=== PATIENT | female | born 2005 | race Caucasian/White ===

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

== ENCOUNTER 2025-04-06 19:00 | Outpatient (CLI) | payer BC, SELFPAY ==
[2025-04-06 19:23] VITALS: RESP 14; TEMP 36.9
[2025-04-06 19:24] VITALS: PULSE 83; O2SAT 97
[2025-04-06 19:29] VITALS: BMI 26.9
[2025-04-06 19:34] VITALS: BP 119/58; PULSE 76
[2025-04-06 19:36] LABS: Mucous, Urine 0 SEEN /hpf (<or=2+)
[2025-04-06 20:06] LABS: Color, Urine Straw (Yellow); Glucose, Dipstick Normal (Normal); Ketone-Dipstick Negative (Negative); Leukocyte Esterase-Dipstick Negative /ul (Negative); Nitrite-Dipstick Negative (Negative); Occult Blood-Urine 10 /ul (Negative); Protein-Dipstick 15 mg/dl (Negative); Specific Gravity, Urine 1.020 (1.002-1.030); Urine Bilirubin Dipstick Negative (Negative)
[2025-04-06 20:24] LABS: Red Blood Cells-Urine 0-5 SEEN /hpf (0-5); Squamous Epithelial Cells - UA 0-5 SEEN /hpf (5-10)
--- NOTE | 2025-04-06 20:32 | OB.TRI.NOTE ---
HPI - General General Date of Service: 04/06/25 HPI Narrative ABBE DIA, is a 19 F @ 25.6 weeks who presents with UTI symtpoms - burning with urination, lower abdominal cramping - symptoms have persisted x 2 days. denies Back pain or fevers. has h/o UTI in . PFSH PFSH Medical History Drug abuse Home Medications ?Medication ?Instructions ?Recorded ?Last Taken ?Type vit no.95-ferrous 1 tab PO DAILY pregnanc 04/06/25 04/05/25 History fumarate 28 mg-folic acid 800 mcg tablet () Allergy/AdvReac Type Severity Reaction Status Date / Time cucumber Allergy Hives Verified 04/06/25 19:30 Family History Father Alcoholism Anxiety Mother Anxiety Grandmother Arthritis Diabetes Myocardial infarction Heart disease High cholesterol Grandfather Arthritis Hypertension High cholesterol Uncle defect Social History Smoking Status: Current every day smoker tobacco type: e-cigarettes substance use type: former substance user Physical Exam Narrative Abd: gravid, non tender. Back> no CVA tenderness Const alert and oriented x3 NST FHR Rate Baby A Baseline: 145 Variability:: Moderate Accelerations:: 10 x 10 Decelerations:: None NST Reactive:: Yes FHR Category:: Category I Uterine Activity:: no ctx Assessment & Plan (1) UTI in : PLAN: Plan @ 25.6 weeks - UTI in Macrobid 100mg BID x 7 days- will give first dose here When to return to office or L&D d/w patient Increase PO fluids will send urine for culture.
== END 2025-04-06 20:35 | disposition home or self-care (01) ==
LOC: WPOUT 19:07 → WP 19:07
PROVIDERS: Referring Provider Obstetrics & Gynecology; Visit Provider Obstetrics & Gynecology
DX: O23.42 Unspecified infection of urinary tract in pregnancy, second trimester (principal); O99.332 Smoking (tobacco) complicating pregnancy, second trimester; F17.290 Nicotine dependence, other tobacco product, uncomplicated; Z87.440 Personal history of urinary (tract) infections; Z3A.25 25 weeks gestation of pregnancy
CPT/HCPCS: 59050; 81001; 87086; 87088; 99221; G0378

== ENCOUNTER 2025-06-29 20:02 | Outpatient (CLI) | payer BC, SELFPAY ==
--- OUTSIDE RECORDS SUMMARY | 2025-06-29 20:08 | XMS RPT_ITS | CCD ---
Author Organization [facility] CliniSynv Care Team Providers Care Supervisor Film Processing Name Role Phone CHANELL BRANTLEY Obdulia Unavailable Unavailable *SELF, REFERRED Unavailable Unavailable UNKNOWN, PCP Unavailable Unavailable Anne PA-C, Wendi Primary Care Provider Anne PA-C, Wendi Primary Care Provider Anne PA-C, Wedni Primary Care Provider Anne, PA Wendi Primary Care Provider Anne, PA Wendi Referring Provider SILVIA Ruth Attending Provider Anne PA-C, Wendi Primary Care Provider Anne, Wendi Primary Care Unavailable Smiley Sánchez Attending Unavailable Smiley Sánchez Referring Unavailable Anne, Wendi Primary Care Unavailable Bela Doe Attending Unavailable Elizabeth Mina Attending Unavailable Anne, Wendi Primary Care Unavailable Anne, Wendi Referring Unavailable Aurora Hutchison Attending Unavailable Anne, Wendi Primary Care Unavailable Elizabeth Mina Attending Unavailable Anne, Wendi Primary Care Unavailable Anne, Wendi Referring Unavailable Netenishat-Nikki Tucker Attending Unavail able Nesherice-Nikki Tucker Referring Unavail able Anne, Wendi Primary Care Unavailable Elizabeth Mina Attending Unavailable Elizabeth Mina Referring Unavailable Anne, Wendi Primary Care Unavailable Elizabeth Mina Attending Unavailable Elizabeth Mina Referring Unavailable Anne, Wendi Primary Care Unavailable WANDA MORALES Attending Unavailable ANNE, WENDI Primary Care Unavailable ANNE, WENDI Primary Care Unavailable GRETEL SÁNCHEZ Attending Unavailable WANDA MORALES Attending Unavailable ANNE, WENDI Primary Care Unavailable WANDA MORALES Referring Unavailable ANNE, WENDI Primary Care Unavailable WANDA MORALES Referring Unavailable ANNE, WENDI Primary Care Unavailable ANNE, WENDI Attending Unavailable ANNE, WENDI Primary Care Unavailable ANNE, WENDI Primary Care Unavailable SMILEY SÁNCHEZ Attending Unavailable ANNE, WENDI Primary Care Unavailable NIKKI ORTEGA Attending Unavail able ANNE, WENDI Primary Care Unavailable FRANDYT NIKKI TUCKER Attending Unavail able SELF Referring Unavailable ANNE, WENDI Primary Care Unavailable HAURY, LUIS Referring Unavailable ANNE, WENDI Primary Care Unavailable DEYSI SETH Attending Unavailable HAURY, LUIS Referring Unavailable ANNE, WENDI Primary Care Unavailable ANNE, WENDI Primary Care Unavailable ELLEN FOSTER Attending Unavailable HAURY, LUIS Referring Unavailable ANNE, WENDI Primary Care Unavailable SMILEY SÁNCHEZ Attending Unavailable ANNE, WENDI Primary Care Unavailable HAURY, LUIS Attending Unavailable SELF Referring Unavailable ANNE, WENDI Primary Care Unavailable HAURY, LUIS Referring Unavailable ANNE, WENDI Primary Care Unavailable Allergies Allergy Classification Reported Allergen(s) Allergy Type Date of Onset Reaction(s) Facility (20 sources) Seasonal allergy; Translations: [SEASONAL ALLERGIES] Propensity to adverse reactions 9 Other: See Comments [facility] (20 sources) [place] extract; Translations: [CUCUMBER] Drug Allergy 3 [facility] (1 source) [place] extract Drug Allergy 5 [facility] Repository Medications Current Medications Medication Drug Class(es) Dates Sig (Normalized) Sig (Original) amoxicillin 500 mg oral capsule (2 sources) Penicillin-class Antibacterial Start: 05-25-2024 End: 06-04-2024 take 1 capsule by mouth twice daily amoxicillin (AMOXIL) 500 mg capsule Indications: Strep throat Take 1 capsule by mouth two times a day for 10 days. 20 capsule 05/25/2024 06/04/2024 Active Start: 06-21-2022 End: 07-01-2022 take 1 capsule by mouth twice daily amoxicillin (POLYMOX, AMOXIL) 500 mg capsule Take 1 capsule by mouth twice daily for 10 days. 20 capsule 0 06/21/2022 07/01/2022 Active Comment on above: [facility]. azithromycin 500 mg oral tablet (3 sources) Macrolide Antimicrobial Start: take 1000 mg by mouth once Azithromycin Active 1000 MG PO ONCE 2 April 29, 2023 2:07pm Start: 04-29-2023 End: 04-29-2023 take 500 mg by mouth once Azithromycin Discontinued 50 0 MG PO ONCE 2 April 29, 2023 12:00am April 29, 2023 2:07pm Start: 05-05-2021 End: 05-10-2021 azithromycin (ZITHROMAX Z-PA K) 250 mg tablet Take 2 tablets day one, then, 1 tablet daily until gone. 6 tablet 05/05/2021 05/10/2021 dicyclomine hydrochloride 20 mg oral tablet (1 source) Anticholinergic Start: 10-22-2022 End: 10-29-2022 take 1 tablet by mouth three times daily dicyclomine (BENTYL) 20 mg tablet Take 1 tablet by mouth three times daily for 7 days. 21 tablet 0 10/22/2022 10/29/2022 Active Comment on above: Take 1 tablet by [facility] three times daily for 7 days. doxycycline monohydrate 100 mg oral capsule (3 sources) Tetracycline-class Drug Start: 04-01-2023 End: 04-08-2023 take 1 capsule by mouth twice daily doxycycline monohydrate (MONODOX) 100 mg capsule Take 1 capsule by mouth twice daily for 7 days. 14 capsule 0 04/01/2023 04/08/2023 Active Comment on above: [facility] daily for 7 days. fluconazole 150 mg oral tablet (2 sources) Azole Antifungal Start: 04-02-2023 End: 04-02-2023 fluconazole (DIFLUCAN) 150 mg tablet Take 1 tablet by mouth one time only for 1 dose. Repeat in 3 days as needed. 2 tablet 0 04/02/2023 04/02/2023 Active Start: 12-08-2022 End: 12-08-2022 fluconazole (DIFLUCAN) 150 m g tablet Take 1 tablet by mouth one time only for 1 dose. Repeat in 3 days as needed. 2 tablet 0 12/08/2022 12/08/2022 Comment on above: Take 1 tablet by [facility] one time only for 1 dose. Repeat in 3 days as needed. metroNIDAZOLE 500 mg oral tablet (8 sources) Nitroimidazole Antimicrobial Start: 05-04-20 End: 05-11-20 take 1 tablet by mouth twice daily metroNIDAZOLE (FLAGYL) 500 mg tablet Take 1 tablet by mouth two times a day for 7 days. 14 tablet 05/04/2024 05/11/2024 Active Start: 04-01-2023 End: 04-08-2023 take 1 tablet by mouth twice daily metroNIDAZOLE (FLAGYL) 500 mg tablet Take 1 tablet by mouth twice daily for 7 days. 14 tablet 0 04/01/2023 04/08/2023 Active Start: 12-08-2022 End: 12-15-2022 take 1 tablet by mouth twice daily metroNIDAZOLE (FLAGYL) 500 mg tablet Take 1 tablet by mouth twice daily for 7 days. 14 tablet 0 12/08/2022 12/15/2022 Active Start: 09-16-2022 End: 09-23-2022 take 1 tablet by mouth twice daily metroNIDAZOLE (FLAGYL) 500 mg tablet Indications: BV (bacterial vaginosis) Take 1 tablet by mouth twice daily for 7 days. 14 tablet 0 09/16/2022 09/23/2022 Active Comment on above: Take 1 tablet by [facility] twice daily for 7 days. nitrofurantoin, macrocrystals 25 mg / nitrofurantoin, monohydrate 75 mg oral capsule (5 sources) Nitrofuran Antibacterial Start: 04-06-20 End: 04-13-20 take 1 capsule by mouth twice daily nitrofurantoin monohydrate and macrocrystal (MACROBID) 100 mg capsule Take 1 capsule by mouth two times a day for 7 days. 14 capsule 04/06/2025 04/13/2025 Active Start: 05-03-2024 End: 05-08-2024 take 1 capsule by mouth twice daily nitrofurantoin monohydrate and macrocrystal (MACROBID) 100 mg capsule Take 1 capsule by mouth two times a day for 5 days. 10 capsule 05/03/2024 05/08/2024 Active predniSONE 10 mg oral tablet (1 source) Start: 07-04-2022 End: 07-13-2022 predniSONE (DELTASONE) 10 mg tablet Indications: Sore throat Take 4 tabs daily for 3 days, then 2 tabs daily for 3 days, then 1 tab daily for 3 days with food. 21 tablet 0 07/04/2022 07/13/2022 Active Comment on above: Take 4 tabs daily fo r 3 days, then 2 tabs daily for 3 days, then 1 tab daily for 3 days with food. [id number] FUM,[id number] ORAL (15 sources) [id number] FUM,[id number] ORAL Take by mouth. Active Completed/Discontinued Medications Medication Drug Class(es) Dates Sig (Normalized) Sig (Original) [id number] 200 actuat albuterol 0.09 mg/actuat metered dose inhaler (1 source) beta2-Adrenergic Agonist Start: 05-05-2021 End: 01-12-2022 take 2 puff(s) by inhalation every six hours as needed albuterol HFA (PROAIR HFA) 90 mcg/actuation inhaler Inhale 2 Puffs as instructed every 6 hours as needed. 1 Each 05/05/2021 01/12/2022 Discontinued aspirin 81 mg delayed release oral tablet (8 sources) Platelet Aggregation Inhibitor, Nonsteroidal Anti-inflammatory Drug Start: 12-13-2024 End: 02-11-2025 take 1 tablet by mouth once daily aspirin, enteric coated (ECOTRIN LOW STRENGTH) 81 mg EC tablet Indications: with uncertain dates in first trimester (HCC) Take 1 tablet by mouth once daily. 90 tablet 3 12/13/2024 02/11/2025 Discontinued (Course of therapy completed) brompheniramine maleate 0.4 mg/ml / dextromethorphan hydrobromide 2 mg/ml / pseudoephedrine hydrochloride 6 mg/ml oral solution (2 sources) alpha-Adrenergic Agonist, Uncompetitive F-vydsgt-T-aspartat e Receptor Antagonist, Sigma-1 Agonist Start: 01-09-2022 End: 05-08-2022 take 10 mL by mouth every four to six hours Brompheniramine-P seudoeph-DM 2-30-10 mg/5 mL syrup TAKE 10 ML BY MOUTH EVERY 4 TO 6 HOURS FOR 5 DAYS 0 01/09/2022 05/08/2022 Discontinued Comment on above: TAKE 10 ML BY MOUTH EVERY 4 TO 6 HOURS FOR 5 DAYS busPIRone hydrochloride 10 mg oral tablet (1 source) Start: 06-05-2023 End: 01-28-2024 take 1 tablet by mouth three times daily busPIRone (BUSPAR) 10 mg tablet Indications: Generalized anxiety disorder Take 1 tablet by mouth three times a day. 90 tablet 1 06/05/2023 01/28/2024 Discontinued cephalexin 500 mg oral capsule (2 sources) Cephalosporin Antibacterial Start: 02-14-2025 End: 02-21-2025 take 1 capsule by mouth twice daily cephALEXin (KEFLEX) 500 mg capsule Indications: Acute UTI Take 1 capsule by mouth two times a day for 7 days. 14 capsule 02/14/2025 02/21/2025 doxylamine succinate 25 mg oral tablet (12 sources) Start: 11-25-2024 End: 03-18-2025 take 1 tablet by mouth once daily at bedtime doxylamine (UNISOM, DOXYLAMINE,) 25 mg tab Take 1 tablet by mouth daily at bedtime. 32 tablet 1 11/25/2024 03/18/2025 Discontinued escitalopram 10 mg oral tablet (7 sources) Serotonin Reuptake Inhibitor Start: 09-13-2022 End: 10-10-2022 take 1 tablet by mouth once daily escitalopram oxalate (LEXAPRO) 10 mg tablet Take 1 tablet by mouth once daily. 7 tablet 0 10/09/2022 10/10/2022 Discontinued End: 09-13-2022 take 5 mg by mouth once daily, then take 5 mg by mouth once daily escitalopram oxalate (LEXAPRO) 10 mg tablet Take 5 mg by mouth once daily. Take 5 mg tablet once daily 0 09/13/2022 Discontinued Comment on above: Take 1 tablet by [facility] once daily. Take 5 mg by mouth o nce daily. Take 5 mg tablet once daily FLUoxetine 20 mg oral capsule (7 sources) Serotonin Reuptake Inhibitor Start: 06-26-2022 End: 12-20-2022 Fluoxetine Discontinued 20 MG DAILY August 11, 2022 1:00am December 20, 2022 2:46pm Start: 06-05-2022 take 1 capsule by mo [facility] once daily FLUoxetine (PROZAC) 10 mg capsule Take 1 capsule by mouth once daily. 30 capsule 0 06/05/2022 Active Comment on above: Take 1 capsule by mo [facility] once daily. hydrOXYzine hydrochloride 50 mg oral tablet (11 sources) Antihistamine Start: 12-21-19 End: 04-25-20 take 50 mg by mouth twice daily Hydroxyzine Hcl Discontinued 50 MG PO TWICE A DAY December 20, 2022 12:00am April 25, 2023 12:03pm Start: 12-19-2022 End: 04-02-2023 take 1 tablet by mouth three times daily as needed for anxiety hydrOXYzine HCl (ATARAX) 50 mg tablet Indications: Severe episode of recurrent major depressive disorder, without psychotic features (HCC) , Generalized anxiety disorder Take 1 tablet by mouth three times daily as needed for anxiety. 90 tablet 1 12/19/2022 04/02/2023 Discontinued Start: 10-10-2022 End: 11-07-2022 take 1 tablet by mouth three times daily as needed for anxiety hydrOXYzine HCl (ATARAX) 25 mg tablet Indications: Severe episode of recurrent major depressive disorder, without psychotic features (HCC) , Generalized anxiety disorder Take 1 tablet by mouth three times daily as needed for anxiety. 90 tablet 0 11/07/2022 Active Comment on above: [facility] for anxiety. Iron Carbonyl (9 sources) End: 12-13-2024 iron,carbonyl (IRON CHEWS ORAL) Take by mouth once daily. 12/13/2024 Discontinued iron,carbonyl (I LG CHEWS ORAL) Take by mouth once daily. Active iron,carbonyl (I LG CHEWS ORAL) Take by mouth once daily. 0 Active lidocaine hydrochloride 20 mg/ml mucous membrane topical solution (4 sources) Antiarrhythmic, Amide Local Anesthetic Start: 07-04-2022 End: 09-13-2022 LIDOCAINE VISCOUS 2 % solution Indications: Sore throat Take 5-10 mL by mouth three times daily as needed. 100 mL 2 07/04/2022 09/13/2022 Discontinued Comment on above: Take 5-10 mL by mout h three times daily as needed. miconazole nitrate 200 mg vaginal insert (1 source) Azole Antifungal Start: 02-15-2025 End: 02-18-2025 miconazole nitrate (MONISTAT) 200 mg vaginal suppository Use 1 suppository vaginally daily at bedtime for 3 days. 3 suppository 02/15/2025 02/18/2025 ondansetron 4 mg oral tablet (20 sources) Serotonin-3 Receptor Antagonist Start: 11-25-2024 End: 03-18-2025 take 1 tablet by mouth every eight hours as needed ondansetron (ZOFRAN) 4 mg tablet Take 1 tablet by mouth every 8 hours as needed for nausea/vomiting. 60 tablet 1 11/25/2024 03/18/2025 Discontinued Start: 10-22-2022 End: 04-02-2023 take 1 tablet by mouth every eight hours as needed ondansetron orally disintegrating (ZOFRAN ODT) 4 mg disintegrating tablet Take 1 tablet by mouth every 8 hours as needed. 12 tablet 0 10/22/2022 04/02/2023 Discontinued Comment on above: Take 1 tablet by [facility] every 8 hours as needed. sertraline 25 mg oral tablet (2 sources) Serotonin Reuptake Inhibitor Start: 05-08-20 sertraline (ZOLOFT) 25 mg tablet Take 1/2 tablet once daily x 7 days, then 1 tablet once daily 30 tablet 0 05/08/2022 Active Comment on above: Take 1/2 tablet once daily x 7 days, then 1 tablet once daily 24 hr venlafaxine 37.5 mg extended release oral capsule (13 sources) Serotonin and Norepinephrine Reuptake Inhibitor Start: 06-05-20 End: 01-28-20 take 1 capsule by mouth once daily, then take 2 capsules by mouth once daily venlafaxine ER (EFFEXOR XR) 37.5 mg 24 hr capsule Indications: Severe episode of recurrent major depressive disorder, without psychotic features (HCC) , Generalized anxiety disorder Take 1 capsule by mouth once daily for 14 days, THEN 2 capsules once daily. 60 capsule 1 06/05/2023 01/28/2024 Discontinued Start: 12-19-2022 End: 04-25-2023 take 1 capsule by mouth once daily Venlafaxine (Effexor Xr) 75 mg capsule,extended release 24hr Discontinued MG PO DAILY December 20, 2022 12:00am April 25, 2023 12:03pm Start: 11-07-2022 take 1 capsule by mo [facility] once daily venlafaxine ER (EFFEXOR XR) 75 mg 24 hr capsule Indications: Severe episode of recurrent major depressive disorder, without psychotic features (HCC) , Generalized anxiety disorder Take 1 capsule by mouth once daily. 30 capsule 1 11/07/2022 Active Start: 10-10-2022 End: 11-07-2022 take 1 capsule by mouth once daily venlafaxine ER (EFFEXOR XR) 37.5 mg 24 hr capsule Indications: Severe episode of recurrent major depressive disorder, without psychotic features (HCC) , Generalized anxiety disorder Take 1 capsule by mouth once daily. 30 capsule 0 10/10/2022 11/07/2022 Discontinued Comment on above: Take 1 capsule by mo [facility] once daily. vitamin b6 50 mg oral tablet (8 sources) Start: 11-25-2024 End: 02-11-2025 take 1 tablet by mouth twice daily pyridoxine, vitamin B6, (VITAMIN B-6) 50 mg tablet Take 1 tablet by mouth two times a day. 100 tablet 2 11/25/2024 02/11/2025 Discontinued (Course of therapy completed) Problems Active Problems Problem Classification Problem Date Documented Da te Episodic/Chronic Abdominal pain (5 sources) Finding of sensation of abdomen; Translations: [Unspecified abdominal pain] Onset: 04-06-2025 Episodic Anxiety disorders (20 sources) Severe anxiety (panic); Translations: [Anxiety disorder, unspecified] Onset: 05-08-2022 Chronic Bacterial infection; unspecified site (1 source) Chlamydial infection; Translations: [Chlamydial infection, unspecified] 04-29-2023 Episodic Cardiac dysrhythmias (2 sources) Palpitations; Translations: [Palpitations] 02-02-2024 Episodic Conditions associated with dizziness or vertigo (3 sources) Dizziness; Translations: [Dizziness and giddiness] 01-28-2024 Episodic Diabetes or abnormal glucose tolerance complicating ; childbirth; or the puerperium (1 source) Abnormal glucose complicating ; Translations: [Abnormal glucose complicating (HCC)] Onset: 04-29-2025 Episodic E Codes: Natural/environment (2 sources) Dog bite - wound; Translations: [Bitten by dog, initial encounter] 06-14-2021 Episodic Genitourinary symptoms and ill-defined conditions (8 sources) Dysuria; Translations: [Dysuria] Onset: 04-06-2025 3 Episodic Inflammatory diseases of female pelvic organs (1 source) Bacterial vaginosis; Translations: [Acute vaginitis] Episodic Malaise and fatigue (1 source) Malaise and fatigue; Translations: [Other malaise] Episodic Menstrual disorders (1 source) Irregular menstruation, unspecified; Translations: [Irregular menstruation, unspecified] Onset: 10-06-2024 Chronic Mood disorders (20 sources) Major depressive disorder; Translations: [Major depressive disorder, single episode, unspecified] Onset: 05-08-2022 Chronic Mood disorders (1 source) Mood disorders; Translations: [Depression, unspecified] Onset: 08-25-2024 Mycoses (1 source) Candidiasis of vagina; Translations: [Vaginal candidiasis] 02-15-2025 Episodic Other complications of (17 sources) High risk ; Translations: [Supervision of high risk , unspecified, first trimester] Onset: 12-13-2024 12-13-2024 Episodic Other complications of (1 source) Supervision of high risk , unspecified, third trimester; Translations: [Supervision of high risk in third trimester (HCC)] Onset: 05-13-2025 Episodic Other complications of (1 source) Supervision of high risk , unspecified, second trimester; Translations: [Supervision of high risk in second trimester (HCC)] Onset: 03-18-2025 Episodic Other diseases of bladder and urethra (1 source) Urethritis; Translations: [Other specified disorders of urethra] 02-14-2025 Episodic Other female genital disorders (1 source) Pruritus of vagina; Translations: [Other specified noninflammatory disorders of vagina] Episodic Other female genital disorders (2 sources) Vaginal discharge; Translations: [Other specified noninflammatory disorders of vagina] Episodic Other female genital disorders (1 source) Vaginal discomfort; Translations: [Unspecified condition associated with female genital organs and menstrual cycle] 05-03-2024 Episodic Other female genital disorders (1 source) Other specified conditions associated with female genital organs and menstrual cycle; Translations: [Vaginal burning] Onset: 05-13-2025 Episodic Other gastrointestinal disorders (1 source) Constipation alternates with diarrhea; Translations: [Other specified symptoms and signs involving the digestive system and abdomen] Episodic Other lower respiratory disease (1 source) Cough; Translations: [Cough] 05-07-2021 Episodic Other screening for suspected conditions (not mental disorders or infectious disease) (4 sources) Raised TSH level; Translations: [Other specified abnormal findings of blood chemistry] Onset: 03-18-2025 Episodic Other upper respiratory infections (6 sources) Sore throat symptom; Translations: [Acute pharyngitis, unspecified] Episodic Residual codes; unclassified (1 source) Gestation period, 9 weeks; Translations: [9 weeks gestation of ] 12-13-2024 Episodic Residual codes; unclassified (1 source) Gestation period, 13 weeks; Translations: [13 weeks gestation of ] 01-12-2025 Episodic Residual codes; unclassified (1 source) Gestation period, 18 weeks; Translations: [18 weeks gestation of ] 02-11-2025 Episodic Residual codes; unclassified (1 source) Gestation period, 23 weeks; Translations: [23 weeks gestation of ] 03-18-2025 Episodic Residual codes; unclassified (1 source) Gestation period, 27 weeks; Translations: [27 weeks gestation of ] 04-15-2025 Episodic Residual codes; unclassified (1 source) 35 weeks gestation of ; Translations: [35 weeks gestation of (HCC)] Onset: 06-14-2025 Episodic Residual codes; unclassified (1 source) 31 weeks gestation of ; Translations: [31 weeks gestation of (HCC)] Onset: 05-13-2025 Episodic Residual codes; unclassified (1 source) 27 weeks gestation of ; Translations: [27 weeks gestation of (HCC)] Onset: 04-15-2025 Episodic Residual codes; unclassified (1 source) 23 weeks gestation of ; Translations: [23 weeks gestation of (HCC)] Onset: 03-18-2025 Episodic Substance-related disorders (20 sources) Psychoactive substance abuse; Translations: [Other stimulant abuse, uncomplicated] Onset: 10-10-2022 Chronic Suicide and intentional self-inflicted injury (3 sources) Suicidal thoughts; Translations: [Suicidal ideations] 08-20-2022 Episodic Syncope (3 sources) Syncope; Translations: [Syncope and collapse] 01-28-2024 Episodic Unclassified (1 source) NO SHOW 03-20-2023 Unclassified (15 sources) [facility] Education - COMMON Onset: 12-13-2024 12-13-2024 Unclassified (15 sources) Education - [place] Onset: 12-13-2024 12-13-2024 Unclassified (1 source) History of suicide attempt; Translations: [History of suicide attempt] Onset: 12-13-2024 Unclassified (1 source) Financial insecurity; Translations: [Financial insecurity] Onset: 12-13-2024 Unclassified (1 source) History of drug use; Translations: [History of drug use] Onset: 12-13-2024 Past or Other Problems Problem Classification Problem Date Documented Da te Episodic/Chronic Administrative/social admission (20 sources) Inadequate material resources; Translations: [Financial insecurity] Onset: 12-13-2024 12-13-2024 Episodic Hemorrhage during ; abruptio placenta; placenta previa (3 sources) Antepartum hemorrhage, unspecified, unspecified trimester; Translations: [Threatened ] Onset: 11-25-2024 Episodic Immunizations and screening for infectious disease (10 sources) Requires rabies vaccination course; Translations: [Encounter for immunization] Onset: 09-14-2024 Episodic Other complications of (17 sources) Vomiting of , unspecified; Translations: [Unspecified vomiting of , unspecified as to episode of care or not applicable] Onset: 12-13-2024 12-13-2024 Episodic Other complications of (18 sources) Smoking (tobacco) complicating , unspecified trimester; Translations: [Tobacco use disorder complicating , childbirth, or the puerperium, unspecified as to episode of care or not applicable] Onset: 12-13-2024 12-13-2024 Episodic Other complications of (19 sources) Other mental disorders complicating , unspecified trimester; Translations: [Mental disorders of mother, antepartum condition or complication] Onset: 12-13-2024 12-13-2024 Episodic Other complications of (17 sources) Diseases of the digestive system complicating , first trimester; Translations: [Other current conditions classifiable elsewhere of mother, antepartum condition or complication] Onset: 12-13-2024 12-13-2024 Episodic Other complications of (15 sources) Complication occurring during ; Translations: [ complication before ] Onset: 12-13-2024 12-13-2024 Episodic Other complications of (1 source) Supervision of high risk , unspecified, first trimester; Translations: [Encounter for supervision of high risk in first trimester, antepartum (HCC)] Onset: 12-13-2024 Episodic Other congenital anomalies (20 sources) Congenital vascular nevus; 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)] Onset: 12-13-2024 Episodic Other and delivery including normal (6 sources) with uncertain dates; Translations: [Encounter for supervision of normal , unspecified, first trimester] Onset: 02-11-2025 12-13-2024 Episodic Residual codes; unclassified (1 source) 18 weeks gestation of ; Translations: [18 weeks gestation of ([facility])] Onset: 02-11-2025 Episodic Residual codes; unclassified (1 source) 9 weeks gestation of ; Translations: [9 weeks gestation of ([facility])] Onset: 12-13-2024 Episodic Screening and history of mental health and substance abuse codes (20 sources) History of post-traumatic stress disorder;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 men Type: SWAB Ordering Facility: [facility] Address: [address] [place] [address] Performed By: #### T RVAMP, 46719-6 #### [facility] CLIA [id number] [address] [place], [place] [address] [address] [place] Basophils/100 WBC (Bld) 0.2 % Normal C [facility] Comment on above: Order Comment: Speci men Type: SWAB Ordering Facility: [facility] Address: [address] [place] [address] Performed By: #### T RVAMP, 60349-7 #### [facility] CLIA [id number] [address] [place] [address] [place] Differential cell count method Nom (Bld) Auto Normal [facility] Comment on above: Order Comment: Speci men Type: SWAB Ordering Facility: [facility] Address: [address] [place] [address] Performed By: #### T RVAMP, 65025-4 #### [facility] CLIA [id number] [address] [place] [address] [place] Eosinophils (Bld) [#/Vol] 0.08 10*3/uL Normal <0.46 [facility] Comment on above: Order Comment: Speci men Type: SWAB Ordering Facility: [facility] Address: [address] [place] [address] Performed By: #### T RVAMP, 03687-4 #### [facility] CLIA [id number] [address] [place] [address] [place] Eosinophils/100 WBC (Bld) 0.9 % Normal [facility] Comment on above: Order Comment: Speci men Type: SWAB Ordering Facility: [facility] Address: [address] [place] [address] Performed By: #### T RVAMP, 99605-8 #### [facility] CLIA [id number] [address] [place] [address] [place] Erythrocyte distribution width (RBC) [Ratio] 12.2 % Normal 11.5-15.0 [facility] Comment on above: Order Comment: Speci men Type: SWAB Ordering Facility: [facility] Address: [address] [place] [address] Performed By: #### T RVAMP, 46340-5 #### [facility] CLIA [id number] [address] [place] [address] [place] Hematocrit (Bld) [Volume fraction] 32.3 % Low 36.0-46.0 [facility] Comment on above: Order Comment: Speci men Type: SWAB Ordering Facility: [facility] Address: [address] [place] [address] Performed By: #### T RVAMP, 40759-8 #### [facility] CLIA [id number] [address] [place] [address] [place] Hemoglobin (Bld) [Mass/Vol] 11.3 g/dL Low 11.5-15.5 [facility] Comment on above: Order Comment: Speci men Type: SWAB Ordering Facility: [facility] Address: [address] [place] [address] Performed By: #### T RVAMP, 38319-1 #### [facility] CLIA [id number] [address] [place] [address] [place] Immature granulocytes (Bld) [#/Vol] 10*3/uL Normal <0.10 [facility] Comment on above: Order Comment: Speci men Type: SWAB Ordering Facility: [facility] Address: [address] [place] [address] Performed By: #### T RVAMP, 39484-8 #### [facility] CLIA [id number] [address] [place] [address] [place] Immature granulocytes/100 WBC (Bld) 0.1 % Normal [facility] Comment on above: Order Comment: Speci men Type: SWAB Ordering Facility: [facility] Address: [address] [place] [address] Performed By: #### T RVAMP, 27977-5 #### [facility] CLIA [id number] [address] [place] [address] [place] Lymphocytes (Bld) [#/Vol] 1.92 10*3/uL Normal 1.00-4.00 [facility] Comment on above: Order Comment: Speci men Type: SWAB Ordering Facility: [facility] Address: [address] [place] [address] Performed By: #### T RVAMP, 81429-4 #### [facility] CLIA [id number] [address] [place] [address] [place] Lymphocytes/100 WBC (Bld) 20.7 % Normal [facility] Comment on above: Order Comment: Speci men Type: SWAB Ordering Facility: [facility] Address: [address] [place] [address] Performed By: #### T RVAMP, 69560-1 #### [facility] CLIA [id number] [address] [place] [address] [place] MCH (RBC) [Entitic mass] 32.1 pg Normal 26.0-34.0 [facility] Comment on above: Order Comment: Speci men Type: SWAB Ordering Facility: [facility] Address: [address] [place] [address] Performed By: #### T RVAMP, 61799-7 #### [facility] CLIA [id number] [address] [place] [address] [place] MCHC (RBC) [Mass/Vol] 35.0 g/dL Normal 30.5-36.0 [facility] Comment on above: Order Comment: Speci men Type: SWAB Ordering Facility: [facility] Address: [address] [place] [address] Performed By: #### T RVAMP, 49058-4 #### [facility] CLIA [id number] [address] [place] [address] [place] MCV (RBC) [Entitic vol] 91.8 fL Normal 80.0-100.0 C [facility] Comment on above: Order Comment: Speci men Type: SWAB Ordering Facility: [facility] Address: [address] [place] [address] Performed By: #### T RVAMP, 98792-5 #### [facility] CLIA [id number] [address] [place] [address] [place] Monocytes (Bld) [#/Vol] 0.48 10*3/uL Normal <0.87 [facility] Comment on above: Order Comment: Speci men Type: SWAB Ordering Facility: [facility] Address: [address] [place] [address] Performed By: #### T RVAMP, 89491-0 #### [facility] CLIA [id number] [address] [place] [address] [place] Monocytes/100 WBC (Bld) 5.2 % Normal [facility] Comment on above: Order Comment: Speci men Type: SWAB Ordering Facility: [facility] Address: [address] [place] [address] Performed By: #### T RVAMP, 28836-2 #### [facility] CLIA [id number] [address] [place] [address] [place] Neutrophils (Bld) [#/Vol] 6.77 10*3/uL Normal 1.45-7.50 [facility] Comment on above: Order Comment: Speci men Type: SWAB Ordering Facility: [facility] Address: [address] [place] [address] Performed By: #### T RVAMP, 01244-0 #### [facility] CLIA [id number] [address] [place] [address] [place] Neutrophils/100 WBC (Bld) 72.9 % Normal [facility] Comment on above: Order Comment: Speci men Type: SWAB Ordering Facility: [facility] Address: [address] [place] [address] Performed By: #### T RVAMP, 66509-8 #### [facility] CLIA [id number] [address] [place] [address] [place] Nucleated RBC (Bld) [#/Vol] 10*3/uL Normal <0.01 [facility] Comment on above: Order Comment: Speci men Type: SWAB Ordering Facility: [facility] Address: [address] [place] [address] Performed By: #### T RVAMP, 83803-1 #### [facility] CLIA [id number] [address] [place] [address] [place] Nucleated RBC/100 WBC (Bld) [Ratio] 0.0 /100 WBC Normal [facility] Comment on above: Order Comment: Speci men Type: SWAB Ordering Facility: [facility] Address: [address] [place] [address] Performed By: #### T RVAMP, 00150-6 #### [facility] CLIA [id number] [address] [place] [address] [place] Platelet mean volume (Bld) [Entitic vol] 9.7 fL Normal 9.0-12.7 [facility] Comment on above: Order Comment: Speci men Type: SWAB Ordering Facility: [facility] Address: [address] [place] [address] Performed By: #### T RVAMP, 18181-5 #### [facility] CLIA [id number] [address] [place] [address] [place] Platelets (Bld) [#/Vol] 234 10*3/uL Normal 150-400 [facility] Comment on above: Order Comment: Speci men Type: SWAB Ordering Facility: [facility] Address: [address] [place] [address] Performed By: #### T RVAMP, 91592-3 #### [facility] CLIA [id number] [address] [place] [address] [place] RBC (Bld) [#/Vol] 3.52 10*6/uL Low 3.90-5.20 [facility] Comment on above: Order Comment: Speci men Type: SWAB Ordering Facility: [facility] Address: [address] [place] [address] Performed By: #### T RVAMP, 08972-0 #### [facility] CLIA [id number] [address] [place] [address] [place] WBC (Bld) [#/Vol] 9.28 10*3/uL Normal 3.70-11.00 [facility] Comment on above: Order Comment: Speci men Type: SWAB Ordering Facility: [facility] Address: [address] [place] [address] Performed By: #### T RVAMP, 12892-7 #### [facility] CLIA [id number] [address] [place] [address] [place] Examination level ultrasound on 01-12-2025 Radiology Study observation (narrative) [facility] HBV surface Ag Ser Qlon 01-02 HBV surface Ag Ql (S) Negative Normal Negative [facility] Comment on above: Order Comment: Speci men Type: BLOOD SPECIMENOrdering Facility: [facility] Address: [address] [place] [address] Performed By: #### 5 195-3, 15654-1, 77503-6 ####[facility] [id number] [address] [place] HCV Ab Ser Qlon 01-12-2025 HCV Ab Ql (S) Negative Normal Negative [facility] Comment on above: Order Comment: Speci men Type: BLOOD SPECIMENOrdering Facility: [facility] Address: [address] [place] [address] Result Comment: The result suggests no evidence of infection with Hepatitis C virus. Should recent infection be suspected, repeat testing may be considered 4-6 weeks after this draw. Performed By: #### 1 6128-1 ####[facility] [id number] [place] [address] [place] HIV 1+2 Ab IA Qlon HIV 1 and 2 Ab IA.rapid Nom (S/P/Bld) Normal [facility] Comment on above: Order Comment: Speci men Type: BLOOD SPECIMENOrdering Facility: [facility] Address: [address] [place] [address] Result Comment: Test not indicated. Performed By: #### 5 195-3, 21908-5, 19744-6 ####[facility] [id number] [place] [address] [place] HIV 1+2 Ab+HIV1 p24 Ag IA Ql Non-Reactive Normal Nonreactive [facility] Comment on above: Order Comment: Speci men Type: BLOOD SPECIMENOrdering Facility: [facility] Address: [address] [place] [address] Performed By: #### 5 195-3, 66132-7, 43465-0 ####[facility] [id number] [place] [address] [place] HIV immunoassay testing algorithm interpretation (S/P/Bld) [Interp] Normal [facility] Comment on above: Order Comment: Speci men Type: BLOOD SPECIMENOrdering Facility: [facility] Address: [address] [place] [address] Result Comment: No e vidence of HIV-1 or HIV-2 infection. Should recent infection be suspected, repeat testing may be considered 2-3 weeks after this draw. [place] Rev. Code 3701.243(E): This information has been disclosed to you from confidential records protected from disclosure by state law. You shall make no further disclosure of this information without the specific, written, and informed release of the individual to whom it pertains or as otherwise permitted by state law. A general authorization for the release of medical or other information is not sufficient for the purpose of the release of HIV test results or diagnoses. Performed By: #### 5 195-3, 64786-1, 82982-1 ####[facility] [id number] [place] [address] [place] HbA1c (Bld)on 01-12-2025 Average glucose Estimated from glycated hemoglobin (Bld) [Mass/Vol] 91 mg/dL Normal [facility] Comment on above: Order Comment: Speci men Type: SWAB Ordering Facility: [facility] Address: [address] [place] [address] Result Comment: eAG: (Estimated average glucose) is a calculated value from HgbA1c and is regional sales representative of the average blood glucose level in the last 2-3 month period. Performed By: #### T RVAMP, 95768-3 #### [facility] CLIA [id number] [address] [place] [address] [place] HbA1c (Bld) [Mass fraction] 4.8 % Normal 4.3-5.6 [facility] Comment on above: Order Comment: Speci [facility] Type: SWAB Ordering Facility: [facility] Address: [address] [place] [address] Result Comment: [place] Diabetes Association guidelines indicate that patients with HgbA1c in the range 5.7-6.4% are at increased risk for development of diabetes, and intervention by lifestyle modification may be beneficial. HgbA1c greater or equal to 6.5% is considered diagnostic of diabetes. Performed By: #### T RVAMP, 15713-5 #### [facility] CLIA [id number] [address] [place] [address] [place] RUBELLA IGG ANTIBODYon 01-12 RUBELLA IGG AB, QUAL Positive Normal Positive [facility] Comment on above: Order Comment: Speci [facility] Type: BLOOD SPECIMEN Ordering Facility: [facility] Address: [address] [place] [address] Result Comment: The result suggests recent or past exposure to Rubella virus or history of Rubella vaccination. Positive result may also be seen due to presence of passively-transferred antibodies. Please correlate with patient's history. Performed By: #### R UBIGG #### [facility] CLIA [id number] [address] [place] [address] [place] Reagin and Treponema pallidu m IgG and IgM [Interp]on 01-12-2025 T. pallidum IgG+IgM IA Ql (S) Non-Reactive Normal Nonreactive [facility] Comment on above: Order Comment: Speci men Type: BLOOD SPECIMENOrdering Facility: [facility] Address: [address] [place] [address] Performed By: #### 5 195-3, 38165-6, 82517-9 ####[facility] [id number] [place] [address] [place] Reagin+T pallidum IgG+IgM Se rPl-Impon 01-12-2025 Reagin and Treponema pallidum IgG and IgM [Interp] Cannot exclude recent Treponemal infection if specimen collected within 7-10 days after appearance of suspect lesions or 2-3 weeks after an exposure. Clinical correlation is required. Normal [facility] Comment on above: Order Comment: Speci men Type: BLOOD SPECIMENOrdering Facility: [facility] Address: [address] [place] [address] Performed By: #### 5 195-3, 21644-1, 02233-2 ####[facility] [id number] [place] [address] [place] TYPE + SCREEN PRENATALon ABO O Normal [facility] Comment on above: Order Comment: Speci men Type: BLOOD SPECIMEN Ordering Facility: [facility] Address: [address] [place] [address] Performed By: #### R UBIGG #### [facility] CLIA [id number] [address] [place] [address] [place] Rh Nom (Bld) Positive Normal [facility] Comment on above: Order Comment: Speci men Type: BLOOD SPECIMEN Ordering Facility: [facility] Address: [address] [place] [address] Performed By: #### R UBIGG #### [facility] CLIA [id number] [address] [place] [address] [place] TYPE AND SCREEN EXPIRATION 01/15/2025 23:59 Normal [facility] Comment on above: Order Comment: Speci men Type: BLOOD SPECIMEN Ordering Facility: [facility] Address: [address] [place] [address] Performed By: #### R UBIGG #### [facility] CLIA [id number] [address] [place] [address] [place] CNCOon 12-14-2024 CNCO Letter Text Normal [facility] Bacteria Ur Culton Bacteria identified Cx Nom (U) ORGANISM ID: 1 <10,000 CFU/ml Normal urogenital michelle Normal [facility] Comment on above: Performed By: #### 6 30-4 ####[facility] LABCLIA [id number] [address] OF [place] C. trachomatis+N. gonorrhoea e DNA SHELBY+probe Ql (Unsp spec)on 12-13-2024 C. trachomatis rRNA SHELBY+probe Ql (Unsp spec) Not detected Normal Not detected [facility] Comment on above: Order Comment: Speci men Type: SWAB Ordering Facility: [facility] Address: [address] [place] [address] Performed By: #### T RVAMP, 54581-4 #### [facility] CLIA [id number] [address] [place] [address] OF ALE N. gonorrhoeae rRNA SHELBY+probe Ql (Unsp spec) Not detected Normal Not detected [facility] Comment on above: Order Comment: Speci men Type: SWAB Ordering Facility: [facility] Address: [address] [place] [address] Performed By: #### T RVAMP, 40503-5 #### [facility] CLIA [id number] [address] [place] [address] [place] CNPCarlyn 12-13-2024 LISBETHN Telephone (ALEJOParminder) ABBE FAUSTIN ([id number]) 5 F Date Time Provider Department 12/13/24 BRYNN FRASER During your visit today, we recorded the following information about you: Brynn Fraser, [facility] 12/13/2024 2:26 PM Signed Fior left message for patient to return Sw call in regards to financial assistance needs per consult. Brynn Fraser, [facility] 12/16/2024 11:14 AM Signed Fior received message back from patient requesting return call. Sw called patient and left message for patient to return Sw call. Brynn Fraser, [facility] 12/16/2024 11:41 AM Signed Fior spoke with patient and she would like copies of Medicaid-JFS application and WIC application. This Sw noted that she would work on sending out applications to patient home. Sw will also see about community resource guide for info such as [employer], Care Center. Allergies As of Date: 12/13/2024 Noted Allergy Reaction CUCUMBER 08/11/2022 2 - Rash SEASONAL ALLERGIES 01/04/2019 14 - Other: See Comments Comments: Nasal congestion Date Reviewed: 12/13/2024 Reviewed by: Luis Carrasco APRN.CAREER TECHNICAL SUPERVISOR - Fully Assessed Prescriptions as of 12/20/2024 - aspirin, enteric coated (ECOTRIN LOW STRENGTH) 81 mg EC tablet Take 1 tablet by mouth once daily. - UTARGQ39-DHSF FUM,JQ-XTBXH-TAD ORAL Take by mouth. - pyridoxine, vitamin B6, (VITAMIN B-6) 50 mg tablet Take 1 tablet by mouth two times a day. - doxylamine (UNISOM, DOXYLAMINE,) 25 mg tab Take 1 tablet by mouth daily at bedtime. - ondansetron (ZOFRAN) 4 mg tablet Take 1 tablet by mouth every 8 hours as needed for nausea/vomiting. 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 Nausea and vomiting during (HCC) [O21*12/13/2024 History of drug use [F19.91] 12/13/2024 Financial insecurity [Z59.86] 12/13/2024 Marijuana use during (HCC) [O99.320, *12/13/2024 Encounter for supervision of high risk pregnanc*12/13/2024 [employer]Power [O99.891] 12/13/2024 Encounter Status:Closed by BRYNN FRASER on 12/20/24 [facility] POC VICE PRESIDENT OF CONSULTING SERVICES ULTRASOUNDon 12-14-19 Indication Viability; confirm cardiac activity Impression Single intrauterine gestational sac, CRL is appropriate for clinical dates, corresponding to NEMESIO 07/14/2025 cardiac activity is visualized Recommendations Follow up for 1st Trimester Anatomy with Nuchal Translucency as clinically indicated if desired. Method Transabdominal ultrasound examination, Transvaginal ultrasound examination. View: Adequate visualization Smith . Number of embryos: 1 Dating LMP on: 10/07/2024 GA by LMP 9 w + 4 d NEMESIO by LMP: 07/14/2025 Ultrasound examination on: 12/13/2024 GA by U/S based upon: CRL GA by U/S 8 w + 4 d NEMESIO by U/S: 07/21/2025 Assigned: based on the LMP, selected on 12/13/2024 Assigned GA 9 w + 4 d Assigned NEMESIO: 07/14/2025 Biometry Standard FHR 165 bpm CRL 19.6 mm 8w 4d <1% Hadlock Assessment Gestational sac: visualized Location: intrauterine Yolk sac: visualized Embryo: visualized CRL 19.6 mm 8w 4d <1% Hadlock Cardiac activity: present FHR 165 bpm General Evaluation Cardiac activity present. FHR 165 bpm Performed By: Luis Carrasco NP Read By: Luis Carrasco NP MATERNAL MEDICINE [facility] Radiology Study observation (narrative) Jun velasco [facility] TRICHOMONAS VAGINALIS Mina 12-13-2024 T. vaginalis DNA SHELBY+probe Ql (Unsp spec) Not detected Normal Not detected [facility] Comment on above: Order Comment: Speci men Type: SWAB Ordering Facility: [facility] Address: [address] [place] [address] Performed By: #### T RVAMP, 56116-5 #### [facility] CLIA [id number] [address] [place] [address] OF [facility] CNOVon 11-25-2024 CNOV Office Visit (OBGYWM ) ABBE FAUSTIN ([id number]) 5 F Date Time Provider Department 11/25/24 9:00 AM SMILEY SÁNCHEZ OBNAT During your visit today, we recorded the following information about you: Blood pressure Weight Last Period 104/60 62.1 kg 10/07/24 Smiley Sánchez MD 11/25/2024 9:57 AM Signed Android Platform Developer offered: Patient declines. OB point of care ultrasound was performed. See imaging tab for details. Kim Bernal MA Obstetrics and Gynecology [place] MANAGER CALL Visit Subjective Recording using [employer] software for draft documentation of the visit was discussed with the patient/authorized regional sales representative; all questions welcomed and answered. Patient/authorized regional sales representative agreed to proceed CHIEF COMPLAINT: The patient is a 19-year-old female presenting for follow-up after an ER visit for cramping and bleeding during early . She reports increased nausea and vomiting. HPI: Current - LMP: October 07 - Estimated gestational age: 6 weeks and 2 days - ER Visit: November 18- for cramping and bleeding. - HCG Levels: - November 18: 6,453 mIU/mL - November 24: 25,880 mIU/mL - Reports no further bleeding since the ER visit but continues to experience cramping. - Reports significant nausea and vomiting, particularly at night when trying to fall asleep, with symptoms persisting into the morning. - Has been chewing gum and eating crackers to manage nausea but is unsure what medications are safe to take. HISTORY: OB History No obstetric history on file. Executive Officer History LMP: 10/07/2024 (Exact Date), Having periods Age at Menarche: Age at First : Age at Menopause: Executive Officer History Comments: Sexual Activity: Not Asked; No partner data on record Contraception: No contraception data on record PAST MEDICAL HISTORY Diagnosis Date Menstrual periods irregular 06/2017 NEGATIVE MEDICAL HISTORY Normal Color Vision PAST SURGICAL HISTORY Procedure Laterality Date NONE FAMILY HISTORY Problem Relation Age of Onset Diabetes Paternal Grandmother Heart Other Maternal Great Grandmother Social History Tobacco Use Smoking status: Every Day Passive exposure: Yes (Pt vapes) Smokeless tobacco: Never Tobacco comments: outside Vaping Use Vaping status: current everyday user Substances: Nicotine Substance Use Topics Alcohol use: Never Current Outpatient Medications Medication Sig [id number]-MARX FUM,NJ-APPRP-KSS ORAL Take by mouth. pyridoxine, vitamin B6, (VITAMIN B-6) 50 mg tablet Take 1 tablet by mouth two times a day. doxylamine (UNISOM, DOXYLAMINE,) 25 mg tab Take 1 tablet by mouth daily at bedtime. ondansetron (ZOFRAN) 4 mg tablet Take 1 tablet by mouth every 8 hours as needed for nausea/vomiting. iron,carbonyl (IRON CHEWS ORAL) Take by mouth once daily. No current facility-administered medications for this visit. ALLERGIES Allergen Reactions Reedley Rash Seasonal Allergies Other: See Comments Nasal congestion REVIEW OF SYSTEMS: Gastrointestinal: (+) nausea, (+) vomiting Genitourinary: (+) cramping, (-) bleeding Objective SENSITIVE EXAM: The sensitive examination was discussed with the Patient or Patient's Authorized Video Production Engineer. As applicable, any other physician, advance practice provider, medical student, or other health professional student that will be observing or involved in the sensitive examination for educational or training purposes was discussed with the Patient or Authorized Video Production Engineer. The Patient or Authorized Video Production Engineer has agreed to proceed with the sensitive examination. (Sensitive examination includes inspection and/or palpation of the breasts, pelvis, prostate and anorectal regions). PHYSICAL EXAM: BP 104/60 Wt 137 lb (62.1kg) LMP 10/07/2024 General: No acute distress. : Transvaginal ultrasound performed; heartbeat visualized; yolk sac and pole identified. Assessment AND Plan ASSESSMENT AND PLAN: 1. with uncertain dates in first trimester (HCC) (Z34.91) 2. Threatened (HCC) (O20.0) - Recent ER visit on November 18- due to bleeding; no further bleeding reported, but experiencing cramping, nausea, and vomiting. - HCG levels rising appropriately: 6,453 mIU/mL on November 18- and 25,880 mIU/mL on November 24, indicating a viable . - Performed in-office ultrasound today, confirming a viable intrauterine with a heartbeat at 6 weeks and 2 days gestation. - Educated patient on potential for light spotting post-ultrasound due to increased cervical sensitivity and blood flow during ; advised to report any significant bleeding or bright red spotting lasting beyond 24 hours. - Prescribed Vitamin B6 50 mg PO BID, Unisom at bedtime, and Zofran PRN up to every 8 hours for nausea management. - Advised frequent snack (more content not included)... Normal [facility] hCG Titer Quant., Serumon HCG QUANT. 42337 mIU/mL High <9 non-preg [facility] Comment on above: Result Comment: Gest ational Age 0.2-1 Week: 5-50 mIU/mL 1-2 Weeks: 50-500 mIU/mL 2-3 Weeks: 100-5000 mIU/mL 3-4 Weeks: 500-10,000 mIU/mL 4-5 Weeks:1000-50,000 mIU/mL 5-6 Weeks: 10,000-100,000 mIU/mL 6-8 Weeks: 15,000-200,000 mIU/mL 2-3 Months:10,000-100,000 mIU/mL Performed By: #### L 7000.1800 #### [facility] [address] [place], [address] CNPCarlyn 11-23-2024 LISBETHN Telephone (Bonsai AI) ABBE FAUSTIN ([id number]) 5 F Date Time Provider Department 11/23/24 SMILEY SÁNCHEZ During your visit today, we recorded the following information about you: Wanda Martínez RN 11/23/2024 9:07 AM Signed LMP 10/07/24 Approximately 6w5d was seen at [facility] ER on 11/19 for cramping and spotting. HCG level was 6453. Early IUP seen on US. No pole. Recommendation is for f/u HCG and ultrasound. Patient calling to arrange for this per recommendation with the ER. When would you like patient scheduled? She is no longer having bleeding, but she is still cramping. ER records to [facility] to review. ISAÍAS Mcnulty Karmon, MD 11/23/2024 2:47 PM Signed Please have her get a repeat hcg level tomorrow at [facility]. Schedule her with me ay 9am. MD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 [facility] Comment on above: Performed By: #### L 500.4050, L506.1000, L501.9520, L100.0100, L506.0400 #### [facility] [address] [place], [address] Hematocrit (Bld) [Volume fraction] 41.3 % Normal 37-47 [facility] Comment on above: Performed By: #### L 500.4050, L506.1000, L501.9520, L100.0100, L506.0400 #### [facility] [address] [place], [address] Hemoglobin (Bld) [Mass/Vol] 13.5 g/dL Normal 12.0-15.0 [facility] Comment on above: Performed By: #### L 500.4050, L506.1000, L501.9520, L100.0100, L506.0400 #### [facility] [address] [place], [address] IG% 0.200 Normal 0.0-0.9 [facility] Comment on above: Result Comment: IG% - Immature Granulocytes (promyelocytes, myelocytes and metamyelocytes) > 1% indicates that a LEFT SHIFT is Present. Performed By: #### L 500.4050, L506.1000, L501.9520, L100.0100, L506.0400 #### [facility] [address] [place], [address] Lymphocytes/100 WBC (Bld) 32.6 % Normal 19-41 [facility] Comment on above: Performed By: #### L 500.4050, L506.1000, L501.9520, L100.0100, L506.0400 #### [facility] [address] [place], [address] MCH (RBC) [Entitic mass] 31.4 pg Normal 27.0-32.0 [facility] Comment on above: Performed By: #### L 500.4050, L506.1000, L501.9520, L100.0100, L506.0400 #### [facility] [address] [place], [address] MCHC (RBC) [Mass/Vol] 32.7 g/dL Normal 32-36 [facility] Comment on above: Performed By: #### L 500.4050, L506.1000, L501.9520, L100.0100, L506.0400 #### [facility] [address] [place], [address] MCV (RBC) [Entitic vol] 96.0 fL Normal 81-99 [facility] Comment on above: Performed By: #### L 500.4050, L506.1000, L501.9520, L100.0100, L506.0400 #### [facility] [address] [place], [address] Monocytes/100 WBC (Bld) 6.1 % Normal 0-10 [facility] Comment on above: Performed By: #### L 500.4050, L506.1000, L501.9520, L100.0100, L506.0400 #### [facility] [address] [place], [address] Neutrophils/100 WBC (Bld) 58.6 % Normal 47-70 [facility] Comment on above: Performed By: #### L 500.4050, L506.1000, L501.9520, L100.0100, L506.0400 #### [facility] [address] [place], [address] Nucleated RBC (Bld) [#/Vol] 0 10*3/uL Normal 0-5 [facility] Comment on above: Performed By: #### L 500.4050, L506.1000, L501.9520, L100.0100, L506.0400 #### [facility] [address] [place], [address] Platelet mean volume (Bld) [Entitic vol] 10.9 fL Normal 6.2-12.0 [facility] Comment on above: Performed By: #### L 500.4050, L506.1000, L501.9520, L100.0100, L506.0400 #### [facility] [address] [place], [address] Platelets (Bld) [#/Vol] 300 10*3/uL Normal 150-450 [facility] Comment on above: Performed By: #### L 500.4050, L506.1000, L501.9520, L100.0100, L506.0400 #### [facility] [address] [place], [address] RBC (Bld) [#/Vol] 4.30 10*6/uL Normal 4.2-5.4 [facility] Comment on above: Performed By: #### L 500.4050, L506.1000, L501.9520, L100.0100, L506.0400 #### [facility] [address] [place], [address] RDW SD 43.8 fl Normal 35.1-43.9 [facility] Comment on above: Performed By: #### L 500.4050, L506.1000, L501.9520, L100.0100, L506.0400 #### [facility] [address] [place], [address] WBC (Bld) [#/Vol] 4.4 10*3/uL Normal 4.4-11.0 [facility] Comment on above: Performed By: #### L 500.4050, L506.1000, L501.9520, L100.0100, L506.0400 #### [facility] [address] [place], [address] Comprehensive Metabolic Prof ilon 09-23-2024 Albumin [Mass/Vol] 3.7 g/dL Normal 3.2-5.0 [facility] Comment on above: Performed By: #### L 500.4050, L506.1000, L501.9520, L100.0100, L506.0400 #### [facility] [address] [place], [address] Albumin/Globulin [Mass ratio] 1.2 {ratio} Normal 0.9-2.4 [facility] Comment on above: Performed By: #### L 500.4050, L506.1000, L501.9520, L100.0100, L506.0400 #### [facility] [address] [place], [address] ALK P 44 U/L Low 45-117 [facility] Comment on above: Performed By: #### L 500.4050, L506.1000, L501.9520, L100.0100, L506.0400 #### [facility] [address] [place], [address] ALT [Catalytic activity/Vol] 15 U/L Normal 13-56 [facility] Comment on above: Performed By: #### L 500.4050, L506.1000, L501.9520, L100.0100, L506.0400 #### [facility] [address] [place], [address] AST [Catalytic activity/Vol] 8 U/L Low 15-37 [facility] Comment on above: Performed By: #### L 500.4050, L506.1000, L501.9520, L100.0100, L506.0400 #### [facility] [address] [place], [address] Bilirubin [Mass/Vol] 0.60 mg/dL Normal 0.20-1.00 [facility] Comment on above: Result Comment: For patients on eltrombopag therapy, use of Dimension [place] TBIL is not recommended. Performed By: #### L 500.4050, L506.1000, L501.9520, L100.0100, L506.0400 #### [facility] [address] [place], [address] BUN/CRE 18.2 RATIO Normal 10-20 [facility] Comment on above: Performed By: #### L 500.4050, L506.1000, L501.9520, L100.0100, L506.0400 #### [facility] [address] [place], [address] CA,Total 8.8 mg/dL Normal 8.5-10.1 [facility] Comment on above: Performed By: #### L 500.4050, L506.1000, L501.9520, L100.0100, L506.0400 #### [facility] [address] [place], [address] Chloride [Moles/Vol] 103 mmol/L Normal 98-107 [facility] Comment on above: Performed By: #### L 500.4050, L506.1000, L501.9520, L100.0100, L506.0400 #### [facility] [address] [place], [address] CO2 [Moles/Vol] 29.0 mmol/L Normal 21.0-32.0 [facility] Comment on above: Performed By: #### L 500.4050, L506.1000, L501.9520, L100.0100, L506.0400 #### [facility] [address] [place], [address] Creatinine [Mass/Vol] 0.72 mg/dL Normal 0.55-1.02 [facility] Comment on above: Result Comment: The validity of the calculated GFR GFRAA in patients over 70 years has not been determined. Clinical correlation is essential. Performed By: #### L 500.4050, L506.1000, L501.9520, L100.0100, L506.0400 #### [facility] [address] [place], [address] EST GFR - AA 135 mL/min Normal >60 [facility] Comment on above: Result Comment: Afri can [place] GFR Calc Performed By: #### L 500.4050, L506.1000, L501.9520, L100.0100, L506.0400 #### [facility] [address] [place], [address] GAP 4 Low 5-15 [facility] Comment on above: Performed By: #### L 500.4050, L506.1000, L501.9520, L100.0100, L506.0400 #### [facility] [address] [place], [address] GFR/1.73 sq M.predicted among non-blacks MDRD (S/P/Bld) [Vol rate/Area] 111 mL/min/{1.73_m2} Normal >60 [facility] Comment on above: Result Comment: Non- GFR Calc Performed By: #### L 500.4050, L506.1000, L501.9520, L100.0100, L506.0400 #### [facility] [address] [place], [address] Globulin (S) [Mass/Vol] 3.2 g/dL Normal 2.2-4.2 [facility] Comment on above: Performed By: #### L 500.4050, L506.1000, L501.9520, L100.0100, L506.0400 #### [facility] [address] [place], [address] Glucose [Mass/Vol] 74 mg/dL Normal 74-106 [facility] Comment on above: Performed By: #### L 500.4050, L506.1000, L501.9520, L100.0100, L506.0400 #### [facility] [address] [place], [address] Potassium [Moles/Vol] 4.2 mmol/L Normal 3.5-5.1 [facility] Comment on above: Performed By: #### L 500.4050, L506.1000, L501.9520, L100.0100, L506.0400 #### [facility] [address] [place], [address] Sodium [Moles/Vol] 136 mmol/L Normal 136-145 [facility] Comment on above: Performed By: #### L 500.4050, L506.1000, L501.9520, L100.0100, L506.0400 #### [facility] [address] [place], [address] T PROT 6.9 g/dL Normal 6.4-8.2 [facility] Comment on above: Performed By: #### L 500.4050, L506.1000, L501.9520, L100.0100, L506.0400 #### [facility] [address] [place], [place], [address] Urea nitrogen [Mass/Vol] 13 mg/dL Normal 7-18 [facility] Comment on above: Performed By: #### L 500.4050, L506.1000, L501.9520, L100.0100, L506.0400 #### [facility] [address] [place], [address] [facility] Office Visit Reporton 09-23-2024 [facility] Office Visit Report [facility]'s [address], [address] [place] [address] OFFICE VISIT Date of Service: 09/23/24 MR#: [id number] Acct: [id number] Name: ABBE FAUSTIN Rep #: [id number] : 2005 Provider: CLAIRE Power Age/Sex: 19/F [place] [facility] [place]: Signed Intake Vital Signs 08/25/24 09:15 09/23/24 08:26 Height 5 ft 8 in 5 ft 8 in Weight: 130 lb 138 lb BMI 19.8 20.9 BP 123/78 H 107/73 Intake Visit Reasons: Heavy menses Inflatable Buildings Laminator Required: No Is patient in pain?: No Allergies cucumber Allergy (Verified 09/23/24 08:25) Hives Medications ???Medication ???Instructions ???Recorded ???Confirmed ???Type NK 08/25/24 09/23/24 History Is last menstrual period known: Yes Last Menstrual Period: 09/13/24 Post menopausal: No Patient : No : No Control Method: none PFSH Social History Smoking Status: Current every day smoker tobacco type: e-cigarettes HPI Heavy menses Details: ABBE FAUSTIN is a 19 year old who presents for heavy menses. She reports she has bleeding that can last up to 2 weeks. She reports they are also irregular. She has been bleeding through super plus tampons within an hour. She is wearing overnight period panties. She changes these approx every 3 hours. LMP 09/13/24--lasted 5 days. She has been on control before and did not feel this was helpful. This has been going on for greater than 3 months. She is supposed to see work station support specialist for feeling lightheaded. She is wondering if this is related to her menses. Female Reproductive History Last Menstrual Period: 09/13/24 Associated symptoms: irregular; heavy Questions: sexually active: Yes (condoms) ROS Const Constitutional: Denies body ache, chills, fatigue, fever(s) or headache(s) Cardio Card: Denies palpitations GI GI: Denies abdominal pain or nausea : Reports system reviewed and no additional complaints, except as documented; Denies difficulty voiding, dysuria, genital lesions, hematuria, pelvic pain, urinary incontinence, vaginal discharge, vaginal dryness, vaginal odor or vaginal pruritus Skin Skin/Breast: Denies rash Exam Const General: cooperative, healthy appearing and comfortable Orientation: alert, awake and oriented x3 HENMT Head: normal to inspection Neck Neck: normal visual inspection and full ROM Thyroid: thyroid normal Resp Effort Inspection: normal respiratory effort and able to speak in complete sentences Auscultation: clear to auscultation bilaterally Cardio Rate: regular rate Rhythm: regular rhythm GI Inspection: normal to inspection Palpation: soft Skin General: no rashes or lesions noted Neuro General: patient alert, patient awake, patient oriented x3 and moves all extremities Extrem General: normal to inspection and full ROM Psych Appearance: well kempt Speech and Movement: speech and movement normal Attitude: cooperative Thought Process: normal Thought Content: normal Judgment: judgment good Results POC Urine Office , Urine Negative Last Edit by Miguelina Arzola on 09/23/24 09:03 Coding Level of Care Code Established Pt Off vis,est,level 3 Patient Type Established Diagnoses Irregular menses N92.6 Assessment and Plan Assessment and Plan (1) Irregular menses: Status: Acute Plan: HCG testing negative in office. Labs ordered. Would like to check labs prior to starting OCP. If labs normal suggest starting Loestrin. Call with results. Orders: Orders Thyroid Stim Hormone (TSH) Today N92.6 - Irregular menstruation, unspecified, Z13.29 - Encounter for screening for other suspected endocrine disorder Vitamin D,25 Hydroxy Today N92.6 - Irregular menstruation, unspecified, Z13.21 - Encounter for screening for nutritional disorder CBC W/Diff, Automated Today N92.6 - Irregular menstruation, unspecified Comprehensive Metabolic Profil Today N92.6 - Irregular menstruation, unspecified T4 Free Direct Today N92.6 - Irregular menstruation, unspecified POC Urine Today N92.6 - Irregular menstruation, unspecified 09/23/24 0905 Date Elizabeth Mina [employer] DEVELOPER[employer] Cosigner Signature: Date (if applicable) CC: Normal [facility] T4 Free Directon 09-23-2024 T4 FREE DIRECT 0.82 ng/dL Normal 0.76-1.46 [facility] Comment on above: Performed By: #### L 500.4050, L506.1000, L501.9520, L100.0100, L506.0400 #### [facility] [address] [place], [place], [address] Thyroid Stim Hormone (TSH)on 09-23-2024 TSH 3.650 uIU/mL Normal 0.358-3.740 [facility] Comment on above: Performed By: #### L 500.4050, L506.1000, L501.9520, L100.0100, L506.0400 #### [facility] [address] [place], [address] Vitamin D,25 Hydroxyon 09-23 Vitamin D 25-OH 37.6 ng/mL Normal [facility] Comment on above: Result Comment: Sridevi min D 25(OH) Status Range Deficiency <20 ng/mL (50nmol/L) Insufficiency 20 - 30 ng/mL (50 - 75 nmol/L) Sufficiency 30 - 100 ng/mL (75 - 250 nmol/L) Toxicity >100 ng/mL (>250 nmol/L) Performed By: #### L 500.4050, L506.1000, L501.9520, L100.0100, L506.0400 #### [facility] [address] [place], [address] Chlamydia/GC SHELBY aptimaon CHLAMY,NUC ACID Negative Normal Negative [facility] Comment on above: Performed By: #### L 7000.1800 #### [facility] [address] [place], [address] GC BY NUC ACID Negative Normal Negative [facility] Comment on above: Result Comment: Perf ormed at: = - [facility] [id number] Director Financial Planning: Irina Lawson MD, Phone: [phone] Performed By: #### L 7000.1800 #### [facility] [address] [place], [address] HSV 1 AND 2 IgGon 08-27-2024 HSV 1 IgG Normal [facility] Comment on above: Result Comment: RESU LT: NON REACTIVE Please note reference interval change HSV-1 IgG testing performed using the [employer] HSV-1 IgG assay. Performed By: #### L 7000.1800 #### [facility] [address] [place], [address] HSV 2 IgG Normal [facility] Comment on above: Result Comment: RESU LT: NON REACTIVE Please note reference interval change Current guidelines and recommendations do not recommend routine screening for HSV-2 in asymptomatic individuals, including those that are . The detection of HSV-2 IgG antibodies in a single sample indicates previous exposure to HSV-2 but does not give information as to the site of HSV infection or the timing of exposure. The predictive value of positive and negative results depends on the population's prevalence and the pretest likelihood of HSV-2. HSV-2 IgG testing performed using the [employer] HSV-2 IgG assay. Performed at: [facility] [employer] [id number] Director Financial Planning: Sameer Angulo PhD, Phone: [phone] Performed By: #### L 7000.1800 #### [facility] [address] [place], [place], [address] HIV - WCHon 08-25-2024 HIV Non-Reactive Normal Nonreactive [facility] Comment on above: Order Comment: Reaso n for Exam: sti testing Performed By: #### L 7000.1800 #### [facility] [address] [place], [place], [address] Hepatitis B Surface Antigeno n 08-25-2024 HEP B Surf Ag Non-Reactive Normal Nonreactive [facility] Comment on above: Order Comment: Reaso n for Exam: sti testing Performed By: #### L 7000.1800 #### [facility] [address] [place], [place], [address] Hepatitis C Antibodyon 08-25 Hepatitis C AB Non-Reactive Normal Nonreactive [facility] Comment on above: Order Comment: Reaso n for Exam: sti testing Result Comment: Non Reactive: < 0.8 Equivocal: >/= 0.8 to < 1.0 Reactive: >/= 1.0 The CDC requires that a reactive/equivocal HCV antibody result be sent out for confirmation. HCV Quant by PCR testing. Performed By: #### L 7000.1800 #### [facility] [address] [place], [place], [id number] L509.8000on 08-25-2024 Syphilis Abs Non-Reactive Normal [facility] Comment on above: Order Comment: Reaso n for Exam: sti testing Performed By: #### L 7000.1800 #### [facility] [address] [place], [place], [id number] [facility] Office Visit Reporton 08-25-2024 [facility] Office Visit Report [facility]'s [address], [address] [place] [address] OFFICE VISIT Date of Service: 08/25/24 MR#: [id number] Acct: [id number] Name: ABBE FAUSTIN #: [id number] : 2005 Provider: CLAIRE Power Age/Sex: 19/F Location[place] [facility] [place] Status: Signed Intake Vital Signs 04/25/23 12:03 08/25/24 08:58 08/25/24 09:15 Height 5 ft 8 in 5 ft 8 in 5 ft 8 in Weight: 130 lb BMI 19.8 BP 123/78 H Intake Visit Reasons: STD TESTING Inflatable Buildings Laminator Required: No Allergies cucumber Allergy (Verified 08/25/24 09:12) Hives Medications ???Medication ???Instructions ???Recorded ???Confirmed ???Type NK 08/25/24 08/25/24 History Is last menstrual period known: Yes Last Menstrual Period: 08/07/24 Post menopausal: No Patient : No : No Control Method: [facility] Social History Smoking Status: Current every day smoker tobacco type: e-cigarettes HPI STD TESTING Details: ABBE FAUSTIN is a 19 year old who presents for std/i testing. She reports she is asymptomatic today. She is not on OCP. LMP 08/07/24. Reports no concerns of at this time. She has also been dealing with anxiety and depression. She is currently seeking care through psychiatry. Has seen in the past and attempted multiple medications with no improvement and side effects associated. She denies thoughts of harming self or others however recognizes she needs help. Female Reproductive History Last Menstrual Period: 08/07/24 Questions: sexually active: Yes ROS Const Constitutional: Denies body ache, chills, fatigue, fever(s) or headache(s) Cardio Card: Denies palpitations GI GI: Denies abdominal pain or nausea : Denies difficulty voiding, dysuria, genital lesions, hematuria, pelvic pain, urinary incontinence, vaginal discharge, vaginal dryness, vaginal odor or vaginal pruritus Skin Skin/Breast: Denies rash Psych Psych: Reports anxiety and depression; Denies homicidal ideation or suicidal ideation Exam Const General: cooperative, healthy appearing and comfortable Orientation: alert, awake and oriented x3 HENMT Head: normal to inspection Neck Neck: normal visual inspection and full ROM Resp Effort Inspection: normal respiratory effort and able to speak in complete sentences GI Inspection: normal to inspection Palpation: soft External Female Exam: normal external appearance and normal appearance of the urethra Urethra: normal appearance of the urethra Speculum Exam - Vagina: normal appearance of the vagina, abnormal vaginal discharge white, not erythematous and nontender Speculum Exam - Cervix: normal appearance of the cervix and nontender Bimanual Exam- Vagina Uterus: normal bimanual exam, No tender, normal palpation and tender Bimanual Exam- Adnexa, other: normal adnexae Pelvic Support: other (levator discomfort. ) Skin General: no rashes or lesions noted Neuro General: patient alert, patient awake, patient oriented x3 and moves all extremities Extrem General: normal to inspection and full ROM Psych Appearance: well kempt Affect: sad (tearful) Speech and Movement: speech and movement normal Attitude: cooperative Thought Process: normal Thought Content: normal Judgment: judgment good Coding Level of Care Code Established Pt Off vis,est,level 3 Patient Type Established Diagnoses Routine screening for STI (sexually transmitted infection) Z11.3 Anxiety and depression F41.9; F32.A Assessment and Plan Assessment and Plan (1) Routine screening for STI (sexually transmitted infection): Status: Acute Plan: cultures obtained today; lab work ordered. Final plan with results. Call office sooner if she becomes symptomatic. (2) Anxiety and depression: Status: Acute Plan: referral to psych. Offered treatment today; declines and would like to defer to psych. Attempted in past with no success in medication. Crisis hotline information/counseling resources given. Call office with any issues or concerns. Orders: Orders Chlamydia/GC SHELBY aptima Today Z11.3 - Encounter for screening for infections with a predominantly sexual mode of transmission POC Trichomonas Vaginalis Today Z11.3 - Encounter for screening for infections with a predominantly sexual mode of transmission POC BV Blue Test Today Z11.3 - Encounter for screening for infections with a predominantly sexual mode of transmission HSV 1 2 IgG Today Z11.3 - Encounter for screening for infections with a predominantly sexual mode of transmission HIV - H Today Z11.3 - Encounter for screening for infections with a predominantly sexual mode of transmission Syphilis Antibodies Today Z11.3 - Encounter for screening for infections wit (more content not included)... Normal [facility] STREP A MOLECULAR (POC)on Interpretation and review of laboratory results Abnormal [facility] Procedural Control Valid [facility] Strep A (POCT) Positive Abnormal Negative [facility] UA DIP, URINE (POC)on 2023 BILIRUBIN UA (POCT) Negative Negative [facility] CLARITY UA (POCT) Clear [facility] COLOR UA (POCT) Yellow [facility] GLUCOSE UA (POCT) Negative Negative mg/dL [facility] Hemoglobin Ql (U) Moderate Abnormal Negative [facility] Interpretation and review of laboratory results Abnormal [facility] KETONE UA (POCT) Negative Negative mg/dL [facility] LEUKOCYTES UA (POCT) Small Abnormal Negative [facility] NITRITE UA (POCT) Negative Negative [facility] PH UA (POCT) 6.5 4.5 - 8.0 [facility] Protein Ql (U) Negative Negative mg/dL [facility] SPECIFIC GRAVITY UA (POCT) >=1.030 1.005 - 1.030 [facility] UROBILINOGEN UA (POCT) 0.2 Normal E.U./d L [facility] Location:[address], [id number] [place] [address] POINT OF CARE [facility] CBC W Auto Differential pane l (Bld)on 01-28-2024 Basophils (Bld) [#/Vol] 0.04 10*3/uL [facility] Basophils/100 WBC (Bld) 0.8 % [facility] Differential cell count method Nom (Bld) Auto [facility] Eosinophils (Bld) [#/Vol] 0.11 10*3/uL [facility] Eosinophils/100 WBC (Bld) 2.1 % [facility] Erythrocyte distribution width (RBC) [Ratio] 12.1 % 11.5 - 15.0 % [facility] Hematocrit (Bld) [Volume fraction] 39.8 % 36.0 - 46.0 % [facility] Hemoglobin (Bld) [Mass/Vol] 13.1 g/dL 11.5 - 15.5 g/dL [facility] Immature granulocytes (Bld) [#/Vol] [facility] Immature granulocytes/100 WBC (Bld) 0.2 % [facility] Lymphocytes (Bld) [#/Vol] 1.94 10*3/uL [facility] Lymphocytes/100 WBC (Bld) 37.5 % [facility] MCH (RBC) [Entitic mass] 31.3 pg 26.0 - 34.0 pg [facility] MCHC (RBC) [Mass/Vol] 32.9 g/dL 30.5 - 36.0 g/dL [facility] MCV (RBC) [Entitic vol] 95.2 fL 80.0 - 100.0 fL [facility] Monocytes (Bld) [#/Vol] 0.34 10*3/uL [facility] Monocytes/100 WBC (Bld) 6.6 % [facility] Neutrophils (Bld) [#/Vol] 2.73 10*3/uL [facility] Neutrophils/100 WBC (Bld) 52.8 % [facility] Nucleated RBC (Bld) [#/Vol] NINF [facility] Nucleated RBC/100 WBC (Bld) [Ratio] 0.0 % /100 WBC [facility] Platelet mean volume (Bld) [Entitic vol] 10.7 fL 9.0 - 12.7 fL [facility] Platelets (Bld) [#/Vol] 285 10*3/uL [facility] RBC (Bld) [#/Vol] 4.18 10*6/uL 3.90 - 5.2 0 m/uL [facility] WBC (Bld) [#/Vol] 5.17 10*3/uL [facility] Comprehensive metabolic 2000 panelon 01-28-2024 Albumin [Mass/Vol] 4.3 g/dL 3.9 - 4.9 g/dL [facility] ALP [Catalytic activity/Vol] 56 U/L 45 - 87 U/L [facility] ALT [Catalytic activity/Vol] 12 U/L 7 - 38 U/L [facility] Anion gap [Moles/Vol] 11 mmol/L 8 - 15 mmol/L [facility] AST [Catalytic activity/Vol] 19 U/L 13 - 35 U/L [facility] Bilirubin [Mass/Vol] 0.4 mg/dL 0.2 - 1 .3 mg/dL [facility] Calcium [Mass/Vol] 9.5 mg/dL 8.5 - 10. 2 mg/dL [facility] Chloride [Moles/Vol] 103 mmol/L 98 - 10 7 mmol/L [facility] CO2 [Moles/Vol] 24 mmol/L 22 - 30 mmol/L [facility] Creatinine [Mass/Vol] 0.72 mg/dL 0.58 - 0.96 mg/dL [facility] GFR/1.73 sq M.predicted among non-blacks MDRD (S/P/Bld) [Vol rate/Area] 124 mL/min/{1.73_m2} - PINF [facility] Comment on above: Estimated Glomerular Filtration Rate (eGFR) is calculated using the 2020 CKD-EPI creatinine equation. This equation utilizes serum creatinine, sex, and age as parameters. The creatinine assay has traceable calibration to isotope dilution-mass spectrometry. Refer to KDIGO guidelines for clinical interpretation. In patients with unstable renal function, e.g. those with acute kidney injury, the eGFR may not accurately reflect actual GFR. Glucose [Mass/Vol] 80 mg/dL 74 - 99 mg/dL [facility] Comment on above: The [place] Diabete s Association (ADA) provides guidance for cutoff values for fasting glucose and random glucose. The ADA defines fasting as no caloric intake for at least 8 hours. Fasting plasma glucose results between 100 to 125 mg/dL indicate increased risk for diabetes (prediabetes). Fasting plasma glucose results greater than or equal to 126 mg/dL meet the criteria for diagnosis of diabetes. In the absence of unequivocal hyperglycemia, results should be confirmed by repeat testing. In a patient with classic symptoms of hyperglycemia or hyperglycemic crisis, random plasma glucose results greater than or equal to 200 mg/dL meet the criteria for diagnosis of diabetes. Reference: Standards of Medical Care in Diabetes 2016, [place] Diabetes Association. Diabetes Care. 2016.39(Suppl 1). Potassium [Moles/Vol] 4.7 mmol/L 3.7 - 5.1 mmol/L [facility] Protein [Mass/Vol] 6.8 g/dL 6.3 - 8.0 g/dL [facility] Sodium [Moles/Vol] 138 mmol/L 136 - 144 mmol/L [facility] Urea nitrogen [Mass/Vol] 11 mg/dL 7 - 21 mg/dL [facility] FERRITINon 01-28-2024 Ferritin [Mass/Vol] 29.8 ng/mL 14.7 - 2 05.1 ng/mL [facility] Ferritin [Mass/Vol]on 2023 Interpretation and review of laboratory results Normal [facility] Free T4 [Mass/Vol]on 06-26-2 024 Interpretation and review of laboratory results Normal [facility] Iron and Iron binding capaci ty panelon 01-28-2024 Iron [Mass/Vol] 79 ug/dL 41 - 186 ug/dL [facility] Iron binding capacity [Mass/Vol] 269 ug/dL 232 - 386 ug/dL [facility] Iron/TIBC [Molar ratio] 29.4 % 15.0 - 57.0 % [facility] No Panel Informationon 01-27 Interpretation and review of laboratory results Normal [facility] T4 FREE/FREE THYROXINEon Free T4 [Mass/Vol] 1.2 ng/dL 0.9 - 1.7 ng/dL [facility] THYROID STIMULATING HORMONEo n 01-28-2024 TSH Qn 4.320 m[IU]/L High [facility] Comment on above: If the patient is pr egnant, TSH reference range varies by gestational period: First Trimester (weeks 9-12): 0.180-2.990 mIU/L Second Trimester: 0.110-3.980 mIU/L Third Trimester: 0.480-4.710 mIU/L Sav Steiner et al. A Practical Approach for the Verifications and Determination of Site- and Trimester-Specific Reference Intervals for Thyroid Function tests in . Thyroid, 2019:29:3:412-420. Jf Potter, et al. 2017 Guidelines of the [place] Thyroid Association for the Diagnosis and Management of Thyroid Disease during and the . Thyroid, 2017:27:3:315-389. Reference ranges were not locally established for this patient's age group. The normal values are based on the following source: Radha W, Calista Mendez. Reference Ranges for Adults and Children: Pre-analytical Considerations. [facility] TSH Qnon 01-28-2024 Interpretation and review of laboratory results Abnormal [facility] Chlamydia trachomatis rRNA d etection by probe and target amplification methodOrdered By: Angelia Ruth on 04-25-2023 C. trachomatis rRNA SHELBY+probe Ql (Unsp spec) Positive Negative [facility] - Microbiology an d Antimicrobial susceptibilityOrdered By: Angelia Ruth on 04-25-2023 N. gonorrhoeae DNA SHELBY+probe Ql (Unsp spec) Negative Negative [facility] Comment on above: Performed at: [address] [place], [place] [id number] Director: Irina Lawson MD, Phone: [phone] UA DIP, URINE (POC)on 2022 BILIRUBIN UA (POCT) Negative Negative [facility] CLARITY UA (POCT) Clear [facility] COLOR UA (POCT) Yellow [facility] GLUCOSE UA (POCT) Negative Negative mg/dL [facility] Hemoglobin Ql (U) Negative Negative [facility] KETONE UA (POCT) Trace Negative mg/dL [facility] LEUKOCYTES UA (POCT) Small Abnormal Negative [facility] NITRITE UA (POCT) Negative Negative [facility] PH UA (POCT) 7.0 4.5 - 8.0 [facility] Protein Ql (U) Negative Negative mg/dL [facility] SPECIFIC GRAVITY UA (POCT) 1.020 1.005 - 1.030 [facility] UROBILINOGEN UA (POCT) 0.2 E.U./dL Normal E.U./ dL [facility] HEP C AB IA W/CONF SCRNon HCV Ab Ql (S) Negative Negative [facility] HEP B SURF AG [facility] 023 HBV surface Ag Ql (S) Negative Negative [facility] HIV 1+2 Ab IA Qlon 3 HIV 1 and 2 Ab IA.rapid Nom [facility] HIV 1+2 Ab+HIV1 p24 Ag IA Ql Non-Reactive Nonreactive [facility] HIV Interpretation [facility] Reagin and Treponema pallidu m IgG and IgM [Interp]on 09-14-2022 Syphilis Interpretation Cannot exclude r ecent Treponemal infection if specimen collected within 7-10 days after appearance of suspect lesions or 2-3 weeks after an exposure. Clinical correlation is required. [facility] T. pallidum IgG+IgM IA Ql (S) Non-Reactive Nonreactive [facility] BACTERIAL VAGINOSIS AMPLIFIC ATIONon 09-13-2022 Lactobacillus crispatus+gasseri+jense tc + Gardnerella vaginalis + Atopobium vaginae rRNA SHELBY+probe Ql (Vag fld) Positive Abnormal Negative for bacterial vaginosis [facility] C. trachomatis+N. gonorrhoea e DNA SHELBY+probe Ql (Unsp spec)on 09-13-2022 C. trachomatis DNA SHELBY+probe Ql (Unsp spec) Negative Negative for Chlamydia trachomatis by amplificaton [facility] N. gonorrhoeae DNA SHELBY+probe Ql (Unsp spec) Negative Negative for Neisseria gonorrhoeae by amplification [facility] KARL / TRICHOMONAS AMPLIF ICATIONon 09-13-2022 C. glabrata RNA SHELBY+probe Ql (Vag fld) Negative Negative for Karl glabrata [facility] [facility] Karl albicans, C. dubliniensis, C. parapsilosis, and C. tropicalis RNA SHELBY+probe Ql (Vag fld) Negative Negative for Karl species [facility] T. vaginalis DNA SHELBY+probe Ql (Unsp spec) Negative Negative for Trichomonas vaginalis by amplification [facility] Absolute lymphocyte counton 08-11-2022 Lymphocytes Auto (Unsp spec) [#/Vol] 1.15 10*3/uL 0.83-4.51 [facility] Work Phone: Basophil percentageon 2022 Basophil percentage 0-5 SEEN /hpf 0-5 [facility] Work Phone: Basophils/100 WBC (Bld) 0.3 % 0-1 [facility] Work Phone: Chloride [Moles/Vol] 108 mmol/L 98-107 [facility]: Eosinophils/100 WBC (Bld) 0.3 % 0-3 [facility] Work Phone: Glucose [Mass/Vol] 88 mg/dL 74-106 [facility] Work Phone: Neutrophils (Bld) [#/Vol] 7.2 10*3/uL 2.0-7.7 [facility] Work Phone: Neutrophils/100 WBC (Bld) 80.3 % 34-64 [facility] Work Phone: Potassium [Moles/Vol] 3.2 mmol/L 3.5-5.1 [facility] Work Phone: Sodium [Moles/Vol] 141 mmol/L 136-145 [facility] Work Phone: WBC (Bld) [#/Vol] 9.0 10*3/uL 4.5-13.0 [facility] Work Phone: [phone] Beta hCG serum qualon 2022 Beta HCG ( test) Ql Negative [facility] Work Phone: Bilirubin Test strip Ql (U)o n 08-11-2022 Bilirubin Ql (U) 1 mg/dL Negative [facility] Work Phone: Comment on above: COLOR OF URINE MAY A FFECT DIPSTICK RESULTS. Blood erythrocytes count (nu mber/volume)on 08-11-2022 RBC (Bld) [#/Vol] 4.02 10*6/uL 4.1-4.8 [facility] Work Phone: Blood hemoglobin measurement (mass/volume)on 08-11-2022 Hemoglobin (Bld) [Mass/Vol] 12.7 g/dL 12.0-15.0 [facility] Work Phone: Blood lymphocytes/100 leukoc yteson 08-11-2022 Lymphocytes/100 WBC (Bld) 12.8 % 25-45 [facility] Work Phone: Blood monocytes/100 leukocyt eson 08-11-2022 Monocytes/100 WBC (Bld) 6.0 % 3-6 [facility] Work Phone: [phone] Blood platelet mean volumeon 08-11-2022 Platelet mean volume (Bld) [Entitic vol] 10.1 fL 6.2-12.0 [facility] Work Phone: [phone] Determination of erythrocyte mean corpuscular volume (MCV)on 08-11-2022 MCV (RBC) [Entitic vol] 93.0 fL 78-96 [facility] Work Phone: [phone] Hematocrit Auto (Bld) [Volum e fraction]on 08-11-2022 Hematocrit (Bld) [Volume fraction] 37.4 % 37-46 [facility] Work Phone: Ketones Test strip Ql (U)on 08-11-2022 Ketones Ql (U) 150 mg/dl Negative [facility] Work Phone: Comment on above: RESULTS CALLED TO SAM SEAMAN 08/11/22 Selvin Fan.REPORT READ BACK BY SAME.CRITICAL VALUE *H Laboratory - Chemistry and C hemistry - challengeon 08-11-2022 CO2 [Moles/Vol] 22.0 mmol/L 21.0-32.0 [facility] Work Phone: Urea nitrogen/Creatinine [Mass ratio] 19.7 mg/mg 10-20 [facility] Work Phone: Laboratory - Drug toxicology on 08-11-2022 Amphetamines Ql (U) Positive <1000 ng/mL [facility] Work Phone: Benzodiazepines Ql (U) Negative < 200 ng/mL [facility] Work Phone: Cannabinoids Screen Ql (U) Positive < 50 ng/mL [facility] Work Phone: Cocaine Ql (U) Negative < 300 ng/mL [facility] Work Phone: Opiates Ql (U) Negative < 300 ng/mL [facility] Work Phone: Laboratory - Hematology and Cell countson 08-11-2022 Erythrocyte distribution width (RBC) [Entitic vol] 42.0 fL 35.1-43.9 [facility] Work Phone: Erythrocyte distribution width (RBC) [Ratio] 12.3 % 11.6-14.6 [facility] Work Phone: Immature granulocytes/100 WBC (Bld) 0.300 % 0.0-0.9 [facility] Work Phone: Comment on above: IG% - Immature Granu locytes (promyelocytes, myelocytes and metamyelocytes) > 1% indicates that a LEFT SHIFT is Present. MCH (RBC) [Entitic mass] 31.6 pg 25.0-35.0 [facility] Work Phone: Nucleated RBC/100 WBC (Bld) [Ratio] 0 % 0-5 [facility] Work Phone: MCHC Auto (RBC) [Mass/Vol]on 08-11-2022 MCHC (RBC) [Mass/Vol] 34.0 g/dL 32-36 [facility] Work Phone: Mucus LM Ql (Urine sed)on Mucus Ql (Urine sed) 2+ /hpf [facility] Work Phone: Nitrite Test strip Ql (U)on 08-11-2022 Nitrite Ql (U) Negative Negative [facility] Work Phone: No Panel Informationon 08-11 MDMA (Ecstasy) Screen Negative < 500 ng/mL [facility] Work Phone: Urine Barbiturates Screen Negative < 200 ng/mL [facility] Work Phone: Urine Drug Screen Comment [facility] Work Phone: Comment on above: CONFIRMATORY TESTING FOR ALL POSITIVE URINE DRUG SCREENRESULTS WILL ONLY BE SENT OUT UPON PHYSICIAN ORDER. VISTA Urine Drug Screen methods provide only preliminaryanalytical test results. A more specific alternate chemicalmethod must be used in order to obtain a confirmedanalytical result. Gas chromatography/mass spectrometery(GC/MS) is the preferred confirmatory method. Clinicalconsideration and professional judgement should be appliedto any drug of abuse test result, particularly whenpreliminary positive results are used. URINE TCA TESTING MUST BE ORDERED SEPARATELY. USE TESTMNEMONIC: [facility] Urine Methadone Screen Negative < 300 ng/mL [facility] Work Phone: Estimated Creatinine Clearance Calc 117.82 ml/min [facility] Work Phone: Estimated GFR (MDRD) [facility] Work Phone: Comment on above: Test not performedAf rican Hong Konger GFR Calc Estimated GFR (MDRD) Non-Af [facility] Work Phone: Comment on above: Test not performedNo n- GFR Calc Ethyl Alcohol Level < 3.0 mg/dL [facility] Work Phone: Comment on above: The serum:whole bloo d ethanol ratio is approximately 1.14and varies slightly with hematocrit. Medical Alcohol reference interval and critical value innon-tolerant individuals; 50 - 100 Impairment 100 Intoxication 100 - 250 Severe Poisoning 250 - 400 Deep/possible fatal coma Platelets bldon 08-11-2022 Platelets (Bld) [#/Vol] 296 10*3/uL 150-450 [facility] Work Phone: Protein Test strip Ql (U)on 08-11-2022 Protein Ql (U) 30 mg/dl Negative [facility] Work Phone: Serum or plasma calcium arabella urement (mass/volume)on 08-11-2022 Calcium [Mass/Vol] 9.2 mg/dL 8.5-10.1 [facility] Work Phone: Serum or plasma creatinine m easurement (mass/volume)on 08-11-2022 Creatinine [Mass/Vol] 0.71 mg/dL 0.55-1.02 [facility] Work Phone: Comment on above: The validity of the calculated GFR & GFRAA in patients over 70 years has not been determined. Clinical correlation is essential. Serum or plasma urea nitroge n measurement (mass/volume)on 08-11-2022 Urea nitrogen [Mass/Vol] 14 mg/dL 7-18 [facility] Work Phone: Squamous epithelial cells de tection in urine sediment by light microscopyon 08-11-2022 Epithelial cells.squamous LM Ql (Urine sed) 0-5 SEEN /hpf 5-10 [facility] Work Phone: Thin prep Papanicolaou smear with manual screeningon 08-11-2022 Thin prep Papanicolaou smear with manual screening 11 5-15 [facility] Work Phone: Urine blood detectionon RBC Ql (U) 10 /ul Negative [facility] Work Phone: RBC Ql (U) 0-5 SEEN /hpf 0-5 [facility] Work Phone: Urine clarityon 08-11-2022 Clarity (U) Sl. Cloudy Clear [facility] Work Phone: Urine color determinationon 08-11-2022 Color (U) Yellow Yellow [facility] Work Phone: Urine glucose detectionon Glucose Ql (U) Normal mg/dl Normal [facility] Work Phone: Urine leukocyte esterase det ection by dipstickon 08-11-2022 Leukocyte esterase Test strip Ql (U) 25 /ul Negative [facility] Work Phone: [phone] Urine pHon 08-11-2022 pH (U) 5.0 [pH] 5.0 - 8.0 [facility] Work Phone: [phone] Urine phencyclidine (PCP) de tectionon 08-11-2022 Phencyclidine Ql (U) Negative < 25 ng/mL [facility] Work Phone: Urine sediment bacteria coun t by microscopy (number/high power field)on 08-11-2022 Bacteria LM.HPF (Urine sed) [#/Area] 1 /[HPF] None Seen [facility] Work Phone: Urine specific gravity measu rementon 08-11-2022 Specific gravity (U) [Rel density] 1.025 1.002-1.030 [facility] Work Phone: Urobilinogen Auto test strip Ql (U)on 08-11-2022 Urobilinogen Ql (U) 1 mg/dl Normal [facility] Work Phone: STREP A MOLECULAR (POC)on Procedural Control Valid [facility] Strep A (POCT) Negative Negative [facility] Procedural Control Valid [facility] Strep A (POCT) Negative Negative [facility] STREP A MOLECULAR (POC)on Procedural Control Valid [facility] Strep A (POCT) Positive Abnormal Negative [facility] CBC panel Auto (Bld)on 05-09 Erythrocyte distribution width (RBC) [Ratio] 12.0 % 11.5 - 15.0 % [facility] Hematocrit (Bld) [Volume fraction] 39.0 % 36.0 - 46.0 % [facility] Hemoglobin (Bld) [Mass/Vol] 13.0 g/dL 11.5 - 15.5 g/dL [facility] MCH (RBC) [Entitic mass] 31.6 pg 26.0 - 34.0 pg [facility] MCHC (RBC) [Mass/Vol] 33.3 g/dL 30.5 - 36.0 g/dL [facility] MCV (RBC) [Entitic vol] 94.7 fL 80.0 - 100.0 fL [facility] Nucleated RBC (Bld) [#/Vol] <0.01 k/uL [facility] Platelet mean volume (Bld) [Entitic vol] 10.9 fL 9.0 - 12.7 fL [facility] Platelets (Bld) [#/Vol] 358 10*3/uL 150 - 400 k /uL [facility] RBC (Bld) [#/Vol] 4.12 10*6/uL 3.90 - 5.2 0 m/uL [facility] WBC (Bld) [#/Vol] 5.31 10*3/uL 3.70 - 11. 00 k/uL [facility] GLUCOSE FASTING BLDon 2021 Glucose post fast [Mass/Vol] 85 mg/dL 74 - 99 mg/dL [facility] XR Chest PA and Lateralon IMPRESSION: Hazy lower lobe pulmonary infiltrates compatible with suspected Covid pneumonia. Photographic Engineer: TIMI Transcribe Date/Time: May 07 2021 1:04P Dictated by : ZOHRA GEORGES MD This examination was interpreted and the report reviewed and electronically signed by: ZOHRA GEORGES MD on May 07 2021 1:05PM [facility] DIVISION OF RADIOLOGY * * *Final Report* * * DATE OF EXAM: May 07 2021 1:00PM WOX 5291 - XR CHEST 2V FRONTAL/LAT / PROCEDURE REASON: Cough * * * * Physician Interpretation * * * * EXAMINATION: CHEST RADIOGRAPH (2 VIEW FRONTAL & LATERAL) CLINICAL HISTORY: Cough MQ: XC2_6 EXAM DATE/TIME: 05/07/2021 1:00 PM COMPARISON: No relevant prior studies available. RESULT: Lines, tubes, and devices: None. Lungs and pleura: Hazy ill-defined opacities are present in both lower lung zones. No pleural effusion. No pneumothorax. Cardiomediastinal silhouette: Normal cardiomediastinal silhouette. Bones and soft tissues: Unremarkable. DIVISION OF RADIOLOGY Provider, Grecia Eastman [facility] - 05/07/2021 * * *Final Report* * * DATE OF EXAM: May 07 2021 1:00PM WOX 5291 - XR CHEST 2V FRONTAL/LAT / PROCEDURE REASON: Cough * * * * Physician Interpretation * * * * EXAMINATION: CHEST RADIOGRAPH (2 VIEW FRONTAL & LATERAL) CLINICAL HISTORY: Cough MQ: XC2_6 EXAM DATE/TIME: 05/07/2021 1:00 PM COMPARISON: No relevant prior studies available. RESULT: Lines, tubes, and devices: None. Lungs and pleura: Hazy ill-defined opacities are present in both lower lung zones. No pleural effusion. No pneumothorax. Cardiomediastinal silhouette: Normal cardiomediastinal silhouette. Bones and soft tissues: Unremarkable. IMPRESSION IMPRESSION: Hazy lower lobe pulmonary infiltrates compatible with suspected Covid pneumonia. Photographic Engineer: PSCB Transcribe Date/Time: May 07 2021 1:04P Dictated by : ZOHRA GEORGES MD This examination was interpreted and the report reviewed and electronically signed by: ZOHRA GEORGES MD on May 07 2021 1:05PM [facility] Radiology Study [facility] (narrative[facility] Chest PA and LateralOrder ed By: Cc Provider on 05-07-2021 [facility] COVID-19 virus antigen assay SARS-CoV-2 (COVID-19) Ag IA.rapid Ql (Resp) [facility] Work Phone: Vital Signs Date Time Vital Sign Value Performing Clinician Facility 04-15-2025 09:55-0400 Body mass index (BMI) [Ratio] 26.3 kg/m2 Wanda Morales MD Work Phone: [facility] 04-15-2025 09:55-0400 Body weight 78.47 kg Wanda Morales MD Work Phone: [facility] 04-15-2025 09:55-0400 Diastolic blood pressure 74 mm[Hg] Wanda Morales MD Work Phone: [facility] 04-15-2025 09:55-0400 Systolic blood pressure 112 mm[Hg] Wanda Morales MD Work Phone: [facility] 04-06-2025 18:06-0400 Body mass index (BMI) [Ratio] 26.21 kg/m2 Gretel Sánchez APRN.CAREER TECHNICAL SUPERVISOR Work Phone: [facility] 04-06-2025 18:06-0400 Body temperature 98.4 [degF] Gretel Sánchez APRN.CAREER TECHNICAL SUPERVISOR Work Phone: [facility] 04-06-2025 18:06-0400 Body weight 78.2 kg Gretel Sánchez APRN.CAREER TECHNICAL SUPERVISOR Work Phone: [facility] 04-06-2025 18:06-0400 Diastolic blood pressure 76 mm[Hg] Gretel Sánchez APRN.CAREER TECHNICAL SUPERVISOR Work Phone: [facility] 04-06-2025 18:06-0400 Heart rate 85 /min Gretel Sánchez APRN.CAREER TECHNICAL SUPERVISOR Work Phone: [facility] 04-06-2025 18:06-0400 Respiratory rate 18 /min Gretel Sánchez APRN.CAREER TECHNICAL SUPERVISOR Work Phone: [facility] 04-06-2025 18:06-0400 SaO2% (BldA) [Mass fraction] 100 % Gretel Sánchez APRN.CAREER TECHNICAL SUPERVISOR Work Phone: [facility] 04-06-2025 18:06-0400 Systolic blood pressure 108 mm[Hg] Gretel Sánchez APRN.CAREER TECHNICAL SUPERVISOR Work Phone: [facility] 03-18-2025 15:44-0400 Body mass index (BMI) [Ratio] 24.94 kg/m2 Wanda Morales MD Work Phone: [facility] 03-18-2025 15:44-0400 Body weight 74.39 kg Wanda Morales MD Work Phone: [facility] 03-18-2025 15:44-0400 Diastolic blood pressure 60 mm[Hg] Wanda Morales MD Work Phone: [facility] 03-18-2025 15:44-0400 Systolic blood pressure 108 mm[Hg] Wanda Morales MD Work Phone: [facility] 02-14-2025 16:56-0400 Body mass index (BMI) [Ratio] 23.46 kg/m2 Ellen Clutter PA-C Work Phone: [facility] 02-14-2025 16:56-0400 Body temperature 98.49 [degF] Ellen Clutter PA-C Work Phone: [facility] 02-14-2025 16:56-0400 Body weight 70 kg Ellen Clutter PA-C Work Phone: [facility] 02-14-2025 16:56-0400 Diastolic blood pressure 64 mm[Hg] Ellen Clutter PA-C Work Phone: [facility] 02-14-2025 16:56-0400 Heart rate 64 /min Ellen Clutter PA-C Work Phone: [facility] 02-14-2025 16:56-0400 Respiratory rate 18 /min Ellen Clutter PA-C Work Phone: [facility] 02-14-2025 16:56-0400 SaO2% (BldA) [Mass fraction] 100 % Ellen Clutter PA-C Work Phone: [facility] 02-14-2025 16:56-0400 Systolic blood pressure 110 mm[Hg] Ellen Clutter PA-C Work Phone: [facility] 02-11-2025 14:03-0400 Body mass index (BMI) [Ratio] 23.87 kg/m2 Deysi Seth APRN.CNM Work Phone: [facility] 02-11-2025 14:03-0400 Body weight 71.22 kg Deysi Seth APRN.CNM Work Phone: [facility] 02-11-2025 14:03-0400 Diastolic blood pressure 64 mm[Hg] Deysi Seth APRN.CNM Work Phone: [facility] 02-11-2025 14:03-0400 Systolic blood pressure 112 mm[Hg] Deysi Seth APRN.CNM Work Phone: [facility] 01-12-2025 15:04-0400 Body mass index (BMI) [Ratio] 22.96 kg/m2 Nikki Tucker MD Work Phone: [facility] 01-12-2025 15:04-0400 Body weight 68.49 kg Nikki Tucker MD Work Phone: [facility] 01-12-2025 15:04-0400 Diastolic blood pressure 60 mm[Hg] Nikki Tucker MD Work Phone: [facility] 01-12-2025 15:04-0400 Systolic blood pressure 108 mm[Hg] Nikki Tucker MD Work Phone: [facility] 12-13-2024 11:03-0400 Body height 172.7 cm Luis Carrasco VIDEOGAME DESIGNER.CAREER TECHNICAL SUPERVISOR Work Phone: [facility] 12-13-2024 11:03-0400 Body mass index (BMI) [Ratio] 21.74 kg/m2 Luislokesh Carrasco VIDEOGAME DESIGNER.CAREER TECHNICAL SUPERVISOR Work Phone: [facility] 12-13-2024 11:03-0400 Body weight 64.86 kg Luislokesh Carrasco VIDEOGAME DESIGNER.CAREER TECHNICAL SUPERVISOR Work Phone: [facility] 12-13-2024 11:03-0400 Diastolic blood pressure 60 mm[Hg] Luis Haury VIDEOGAME DESIGNER.CAREER TECHNICAL SUPERVISOR Work Phone: [facility] 12-13-2024 11:03-0400 Systolic blood pressure 106 mm[Hg] Luis Haury VIDEOGAME DESIGNER.CAREER TECHNICAL SUPERVISOR Work Phone: [facility] 10-29-2024 10:46-0400 Body temperature 98.6 [degF] Artur Joy VIDEOGAME DESIGNER.CAREER TECHNICAL SUPERVISOR Work Phone: [facility] 10-29-2024 10:46-0400 Body weight 59 kg Artur Joy VIDEOGAME DESIGNER.CAREER TECHNICAL SUPERVISOR Work Phone: [facility] 10-29-2024 10:46-0400 Diastolic blood pressure 72 mm[Hg] Artur Joy VIDEOGAME DESIGNER.CAREER TECHNICAL SUPERVISOR Work Phone: [facility] 10-29-2024 10:46-0400 Heart rate 90 /min Artur Joy VIDEOGAME DESIGNER.CAREER TECHNICAL SUPERVISOR Work Phone: [facility] 10-29-2024 10:46-0400 Respiratory rate 16 /min Artur Joy VIDEOGAME DESIGNER.CAREER TECHNICAL SUPERVISOR Work Phone: [facility] 10-29-2024 10:46-0400 SaO2% (BldA) [Mass fraction] 98 % Artur Joy VIDEOGAME DESIGNER.CAREER TECHNICAL SUPERVISOR Work Phone: [facility] 10-29-2024 10:46-0400 Systolic blood pressure 100 mm[Hg] Artur Joy VIDEOGAME DESIGNER.CAREER TECHNICAL SUPERVISOR Work Phone: [facility] 05-25-2024 14:23-0400 Body temperature 100.6 [degF] Gretel Sánchez VIDEOGAME DESIGNER.CAREER TECHNICAL SUPERVISOR Work Phone: [facility] 05-25-2024 14:23-0400 Body weight 62.3 kg Gretel Sánchez VIDEOGAME DESIGNER.CAREER TECHNICAL SUPERVISOR Work Phone: [facility] 05-25-2024 14:23-0400 Diastolic blood pressure 76 mm[Hg] Gretel Sánchez VIDEOGAME DESIGNER.CAREER TECHNICAL SUPERVISOR Work Phone: [facility] 05-25-2024 14:23-0400 Heart rate 100 /min Gretel Sánchez VIDEOGAME DESIGNER.CAREER TECHNICAL SUPERVISOR Work Phone: [facility] 05-25-2024 14:23-0400 Respiratory rate 18 /min Gretel Sánchez VIDEOGAME DESIGNER.CAREER TECHNICAL SUPERVISOR Work Phone: [facility] 05-25-2024 14:23-0400 SaO2% (BldA) [Mass fraction] 99 % Gretel Sánchez VIDEOGAME DESIGNER.CAREER TECHNICAL SUPERVISOR Work Phone: [facility] 05-25-2024 14:23-0400 Systolic blood pressure 117 mm[Hg] Gretel Sánchez APRN.CAREER TECHNICAL SUPERVISOR Work Phone: [facility] 05-03-2024 09:52-0400 Body temperature 97.7 [degF] Krislyn Aberegg PA Work Phone: [facility] 05-03-2024 09:52-0400 Body weight 61.5 kg Krislyn Aberegg PA Work Phone: [facility] 05-03-2024 09:52-0400 Diastolic blood pressure 68 mm[Hg] Krislyn Aberegg PA Work Phone: [facility] 05-03-2024 09:52-0400 Heart rate 82 /min Krislyn Aberegg PA Work Phone: [facility] 05-03-2024 09:52-0400 Respiratory rate 16 /min Krislyn Aberegg PA Work Phone: [facility] 05-03-2024 09:52-0400 SaO2% (BldA) [Mass fraction] 98 % Krislyn Aberegg PA Work Phone: [facility] 05-03-2024 09:52-0400 Systolic blood pressure 112 mm[Hg] Krislyn Aberegg PA Work Phone: [facility] 02-04-2024 11:01-0400 Body height 170.2 cm Lyubov Perez MD Work Phone: [facility] 02-04-2024 11:01-0400 Body mass index (BMI) [Percentile] Per age and sex 30.6 % Lyubov Perez MD Work Phone: [facility] 02-04-2024 11:01-0400 Body mass index (BMI) [Ratio] 20.03 kg/m2 Lyubov Perez MD Work Phone: [facility] 02-04-2024 11:01-0400 Body weight 58 kg Lyubov Perez MD Work Phone: [facility] 02-04-2024 11:01-0400 Diastolic blood pressure 64 mm[Hg] Lyubov Perez MD Work Phone: [facility] 02-04-2024 11:01-0400 Heart rate 57 /min Lyubov Perez MD Work Phone: [facility] 02-04-2024 11:01-0400 SaO2% (BldA) [Mass fraction] 99 % Lyubov Perez MD Work Phone: [facility] 02-04-2024 11:01-0400 Systolic blood pressure 98 mm[Hg] Lyubov Perez MD Work Phone: [facility] 01-28-2024 09:04-0400 Body temperature 97.3 [degF] Wendi Anne PA-C Work Phone: [facility] 01-28-2024 09:04-0400 Body weight 59.47 kg Wendi Anne PA-C Work Phone: [facility] 01-28-2024 09:04-0400 Respiratory rate 16 /min Wendi Anne PA-C Work Phone: [facility] 04-25-2023 12:03-0400 Body height 172.72 cm PA Wendi Anne Work Phone: [facility] 04-25-2023 12:02-0400 Body mass index (BMI) [Percentile] Per age and sex 63.4 % PA Wendi Anne Work Phone: [facility] 04-25-2023 12:02-0400 Body mass index (BMI) [Ratio] 22.4 kg/m2 PA Wedni Anne Work Phone: [facility] 04-25-2023 12:02-0400 Body weight 64.86 kg PA Wendi Anne Work Phone: [facility] 04-25-2023 12:02-0400 Diastolic blood pressure 70 mm[Hg] PA Wendi Anne Work Phone: [facility] 04-25-2023 12:02-0400 Systolic blood pressure 116 mm[Hg] PA Wendi Cifuentesut Work Phone: [facility] 04-01-2023 17:22-0400 Body temperature 98.29 [degF] Deysi Paul VIDEOGAME DESIGNER.CAREER TECHNICAL SUPERVISOR Work Phone: [facility] 04-01-2023 17:22-0400 Body weight 62.05 kg Deysi Paul VIDEOGAME DESIGNER.CAREER TECHNICAL SUPERVISOR Work Phone: [facility] 04-01-2023 17:22-0400 Diastolic blood pressure 64 mm[Hg] Deysi Paul VIDEOGAME DESIGNER.CAREER TECHNICAL SUPERVISOR Work Phone: [facility] 04-01-2023 17:22-0400 Heart rate 74 /min Deysi Paul VIDEOGAME DESIGNER.CAREER TECHNICAL SUPERVISOR Work Phone: [facility] 04-01-2023 17:22-0400 Respiratory rate 16 /min Deysi Paul VIDEOGAME DESIGNER.CAREER TECHNICAL SUPERVISOR Work Phone: [facility] 04-01-2023 17:22-0400 SaO2% (BldA) [Mass fraction] 97 % Deysi Paul VIDEOGAME DESIGNER.CAREER TECHNICAL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 02/11/2025 2:30 PM EDT Routine Office Visit OB/Gynecology [address] [place] [address] Deysi Seth APRN.CN [address] [place] [address] 4 wkk f/u VISHNU OB/Gynecology Comment on above: 4 wkk f/u VISHNU Start: 02-11-2025 End: 02-11-2025 Patient encounter procedure OB/Gynecology Comment on above: 4 wkk f/u VISHNU anatomy Start: 01-12-2025 End: 01-12-2025 Patient encounter procedure OB/Gynecology Comment on above: New OB LMP 10/07/24 [facility] Start: 01-12-2025 End: 01-12-2026 OBSTETRIC ULTRASOUND WHI OBSTETRIC ULTRASOUND WHI Anc Imaging Routine Supervision of high risk in second trimester (HCC) Expected: 01/12/2025, Expires: 01/12/2026 [facility] Work Phone: Comment on above: Expected: 01/12/2025 , Expires: 01/12/2026 Start: 12-13-2024 End: 03-14-2025 ANEMIA REFLEX PANEL ANEMIA REFLEX PANEL Lab Routine with uncertain dates in first trimester (HCC) Expected: 12/13/2024, Expires: 03/14/2025 [facility] Work Phone: Comment on above: Expected: 12/13/2024 , Expires: 03/14/2025 Start: 12-13-2024 End: 03-14-2025 Hemoglobin A1c in Blood HEMOGLOBIN A1C Lab Routine with uncertain dates in first trimester (HCC) Expected: 12/13/2024, Expires: 03/14/2025 [facility] Comment on above: Expected: 12/13/2024 , Expires: 03/14/2025 Start: 12-13-2024 End: 03-14-2025 Hepatitis B virus surface Ag [Presence] in Serum HEPATITIS B SURFACE ANTIGEN Lab Routine with uncertain dates in first trimester (HCC) Expected: 12/13/2024, Expires: 03/14/2025 [facility] Comment on above: Expected: 12/13/2024 , Expires: 03/14/2025 Start: 12-13-2024 End: 03-14-2025 Hepatitis C virus Ab [Presence] in Serum HEPATITIS C ANTIBODY IA WITH CONFIRMATION Lab Routine with uncertain dates in first trimester (HCC) Expected: 12/13/2024, Expires: 03/14/2025 [facility] Comment on above: Expected: 12/13/2024 , Expires: 03/14/2025 Start: 12-13-2024 End: 03-14-2025 HIV 1+2 Ab [Presence] in Serum or Plasma by Immunoassay HIV 1/2 COMBO WITH REFLEX TO DIFFERENTIATION Lab Routine with uncertain dates in first trimester (HCC) Expected: 12/13/2024, Expires: 03/14/2025 [facility] Comment on above: Expected: 12/13/2024 , Expires: 03/14/2025 Start: 12-13-2024 End: 12-13-2025 OBSTETRIC ULTRASOUND WHI OBSTETRIC ULTRASOUND WHI Anc Imaging Routine with uncertain dates in first trimester (HCC) Expected: 12/13/2024, Expires: 12/13/2025 [facility] Comment on above: Expected: 12/13/2024 , Expires: 12/13/2025 Start: 12-13-2024 End: 03-14-2025 RUBELLA IGG ANTIBODY RUBELLA IGG ANTIBODY Lab Routine with uncertain dates in first trimester (HCC) Expected: 12/13/2024, Expires: 03/14/2025 [facility] Comment on above: Expected: 12/13/2024 , Expires: 03/14/2025 Start: 12-13-2024 End: 03-14-2025 SYPHILIS TREPONEMAL W/REFLEX SYPHILIS TREPONEMAL W/REFLEX Lab Routine with uncertain dates in first trimester (HCC) Expected: 12/13/2024, Expires: 03/14/2025 [facility] Comment on above: Expected: 12/13/2024 , Expires: 03/14/2025 Start: 12-13-2024 End: 03-14-2025 TYPE + SCREEN TYPE + SCREEN Blood Bank Routine with uncertain dates in first trimester (HCC) Expected: 12/13/2024, Expires: 03/14/2025 [facility] Comment on above: Expected: 12/13/2024 , Expires: 03/14/2025 Start: 12-13-2024 End: 12-13-2024 Patient encounter procedure 12/13/2024 11:00 AM EDT Initial Office Visit OB/Gynecology [address] [place] [address] Luis Carrasco APRN.CAREER TECHNICAL SUPERVISOR [address] [place] [address] New OB LMP 10/07/24 OB/Gynecology Comment on above: New OB LMP 10/07/24 Start: 11-25-2024 End: 11-25-2024 Patient encounter procedure 11/25/2024 9:00 AM EDT Office Visit OB/Gynecology [address] [place] [address] Smiley Sánchez MD [address] [place] [address] HCG f/u - [facility] HCG in scanned documents OB/Gynecology Comment on above: HCG f/u - [facility] HCG in scanned documents Start: 2024 Pneumococcal vaccination Pneum ococcal Vaccine (1 of 2 - PCV) [facility] Start: 05-03-2024 End: 08-02-2024 Hepatitis B virus surface Ag [Presence] in Serum [facility] Comment on above: Expected: 05/03/2024 , Expires: 08/02/2024 Start: 05-03-2024 End: 08-02-2024 Hepatitis C virus Ab [Presence] in Serum [facility] Comment on above: Expected: 05/03/2024 , Expires: 08/02/2024 Start: 05-03-2024 End: 08-02-2024 Herpes simplex virus+Varicella zoster virus DNA [Presence] in Unspecified specimen by SHELBY with probe detection HSV1,2/VZV NAAT LESION Lab Routine Vaginal discomfort Expected: 05/03/2024, Expires: 08/02/2024 [facility] Comment on above: Expected: 05/03/2024 , Expires: 08/02/2024 Start: 05-03-2024 End: 08-02-2024 HIV 1+2 Ab [Presence] in Serum or Plasma by Immunoassay [facility] Comment on above: Expected: 05/03/2024 , Expires: 08/02/2024 Start: 05-03-2024 End: 08-02-2024 SYPHILIS TOTAL W/REFLEX [facility] Comment on above: Expected: 05/03/2024 , Expires: 08/02/2024 Start: 04-04-2024 Covid-19 Vaccine ( season) Covid-19 Vaccine ( season) [facility] Start: 04-04-2024 Influenza vaccination [facility] Start: 04-01-2024 CHLAMYDIA SCREENING (<18) CHLA MYDIA SCREENING (<18) [facility] Start: 04-01-2024 GC (Gonorrhea) Scree heather (18-24) GC (Gonorrhea) Screening (18-24) [facility] Start: 04-01-2024 GC (GONORRHEA) SCREE HEATHER (<18) GC (GONORRHEA) SCREENING (<18) [facility] Start: 04-01-2024 Screening for Chlamy ashanti trachomatis Chlamydia Screening (18-24) [facility] Start: 03-15-2024 End: 03-15-2024 Patient encounter procedure 03/15/2024 10:20 AM EDT Office Visit Cardiology [address] [place] [address] Lyubov Perez MD [address] [place] [address] follow up echo Cardiology Comment on above: follow up echo Start: 03-08-2024 End: 03-08-2024 Patient encounter procedure 03/08/2024 1:50 PM EDT Office Visit Cardiology [address] [place] [id number] Syncope, unspecified syncope type [R55] Cardiology Comment on above: Syncope, unspecified syncope type [R55] Start: 02-04-2024 End: 02-03-2025 Echocardiography ECHO Cardiology Routine Syncope, unspecified syncope type Expected: 02/04/2024, Expires: 02/03/2025 [facility] Comment on above: Expected: 02/04/2024 , Expires: 02/03/2025 Start: 02-04-2024 End: 02-04-2024 Patient encounter procedure 02/04/2024 11:00 AM EDT Office Visit Cardiology [address] [place] [id number] Lyubov Perez MD [address] [place] [address] Syncope, unspecified syncope type [R55] Cardiology Comment on above: Syncope, unspecified syncope type [R55] Start: 12-20-2023 Adult depression screening assessment DEPRESSION SCREENING [facility] Start: 12-08-2023 CHLAMYDIA SCREENING (<18) CHLA MYDIA SCREENING (<18) [facility] Start: 12-08-2023 GC (GONORRHEA) SCREE HEATHER (<18) GC (GONORRHEA) SCREENING (<18) [facility] Start: 09-13-2023 Adult depression screening assessment DEPRESSION SCREENING [facility] Start: 09-13-2023 CHLAMYDIA SCREENING (<18) CHLA MYDIA SCREENING (<18) [facility] Start: 09-13-2023 GC (GONORRHEA) SCREE HEATHER (<18) GC (GONORRHEA) SCREENING (<18) [facility] Start: 06-26-2023 Adult depression screening assessment DEPRESSION SCREENING [facility] Start: 06-05-2023 Adult depression screening assessment DEPRESSION SCREENING [facility] Start: 05-08-2023 Adult depression screening assessment DEPRESSION SCREENING [facility] Start: 04-04-2023 Covid-19 Vaccine () Covid-19 Vaccine () [facility] Start: 04-04-2023 Influenza vaccination [facility] Start: 01-12-2023 Adult depression screening assessment DEPRESSION SCREENING [facility] Start: 10-10-2022 End: 12-10-2022 TOX SCREEN ROUT UR TOX SCREEN ROUT UR Lab Routine Marijuana abuse Expected: 10/10/2022, Expires: 12/10/2022 [facility] Work Phone: Comment on above: Expected: 10/10/2022 , Expires: 12/10/2022 Start: 08-11-2022 Suicide precautions [facility] Work Phone: Start: 05-15-2022 CHLAMYDIA SCREENING (<18) CHLA MYDIA SCREENING (<18) [facility] Start: 05-15-2022 GC (GONORRHEA) SCREE HEATHER (<18) GC (GONORRHEA) SCREENING (<18) [facility] Start: 05-08-2022 End: 07-08-2022 25-hydroxyvitamin D3 [Mass/volume] in Serum or Plasma [facility] Work Phone: Comment on above: Expected: 05/08/2022 , Expires: 07/08/2022 Start: 05-08-2022 End: 07-08-2022 Ferritin [Mass/volume] in Serum or Plasma [facility] Work Phone: Comment on above: Expected: 05/08/2022 , Expires: 07/08/2022 Start: 05-08-2022 End: 07-08-2022 Iron and Iron binding capacity panel - Serum or Plasma [facility] Work Phone: Comment on above: Expected: 05/08/2022 , Expires: 07/08/2022 Start: 05-08-2022 End: 07-08-2022 Thyrotropin [Units/volume] in Serum or Plasma [facility] Work Phone: Comment on above: Expected: 05/08/2022 , Expires: 07/08/2022 Start: 05-08-2022 End: 07-08-2022 Thyroxine (T4) free [Mass/volume] in Serum or Plasma [facility] Work Phone: Comment on above: Expected: 05/08/2022 , Expires: 07/08/2022 Start: 04-04-2022 Influenza vaccination [facility] Start: 2021 Meningococcal B Vacc ine (1 of 2 - Standard) Meningococcal B Vaccine (1 of 2 - Standard) [facility] Start: 2021 Meningococcal B Vacc ine: Consider Based On Risk (1 of 2 - Patient Seeks Protection) Meningococcal B Vaccine: Consider Based On Risk (1 of 2 - Patient Seeks Protection) [facility] Start: 2021 MENINGOCOCCAL B: Con public opinion survey taker based on risk (1 of 2 - Patient Seeks Protection) MENINGOCOCCAL B: Consider based on risk (1 of 2 - Patient Seeks Protection) [facility] Start: 2019 PEDS TO ADULT TRANSI TION ANNUAL ASSESSMENT PEDS TO ADULT TRANSITION ANNUAL ASSESSMENT [facility] Start: 2015 MENINGOCOCCAL B: Con public opinion survey taker based on risk (1 of 2 - Risk Bexsero 2-dose series) MENINGOCOCCAL B: Consider based on risk (1 of 2 - Risk Bexsero 2-dose series) [facility] Start: 2010 COVID-19 VACCINE (#1) COVID-19 VACCI NE (#1) [facility] Start: 2005 COVID-19 VACCINE (#1) COVID-19 VACCI NE (#1) [facility] ALERE STREP A TEST (AG) ALERE ST REP A TEST (AG) Lab Routine Sore throat Ordered: 07/04/2022 [facility] Work Phone: Comment on above: Ordered: 07/04/2022 Bacteria identified in Urine by Culture URINE CULTURE Microbiology Routine Dysuria 04/01/2023 5:41 PM EDT [facility] Work Phone: Bacteria identified in Urine by Culture URINE CULTURE Microbiology Routine Dysuria Ordered: 05/03/2024 [facility] Work Phone: Comment on above: Ordered: 05/03/2024 Bacteria identified in Urine by Culture BACTERIAL CULTURE, URINE Microbiology Routine with uncertain dates in first trimester ([facility]) 12/13/2024 11:48 AM EDT [facility] Bacteria identified in Urine by Culture BACTERIAL CULTURE, URINE Microbiology Routine Acute UTI 02/14/2025 5:14 PM EDT [facility] Bacteria identified in Urine by Culture BACTERIAL CULTURE, URINE Microbiology Routine Supervision of high risk in second trimester ([facility]) 27 weeks gestation of ([facility]) 04/15/2025 10:10 AM EDT [facility] Work Phone: BACTERIAL VAGINOSIS AMPLIFICATION BACTERIAL VAGINOSIS AMPLIFICATION Lab Routine Vaginal discharge Ordered: 12/07/2022 [facility] Work Phone: Comment on above: Ordered: 12/07/2022 BACTERIAL VAGINOSIS NAAT BACTERI AL VAGINOSIS NAAT Lab Routine 04/01/2023 6:15 PM EDT [facility] Work Phone: BACTERIAL VAGINOSIS NAAT BACTERI AL VAGINOSIS NAAT Lab Routine Dysuria Vaginal discomfort 05/03/2024 10:21 AM EDT [facility] BACTERIAL VAGINOSIS NAAT BACTERI AL VAGINOSIS NAAT Lab Routine Urethral irritation 02/14/2025 5:14 PM EDT [facility] KARL / TRICHOMONA S AMPLIFICATION KARL / TRICHOMONAS AMPLIFICATION Microbiology Routine Vaginal discharge Ordered: 12/07/2022 [facility] Work Phone: Comment on above: Ordered: 12/07/2022 KARL/TRICHOMONAS NAAT KARL /TRICHOMONAS NAAT Lab Routine 04/01/2023 6:15 PM T [facility] Work Phone: KARL/TRICHOMONAS NAAT KARL /TRICHOMONAS NAAT Lab Routine Dysuria Vaginal discomfort 05/03/2024 10:21 AM EDT [facility] KARL/TRICHOMONAS NAAT KARL /TRICHOMONAS NAAT Lab Routine Urethral irritation 02/14/2025 5:14 PM EDT [facility] Chlamydia trachomatis+Neisseria gonorrhoeae DNA [Presence] in Unspecified specimen by SHELBY with probe detection GC/CHLAMYDIA DNA DET Lab Routine Vaginal discharge Ordered: 12/07/2022 [facility] Work Phone: Comment on above: Ordered: 12/07/2022 Chlamydia trachomatis+Neisseria gonorrhoeae DNA [Presence] in Unspecified specimen by SHELBY with probe detection GONORRHEA/CHLAMYDIA NAAT Lab Routine 04/01/2023 6:15 PM EDT [facility] Work Phone: Chlamydia trachomatis+Neisseria gonorrhoeae DNA [Presence] in Unspecified specimen by SHELBY with probe detection GONORRHEA/CHLAMYDIA NAAT Lab Routine Dysuria Vaginal discomfort 05/03/2024 10:19 AM T [facility] Chlamydia trachomatis+Neisseria gonorrhoeae DNA [Presence] in Unspecified specimen by SHELBY with probe detection GONORRHEA/CHLAMYDIA NAAT Lab Routine with uncertain dates in first trimester ([facility]) 12/13/2024 11:48 AM EDT [facility] ECG COMPLETE ECG COMPLETE ECG 02/04/2024 11:09 AM T [facility] OUTSIDE VENDOR CARDI AC OUTPATIENT EXTENDED RHYTHM RECORDING (WITHOUT TELEMETRY) OUTSIDE VENDOR CARDIAC OUTPATIENT EXTENDED RHYTHM RECORDING (WITHOUT TELEMETRY) Holter Routine Syncope, unspecified syncope type Ordered: 02/04/2024 [facility] Work Phone: Comment on above: Ordered: 02/04/2024 Patient Education ED Drug Abuse [facility] Work Phone: Patient referral [facility] Work Phone: TRICHOMONAS VAGINALI S NAAT TRICHOMONAS VAGINALIS NAAT Lab Routine with uncertain dates in first trimester (HCC) Screen for STD (sexually transmitted disease) 12/13/2024 11:48 AM T [facility] Urine test visual color cmprsn meths HCG QUAL UR B/O Lab Routine Dysuria Ordered: 10/29/2024 [facility] Work Phone: Comment on above: Ordered: 10/29/2024 [facility] Immunizations Immunization Date Immunization Notes Care Provider Sommer dunbar 01-12-2022 meningococcal polysaccharide (groups A, C, Y and W-135) diphtheria toxoid conjugate vaccine (MCV4P) Wendi Anne PA-C Work Phone: [facility] 06-20-2021 rabies vaccine, for intramuscular injection Wendi Anne PA-C Work Phone: [facility] 06-13-2021 rabies vaccine, for intramuscular injection Wendi Anne PA-C Work Phone: [facility] 06-09-2021 rabies vaccine, for intramuscular injection Wendi Anne PA-C Work Phone: [facility] 06-06-2021 rabies immune globulin Krist en Anne PA-C Work Phone: [facility] 06-06-2021 rabies vaccine, for intramuscular injection Wendi Anne PA-C Work Phone: [facility] 01-04-2019 Human Papillomavirus 9-valent vaccine Wendi Anne PA-C Work Phone: [facility] 01-01-2018 Human Papillomavirus 9-valent vaccine Wendi Anne PA-C Work Phone: [facility] 01-01-2018 meningococcal polysaccharide (groups A, C, Y and W-135) diphtheria toxoid conjugate vaccine (MCV4P) Wendi Cifuentesut PA-C Work Phone: [facility] 01-01-2018 tetanus toxoid, redu kaila diphtheria toxoid, and acellular pertussis vaccine, adsorbed Wendi Anne PA-C Work Phone: [facility] 04-17-2017 tetanus toxoid, redu kaila diphtheria toxoid, and acellular pertussis vaccine, adsorbed Wendi Anne PA-C Work Phone: [facility] Work Phone: 08-24-2010 diphtheria, tetanus toxoids and acellular pertussis vaccine Wendi Anne PA-C Work Phone: [facility] 08-24-2010 influenza virus vacc ine, unspecified formulation Wendi Anne PA-C Work Phone: [facility] 08-24-2010 measles, mumps and rubella virus vaccine Wendi Anne PA-C Work Phone: [facility] 08-24-2010 poliovirus vaccine, inactivated Wendi Anne PA-C Work Phone: [facility] 08-24-2010 varicella virus vaccine Fredy dannie Anne PA-C Work Phone: [facility] 08-24-2009 influenza virus vacc ine, unspecified formulation Wendi Anne PA-C Work Phone: [facility] Work Phone: 06-22-2007 hepatitis A vaccine, unspecified formulation Wendi Anne PA-C Work Phone: [facility] Work Phone: 06-22-2007 influenza virus vacc ine, unspecified formulation Wendi Anne PA-C Work Phone: [facility] Work Phone: 12-11-2006 diphtheria, tetanus toxoids and acellular pertussis vaccine Wendi Anne PA-C Work Phone: [facility] Work Phone: 12-11-2006 haemophilus influenz ae type b vaccine, HbOC conjugate Wendi Anne PA-C Work Phone: [facility] Work Phone: 12-11-2006 hepatitis A vaccine, unspecified formulation Wendi Anne PA-C Work Phone: [facility] Work Phone: 07-03-2006 influenza virus vacc ine, unspecified formulation Wendi Anne PA-C Work Phone: [facility] Work Phone: 07-03-2006 influenza virus vacc ine, whole virus Wendi Anne PA-C Work Phone: [facility] Work Phone: 07-03-2006 pneumococcal conjuga te vaccine, 7 valent Wendi Anne PA-C Work Phone: [facility] Work Phone: 06-02-2006 influenza virus vacc ine, unspecified formulation Wendi Anne PA-C Work Phone: [facility] Work Phone: 06-02-2006 influenza virus vacc ine, whole virus Wendi Anne PA-C Work Phone: [facility] Work Phone: 06-02-2006 measles, mumps and rubella virus vaccine Wendi Anne PA-C Work Phone: [facility] Work Phone: 06-02-2006 varicella virus vaccine Fredyalen pandey Anne PA-C Work Phone: [facility] Work Phone: 2005 DTaP-hepatitis B and poliovirus vaccine Wendi Anne PA-C Work Phone: [facility] Work Phone: 2005 haemophilus influenz ae type b vaccine, HbOC conjugate Wendi Anne PA-C Work Phone: [facility] Work Phone: 2005 pneumococcal conjuga te vaccine, 7 valent Wendi Anne PA-C Work Phone: [facility] Work Phone: 2005 DTaP-hepatitis B and poliovirus vaccine Wendi Anne PA-C Work Phone: [facility] Work Phone: 2005 haemophilus influenz ae type b vaccine, HbOC conjugate Wendi Anne PA-C Work Phone: [facility] Work Phone: 2005 pneumococcal conjuga te vaccine, 7 valent Wendi Anne PA-C Work Phone: [facility] Work Phone: 2005 DTaP-hepatitis B and poliovirus vaccine Wendi MARIO-Armando Work Phone: [facility] Work Phone: 2005 haemophilus influenz ae type b vaccine, HbOC conjugate Wendi MARIO-C Work Phone: [facility] Work Phone: 2005 pneumococcal conjuga te vaccine, 7 valent Wendi Anne PA-C Work Phone: [facility] Work Phone: 2005 hepatitis B vaccine, pediatric or pediatric/adolescent dosage Wendi MARIO-Armando Work Phone: [facility] Work Phone: Payers Date Payer Category Payer Unknown [id number] 2024 Self-pay [id number] 2022 Blue [employer] Blue Shield [id number] 2022 Unknown [employer] BLUE CARD PPO OOS [id number] 2022-Present [phone] [address] [place] [address] PPO [id number] 2022 Unknown [id number] 2018 Medicaid [employer] [id number] 2018-Present [phone] [address] [place] [address] Medicaid [id number] 2018 Medicaid [id number] 2016 Unknown [facility] [employer] PLAN [id number] Private Health Insurance [place] [id number] Unknown [id number] Unknown YELENA [id number] Unknown [id number] Unknown [id number] Unknown [id number] Unknown [id number] Unknown [id number] Unknown [id number] Unknown [id number] Unknown [id number] Social History Date Type Detail Facility Start: 05-08-2022 End: 12-13-2024 Tobacco smoking status NHIS Never smoked tobacco [facility] Work Phone: Start: 05-05-2021 End: 01-12-2022 Alcohol intake Not Asked [facility] Start: 01-08-2022 History SDOH Physical Activity DPW 1 [facility] Start: 01-08-2022 History SDOH Financial 3 [facility] Start: 01-08-2022 History SDOH Food Worry 2 [facility] Start: 08-24-2009 End: 05-08-2022 Tobacco Comment outside [facility] Start: 2005 Sex Assigned At Not on file [facility] Start: 01-02-2022 End: 07-04-2022 Exposure to SARS-CoV-2 (event) Not sure [facility] History of tobacco use Passive smoker [facility] Work Phone: Start: 05-08-2022 End: 12-13-2024 Tobacco use and exposure Smokeless tobacco non-user [facility] Work Phone: Start: 08-11-2022 End: 04-25-2023 Tobacco smoking status NHIS Unknown if ever smoked [facility] Start: 2005 Sex Assigned At Female [facility] Start: 10-10-2022 End: 02-04-2024 Tobacco smoking status NHIS Smokes tobacco daily [facility] Work Phone: Start: 10-10-2022 End: 02-14-2025 Alcohol intake Lifetime non-drinker (finding) [facility] Start: 01-12-2022 End: 12-19-2022 History of Social function [facility] Start: 01-12-2022 End: 12-19-2022 Tobacco use panel [facility] How hard is it for y ou to pay for the very basics like food, housing, medical care, and heating Somewhat hard [facility] (I/We) worried wheth er (my/our) food would run out before (I/we) got money to buy more. Sometimes true [facility] Start: 07-05-2012 In the past 12 months, has lack of transportation kept you from medical appointments or from getting medications? No [facility] Start: 04-07-2021 End: 05-07-2021 In the past 12 months, was there a time when you were not able to pay the mortgage or rent on time? Yes [facility] At any time in the p ast 12 months, were you homeless or living in group home [including now]? No [facility] Are you now , , , , never or living with a partner? Living with partner [facility] Do you feel stress - tense, restless, nervous, or anxious, or unable to sleep at night because your mind is troubled all the time - these days [OSQ] Very much [facility] Start: 06-07-2023 Gender identity Identifies as female gender (finding) [facility] Start: 06-07-2023 Sexual orientation Bisexual (finding) [facility] Start: 12-09-2024 Education 13 [facility] Start: 10-21-2024 [facility] Goals Date Patient Goal Desired Activity /State Personal health goal Functional Status Date Assessment Result Facility 02-28-2015 Are you deaf, or do you have serious difficulty hearing No 02/28/2015 8:31 AM EDT Jeronimo Peter Cma L No [facility] 02-28-2015 Are you blind, or do you have serious difficulty seeing, even when wearing glasses No 02/28/2015 8:31 AM EDT Hardik Peter Cmai L No [facility] 02-28-2015 Do you have serious difficulty walking or climbing stairs No 02/28/2015 8:31 AM EDT Jeronimo Peter Cma L No [facility] 02-28-2015 Do you have difficul ty dressing or bathing No 02/28/2015 8:31 AM EDT Hardik Peter Cmai L No [facility] Mental Status Date Assessment Result Facility 02-28-2015 Because of a physica l, mental, or emotional condition, do you have serious difficulty concentrating, remembering, or making decisions No 02/28/2015 8:31 AM EDT Hardik Peter Cmai L No [facility] Clinical Notes 2005 to 05-03-2025 Quick Notes - Wanda Morales MD - 04/15/2025 10:08 AM EDTPrenatal Quick Notes - Wanda Morales MD - 04/15/2025 10:08 AM EDTPatient InstructionsPatient InstructionsPatient Instructions Note Date & Type Note Facility 05-03-2025 Note HNO ID: [id number] Author: WENDI ANNE PA-C Service: ? Author Type: Physician Chief Human Resources Officer Type: Progress Notes Filed: 05/03/2025 10:40 Note Text: MEET THE ORDER PICKER VISIT Abbe is a 19 year old female who presents today for a meet and greet visit. Concerns: Mother currently a patient of the practice and wants to ensure her child can be seen once he is born and she is no longer a patient. Additionally has a paternity test she ordered off [employer]. Questioning whether an order can be placed for her to have a blood draw to utilize for her home test. G 1 / P0, due to deliver on July 14. Plans to deliver at [facility] [place]. gender: Male. complicated by History of PTSD, Anxiety, Nicotine Use, Marijuana Use, Nausea/Vomiting, and Constipation. Maternal screens: Negative. Oriented to practice: Discussed choosing a customs director, circumcision, expected course, and what to expect at first visit. Discussed first visit in office within 2-3 days of discharge. Discussed that I am unable to order blood test for home paternity test. Reviewed potential options. I spent a total of 20+ minutes on the date of the service which included preparing to see the patient, [id number] patient care, completing clinical documentation, obtaining and/or reviewing separately obtained history, performing a medically appropriate examination, and counseling and educating the patient/family/caregiver. Wendi Anne PA-C [facility] 04-15-2025 Progress note Formatting of t his note might be different from the original. S: Abbe Faustin is a 19 year old female who presents at 07/14/2025, by Last Menstrual Period for a routine visit. Denies headache, visual changes, chest pain,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 detected in breast milk. In one recent study, researchers found that breastfed babies ingest approximately 2.5% of the mother s THC dose. The amount of time THC remains in the milk ranges from 6 days to 6 weeks. Available research has not demonstrated clear health concerns except for a possible delay in motor development (learning to crawl and walk on time) when a woman reports smoking marijuana on a daily basis. Because the baby s brain continues to develop during the time that they are being breastfed, experts are worried about the possible effects this drug may have on a nursing infant when a mother uses it during . Other factors to consider are possible legal implications if a breastfed baby tests positive for marijuana, the fact that there may be other contaminants (mentioned above) in the marijuana, thereby exposing the breastfed baby to other substances, and the possibility that the baby will be directly exposed to second hand smoke. Most professional organizations such as the [place] [employer], the Academy of Medicine, and the [place] [employer] advise that mothers avoid using marijuana. Be sure to talk to your healthcare provider about all your questions. Because marijuana can affect prolactin (a hormone that tells your body to make milk), there is a concern that frequent marijuana users may see a negative effect on the quality and quantity of milk they produce. If a man uses marijuana could it affect his fertility (ability to get partner ) or increase the chance for defects? In men, marijuana use may decrease sperm count (the number of sperm), and motility (the ability for those sperm to reach the egg). These factors could make it more difficult for a man to get his partner . These effects are thought to be temporary, and sperm function is expected to return to normal once a man stops using marijuana. In general, exposures that fathers have are unlikely to increase risks to a . For more information, please see the [employer] fact sheet Paternal Exposures and at https://mothertobaby.org/fact-she ets/hbtwztob-dznnlydkm-dpoxgcvsm/ pdf/. How SMOKING Affects Your and Your Baby During Smoking during affects you and your baby's health before, during and after your baby is born. The nicotine (the addictive substance in cigarettes), carbon monoxide and numerous other poisons you inhale from a cigarette are carried through your bloodstream and go directly to your baby. Smoking while will: Lower the amount of oxygen available to you and your growing baby Increase your baby's heart rate Increase the chances of miscarriage and stillbirth Increase the risk that your baby is born prematurely and/or born with low weight Increase your baby's risk of developing respiratory problems The more cigarettes you smoke per day, the greater your baby's chances of developing these and other health problems. There is no safe level of smoking for your baby's health. How does secondhand smoke affect me and my baby? Second-hand smoke (also called passive smoke or environmental tobacco smoke) is the combination of smoke from a burning cigarette and smoke exhaled by a smoker. The smoke that yee off the end of a cigarette or cigar contains more harmful substances ( tar, carbon monoxide, nicotine and others) than the smoke inhaled by the smoker. If you are regularly exposed to second-hand smoke, you increase your and your baby's risk of developing lung cancer, heart disease, emphysema, allergies, asthma and other health problems. Babies exposed to second-hand smoke may also develop reduced lung capacity and are at higher risk for sudden syndrome (SIDS). What happens if I keep smoking after my baby is born? If you continue to smoke after your baby is born, you increase his or her chance of developing certain illnesses and problems, such as: Frequent colds Bronchitis and pneumonia Asthma Chronic coughs Ear infections High blood pressure Learning and behavior problems later in childhood Why should I quit smoking? Smoking is the leading cause of preventable in the [place] By quitting you can: Prolong your life Lower your risk of heart disease Lower your risk of developing lung, throat, mouth, pancreatic and bladder cancer Lower your risk of developing breathing problems such as chronic obstructive pulmonary disease (COPD), asthma and emphysema Lower your risk of developing allergies Raise your energy level Improve your appearance; your skin will wrinkle less and look better, and your fingers and teeth will not be yellow Improve your sense of smell and taste Feel healthier overall, with improved self-esteem Save a lot of money (the average smoker spends $740 a year for cigarettes!) How can I quit smoking? There is no one way to quit smoking that works for everyone, since each person has different smoking habits. Here are some tips: Hide your matches, lighters, and ashtrays. Take a deep breath and hold it for five to ten seconds whenever you get the urge to smoke. Designate your home a non-smoking area. Ask people who smoke not to smoke around you. Drink less caffeinated beverages; caffeine may stimulate your urge to smoke. Also avoid alcohol, as it also may increase your urge to smoke and can be harmful to your baby. Change your habits connected with smoking. If you smoked while driving or when feeling stressed, try other activities to replace smoking. Keep mints or gum (preferably sugarless) on hand for those times when you get the urge to smoke. Stay active to keep your mind off smoking and help relieve tension: take a walk, exercise, read a book or try a new a hobby. Look for support from others. Join a support group or smoking cessation program, such as the [facility] Smoking Cessation Program. For more information, please call . Do not go places where many people are smoking such as bars or clubs, and smoking sections of restaurants. Should I use a nicotine replacement to help me quit? Nicotine gum and patches release nicotine into the bloodstream of the smoker who is trying to quit. Although these products can reduce withdrawal symptoms and decrease cravings in smokers who are trying to quit, nicotine is quite toxic and potentially harmful to the fetus (as well as to the infant who is ). Therefore, these and any other products containing nicotine are not always ecommended for the woman who is trying to quit smoking. They may be prescribed in indivdual cases. How will I feel when I quit? The benefits of not smoking start within days of quitting. After you quit, you and your baby's heart beat will return to normal, and your baby will be less likely to develop breathing problems. You may have symptoms of withdrawal because your body is used to nicotine, the addictive substance in cigarettes. You may crave cigarettes, be irritable, feel very hungry, cough often, get headaches or have difficulty concentrating. The withdrawal symptoms are only temporary. They are strongest when you first quit but will go away within 10 to 14 days. When withdrawal symptoms occur, stay in control. Think about your reasons for quitting. Remind yourself that these are signs that your body is healing and getting used to being without cigarettes. Remember that withdrawal symptoms are easier to treat than the major diseases that smoking can cause. Even after the withdrawal is over, expect periodic urges to smoke. However, these cravings are generally short-lived and will go away whether you smoke or not. Don't Smoke! If you smoke again (called a relapse) do not lose hope. Seventy-five percent of those who quit relapse. Most smokers quit three times before they are successful. If you relapse, don't give up! Plan ahead and think about what you will do next time you get the urge to smoke. (This information is provided by the [facility] and is not intended to replace the medical advice of your doctor or health care provider. Please consult your health care provider for advice about a specific medical condition. For additional written health information, please call the Cancer Answer Line at [facility] [place] Friday - Friday 8-4:30 for assistance: [phone]. Or visit [email or web address]/) [facility] s Smoking Cessation Program The [facility] Smoking Cessation Program is a comprehensive, multifaceted program that can be tailored to your individual needs. We offer a variety of services designed to help you throughout the process, including office visits, distance health visits (virtual or telephone), and the eCoach program or pharmacy consultations. To schedule, call [phone] Appointments: An office visit: This is a one-on-one approach where you go to an office and meet with the provider to discuss your options for quitting. Distance health visits: This type of visit can be completed via virtual visit or telephone visit. Virtual visits require a smartphone, tablet or computer with access to a webcam, microphone and Internet connection. You will need to sign up for [employer] prior to your virtual visit. Telephone visits can be completed via audio only if patient does not have access to the above Pharmacotherapy Nicotine replacement therapy (patches, gum, lozenges, inhalers or nasal spray) Bupropion (Wellbutrin) Chantix Integrative and Lifestyle Medicine Services: Acupuncture Holistic Psychotherapy Meditation Yoga And more The eCoach program Expert tips tailored to you Behavioral replacements Recognizing individual triggers On your schedule Pharmacy consultation You can meet with a pharmacist (either online or in person) to discuss smoking cessation medications, including: Nicotine replacement therapy: gum, patches, lozenges, inhalers or nasal spray Bupropion SR Varenicline (Chantix ) The [place] [employer] (ACS) has a section devoted to quitting tobacco with information on where to get help, interactive tools, the relationship of tobacco and cancer, how to keep your kids smoke-free, smoke-free communities and the ACS s annual [place] Smokeout. Visit this link for more info: https://www.cancer.org/cancer/ris k-prevention/tobacco/guide-quitti ng-smoking.html The [place] [employer] Association has tools, tips, support and fact sheets to help you stop smoking or to help a loved one quit. There s also more information about [place] From Smoking , the program we use in our smoking classes at [facility]. Visit this link for more info: https://www.lung.org/quit-smoking /dupd-lkxsaeo-ygqd-smoking The National Cancer [place] s site, Smokefree.gov, has an abundance of free and accurate resources to encourage smokers to stop: Smokefree apps for your smartphone offer individualized guidance once you input your information You can sign up for the [employer]okefree[employer] text messaging program, which sends you daily text messages with encouragement, tips and advice to help making quitting easier Create a personalized Quit Plan by choosing a quit date and answering seven questions Take a quiz on your withdrawal symptoms See how you can prepare to quit -NOW is the national portal to a network of state quitlines. Quitlines offer evidence-based support--like counseling, referrals to local programs, and free medication--to people who want to quit tobacco. MORNING SICKNESS IN by Elif Woodruff M.D. for [employer] As you may already know, morning sickness can often be more appropriately called evening sickness or kkoti-gyjiba-yn-the-day sickness. While there are the nikia few, most women (50-90%) experience some degree of nausea, some have vomiting, and a few develop a severe form of vomiting during called hyperemesis gravidarum. What causes the nausea and vomiting of ? We can't explain why some people feel fine and others are green for months. Even the same woman may feel vastly different in each . There is some relationship between nausea and the level of the hormone hCG. In twin pregnancies, and in other situations where the hCG is greater than expected, nausea and vomiting tend to be worse. In a destined for miscarriage, hCG levels tend to be low, and nausea is often less severe. This being said, a lack of nausea doesn't guarantee that the is destined for miscarriage. The fact that nausea and vomiting are often signs of a healthy can offer a silver lining in the dark cloud of miserable nausea. How long will the nausea last? Fortunately, for most women, nausea and vomiting are a first trimester event, peaking at week 9-10 and waning by week 14-16. When you are feeling bad the weeks can go by slowly but most moms do feel tremendously better by the middle of the . Whether morning sickness is a brief experience or lasts through most of the , there are treatments that can make the weeks or months more tolerable. What can you do about it? Diet: See what works for you. Try eating bland dry foods, and avoid fatty or spicy foods. It is okay to eat a less than perfectly balanced diet in the first trimester. Have your liquids separately from dry foods. Try sports drinks, water, clear juices, Shaun-aid, or non-caffeinated tea. Avoid carbonated beverages that fill up your stomach. Try eating lots of little meals. If you tend to feel sick when you first wake up, leave crackers next to the bed for a quick snack before rising. Keeping healthy snacks with you all day to nibble when you feel queasy can sometimes even prevent nausea from starting. vitamins and nausea: Pre-zandra vitamins can sometimes worsen nausea in . While folate is necessary, especially early in the , it comes as a smaller pill that many people find more tolerable than the complete vitamin pill. Ask your practitioner if it is okay to temporarily replace vitamins and iron with just a folate pill if you find a significant worsening in the level of your nausea from the vitamins. Alternative therapies: Acupressure may be used to treat nausea in , and is not known to have any risks for the fetus. Wristbands (marketed for seasickness) that put pressure on an acupressure point at the wrist are often available at drugstores or travel stores. Ryann root is used for nausea in many traditional cultures. Some women take fresh grated ryann or ryann tablets. It is possible that the pill form contains other ingredients or contaminants, so you may want to try fresh ryann first. Medications: Emetrol is the only nausea medication approved for use in . It is available over the counter and is soothing to the stomach. A prescription medication called Bendectin was available in the -1979's and was shown to be safe in , but the company stopped marketing it in the [place] due to the costs of liability coverage. Bendectin contained 10 milligrams of vitamin B6 and 10 milligrams of Doxylamine. Two tablets were given at bedtime and a total of up to 4 tablets could be used in a 24-hour period. Interestingly, Unisom , which contains a higher dose (25 mg.) of the same medication, Doxylamine, is currently marketed as an ipry-oam-wleoghm sleeping pill. Ask your practitioner if creating a vitamin B6/Doxylamine combination with ursp-tgn-lmuogmn medications would be safe for you. Prescription medications like Compazine and Phenergan can be used if the benefits outweigh possible risks, but these have not been clearly shown to be safe in . Zofran , an expensive anti-nausea medication often used to treat nausea from chemotherapy, can also be used. Can I throw up so much it harms the baby? The act of vomiting cannot hurt your fetus, which is protected inside the uterus. If you get dehydrated or develop a metabolic imbalance, this can be unhealthy. As long as you can keep down liquids, you and your baby will generally do all right. Eat when you feel able. If you are unable to keep anything down, or if you notice potential signs of dehydration such as lightheadedness, or concentrated and/or infrequent urination, call your practitioner. Some women need brief hospital admission for intravenous fluids and anti-nausea medications if their condition becomes severe. This severe form of nausea and vomiting is called Hyperemesis Gravidarum. As with many symptoms of , remind yourself that this, too, shall pass, and you'll have a wonderful baby to show for it! TREATMENT OPTIONS, SHORT VERSION: Frequent small meals Hydrate throughout day [employer] wrist pressure point applicators Ryann root (powdered, in capsules) 250mg four times a day Vitamin B6 25 mg tablet three times a day Also may be taken with half a tablet of Unisom three times a day (Doxylamine 12.5 mg) If severe (weight loss, dehydration), call us and come in for IV hydration and possible medication in the form of injections. Prescription medications such as Phenergan, Compazine, Reglan Ondansetron (Zofran ) March 04, 2020 This sheet talks about exposure to ondansetron in a and while . This information should not take the place of medical care and advice from your healthcare provider. What is ondansetron? Ondansetron is a medication used to treat nausea and vomiting that may be caused by surgery, chemotherapy, or radiation therapy. Ondansetron has also been prescribed during to help with symptoms of nausea and vomiting in (NVP). NVP is also referred to as morning sickness . Ondansetron is taken by mouth, infused into a vein (by IV) or given by injection into a muscle (IM). Ondansetron is sold under the brand name Zofran . What can I do to help control my nausea and vomiting? [employer] has a helpful fact sheet on nausea in with recommendations. You can review it here: https://mothertobaby.org/fact-she ets/jddlwg-woblcngy-kwnodaybb-nvp /pdf/. Also, eating small meals often, drinking plenty of clear fluids, and avoiding triggers (such as odors, heat, and spicy or high fat foods) can help. Talk to your healthcare provider about which NVP treatments are right for you. I take ondansetron. Can it make it harder for me to become ? There are no studies that have looked to see if ondansetron could make it harder for a person to get . Studies in animals did not find that ondansetron would affect the ability to get . Does taking ondansetron increase the chance for miscarriage? Miscarriage can occur in any . One study did not find that miscarriage happened more often for those who reported that they used ondansetron in the first trimester of . Does taking ondansetron increase the chance of defects? Every starts out with a 3-5% chance of having a defect. This is called the background risk. Most studies have found no increased chance for defects among thousands of people who used ondansetron in the first trimester of . A few studies reported a very small (less than 1%) increase in the chance for a cleft palate (an opening in the roof of the mouth that may be repaired with surgery) or a heart defect. Because of other factors that could affect the pregnancies exposed to ondansetron, it is not known if ondansetron actually increases the chance of defects. Could taking ondansetron cause other complications? Studies did not find a higher chance of loss, delivery (delivery before 37 weeks of ), or low weight when ondansetron was used during . At higher doses, there have been reports that ondansetron use might cause a heart rhythm problem (called QT interval prolongation) in the person taking ondansetron. In severe cases, this could become an abnormal heart rhythm known as Torsades de Pointes. If you are taking ondansetron, you can talk to your healthcare provider about how to watch for changes in your heart rhythm. Does taking ondansetron in cause long-term problems in behavior or learning for the baby? One study looked at 78 infants who were exposed to ondansetron at any time during . The infants were looked at between 7 days to 2 months of age and did not show any signs of unusual behaviors. A single follow-up survey for about 25 of these children was sent in by the parents. The children were between 1 to 5 years old. The survey asked about behavior. The surveys did not report behavior differences in these children compared to children who were not exposed ondansetron during . There are no other studies looking at the use of ondansetron in and long-term effects for the baby. Can I breastfeed while taking ondansetron? There have been no studies in humans looking at the use of ondansetron during . Studies in animals suggest that ondansetron enters breast milk, but the effects of ondansetron on a are not known. If ondansetron use is necessary, it is not usually a reason to stop . A different drug may be considered, especially while a or . Be sure to talk to your healthcare provider about all your questions. I take ondansetron. Can it make it harder for me to get my partner or increase the chance of defects? There are no human studies looking at male use of ondansetron. Animal studies have not shown any effect on male fertility. In general, exposures that fathers and sperm donor have are unlikely to increase risks to a . For more information, please see the MotherEmpathy Marketing fact sheet Paternal Exposures at https://mothertobaby.org/fact-she ets/qrebppyb-qltgktlsj-dlssknmjl/ pdf/. Psychotherapy Services at [facility] Call Behavioral Health Access Line at [phone] to schedule Individual psychotherapy In-person or virtual Wait time for first evaluation may be 12 or more weeks. Wait list spots may be available. Due to the high volume of patients this option is recommended if you are looking for short term acute symptom coping strategies. 4-056-1-UDHZ1GMPR - [place] Maternal Mental Health Hotline If you are in suicidal crisis, please call or text 1-806-970-TALK ( ) or visit the National Suicide Prevention Lifeline website. mchb.[facility] medical centera.gov If you are in crisis, call 281 or go to your nearest Emergency Department Here are some links for wonderful Providers here in the community and surrounding areas. Do not hesitate to contact their offices, many are offering virtual visits during this time. Psychotherapy Services outside of [facility] Support International Online Provider Directory https://UrbanBuz/ - can assist in finding providers in your area that might be more extensive then the list below. [facility] [place], [place] [address] [place] [address] [facility] [address] [place] [address] [facility] [address] [place] [address] [facility] [address] [place] [address] Monica Nielson MD [address] [place] [address] [facility] [address] [facility], [address] [place] [address] [facility] [address] [place] [address] [facility]ing Services [place] / [place] [phone]/ [phone] K[facility] [address] [facility] [address] [facility] [phone] Aves of Counseling and Mediation [place] / [place] [phone] Behavioral [facility] services [facility] [address] [place] [address]/ tyro and payette [phone] Paula Barry, HUSSAIN, CLC [facility] Family Therapy Workshops, telehealth and at home visits. [phone] Humanistic counseling center [address] [facility], [place], [place], [place], [place], [place], [facility], [place], [place], [place], [place], [place], [place], [facility], [place], [place] ,[facility], [place], [place],[facility], [facility], [place], [facility], [facility], [place] www.Viratechwenatchee valley medical centerer.co [phone] Psychotherapy resources outside of [facility] are listed below Equinext Psychotherapy Web: https://www.Playdate App/ Support International Online Provider Directory https://UrbanBuz/ [facility] https://TriQ Systems/ Partners for Behavioral Health and Wellness Web: https://Qview Medical/ GT Channel for Effective Living Web: https://GenZum Life ScienceseffectiveEyewitness Surveillanceliving.BioTheryX/ LifeStance Web: https://Frelo Technology, LLC/location/s akil/kimber/ [facility] Web: https://www.[facility].or / [facility] Web: https://Distributive Networks.Compass Engine/ Recovery Resources Mental health and substance abuse help Web: https://www.Innate Pharmas.Compass Engine & RESOURCES Support International Direct peer support and connection to professional resources Non-Emergency Helpline Phone: / Text: [phone] Web: https://www..net/ Online Provider Directory: https://UrbanBuz/ Online Support Meetings: https://www..net/get-he lp/pmc-yprbix-uczjjyu-meetings/ RAÚL Baby and Metallurgical Technician Services Web: https://wwwTaketake/ MotherToBaby Expert information on medication use during and Text: [phone] Web: https://Towergate.Compass Engine/ NATIONAL REGISTRY FOR PSYCHIATRIC MEDICATIONS Currently studying the safety of antidepressants, ADHD medications and atypical antipsychotics taken during TO PARTICIPATE CALL TOLL-FREE: Web: https://womensmentalhealth.org/re search/pregnancyregistry/ Support Groups: [facility]- Follow on facebook Baby Bistro support group led by [facility] department Resilient Mamas - Support Group Trinity Healths.org The POEM support group [phone] Www.poemonline.org Follow on facebook - DARLING cook Online support meetings PSI https://www..net/get-he lp/yvj-fhqnwt-fwkduqy-meetings/ [facility] momjonathon and me virtual support group 11:30-1pm Support for mothers and new babies and toddlers [place] childbirth education: Childbirth @ccf.org or call [phone] CRISIS: CRISIS HOTLINE [phone], 911 or go to the nearest ER. [facility] [phone] / [facility] [phone] https://www.nuvance healthrb.org Crisis text line text the word HOME to [address] [facility] [address] [facility] [phone] www.freee Pastora Mederos clinical counseling [address] [facility] [address] [place] [address] www.Micello [phone] Holding space psychotherapy Joellen Dexterkasandra RETAIL SALES LEAD ADULT EDUCATION INSTRUCTOR-S [address] [facility] www.CTI Towers [phone]/ [place] [phone] They all offer virtual. All work with trauma Support groups Online support meetings PSI https://www..net/get-he lp/iye-hivser-txlwrdt-meetings/ Here are the support groups they offer: Support of parents of 1 to 4 years old children POEM ( Outreach and Encouragement for Moms) offers free support for mothers experiencing depression, anxiety, and other mood and anxiety disorders. Masks are recommended but not required. No pre-registration required. Babies in arms welcome. meetings now take place on the and Friday of each month Location: [facility] [address] [place] [address] Room 122 (library room) 7-8:00 p.m. When you enter the [facility] parking lot off of [address] the entrance door closest to our meeting room is on the front of the building toward the right. For those who are more comfortable with a virtual platform, POEM offers online support group options several days of the week. To register for an online group or to find out more about POEM, website at: https://mhaohio.org/get-help/bayley seton hospitalbhxj-dbpita-gwhtum/poem-services/ offer a confidential helpline: private Facebook group is called DARLING Cook Here are the groups they offer: Traumatic childbirth resources: Http://pattch.org/ https://www.leeShopflickviki Dial2Do/ Name Location (s) Phone # (s) Services Website Holding Space Psychotherapy [address] [facility] [phone]; [address] [facility] 201 [facility] [phone] In-Person GROUPS INDIVIDUAL THERAPY MATERNAL- MENTAL HEALTH MEDICATION MANAGEMENT PLAY AND ART THERAPY TELETHERAPY https://www.Playdate App/s ervicjosé manuel/ Juliane huynh [facility]? [address] [place], [place] [address] ? [address] [place], [place] [address] ? [place] [address]? Grief Support Groups Individual Grief Counseling Spiritual Care Memorial Events https://hammonds.[facility].org/grief-services [facility] [address] [place], [place] [address]; ; Email: [email or web address] Mobile Security Women's Mental Health; Couples Counseling; Trauma (EMDR); Stress Management; Mood and Anxiety Related Disorders- and much more https://www.M2G Paradial.BioTheryX/ LifeStance Numerous as they have contract providers: access website to find specific providers near you Counseling including CBT and EMDR as well as many more modalities; Medication Management; Telehealth and In-Person https://Nengtong Science and Technology.BioTheryX/ WinAd for Behavioral Health and Wellness [address] [place] [id number]; [phone] Personal, Family and Group Therapy; Psychological Testing and Diagnosis; Medication Management; Life and Career Coaching; Psychoanalysis; Literacy Testing; Yoga and Meditation https://Mendel Biotechnology.BioTheryX/ Fit Mind [place] [address] [facility] [address], [place] [address] [address] ; [address] [facility], [address] [place] [address]; Office # for both sites: Individual and Couples Counseling https://www.fitImpactdcuniversity hospitals lake west medical centerand.com/ paymentinsurance.html OCD & Anxiety Center [facility] [address], [place] [address]; Specialize in Cognitive-Behavioral Therapy (CBT) for the treatment of anxiety disorders across the lifespan. TELEHEALTH ONLY. https://ocdandanxietycenteroeMerge Health Solutionsv Argo Navis Consulting/faqs [facility] [address] [place], [address] [place] [address] [facility] [place], [address] [place] [address] [facility] [place], [address] [place] [address] [facility], [address], [address] [place] [address] [place] [address]. [place], [address] [place] [address] [place], [address] Transportation Services To minimize patient barriers, [facility] provides transportation services to patients who qualify. If you are unable to get to your appointment at any of our facilities, please let us know. Need help now? Stop by one of our walk-in clinics to establish behavioral health care. Counseling Indvidual, Group, Couples and Family Counseling and EMDR. Medication Management Case Management benefits applications housing assistance Substance abuse treatment Medication assisted treatment https://www.[facility].or g/mental-health/ [facility] OFFICE AT [facility] [address] [place] [address] [facility] OFFICE 97[address] [place] [address] [facility] OFFICE [address] [place], [place] [id number] [facility] OFFICE (at [facility]) [address] [place] [address] [facility] SYRINGE EXCHANGE PROGRAM & HIV SCREENING [address] [place] [address] SALVO SYRINGE EXCHANGE PROGRAM [address] [place] [address] Behavioral Health Urgent Care: [facility] Counseling Indvidual and Group Medication Management Case Management benefits applications housing assistance Substance abuse treatment Medication assisted treatment Employment Services/ Job Training https://FileblazeflDeciZium.org/ Recovery Resources [address] [place], [place] [address]: P: [phone] [facility], [address], [place], [place] [address] P: [phone] Our services include: Addiction Mental Health Treatment Assessment Psychiatry Medical Care Employment Housing Drug and Alcohol Prevention HIV/AIDS Prevention https://www.recres.org/ [facility] [place] [address] [place] [address] [place] [address] [place], [place] [address]viki[address] [place], [place] [address] [address] [place] [address] [place] [address] [facility] [address] [place] [address] [place] [address] [address] [place] [address] TMS Therapy/ Counseling Psychocological Testing for ADHD Medication Management In-Person/ Telemedicine https://www.Healthonomy.BioTheryX/rayo ents-depression Memory [facility] Psychological services [address], [place] [address] Neuropsychological Testing For ADHD https://www.memoryandpsych.com/ [facility] Office [address] [place] [address] [address] Providing dyyf-of-vmkf and telehealth services. Adult Case Management Community Education and Prevention Employment Outpatient Treatment - Counseling & Psychotherapy Psychiatric Services http://www.ccwhc.org/ [facility] [place] [address] [place] [address] [facility] [address] [place] [address] Virtual Appointments! Now offering safe and convenient virtual client appointments to anyone in [place]! Individual Therapy Couples/Relationship Therapy Trauma/EMDR Therapy Art Therapy Play Therapy Molded Goods Controls Operator Support: Parenting Skills, Parent Child Interaction Therapy, Parent Infant Interaction Therapy Meditation Dietitian/Database Administrator Services Group Therapy Yoga https://www.Inimex Pharmaceuticals/ Ivy Kimble [phone] Private Practice: Telehealth Only Specializes in EMDR for Trauma None documented in this encounter [facility] 12-09-2024 Note HNO ID: [id number] Author: LUIS CARRASCO APRN.CNP Service: ? Author Type: Nurse Practitioner Type: Progress Notes Filed: 12/13/2024 11:50 Note Text: INITIAL OB ASSESSMENT HPI: Abbe is a 19 year old White Female here to establish Obstetrical Care. Patient's last menstrual period was 10/07/2024. from OB Dating Form. was unplanned but accepted Complaints: (!) Abdominal pain (mild cramping) Severe nausea/vomiting OB History No obstetric history on file. Previous history: Prior : never History of 4th degree laceration: No History of shoulder dystocia: No History of Hypertensive disorders including pre-eclampsia or gestational hypertension: No History of gestational diabetes: No Patient's Risk Screening for delivery: Have you had a prior smith between 20w and 36w6d? No How many pregnancies have you had before? 0 Did you have a previous baby with a GBS Infection? No Please select all that apply for any prior : N/A MEDICAL/PSYCHOSOCIAL HISTORY: History of hemorrhage or bleeding concerns: No Thyroid Disease: No History of chronic hypertension: No History of pre-existing diabetes: No No results found for: ABORHD BMI 21.74 kg/(m2) Last Pap: History of abnormal pap: No Prior treatment for cervical dysplasia: none. Last HPV: History of STDs: Chlamydia; Trichomonas Partner History of STDs: chlamydia and trichomoniasis Did you have a partner with Herpes? No Tobacco use: Yes E-Cigarette/Vaping Use: Yes Caffeine use: Minimal Drug use: Yes Alcohol use: No Multivitamin with Folic acid: Yes Would refuse blood transfusion if medically necessary: No Social Needs: How often does this describe you? I don't have enough money to pay my bills: Sometimes Within the past 12 months, have you worried that your food would run out before you had money to buy more? Sometimes In the past 12 months, has lack of reliable transportation kept you from going to medical appointments or work, or from getting things needed for daily living? Sometimes In the past 12 months, have you had any concerns about having a place to live, or about the condition or quality of your housing? Sometimes Would you like more information on any of the following (please check all that apply)? Social History: Do you have any history of depression, anxiety, PTSD, or other mood problems? Yes Do you have a history of abuse or trauma that may impact your experience? Patient isn't sure if she will be or not. Are you currently employed? Yes Depression/Anxiety Screening: denies, admits to symptoms of depression. OB Depression and Anxiety Screening- This Encounter Over the past 2 weeks have you felt down, depressed, or hopeless? Negative Over the past two weeks, have you felt little interest or pleasure in doing things?? Negative Feeling nervous, anxious or on edge 1-Several days Not being able to stop or control worrying 1-Several days Anxiety Pre-Screening Total (If >/= 3 additional questions will be reviewed) 2 Genetic Screening: Partner present: No Patient verbalized knowledge of partner family health history: Yes Do you or your partner have any personal or family history of defects not previously discussed: No Do you have history of a complicated by anomaly, genetic condition, or demise: No Preeclampsia Risk Screening: Screening for prevention of preeclampsia: High risk factors: None Moderate risk ractors: Nulliparity OB Risk Screening: Completed, no positive findings documented. Marital Status:Single Partner: Name: Miguel A Chappell Age: 24 Occupation: [employer] Gender: Male PAST MEDICAL HISTORY Diagnosis Date Menstrual periods irregular 06/2017 NEGATIVE MEDICAL HISTORY Normal Color Vision PAST SURGICAL HISTORY Procedure Laterality Date NONE Current Outpatient Medications Medication Sig Dispense Refill [id number] FUM,NO-[id number]-PAW ORAL Take by mouth. pyridoxine, vitamin B6, (VITAMIN B-6) 50 mg tablet Take 1 tablet by mouth two times a day. 100 tablet 2 doxylamine (UNISOM, DOXYLAMINE,) 25 mg tab Take 1 tablet by mouth daily at bedtime. 32 tablet 1 ondansetron (ZOFRAN) 4 mg tablet Take 1 tablet by mouth every 8 hours as needed for nausea/vomiting. 60 tablet 1 iron,carbonyl (IRON CHEWS ORAL) Take by mouth once daily. No current facility-administered medications for this visit. Allergies As of Date: 12/13/2024 Allergen Noted Reaction CUCUMBER 08/11/2022 Rash SEASONAL ALLERGIES 01/04/2019 Other: See Comments Fully Assessed 11/25/2024 Does patient have penicillin allergy: No REVIEW OF SYSTEMS: GENERAL: Negative for: Fever or Chills HEENT: Negative for: Headache, Impaired Vision, Ringing in Ears, Nosebleeds NECK: Negative for: Swelling, Pain, Stiffness RESPIRATORY: Negative for: Cough, Shortness of breath, (more content not included)... [facility] 11-25-2024 Note HNO ID: [id number] Author: SMILEY SÁNCHEZ MD Service: ? Author Type: Physician Type: Progress Notes Filed: 11/25/2024 09:57 Note Text: Android Platform Developer offered: Patient declines. OB point of care ultrasound was performed. See imaging tab for details. Kim Bernal MA Obstetrics and Gynecology [place] MANAGER CALL Visit Subjective Recording using Great Parents Academy software for draft documentation of the visit was discussed with the patient/authorized regional sales representative; all questions welcomed and answered. Patient/authorized regional sales representative agreed to proceed CHIEF COMPLAINT: The patient is a 19-year-old female presenting for follow-up after an ER visit for cramping and bleeding during early . She reports increased nausea and vomiting. HPI: Current - LMP: October 07 - Estimated gestational age: 6 weeks and 2 days - ER Visit: November 18- for cramping and bleeding. - HCG Levels: - November 18: 6,453 mIU/mL - November 24: 25,880 mIU/mL - Reports no further bleeding since the ER visit but continues to experience cramping. - Reports significant nausea and vomiting, particularly at night when trying to fall asleep, with symptoms persisting into the morning. - Has been chewing gum and eating crackers to manage nausea but is unsure what medications are safe to take. HISTORY: OB History No obstetric history on file. Executive Officer History LMP: 10/07/2024 (Exact Date), Having periods Age at Menarche: Age at First : Age at Menopause: Executive Officer History Comments: Sexual Activity: Not Asked; No partner data on record Contraception: No contraception data on record PAST MEDICAL HISTORY Diagnosis Date Menstrual periods irregular 06/2017 NEGATIVE MEDICAL HISTORY Normal Color Vision PAST SURGICAL HISTORY Procedure Laterality Date NONE FAMILY HISTORY Problem Relation Age of Onset Diabetes Paternal Grandmother Heart Other Maternal Great Grandmother Social History Tobacco Use Smoking status: Every Day Passive exposure: Yes (Pt vapes) Smokeless tobacco: Never Tobacco comments: outside Vaping Use Vaping status: current everyday user Substances: Nicotine Substance Use Topics Alcohol use: Never Current Outpatient Medications Medication Sig [id number] FUM,WY-[id number]-QYU ORAL Take by mouth. pyridoxine, vitamin B6, (VITAMIN B-6) 50 mg tablet Take 1 tablet by mouth two times a day. doxylamine (UNISOM, DOXYLAMINE,) 25 mg tab Take 1 tablet by mouth daily at bedtime. ondansetron (ZOFRAN) 4 mg tablet Take 1 tablet by mouth every 8 hours as needed for nausea/vomiting. iron,carbonyl (IRON CHEWS ORAL) Take by mouth once daily. No current facility-administered medications for this visit. ALLERGIES Allergen Reactions Reedley Rash Seasonal Allergies Other: See Comments Nasal congestion REVIEW OF SYSTEMS: Gastrointestinal: (+) nausea, (+) vomiting Genitourinary: (+) cramping, (-) bleeding Objective SENSITIVE EXAM: The sensitive examination was discussed with the Patient or Patient's Authorized Video Production Engineer. As applicable, any other physician, advance practice provider, medical student, or other health professional student that will be observing or involved in the sensitive examination for educational or training purposes was discussed with the Patient or Authorized Video Production Engineer. The Patient or Authorized Video Production Engineer has agreed to proceed with the sensitive examination. (Sensitive examination includes inspection and/or palpation of the breasts, pelvis, prostate and anorectal regions). PHYSICAL EXAM: BP 104/60 Wt 137 lb (62.1kg) LMP 10/07/2024 General: No acute distress. : Transvaginal ultrasound performed; heartbeat visualized; yolk sac and pole identified. Assessment AND Plan ASSESSMENT AND PLAN: 1. with uncertain dates in first trimester (HCC) (Z34.91) 2. Threatened (HCC) (O20.0) - Recent ER visit on November 18- due to bleeding; no further bleeding reported, but experiencing cramping, nausea, and vomiting. - HCG levels rising appropriately: 6,453 mIU/mL on November 18 and 25,880 mIU/mL on November 24, indicating a viable . - Performed in-office ultrasound today, confirming a viable intrauterine with a heartbeat at 6 weeks and 2 days gestation. - Educated patient on potential for light spotting post-ultrasound due to increased cervical sensitivity and blood flow during ; advised to report any significant bleeding or bright red spotting lasting beyond 24 hours. - Prescribed Vitamin B6 50 mg PO BID, Unisom at bedtime, and Zofran PRN up to every 8 hours for nausea management. - Advised frequent snacking every 1-2 hours and maintaining hydration; instructed to limit caffeine intake to less than 200 mg/day. - Next formal OB visit scheduled with Luis on December 13. - Patient understands and agrees with the treatment plan. Medical Decision Jerry (more content not included)... [facility] 11-23-2024 Telephone encounter Note Order faxed. Wanda Martínez RN [facility] 11-23-2024 Miscellaneous Notes Order faxed. Wanda Martínez RN Patient notified. Will have HCG done tomorrow AM. Order to provider to sign. Scheduled with [facility] on @ 0900. Wanda Martínez RN Please have her get a repeat hcg level tomorrow at [facility] [place]. Schedule her with me ay 9am. Smiley Sánchez MD LMP 10/07/24 Approximately 6w5d was seen at [facility] [place] ER on 11/19 for cramping and spotting. HCG level was 6453. Early IUP seen on US. No pole. Recommendation is for f/u HCG and ultrasound. Patient calling to arrange for this per CP recommendation with the ER. When would you like patient scheduled? She is no longer having bleeding, but she is still cramping. ER records to to review. Wanda Martínez RN documented in this encounter [facility] 11-23-2024 Telephone encounter Note Patient notified. Will have HCG done tomorrow AM. Order to provider to sign. Scheduled with [facility] on @ 09. Wanda Martínez RN [facility] 11-23-2024 Telephone encounter Note Please have her get a repeat hcg level tomorrow at [facility] [place]. Schedule her with me ay 9am. Smiley Sánchez MD [facility] Work Phone: 11-23-2024 Telephone encounter Note LMP 10/07/24 Approximately 6w5d was seen at [facility] [place] ER on 11/19 for cramping and spotting. HCG level was 6453. Early IUP seen on US. No pole. Recommendation is for f/u HCG and ultrasound. Patient calling to arrange for this per CP recommendation with the ER. When would you like patient scheduled? She is no longer having bleeding, but she is still cramping. ER records to [facility] to review. Wanda Martínez, RN [facility] 10-29-2024 Note HNO ID: [id number] Author: ARTUR JOY APRN.CAREER TECHNICAL SUPERVISOR Service: ? Author Type: Nurse Practitioner Type: Progress Notes Filed: 10/29/2024 11:26 Note Text: Subjective HPI Nontoxic-appearing 19-year-old female presents urgent care chief complaint sore throat cough. Duration of symptoms 3 days. Associated symptoms sore throat cough nasal dysuria congestion headache. Sick contact similar signs symptoms. OTC medications none. Denies any high fevers difficulty swallowing and secretion decreased range of motion neck shortness of breath or productive cough. Past medical history prescription medications allergies reviewed .Patient presents with: Sore Throat: PAST MEDICAL HISTORY Diagnosis Date Menstrual periods irregular 06/2017 NEGATIVE MEDICAL HISTORY Normal Color Vision PAST SURGICAL HISTORY Procedure Laterality Date NONE ALLERGIES [place] and Seasonal Allergies MEDICATIONS iron,carbonyl (IRON CHEWS ORAL) Take by mouth once daily. FAMILY HISTORY Problem Relation Age of Onset Diabetes Paternal Grandmother Heart Other Maternal Great Grandmother Social History Tobacco Use Smoking status: Every Day Passive exposure: Yes (Pt vapes) Smokeless tobacco: Never Tobacco comments: outside Vaping Use Vaping status: current everyday user Substances: Nicotine Substance Use Topics Alcohol use: Never BP 100/72 Pulse 90 Temp 37 ?C (98.6 ?F) Resp 16 Wt 59 kg (130 lb 1.1 oz) LMP 04/24/2024 (Exact Date) SpO2 98% Review of Systems Constitutional: Positive for fever and malaise/fatigue. Negative for chills. HENT: Positive for congestion and sore throat. Negative for ear discharge, ear pain and sinus pain. Eyes: Negative for blurred vision, pain, discharge and redness. Respiratory: Positive for cough. Negative for hemoptysis, sputum production, shortness of breath, wheezing and stridor. Cardiovascular: Negative for chest pain. Gastrointestinal: Negative for abdominal pain, diarrhea, nausea and vomiting. Genitourinary: Positive for dysuria. Negative for flank pain, frequency, hematuria and urgency. Musculoskeletal: Positive for myalgias. Skin: Negative for itching and rash. Neurological: Positive for headaches. Negative for dizziness. Objective Physical Exam HENT: Head: Normocephalic. Jaw: No trismus, tenderness, swelling or pain on movement. Right Ear: Tympanic membrane, ear canal and external ear normal. Left Ear: Tympanic membrane, ear canal and external ear normal. Nose: Congestion present. Mouth/Throat: Mouth: Mucous membranes are moist. Pharynx: Oropharynx is clear. Uvula midline. No oropharyngeal exudate or posterior oropharyngeal erythema. Eyes: Pupils: Pupils are equal, round, and reactive to light. Cardiovascular: Rate and Rhythm: Normal rate. Pulmonary: Effort: Pulmonary effort is normal. No accessory muscle usage, respiratory distress or retractions. Breath sounds: No stridor. No wheezing, rhonchi or rales. Abdominal: Palpations: Abdomen is soft. Tenderness: There is no abdominal tenderness. There is no guarding or rebound. Musculoskeletal: Cervical back: No erythema or tenderness. No pain with movement. Normal range of motion. Lymphadenopathy: Cervical: No cervical adenopathy. Neurological: General: No focal deficit present. Mental Status: She is alert and oriented to person, place, and time. Mental status is at baseline. ASSESSMENT/PLAN: 1. Sore throat - ICD9: 462, ICD10: J02.9 (primary diagnosis) - STREP A MOLECULAR (POC) 2. Dysuria - ICD9: 788.1, ICD10: R30.0 - HCG QUAL UR B/O - UA DIP, URINE (POC) 3. URI with cough and congestion - ICD9: 465.9, ICD10: J06.9 - Discussed viral etiology and rationale for treatment. - Symptomatic treatment with prn analgesia - Supportive care with fluids and rest Urine dip negative. hCG negative. Vaginal swabs offered declined at today's visit. No treatment at today's visit. Patient was educated on supportive therapies. Patient will follow up with primary care provider as needed. Patient was instructed to immediately proceed to emergency room for any new, worsening, or symptoms lasting longer than anticipated. The patient's clinical presentation is otherwise unremarkable at this time. Based on exam and clinical finding, the patient is stable for discharge. Plan of care was discussed with patient. Patient verbalizes understanding and agrees to plan of care. This note was generated using FastCall software. It may contain errors in wording, punctuation, or spelling. Artur Joy APRN.[facility] 10-29-2024 History of Present illness Narrative Subjective HPI Nontoxic-appearing 19-year-old female presents urgent care chief complaint sore throat cough. Duration of symptoms 3 days. Associated symptoms sore throat cough nasal dysuria congestion headache. Sick contact similar signs symptoms. OTC medications none. Denies any high fevers difficulty swallowing and secretion decreased range of motion neck shortness of breath or productive cough. Past medical history prescription medications allergies reviewed .Patient presents with: Sore Throat: PAST MEDICAL HISTORY Diagnosis Date Menstrual periods irregular 06/2017 NEGATIVE MEDICAL HISTORY Normal Color Vision PAST SURGICAL HISTORY Procedure Laterality Date NONE ALLERGIES [place] and Seasonal Allergies MEDICATIONS iron,carbonyl (IRON CHEWS ORAL) Take by mouth once daily. FAMILY HISTORY Problem Relation Age of Onset Diabetes Paternal Grandmother Heart Other Maternal Great Grandmother Social History Tobacco Use Smoking status: Every Day Passive exposure: Yes (Pt vapes) Smokeless tobacco: Never Tobacco comments: outside Vaping Use Vaping status: current everyday user Substances: Nicotine Substance Use Topics Alcohol use: Never BP 100/72 Pulse 90 Temp 37 C (98.6 F) Resp 16 Wt 59 kg (130 lb 1.1 oz) LMP 04/24/2024 (Exact Date) SpO2 98% Review of Systems Constitutional: Positive for fever and malaise/fatigue. Negative for chills. HENT: Positive for congestion and sore throat. Negative for ear discharge, ear pain and sinus pain. Eyes: Negative for blurred vision, pain, discharge and redness. Respiratory: Positive for cough. Negative for hemoptysis, sputum production, shortness of breath, wheezing and stridor. Cardiovascular: Negative for chest pain. Gastrointestinal: Negative for abdominal pain, diarrhea, nausea and vomiting. Genitourinary: Positive for dysuria. Negative for flank pain, frequency, hematuria and urgency. Musculoskeletal: Positive for myalgias. Skin: Negative for itching and rash. Neurological: Positive for headaches. Negative for dizziness. Objective Physical Exam HENT: Head: Normocephalic. Jaw: No trismus, tenderness, swelling or pain on movement. Right Ear: Tympanic membrane, ear canal and external ear normal. Left Ear: Tympanic membrane, ear canal and external ear normal. Nose: Congestion present. Mouth/Throat: Mouth: Mucous membranes are moist. Pharynx: Oropharynx is clear. Uvula midline. No oropharyngeal exudate or posterior oropharyngeal erythema. Eyes: Pupils: Pupils are equal, round, and reactive to light. Cardiovascular: Rate and Rhythm: Normal rate. Pulmonary: Effort: Pulmonary effort is normal. No accessory muscle usage, respiratory distress or retractions. Breath sounds: No stridor. No wheezing, rhonchi or rales. Abdominal: Palpations: Abdomen is soft. Tenderness: There is no abdominal tenderness. There is no guarding or rebound. Musculoskeletal: Cervical back: No erythema or tenderness. No pain with movement. Normal range of motion. Lymphadenopathy: Cervical: No cervical adenopathy. Neurological: General: No focal deficit present. Mental Status: She is alert and oriented to person, place, and time. Mental status is at baseline. ASSESSMENT/PLAN: 1. Sore throat - ICD9: 462, ICD10: J02.9 (primary diagnosis) - STREP A MOLECULAR (POC) 2. Dysuria - ICD9: 788.1, ICD10: R30.0 - HCG QUAL UR B/O - UA DIP, URINE (POC) 3. URI with cough and congestion - ICD9: 465.9, ICD10: J06.9 - Discussed viral etiology and rationale for treatment. - Symptomatic treatment with prn analgesia - Supportive care with fluids and rest Urine dip negative. hCG negative. Vaginal swabs offered declined at today's visit. No treatment at today's visit. Patient was educated on supportive therapies. Patient will follow up with primary care provider as needed. Patient was instructed to immediately proceed to emergency room for any new, worsening, or symptoms lasting longer than anticipated. The patient's clinical presentation is otherwise unremarkable at this time. Based on exam and clinical finding, the patient is stable for discharge. Plan of care was discussed with patient. Patient verbalizes understanding and agrees to plan of care. This note was generated using FastCall software. It may contain errors in wording, punctuation, or spelling. Artur Joy APRN.CAREER TECHNICAL SUPERVISOR documented in this encounter [facility] 05-25-2024 History of Present illness Narrative CC: Patient presents with: Sore Throat: PIERCE, fever, bilateral ear pain x this AM HPI: Abbe Faustin is a 18 year old female who presents to the office with complaint of sore throat, ear symptoms, and fever since this morning. Symptoms are staying the same. Associated symptoms includes sore throat. Denies nausea, vomiting , and diarrhea. Treatments tried include nothing so far. with no relief of symptoms. Sick contacts: unknown. History of asthma, frequent episodes of bronchitis, chronic bronchitis, bronchiectasis or COPD: No Smoker: No Seasonal/environmental allergies: No The ROS is otherwise negative. The patient's pmh, medications, allergies, and past visits are reviewed. PHYSICAL EXAM: BP 117/76 Pulse 100 Temp (!) 38.1 C (100.6 F) Resp 18 Wt 62.3 kg (137 lb 5.6 oz) LMP 04/24/2024 (Exact Date) SpO2 99% General appearance: alert, cooperative, pleasant, in no acute distress Head: Normocephalic Eyes: EOM's intact, conjunctiva pink and moist, no icterus, sclera white, non-injected Ears: Right ear: External ear/canal- Normal, TM - clear with good landmarks. Left ear: External ear/canal- Normal, TM - clear with good landmarks Oropharynx:moderate erythema, with exudates present Heart: Negative. RRR without obvious murmur, gallop, or rubs. No ectopy. Lungs: clear to auscultation, without rales or wheeze, good air exchange ASSESSMENT/PLAN: 1. Strep throat - ICD9: 034.0, ICD10: J02.0 - AMOXICILLIN 500 MG CAPSULE Strep was positive Prescription instructions reviewed with patient as applicable. Potential red flag symptoms discussed with the patient. Reviewed appropriate action plan to take if red flag symptoms occur. Patient agreeable to treatment plan. Gretel Sánchez APRN.CAREER TECHNICAL SUPERVISOR documented in this encounter [facility] 05-05-2024 Telephone encounter Note Call placed to patient and provider message reviewed. Patient verbalizes understanding and will come in after work today. Bonita Ortega RN [facility] 05-05-2024 Miscellaneous Notes Call placed to patient and provider message reviewed. Patient verbalizes understanding and will come in after work today. Bonita Ortega RN Patient was prescribed two ATB. Recommend patient return to express care and be evaluated (can obtain history of rash and also what the rash looks like) and to further discuss treatment modification. Please advise Patient calls to report that antibiotic prescribed in [facility] is causing all over body itch. Patient denies rash or trouble breathing. Patient reports that she was told if she had side effects from medicine another antibiotic would be prescribed. Please review and advise, Bonita Ortega RN documented in this encounter [facility] 05-05-2024 Telephone encounter Note Patient was prescribed two ATB. Recommend patient return to express care and be evaluated (can obtain history of rash and also what the rash looks like) and to further discuss treatment modification. Please advise [facility] Work Phone: 05-05-2024 Telephone encounter Note Patient calls to report that antibiotic prescribed in EC is causing all over body itch. Patient denies rash or trouble breathing. Patient reports that she was told if she had side effects from medicine another antibiotic would be prescribed. Please review and advise, Bonita Ortega RN [facility] 05-04-2024 Telephone encounter Note PLEASE SEE LAB RESULT COMMENT FOR UR CX. Tatiana Salinas MA [facility] 05-04-2024 Miscellaneous Notes PLEASE SEE LAB RESULT COMMENT FOR UR CX. Tatiana Salinas MA ----- Message from Sigrid Casarez APRN.CNP sent at 05/04/2024 11:25 AM EDT ----- Urine culture did not show clear evidence of infection, however it appears sample may have been contaminated with skin bacteria during collection. She may continue to take antibiotic if it has been helpful. Recommend follow up with PCP to ensure hematuria has resolved. Sigrid Casarez CNP documented in this encounter [facility] 05-04-2024 Telephone encounter Note ----- Message from Sigrid Casarez APRN.CNP sent at 05/04/2024 11:25 AM EDT ----- Urine culture did not show clear evidence of infection, however it appears sample may have been contaminated with skin bacteria during collection. She may continue to take antibiotic if it has been helpful. Recommend follow up with PCP to ensure hematuria has resolved. Sigrid Casarez CNP [facility] 05-04-2024 Telephone encounter Note Patient notified and verbalized understanding of instructions given.Reyna Giles LPN [facility] 05-04-2024 Miscellaneous Notes Patient notified and verbalized understanding of instructions given.Reyna Giles LPN Patient was negative for hepatitis C, hepatitis B, syphilis, and HIV. For chlamydia, gonorrhea, trichomonas, yeast. Positive for bacterial vaginosis. Flagyl twice a day for 7 days was called and no alcohol can be consumed with this medication. documented in this encounter [facility] 05-04-2024 Telephone encounter Note Patient was negative for hepatitis C, hepatitis B, syphilis, and HIV. For chlamydia, gonorrhea, trichomonas, yeast. Positive for bacterial vaginosis. Flagyl twice a day for 7 days was called and no alcohol can be consumed with this medication. [facility] 05-03-2024 History of Present illness Narrative This note was created using KlickThruriter. Subjective Abbe Faustin is a 18 year old female. HPI 18-year-old female presents for burning with urination starting this morning. She states that she has had urinary frequency, urgency, burning with urination starting this morning. She states it feels like glass with urination. She states that the vaginal area appears red and irritated. No rash. No vaginal discharge that she has noticed. LMP was last week. She has no concern for . She has had new sexual partner would like tested for STDs. She has had an STD in the past. She denies any history of herpes. She denies any abdominal pain, pelvic pain, fevers, vomiting, back pain, blood in the urine. No other complaint. PAST MEDICAL HISTORY Diagnosis Date Menstrual periods irregular 06/2017 NEGATIVE MEDICAL HISTORY Normal Color Vision PAST SURGICAL HISTORY Procedure Laterality Date NONE ALLERGIES [place] and Seasonal Allergies MEDICATIONS iron,carbonyl (IRON CHEWS ORAL) Take by mouth once daily. FAMILY HISTORY Problem Relation Age of Onset Diabetes Paternal Grandmother Heart Other Maternal Great Grandmother Social History Tobacco Use Smoking status: Every Day Passive exposure: Yes (Pt vapes) Smokeless tobacco: Never Tobacco comments: outside Vaping Use Vaping status: current everyday user Substances: Nicotine Substance Use Topics Alcohol use: Never Review of Systems Constitutional: Negative for chills and fever. HENT: Negative for congestion, ear pain and sore throat. Respiratory: Negative for cough and shortness of breath. Cardiovascular: Negative for chest pain. Gastrointestinal: Negative for abdominal pain, diarrhea and vomiting. Genitourinary: Positive for dysuria, frequency, urgency and vaginal pain. Negative for vaginal bleeding and vaginal discharge. Objective BP 112/68 Pulse 82 Temp 36.5 C (97.7 F) (Left Tympanic) Resp 16 Wt 61.5 kg (135 lb 9.3 oz) LMP 04/24/2024 (Exact Date) SpO2 98% Physical Exam Vitals and nursing note reviewed. Exam conducted with a device processing engineer present. Constitutional: General: She is not in acute distress. Appearance: Normal appearance. She is not toxic-appearing. Cardiovascular: Rate and Rhythm: Normal rate and regular rhythm. Pulmonary: Effort: Pulmonary effort is normal. Breath sounds: Normal breath sounds. Abdominal: General: Abdomen is flat. Palpations: Abdomen is soft. Tenderness: There is no abdominal tenderness. Genitourinary: Labia: Right: Tenderness present. Left: Tenderness present. Vagina: Normal. No erythema, tenderness or lesions. Cervix: Normal. No cervical motion tenderness or discharge. Adnexa: Right adnexa normal and left adnexa normal. Right: No tenderness. Left: No tenderness. Comments: Tenderness and erythema noted to external labia minora. Appears friable. When swabbed, does slightly bleed. No vesicular lesions or rash present. Skin: General: Skin is warm and dry. Neurological: Mental Status: She is alert. The sensitive examination was discussed with the Patient or Patient's Authorized Video Production Engineer. As applicable, any other physician, advance practice provider, medical student, or other health professional student that will be observing or involved in the sensitive examination for educational or training purposes was discussed with the Patient or Authorized Video Production Engineer. The Patient or Authorized Video Production Engineer has agreed to proceed with the sensitive examination. (Sensitive examination includes inspection and/or palpation of the breasts, pelvis, prostate and anorectal regions) Assessment and Plan ASSESSMENT/PLAN: 1. Dysuria - ICD9: 788.1, ICD10: R30.0 (primary diagnosis) acute - UA positive for fabiano esterase and hematuria - Send urine for culture - Begin treatment with Macrobid 100 mg BID for 5 days - Patient education for prevention given - UA DIP, URINE (POC) - URINE CULTURE - GONORRHEA/CHLAMYDIA NAAT - KARL/TRICHOMONAS NAAT - BACTERIAL VAGINOSIS NAAT - SYPHILIS TOTAL W/REFLEX - HIV 1/2 COMBO WITH REFLEX TO DIFFERENTIATION - HEPATITIS C ANTIBODY IA WITH CONFIRMATION - HEPATITIS B SURFACE ANTIGEN -Please treat based on results. 2. Vaginal discomfort - ICD9: 625.9, ICD10: N94.9 - GONORRHEA/CHLAMYDIA NAAT - KARL/TRICHOMONAS NAAT - BACTERIAL VAGINOSIS NAAT - HSV1,2/VZV NAAT LESION - SYPHILIS TOTAL W/REFLEX - HIV 1/2 COMBO WITH REFLEX TO DIFFERENTIATION - HEPATITIS C ANTIBODY IA WITH CONFIRMATION - HEPATITIS B SURFACE ANTIGEN Diagnosis and treatment plan were discussed and questions were answered to the patient's satisfaction. Pt acknowledged understanding of concepts and follow up plan. Specific signs and symptoms that would indicate the need for higher level of care were discussed in detail warranting prompt ER evaluation. FABIANO Almonte documented in this encounter [facility] 02-04-2024 Nurse Note EVENT MONITOR DISPOSABLE PATCH INSTRUCTIONS Patient Name: Abbe Faustin [facility] Number: [id number] Skin prepped and cleansed with alcohol Patch secured to prepped area Monitor Activated Serial #: [id number] Patient Instructed: Prescribed order timeframe Bathing guidelines Usage of event button and diary documentation Return of monitor at the end of prescribed order Call with problems [phone] or [phone]. [phone] Patient expresses a good understanding of instructions Zohra Salguero MA [facility] 02-04-2024 Nurse Note EVENT MONITOR DISPOSABLE PATCH INSTRUCTIONS Patient Name: Abbe Faustin [facility] Number: [id number] Skin prepped and cleansed with alcohol Patch secured to prepped area Monitor Activated Serial #: [id number] Patient Instructed: Prescribed order timeframe Bathing guidelines Usage of event button and diary documentation Return of monitor at the end of prescribed order Call with problems [phone] or [phone]. [phone] Patient expresses a good understanding of instructions Zohra Salguero MA documented in this encounter [facility] 02-04-2024 History of Present illness Narrative Images from the original note were not included. [facility] [place] [facility]ARDI[facility]Y OUTPATIENT VISIT DATE 02/04/2024 OUTPATIENT VISIT TYPE NEW PRIMARY CARE PHYSICIAN: Wendi Anne [address] [place] [address] Patient is being seen at the request of the referring physician for syncope HISTORY OF PRESENT ILLNESS: Ms. Faustin is a 18 year old female, who presents for evaluation of syncope. She reported 1 episode of syncope last year March. It occurred while standing. Preceded by lightheadedness. She lost consciousness for approximately 30 seconds. She is not able to remember if she felt fatigued after. She did not seek medical attention at that time . She reports a constant sensation of chest heaviness, as well as an occasional stabbing sensation x 1-2 months- left sided anteriorly and posteriorly. She describes a sensation of a prominent heart beat. She reports lightheadedness particularly when exposed to heat. She denies SOB, orthopnea, PND, leg swelling. She has been increasing her level of hydration. She was on the swim, volleyball and cheerleading teams until age 15 while in high school. She has been trying to engage in the stairmaster and walking exercises however on some days, she feels lightheaded and has to stop. She also engages in lower extremity resistance training exercises as well as lifts weights. . PAST MEDICAL HISTORY Diagnosis Date Menstrual periods irregular 06/2017 NEGATIVE MEDICAL HISTORY Normal Color Vision PAST SURGICAL HISTORY Procedure Laterality Date NONE Social History Tobacco Use Smoking status: Every Day Passive exposure: Yes Smokeless tobacco: Never Tobacco comments: outside Vaping Use Vaping Use: current everyday user Substances: Nicotine Substance Use Topics Alcohol use: Never FAMILY HISTORY Problem Relation Age of Onset Diabetes Paternal Grandmother Heart Other Maternal Great Grandmother ALLERGIES Allergen Reactions Reedley Rash Seasonal Allergies Other: See Comments Nasal congestion CURRENT MEDICATIONS: No prescriptions on file. PHYSICAL EXAMINATION: BP 98/64 Pulse (!) 57 Ht 170.2 cm (5' 7) Wt 58 kg (127 lb 13.9 oz) LMP 01/19/2024 (Exact Date) SpO2 99% BMI 20.03 kg/m General: Appears comfortable in no apparent cardiopulmonary distress Neck: No JVD, no bruits CVS: S1, S2, No m/r/g Chest: CTAB Abd: Soft, nontender, no masses, BS present Ext: No pedal edema, pedal pulses 2+ bilaterally Neuro: No focal neurological deficits ASSESSMENT/PLAN: 1. Syncope, unspecified syncope type - ICD9: 780.2, ICD10: R55 Likely neurocardiogenic in etiology. - However will obtain TTE and 30 day event monitor to exclude complex arrhythmias. - Advised on proper hydration. - Advised on being liberal with salt intake - Consider salt tablets 6-12 g /24 hrs. - Consider at least knee-high graded compression stockings starting at 20 to 30 mmHg, increasing to 30 to 40 mmHg if necessary, to be worn during the daytime and removal at bedtime. - Avoiding exercises where she is in a purely upright position, focusing more on exercises such as biking, rowing. Advised on resistance training exercises targeting her lower extremities. Avoid bench pressing, deadlifts, or heavy weights. - Avoid driving if she continues to experience presyncopal episodes. - Counseled on techniques to mitigate lightheadedness such as getting close to the ground, elevating her lower extremities above the level of the head/heart, etc. Lyubov Perez MD, [facility] Non invasive and Sports work station support specialist documented in this encounter [facility] 02-02-2024 Telephone encounter Note Patient was notified of advice and/or results. Pt has a cardiology appt scheduled for 02/04/2024. [facility] 02-02-2024 Miscellaneous Notes Patient was notified of advice and/or results. Pt has a cardiology appt scheduled for 02/04/2024. Left message to call our office. Raymundo Cullen RN Please let patient know lab work looked good aside from a borderline high TSH and borderline ferritin. I would advise starting a daily multivitamin with iron. Will repeat TSH and ferritin levels in 1 month. Orders have been placed. Continue with recommendations given at visit. Will proceed with Cardiology consult at this time. Wendi Anne PA-C documented in this encounter [facility] 02-02-2024 Telephone encounter Note Left message to call our office. Raymundo Cullen RN [facility] 02-02-2024 Telephone encounter Note Please let patient know lab work looked good aside from a borderline high TSH and borderline ferritin. I would advise starting a daily multivitamin with iron. Will repeat TSH and ferritin levels in 1 month. Orders have been placed. Continue with recommendations given at visit. Will proceed with Cardiology consult at this time. Wendi Anne PA-C [facility] 01-28-2024 Instructions Wendi Anne PA-C - 01/28/2024 10:05 AM EDT Recommendations: - Continue to increase water intake (goal: 80 -100 oz water daily) - Increase dietary sodium intake with added salt to all meals and 1-2 salty snacks (i.e. pretzels, pickles, or crackers) per day. Salty snack before any physical activity . - Avoid caffeinated beverages - Discouraged skipping meals - Encourage regular exercise. At least 30 minutes of physical activity per day alternating resistance training and cardio - Adequate/consistent sleep schedule - Perform techniques to prevent venous pooling, including keeping knees slightly bent when standing for a long time, isometric contraction of extremity muscles, toe raises, folding of the arms, and crossing of the legs; if needed, lying down, raising legs documented in this encounter [facility] 01-28-2024 History of Present illness Narrative PEDIATRIC VISIT SERVICE DATE: 01/28/2024 SUBJECTIVE: Abbe Faustin is a 18 year old who presents for evaluation of dizziness x months (worsening). Describes the sensation as feeling like she is going to pass out. Typically her vision will go dark and she has to hold onto something. Reports 2 syncopal episodes in the past. Exacerbating factors appear to be the following: - overheating while working (works at [employer]) - getting out of the car - putting arms up above her head Additional Symptoms: - Tunnel vision: Yes - Blurry Vision: Yes - Double Vision: No - Headache: Yes - N/V: No - Shakiness: Yes - Chest pain: Yes - Palpitations (too hard, too fast, skipping a beat): Yes (heart beating fast) Patient does note that she has history of anxiety and some of her symptoms of chest pain and racing heart could be secondary to that. Used to do counseling, but not any longer. Did not find it beneficial. Also was on medication at one point in time, but found it too difficult to remember to take routinely. Food Intake: Bad about eating regular meals Often skips meals Will go entire day without eating Has not eaten today yet (if getting labs after visit, would be fasting) Fluid Intake: Drinks water all day long [place] Blast Freeze Menses: - LMP: 01/19/24 - still currently on period - Cycles (regular vs irregular): irregular (duration, frequency) - Heavy periods: Yes (first 2 days bad - will go through super plus tampons in 1 - 2 hours, lightens as the days go on) - Dysmenorrhea: Yes - Tried BC and did not like (could not remember to take pills, afraid of IUD as mother had bad experience, uncertain about implant) Medications: No Personal history of: - Heart problems: No - Hypertension: No - Hypotension: No - Hypoglycemia: No Family history of: - Cardiac Issues: No - Sudden or unexplained <age 40 years: No - Iron Deficiency Anemia: Yes (MGM, PGM) - Thyroid Issues: Yes (MGM) - Hypotension: No - Hypertension: No - Hypoglycemia: No - Diabetes: Yes (MGM, PGM) History was obtained from: patient HISTORY: ACTIVE PROBLEM LIST Severe Episode of Recurrent Major Depressive Disorder, Without Psychotic Features ([facility]) - 10/10/2022 Generalized Anxiety Disorder - 10/10/2022 Marijuana Abuse - 10/10/2022 PAST MEDICAL HISTORY Diagnosis Date Menstrual periods irregular 06/2017 NEGATIVE MEDICAL HISTORY Normal Color Vision PAST SURGICAL HISTORY Procedure Laterality Date NONE ALLERGIES Allergen Reactions Reedley Rash Seasonal Allergies Other: See Comments Nasal congestion No prescriptions on file. OBJECTIVE: Temp 36.3 C (97.3 F) (Temporal) Resp 16 Wt 59.5 kg (131 lb 1.6 oz) LMP 01/19/2024 (Exact Date) General: alert and active in no apparent distress, cooperative, pleasant Eyes: conjunctiva clear Ears: TMs translucent bilaterally, normal landmarks noted Nose: clear OP: no lesions, no erythema, no exudate, and moist mucous membranes Neck: full ROM Lungs: clear to auscultation bilaterally, good air exchange, no retractions, breathing comfortably, no wheezes, rales, or rhonchi CVS: Normal rate, regular rhythm, no murmur Skin: No rashes, lesions or skin changes Neuro: Patient is alert and oriented. Speech is fluent and appropriate. Pupils were symmetrical, round, and reactive to light and accommodation. Extraocular movements grossly intact. Facial sensations were intact bilaterally. There was no evidence for facial asymmetry. The tongue and palate were in midline. Sternomastoids and upper trapezius were 5/5 in strength bilaterally. Muscle tone was normal and there was no evidence for pronator drift. Muscle strength testing revealed 5/5 grade upper and lower muscle strength bilaterally. There was no dysmetria found on [id number] and heel-white testing bilaterally. Rapid alternating movements were normal bilaterally. There was no evidence for sensory deficits. The gait examination was normal including tandem gait. Able to walk on heels and toes. Romberg sign was positive Orthostatic Blood Pressures: Supine: BP 99/69; P 52 Standing: BP 115/81; P 75 (Significantly dizzy upon standing) ASSESSMENT/PLAN: Encounter Diagnosis ICD-10-CM 1. Dizziness R42 T4 FREE/FREE THYROXINE THYROID STIMULATING HORMONE COMPREHENSIVE METABOLIC PANEL IRON AND TIBC FERRITIN COMPLETE BLOOD COUNT AND DIFFERENTIAL 2. Syncope, unspecified syncope type R55 T4 FREE/FREE THYROXINE THYROID STIMULATING HORMONE COMPREHENSIVE METABOLIC PANEL IRON AND TIBC FERRITIN COMPLETE BLOOD COUNT AND DIFFERENTIAL - Discussed differential diagnosis with patient (questioning vasovagal syncope, ?hormones, iron deficiency, hypoglycemia, etc) - Continue to increase water intake (goal: 80 -100 oz water daily) - Increase dietary sodium intake with added salt to all meals and 1-2 salty snacks (i.e. pretzels, pickles, or crackers) per day. Salty snack before any physical activity . - Avoid caffeinated beverages - Discouraged skipping meals - Encourage regular exercise. At least 30 minutes of physical activity per day alternating resistance training and cardio - Adequate/consistent sleep schedule - Perform techniques to prevent venous pooling, including keeping knees slightly bent when standing for a long time, isometric contraction of extremity muscles, toe raises, folding of the arms, and crossing of the legs; if needed, lying down, raising legs - Lab work ordered (CBC w/ diff, Ferritin, Iron/TIBC, CMP, TSH/T4) - Follow up with be dependent upon test results I spent a total of 50+ minutes on the date of the service which included preparing to see the patient, [id number] patient care, completing clinical documentation, obtaining and/or reviewing separately obtained history, performing a medically appropriate examination, counseling and educating the patient/family/caregiver, ordering medications, tests, or procedures, independently interpreting results (not separately reported), and communicating results to the patient/family/caregiver. SIGNATURE: Wendi Anne PA-C PATIENT NAME:Abbe Faustin DATE: 01/28/2024 TIME: 9:01 AM documented in this encounter [facility] 04-03-2023 Miscellaneous Notes Parent of patient notified.Reyna Giles LPN ----- Message from Sigrid Casarez APRN.CAREER TECHNICAL SUPERVISOR sent at 04/03/2023 8:09 AM EDT ----- Please advise patient the urine culture was negative. Continue antibiotic for chlamydia. documented in this encounter [facility] 04-02-2023 Miscellaneous Notes Spoke with patient. Given message from provider's office. Patient verbalizes understanding. Salena Miller RN Call patient and have patient stop doxycycline. Allergic continue the Flagyl and Diflucan was also called in. Patient was positive for chlamydia and yeast patient was negative for gonorrhea trichomonas and bacterial vaginosis. Should refrain from sex for about 2 weeks. documented in this encounter [facility] 04-01-2023 History of Present illness Narrative This note was created using NoteWriter. Subjective Abbe Faustin is a 17 year old female. 17 year old female with PMH anxiety and depression presents for think I have an STI Acute onset of symptoms was within the past couple days. +vaginal discharge +itching +burning with urination Denies abdominal pain She is accompanied by her partner, who is transgender (identifies as a male but born female) The partner was seen yesterday and tested POSITIVE for chlamydia, BV, and trichomonas Patient was involved in a threesome with a male and state he was POSITIVE for STIs The history is provided by the patient. No english language learner teacher was used. Female Gu Problem This is a new problem. The current episode started 3 to 5 days ago. The onset was sudden. The problem occurs continuously. The problem has been unchanged. The patient is experiencing no pain. Nothing relieves the symptoms. Nothing aggravates the symptoms. Associated symptoms include dysuria, frequency and vaginal discharge. Pertinent negatives include no chest pain, no anorexia, no chills, no fever, no abdominal pain, no constipation, no diarrhea, no vomiting, no hematuria, no pelvic pain, no urgency, no vaginal bleeding, no vaginal pain, no back pain, no cough, no rash and no dyspareunia. Urine output has been normal. The last void occurred Less than 6 hours ago. She is currently Sexually active. She has 2 sexual partners. Her past medical history does not include STD. There were no sick contacts. She has received no recent medical care. PAST MEDICAL HISTORY Diagnosis Date Menstrual periods irregular 06/2017 NEGATIVE MEDICAL HISTORY Normal Color Vision PAST SURGICAL HISTORY Procedure Laterality Date NONE ALLERGIES Seasonal Allergies MEDICATIONS venlafaxine ER (EFFEXOR XR) 75 mg 24 hr capsule Take 1 capsule by mouth once daily. hydrOXYzine HCl (ATARAX) 50 mg tablet Take 1 tablet by mouth three times daily as needed for anxiety. doxycycline monohydrate (MONODOX) 100 mg capsule Take 1 capsule by mouth twice daily for 7 days. metroNIDAZOLE (FLAGYL) 500 mg tablet Take 1 tablet by mouth twice daily for 7 days. ondansetron orally disintegrating (ZOFRAN ODT) 4 mg disintegrating tablet Take 1 tablet by mouth every 8 hours as needed. (Patient not taking: Reported on 11/07/2022) FAMILY HISTORY Problem Relation Age of Onset Diabetes Paternal Grandmother Heart Other Maternal Great Grandmother Social History Tobacco Use Smoking status: Every Day Passive exposure: Yes Smokeless tobacco: Never Tobacco comments: outside Vaping Use Vaping Use: current everyday user Substances: Nicotine Substance Use Topics Alcohol use: Never Review of Systems Constitutional: Negative for chills and fever. Respiratory: Negative for cough. Cardiovascular: Negative for chest pain. Gastrointestinal: Negative for abdominal pain, anorexia, constipation, diarrhea and vomiting. Genitourinary: Positive for dysuria, frequency and vaginal discharge. Negative for dyspareunia, hematuria, pelvic pain, urgency, vaginal bleeding and vaginal pain. Musculoskeletal: Negative for back pain. Skin: Negative for rash. Objective BP 102/64 Pulse 74 Temp 36.8 C (98.3 F) Resp 16 Wt 62.1 kg (136 lb 12.8 oz) LMP 10/14/2022 (Approximate) SpO2 97% Physical Exam Vitals and nursing note reviewed. Exam conducted with a device processing engineer present. Constitutional: General: She is not in acute distress. Appearance: Normal appearance. She is normal weight. She is not ill-appearing, toxic-appearing or diaphoretic. HENT: Head: Normocephalic and atraumatic. Right Ear: Ear canal and external ear normal. Left Ear: Ear canal and external ear normal. Nose: Nose normal. No congestion or rhinorrhea. Mouth/Throat: Mouth: Mucous membranes are moist. Pharynx: No oropharyngeal exudate or posterior oropharyngeal erythema. Eyes: General: Right eye: No discharge. Left eye: No discharge. Extraocular Movements: Extraocular movements intact. Conjunctiva/sclera: Conjunctivae normal. Pupils: Pupils are equal, round, and reactive to light. Cardiovascular: Rate and Rhythm: Normal rate and regular rhythm. Pulses: Normal pulses. Heart sounds: Normal heart sounds. No murmur heard. No friction rub. Pulmonary: Effort: Pulmonary effort is normal. No respiratory distress. Breath sounds: Normal breath sounds. No stridor. No wheezing, rhonchi or rales. Chest: Chest wall: No tenderness. Abdominal: General: Abdomen is flat. There is no distension. Palpations: Abdomen is soft. There is no mass. Tenderness: There is no abdominal tenderness. There is no right CVA tenderness, left CVA tenderness, guarding or rebound. Hernia: No hernia is present. Genitourinary: Exam position: Lithotomy position. Pubic Area: No rash. Labia: Right: No rash, tenderness, lesion or injury. Left: No rash, tenderness, lesion or injury. Cervix: Discharge present. Comments: Large amount of white copious discharge. Cervix with erythema. Musculoskeletal: General: No swelling, tenderness, deformity or signs of injury. Normal range of motion. Cervical back: Normal range of motion and neck supple. No rigidity. Right lower leg: No edema. Left lower leg: No edema. Lymphadenopathy: Cervical: No cervical adenopathy. Skin: General: Skin is warm and dry. Coloration: Skin is not jaundiced or pale. Findings: No bruising, erythema, lesion or rash. Neurological: General: No focal deficit present. Mental Status: She is alert and oriented to person, place, and time. Cranial Nerves: No cranial nerve deficit. Sensory: No sensory deficit. Motor: No weakness. Coordination: Coordination normal. Gait: Gait normal. Psychiatric: Mood and Affect: Mood normal. Behavior: Behavior normal. Thought Content: Thought content normal. Judgment: Judgment normal. Assessment and Plan ASSESSMENT/PLAN: 1. Dysuria - ICD9: 788.1, ICD10: R30.0 (primary diagnosis) acute - UA positive for fabiano esterase - Send urine for culture - UA DIP, URINE (POC) - URINE CULTURE 2. Screening for STD (sexually transmitted disease) - ICD9: V74.5, ICD10: Z11.3 +exposure She is accompanied by her partner, who is transgender (identifies as a male but born female) The partner was seen yesterday and tested POSITIVE for chlamydia, BV, and trichomonas Patient was involved in a threesome with a male and state he was POSITIVE for STIs Vaginal swabs sent. Treated with Flagyl and also Doxycline No sex Partners need to be tested. Deysi Paul APRN.LISBETH documented in this encounter [facility] 03-20-2023 History of Present illness Narrative The patient did not show up for this appointment. Noreen Cutler APRN.CNP documented in this encounter [facility] 12-11-2022 Miscellaneous Notes Called pharmacy patient picked up medication. Zohra Mclain Phone call placed brief message left with step parent (no results given) to contact a nurse to review results. Karine Garces LPN Left message for patient to return call. Zohra Mclain Please call patient and let her know that her Trichomonas came back positive. This is an STD. Tell her to notify all sexual partners. Avoid sexual intercourse for 10 days. I sent in an RX for Flagyl- Do not drink alcohol while taking this medication. Karl also came back positive. I sent in an RX for Diflucan. Take this 1 dose and repeat 3 days later. [facility] documented in this encounter [facility] 12-07-2022 History of Present illness Narrative This note was created using Nubee. Subjective Abbe Faustin is a 17 year old female. HPI 17-year-old female presents for vaginal discharge. Patient has been having vaginal discharge for 4 to 5 days. She states it is a lot of white watery discharge. It does have a foul odor. No known exposure to STD, but patient states it could be a possibility. She was recently tested a few months ago and all of the STD testing was negative. No concern for . No abdominal pain or pelvic pain. No vomiting. No back pain. No urinary symptoms. PAST MEDICAL HISTORY Diagnosis Date Menstrual periods irregular 06/2017 NEGATIVE MEDICAL HISTORY Normal Color Vision PAST SURGICAL HISTORY Procedure Laterality Date NONE ALLERGIES Seasonal Allergies MEDICATIONS hydrOXYzine HCl (ATARAX) 25 mg tablet Take 1 tablet by mouth three times daily as needed for anxiety. venlafaxine ER (EFFEXOR XR) 75 mg 24 hr capsule Take 1 capsule by mouth once daily. ondansetron orally disintegrating (ZOFRAN ODT) 4 mg disintegrating tablet Take 1 tablet by mouth every 8 hours as needed. (Patient not taking: Reported on 11/07/2022) FAMILY HISTORY Problem Relation Age of Onset Diabetes Paternal Grandmother Heart Other Maternal Great Grandmother Social History Tobacco Use Smoking status: Every Day Passive exposure: Yes Smokeless tobacco: Never Tobacco comments: outside Vaping Use Vaping Use: current everyday user Substances: Nicotine Substance Use Topics Alcohol use: Never Review of Systems Constitutional: Negative for chills and fever. HENT: Negative for congestion, ear pain and sore throat. Respiratory: Negative for cough and shortness of breath. Cardiovascular: Negative for chest pain. Gastrointestinal: Negative for diarrhea and vomiting. Genitourinary: Positive for vaginal discharge. Negative for dysuria, pelvic pain, vaginal bleeding and vaginal pain. Objective BP 102/64 Pulse 77 Temp 36.6 C (97.8 F) (Tympanic) Resp 18 Wt 60.4 kg (133 lb 3.2 oz) LMP 10/14/2022 (Approximate) SpO2 98% Physical Exam Vitals and nursing note reviewed. Exam conducted with a device processing engineer present. Constitutional: General: She is not in acute distress. Appearance: Normal appearance. She is not toxic-appearing. Cardiovascular: Rate and Rhythm: Normal rate and regular rhythm. Pulmonary: Effort: Pulmonary effort is normal. Breath sounds: Normal breath sounds. Abdominal: General: Abdomen is flat. Palpations: Abdomen is soft. Tenderness: There is no abdominal tenderness. Genitourinary: Vagina: Vaginal discharge present. Cervix: Discharge present. No cervical motion tenderness or erythema. Adnexa: Right adnexa normal and left adnexa normal. Comments: White discharge from cervix and in vaginal vault. No bleeding. No cervical erythema. No CMT Skin: General: Skin is warm and dry. Neurological: Mental Status: She is alert. Assessment and Plan ASSESSMENT/PLAN: 1. Vaginal discharge - ICD9: 623.5, ICD10: N89.8 - GC/CHLAMYDIA DNA DET - BACTERIAL VAGINOSIS AMPLIFICATION - KARL / TRICHOMONAS AMPLIFICATION -Discussed safe sex practices. No sexual intercourse until results return. -No treatment at this time, treat based on swab results. Diagnosis and treatment plan were discussed and questions were answered to the patient's satisfaction. Pt acknowledged understanding of concepts and follow up plan. Specific signs and symptoms that would indicate the need for higher level of care were discussed in detail warranting prompt ER evaluation. FABIANO Almonte documented in this encounter [facility] 12-02-2022 History of Present illness Narrative This note was created using ngmocoter. Subjective Abbe Faustin is a 17 year old female. HPI 17-year-old female presents for nasal congestion, cough and chills. We got verbal permission from mother to see the patient. Patient has had nasal congestion for the past 3 to 4 days. She states she has had a cough and chills. No sore throat. No vomiting or diarrhea. Still able to eat and drink. No chest pain. No history of asthma. No other complaints. PAST MEDICAL HISTORY Diagnosis Date Menstrual periods irregular 06/2017 NEGATIVE MEDICAL HISTORY Normal Color Vision PAST SURGICAL HISTORY Procedure Laterality Date NONE ALLERGIES Seasonal Allergies MEDICATIONS hydrOXYzine HCl (ATARAX) 25 mg tablet Take 1 tablet by mouth three times daily as needed for anxiety. venlafaxine ER (EFFEXOR XR) 75 mg 24 hr capsule Take 1 capsule by mouth once daily. ondansetron orally disintegrating (ZOFRAN ODT) 4 mg disintegrating tablet Take 1 tablet by mouth every 8 hours as needed. (Patient not taking: Reported on 11/07/2022) FAMILY HISTORY Problem Relation Age of Onset Diabetes Paternal Grandmother Heart Other Maternal Great Grandmother Social History Tobacco Use Smoking status: Every Day Passive exposure: Yes Smokeless tobacco: Never Tobacco comments: outside Vaping Use Vaping Use: current everyday user Substances: Nicotine Substance Use Topics Alcohol use: Never Review of Systems Constitutional: Positive for chills. Negative for fever. HENT: Positive for congestion and rhinorrhea. Negative for ear pain and sore throat. Respiratory: Positive for cough. Negative for shortness of breath. Cardiovascular: Negative for chest pain. Gastrointestinal: Negative for diarrhea and vomiting. Objective BP 122/72 Pulse 90 Temp 37.2 C (98.9 F) Resp 16 Wt 60.8 kg (134 lb) LMP 10/14/2022 (Approximate) SpO2 96% Physical Exam Vitals and nursing note reviewed. Constitutional: General: She is not in acute distress. Appearance: Normal appearance. She is not toxic-appearing. HENT: Right Ear: Tympanic membrane and ear canal normal. Left Ear: Tympanic membrane and ear canal normal. Nose: Congestion present. Mouth/Throat: Mouth: Mucous membranes are moist. Pharynx: No oropharyngeal exudate or posterior oropharyngeal erythema. Eyes: Conjunctiva/sclera: Conjunctivae normal. Cardiovascular: Rate and Rhythm: Normal rate and regular rhythm. Pulmonary: Effort: Pulmonary effort is normal. Breath sounds: Normal breath sounds. Neurological: Mental Status: She is alert. Assessment and Plan ASSESSMENT/PLAN: 1. URI, acute - ICD9: 465.9, ICD10: J06.9 - Discussed viral etiology and rationale for treatment. - Symptomatic treatment with prn analgesia - Supportive care with fluids and rest - The patient may also use OTC cough and cold meds as needed. Recommend Robitussin, Flonase. -Declines COVID/flu swab Diagnosis and treatment plan were discussed and questions were answered to the patient's satisfaction. Pt acknowledged understanding of concepts and follow up plan. Specific signs and symptoms that would indicate the need for higher level of care were discussed in detail warranting prompt ER evaluation. FABIANO Almonte documented in this encounter [facility] 12-02-2022 Instructions FABIANO Almonte - 12/02/2022 5:44 PM EDT Robitussin as needed for cough at bedtime. Take as directed Flonase nasal spray as needed for nasal congestion. documented in this encounter [facility] 11-07-2022 History of Present illness Narrative Images from the original note were not included. CHILD & ADOLESCENT PSYCHIATRY FOLLOW-UP VISIT Documentation from my notes of previous visit of 10/10/2022 was copied and pasted, documentation has been reviewed and edited as necessary and is current for today. ASSESSMENT AND PLAN Abbe Faustin 2005 DATE of SERVICE: 11/07/2022 TIME of SERVICE: 5:00 PM IMPRESSION: Abbe is a 17 year old female with past psychiatric history of Major Depressive Disorder (MDD), Generalized Anxiety Disorder (MYA), and Marijuana Abuse currently taking Effexor 37.5 mg daily and Atarax 25 mg TID PRN who presents for follow-up. Today patient and family report mood has improved somewhat on Effexor. Both Mother and Abbe report mood has been more stable and anger has improved. Abbe also reports feelings of worthlessness and hopelessness/helplessness have decreased. However, still endorses significant concerns for anxiety. Has not yet taken Atarax as medication was picked up by Step-Mother and she has been back living with Mother, so has not had access to it. Denies SI/SIB since last visit. Reports THC use has decreased since last visit. Now using a few times per week. Continues to report daily nicotine use. Denies amphetamine use. No acute safety concerns today. Changes to regimen today include: will increase Effexor to 75 mg daily in order to target anxiety and depression symptoms. Will continue Atarax 25 mg up to 3 times daily as needed for anxiety. Continues Family Therapy through [facility]. Plan to return to clinic in 4-6 weeks. Diagnoses: (F33.2) Severe episode of recurrent major depressive disorder, without psychotic features (HCC) (primary encounter diagnosis) (F41.1) Generalized anxiety disorder (F12.10) Marijuana abuse Previous Psychiatric Hospitalizations: [facility] 08/12-08/19/2022 Previous Programs Participated In: None Previous Medications Trialed: Zoloft: Increased SI Prozac Discontinued by patient Lexapro: Increased anger and diarrhea Current diagnostic differential includes: None TREATMENT RECOMMENDATIONS/PLAN: BIOLOGIC INTERVENTIONS: - Increase Effexor to 75 mg by mouth daily. - Continue Atarax 25 mg by mouth up to 3 times daily as needed for anxiety. - Urine tox to be done now. Order placed previously. This has not yet been done. -Previously discussed with Abbe and mother that I recommend that Abbe abstain from using illegal substances, including marijuana, especially while on prescribed medications due to the potential for interactions and adverse side effects to occur. Also reviewed with Abbe and mother that marijuana use can contribute to symptoms of depression and/or anxiety and may exacerbate these symptoms especially with chronic use. If concerns for ongoing/increased marijuana use arise in the future I may not continue to prescribe medications if deemed appropriate to avoid adverse side effects. Mother and Abbe verbalized understanding. -If concerns for substance use persist Abbe may also benefit from having a more in-depth evaluation, including assessment for addiction, as well as receiving more intensive psychology services with adjunct psychiatric services as determined appropriate. Orders: Orders Placed This Encounter PROVIDER ORDERED FOLLOW UP Order Specific Question: Does consulting provider have [facility] access? Answer: Yes hydrOXYzine HCl (ATARAX) 25 mg tablet Sig: Take 1 tablet by mouth three times daily as needed for anxiety. Dispense: 90 tablet Refill: 0 venlafaxine ER (EFFEXOR XR) 75 mg 24 hr capsule Sig: Take 1 capsule by mouth once daily. Dispense: 30 capsule Refill: 1 PSYCHOLOGICAL/THERAPY RECOMMENDATIONS: - Continue outpatient psychology services through [facility] as recommended by treating provider. Coordination of Care: - Will coordinate with outside providers. - Release of information signed today? No SAFETY INTERVENTIONS: - She has a chronic Moderate risk of harm to self/others and Low immediate risk of harm. I reviewed safety and emergent precautions. There are no acute concerns for safety. -History of suicidal ideation and self-injurious behaviors reviewed in detail with Parent/Guardian during today's office visit without Abbe present. General Safety Recommendations: YOU SHOULD SEEK MEDICAL ATTENTION IMMEDIATELY FOR YOUR CHILD, AT THE NEAREST EMERGENCY DEPARTMENT OR BY CALLING 611, IF ANY OF THE FOLLOWING OCCURS: - Your child has new or worsening thoughts of harming himself/herself (suicidal thoughts) or thoughts of harming others. - Your child does not feel safe at home. - You are concerned about your child s ability to remain safe at home. If your child has thoughts of hurting himself/herself or others, you can: - Call the National Suicide and Crisis Lifeline by dialing 688. - Call the National Suicide Hotline by calling 6-629-QDUFRSF ( ) or 4-050-637-TALK (5093) - Text 4hbqb to 894207 - If you live in [facility] call the crisis hotline: Mobile Crisis/Frontline Services at 224-168-6308 It is strongly recommended that there be no guns in the home and that all objects that could be used for harm are kept in a safe secure location where they cannot be accessed. Gun safety - If there are guns in the home, Family should remove the gun/guns from the house, but if that is not possible then the gun(s) should be locked in a gun cabinet with a combination lock in place. Ammunition should also be kept at a separate location from the gun and should also be kept locked with a combination lock. Family should secure medications including prescription and [id number] medications. Recommend that the medications be kept locked with a combination lock. EDUCATION/MATERIALS FOR PATIENT OR GUARDIAN: - Information regarding diagnosis(es) and medication(s) previously provided. FOLLOW-UP: - Return in about 4 weeks (around 12/05/2022). Family was asked to call for an earlier visit if needed. - Date of last visit: 10/10/2022 - Date of last office visit: 10/10/2022 SUBJECTIVE PRESENTING PROBLEM: Current Medication Regimen: Abbe is currently taking: Effexor 37.5 mg daily Atarax 25 mg TID PRN for anxiety Family administers medication(s): every day Interval History: Upon initial evaluation, had experienced some improvement on Lexapro, but endorsed increased anger and GI upset. As such, Lexapro was discontinued and was started on Effexor 37.5 mg. Was also started on Atarax 25 mg TID PRN for anxiety. Today, Abbe reports Effexor is going well. Reports mood has improved a bit, but anxiety has not really changed. Has not yet taken Atarax as medication was picked up by Step-Mother and she has been back living with Mother, so has not had access to it. Reports she recently moved back in with Mother. Step-Mother kicked her out due to younger sister being caught vaping and drinking with friends, and Father and Step-Mother felt Abbe was responsible for this. Also reports Father recently lost a good friend and has been struggling with this, drinking more, etc. Was then living with significant other, but they had an argument, so moved back in with Mother. Mother does feel mood has improved somewhat on Effexor and seems to be more stable. However, does feel she continues to experience anxiety and some depressive symptoms. Also continues to endorse concerns about Abeb's boyfriend as feels that this is a very toxic relationship and can contribute to Abbe's anxiety and depression. Anxiety: Abbe reports anxiety as 7-8/10 with 10 being the highest level of anxiety. Reports anxiety continues to be high. Has been worrying about getting a job and working on getting a place to live and a car. Feeling anxious about finishing school. Has been worried about her Father as he recently lost a close friend a few weeks ago. Reports Father is an alcoholic and things were very rough the first week. Reports she woke up with a panic attack yesterday morning due to having a bad dream. Does not remember her dream. Reports skin picking has been worse lately and has been picking at scalp. Mood: Abbe reports mood as 5/10 with 10 being the best mood possible. Reports mood has been a bit better. Reports mood lability has improved. Reports energy level and motivation have improved a bit, but still lower than she would like. Reports feelings of sadness have decreased. Reports social-isolation has been better. Reports feelings of worthlessness and hopelessness/helplessness have decreased in frequency. Denies SIB/SI since last visit. School: Reports school is going well. On track to graduate early. Educational History: Name of School: [employer] Grade: 11th (Will be graduating in December) Type of placement: [facility] [place] In school services: None Counseling: Abbe is currently receiving counseling services. Currently receiving Family Therapy through [facility] (Fernanda Galan). Peers: Abbe reports she is very anti-social. Only has a few close friends. Extracurricular: Enjoys spending time with friends, makeup and drawing. Appetite: Appetite decreased. Reports she has been having diarrhea since starting Lexapro. As such, even though she feels hungry, has not been eating much. May also forget to eat at times. Has lost 30 lbs over the last year. Sleep: Goes to bed around 8:00-9:00 PM. Falls asleep within 60 minutes. Abbe does stay asleep all night. Wakes up around 4:00-6:30 AM for the day. Suicidal Ideation/Self-Injury: Abbe reports a history of suicidal ideation. Reports last SI about 2 months ago. Does not remember what the circumstances were. Denies method, plan, or intent. Denies attempts. Reports a history of self-harm. Reports cutting for several years. Last before hospital admission in 08/2022. Denies SIB since. Abbe has been hospitalized for this. Admitted to [facility] in 08/2022. Abbe denies suicidal thoughts or thoughts of self-harm today. No acute safety concerns. Substance Use: Previously reported THC use daily. Also report prior amphetamine use. Denies current amphetamine use. Reports THC use has decreased since last visit. Now using a few times per week. Continues to endorse daily nicotine use. Denies amphetamine use. Review of Systems Constitutional: Positive for fatigue. Negative for activity change, appetite change and unexpected weight change. HENT: Negative for nosebleeds. Respiratory: Negative for chest tightness and shortness of breath. Cardiovascular: Negative for chest pain. Gastrointestinal: Negative for abdominal pain and diarrhea. Musculoskeletal: Negative for arthralgias and myalgias. Neurological: Negative for dizziness, seizures and headaches. Hematological: Does not bruise/bleed easily. Psychiatric/Behavioral: Positive for dysphoric mood. Negative for behavioral problems, decreased concentration, self-injury, sleep disturbance and suicidal ideas. The patient is nervous/anxious. The patient is not hyperactive. HISTORY Medications Outpatient medications: Current Outpatient Medications on File Prior to Visit Medication Sig ondansetron orally disintegrating (ZOFRAN ODT) 4 mg disintegrating tablet Take 1 tablet by mouth every 8 hours as needed. venlafaxine ER (EFFEXOR XR) 37.5 mg 24 hr capsule Take 1 capsule by mouth once daily. hydrOXYzine HCl (ATARAX) 25 mg tablet Take 1 tablet by mouth three times daily as needed for anxiety. (Patient not taking: Reported on 10/22/2022) No current facility-administered medications on file prior to visit. ALLERGIES Allergen Reactions Seasonal Allergies Other: See Comments Nasal congestion Record Review PEDIATRIC HISTORY Gestational age: 40 wks Delivery method: VAGINAL weight: 3204 g (7 lb 1 oz) Discharge weight: 2977 g (6 lb 9 oz) Length: 50.8 cm (20) HC: 34 cm Feeding method: Breast Fed Social History Social History Narrative Lives with: Father, Step-Mother, Three Younger Siblings and Daughter. Daughter is almost 1 year old. Is not her biological daughter. Is her boyfriend's daughter, who has primary custody. However, her boyfriend is currently homeless so child stays with Abbe and her family. Boyfriend is transgender male. Abbe was present for child's and was able to be in the delivery room with boyfriend during delivery. Recently moved out of Mother's house. Parental Employment: Mother works in [employer] Father works in [employer] No safety concerns at home. Guns are kept locked. Medical CURRENT PCP: Wendi Anne PA-C ACTIVE PROBLEM LIST Severe Episode of Recurrent Major Depressive Disorder, Without Psychotic Features (Hcc) - 10/10/2022 Generalized Anxiety Disorder - 10/10/2022 Marijuana Abuse - 10/10/2022 PREVIOUS SURGERIES: PAST SURGICAL HISTORY Procedure Laterality Date NONE Family Family History Problem Relation Age of Onset Diabetes Paternal Grandmother Heart Other Maternal Great Grandmother Social History Tobacco Use Smoking status: Every Day Passive exposure: Yes Smokeless tobacco: Never Tobacco comments: outside Vaping Use Vaping Use: current everyday user Substances: Nicotine Substance Use Topics Alcohol use: Never PRIOR EVALUATIONS Past Relevant Medical Testing Cardiac Studies: ECG 09/23/2018: NORMAL SINUS RHYTHM NORMAL ECG OBJECTIVE 11/07/22 1652 BP: 106/56 Pulse: 80 Weight: 61.7 kg (136 lb) Height: 170.2 cm (5' 7) Last 3 Encounter Wt Readings: Date: Wt: 10/22/2022 62.1 kg (136 lb 12.8 oz) (73 %, Z= 0.62)* 10/10/2022 60.8 kg (134 lb) (70 %, Z= 0.52)* 09/13/2022 60.6 kg (133 lb 8 oz) (69 %, Z= 0.51)* Last 3 Encounter Ht Readings: Date: Ht: 10/10/2022 170.2 cm (5' 7) (87 %, Z= 1.11)* 09/13/2022 169.3 cm (5' 6.65) (84 %, Z= 0.98)* 06/05/2022 169.9 cm (5' 6.89) (86 %, Z= 1.08)* Body mass index is 21.3 kg/m . Length/Height: 170.2 cm (5' 7) (87 %, Z= 1.11, Source: CDC (Girls, 2-20 Years)) No height on file for this encounter. Weight: 61.7 kg (136 lb) (72 %, Z= 0.59, Source: CDC (Girls, 2-20 Years)) No weight on file for this encounter. BMI: 53 %ile (Z= 0.07) based on CDC (Girls, 2-20 Years) BMI-for-age based on BMI available as of 11/07/2022. BP: 106/56 Blood pressure percentiles are 30 % systolic and 13 % diastolic based on the 2017 AAP Clinical Practice Guideline. This reading is in the normal blood pressure range. Pulse: 80 Physical Exam Constitutional: Appearance: Normal appearance. Pulmonary: Effort: Pulmonary effort is normal. Neurological: Mental Status: She is alert and oriented to person, place, and time. Mental Status Exam: General/Sensorium: Alert and & interactive - Appearance: Appears stated age and Casually dressed - Eye Contact: Avoidant eye contact - Demeanor: Appropriately interactive and Cooperative - Motor Activity: Normal - Speech: Appropriate and Soft - Mood: Reports feeling depressed and Anxious - Affect: Anxious and Constricted - Thought Process: Linear, logical, and goal-directed - Associations: Normal - Thought Content: Appropriate with no SI/HI/AVH and Talking about future goals or plans - Perceptions: The patient does not appear internally stimulated - Cognition: Appears intact in regards to memory, attention/concentration, fund of knowledge and language skills - Insight: Developmentally appropriate, Fair and Improving - Judgment: Developmentally appropriate, Fair and Improving - BEHAVIOR RATING SCALES Patient Data Generalized Anxiety Disorder Scale (MYA-7) MYA - 7 SCORES 09/13/2022 MYA-7 Score 14 (0-4) minimal anxiety, (5-9) mild anxiety, (10-14) moderate anxiety, (15-21) severe anxiety Patient Health Questionnaire - Pediatric (PHQ-A) PHQ-A Scores 01/12/2022 09/13/2022 PHQ-A Total Score 9 10 (0-4) minimal depression, (5-9) mild depression, (10-14) moderate depression, (15-19) moderately severe depression, (20-27) severe depression My Last OARRS Check for this patient OARRS REPORTING HISTORY There is no flowsheet data to display. Parent or guardian provided additional history. [facility] provider treatment records reviewed. Recent vitals and/or growth chart reviewed. I spoke with the patient's parent/guardian seperately. High intensity family dynamics were evident and managed. Polypharmacy Off label use of medications discussed as appropriate. I spent a total of 45 minutes on the date of the service which included preparing to see the patient, [id number] patient care, completing clinical documentation, performing a medically appropriate examination, counseling and educating the patient/family/caregiver, and ordering medications, tests, or procedures. SIGNATURE: Noreen Cutler APRN.CNP DATE of SERVICE: 11/07/2022 TIME OUT: 5:45 PM documented in this encounter [facility] 10-22-2022 History of Present illness Narrative This note was created using [employer]. Subjective Abbe Faustin is a 17 year old female. HPI Presents with abdominal cramping off and on over the past several months. She sometimes has constipation, sometimes diarrhea. She has been nauseous. Lexapro to Effexor on October 10. She does smoke weed daily. She has a history of severe anxiety. She states she does not eat any vegetables in her diet, will eat fruit. Mostly has a pop tart for breakfast, school lunch and varies for dinner. She likes greasy food typically. Does drink water throughout the day. Does not drink much pop or coffee. Denies blood in stool. Mom did have 1 bout of colitis, no other family history of ulcerative colitis or Crohn's. No food allergies. No fever or recent illness. Review of Systems HENT: Negative. Respiratory: Negative. Cardiovascular: Negative. Gastrointestinal: Positive for abdominal pain, constipation, diarrhea and nausea. Negative for blood in stool, rectal pain and vomiting. Genitourinary: Negative. Musculoskeletal: Negative. Skin: Negative. All other systems reviewed and are negative. PAST MEDICAL HISTORY Diagnosis Date Menstrual periods irregular 06/2017 NEGATIVE MEDICAL HISTORY Normal Color Vision Current Outpatient Medications Medication Sig Dispense Refill venlafaxine ER (EFFEXOR XR) 37.5 mg 24 hr capsule Take 1 capsule by mouth once daily. 30 capsule 0 ondansetron orally disintegrating (ZOFRAN ODT) 4 mg disintegrating tablet Take 1 tablet by mouth every 8 hours as needed. 12 tablet 0 dicyclomine (BENTYL) 20 mg tablet Take 1 tablet by mouth three times daily for 7 days. 21 tablet 0 hydrOXYzine HCl (ATARAX) 25 mg tablet Take 1 tablet by mouth three times daily as needed for anxiety. (Patient not taking: Reported on 10/22/2022) 90 tablet 0 No current facility-administered medications for this visit. PAST SURGICAL HISTORY Procedure Laterality Date NONE FAMILY HISTORY Problem Relation Age of Onset Diabetes Paternal Grandmother Heart Other Maternal Great Grandmother Social History Tobacco Use Smoking status: Every Day Passive exposure: Yes Smokeless tobacco: Never Tobacco comments: outside Vaping Use Vaping Use: current everyday user Substances: Nicotine Substance Use Topics Alcohol use: Never Objective BP 126/76 Pulse 84 Temp 37 C (98.6 F) (Tympanic) Resp 18 Wt 62.1 kg (136 lb 12.8 oz) LMP 10/14/2022 (Approximate) SpO2 96% Physical Exam Vitals reviewed. Constitutional: Appearance: Normal appearance. HENT: Head: Normocephalic and atraumatic. Mouth/Throat: Mouth: Mucous membranes are moist. Pharynx: Oropharynx is clear. Cardiovascular: Rate and Rhythm: Normal rate and regular rhythm. Heart sounds: Normal heart sounds. Pulmonary: Effort: Pulmonary effort is normal. Breath sounds: Normal breath sounds. Abdominal: General: Abdomen is flat. Bowel sounds are normal. Palpations: Abdomen is soft. Comments: Mild lower abdominal ttp, no guarding or rebound. Skin: General: Skin is warm and dry. Findings: No rash. Neurological: General: No focal deficit present. Mental Status: She is alert. Assessment and Plan ASSESSMENT/PLAN: 1. Alternating constipation and diarrhea - ICD9: 787.99, ICD10: R19.8 (primary diagnosis) Could be secondary to the severe anxiety, also does not eat a well-balanced diet. Discussed including more fibrous fruits and vegetables and less greasy fatty foods. Given Bentyl and Zofran for symptoms. Recommend follow-up with PCP if persisting. 2. Abdominal cramping - ICD9: 789.00, ICD10: R10.9 Kindra Pinzon PA-C documented in this encounter [facility] 10-10-2022 Instructions Noreen Cutler APRN.LISBETH - 10/10/2022 5:32 PM EST After Visit Summary FOLLOW-UP: Abbe is scheduled for a follow-up in-person visit with me on November 07 at 5:00 PM (arrival time 4:45 PM). Please call [phone] if you need to reschedule this appointment. For any additional questions or concerns, you can call my office or contact me via [employer]. Behavioral Health is located on the 1st floor of the [facility]. Check in at Desk WO10. [facility] [address] [facility] [id number] [facility] Office Line: [phone] [place] Office Line: [phone] MEDICATIONS: Stop Lexapro. Begin Effexor 37.5 mg give 1 capsule(s) by mouth daily. Begin Atarax 25 mg give 1 tab(s) by mouth up to 3 times daily as needed for anxiety. Medication Information: The majority of people will only experience a few mild side effects when taking the medication. It's important to persist with treatment, even if your child has side effects, as it will take several weeks before you begin to see benefit from treatment. With time, you should find that the benefits of treatment outweigh problems related to side effects. Some of the main side effects are described below, but this isn't an exhaustive list and some of these won't necessarily apply to the specific medication you or your child is taking. For information about the side effects of a particular medication, check the information leaflet that comes with your medication. Common side effects feeling agitated, shaky or anxious feeling or being sick Indigestion diarrhea appetite changes dry mouth changes in sleep / energy level excessive sweating headaches difficulty achieving orgasm during sex or masturbation (in males, difficulty obtaining or maintaining an erection. These side effects should improve over time, although some - such as sexual problems - can persist. Less common side effects Less common side effects can include: bruising or bleeding easily, including vomiting blood or bloody stools confusion movement problems, such as stiffness or shaking seeing or hearing things that aren't real being unable to pass urine Speak to your doctor or call 911 or go to the nearest hospital immediately if you vomit blood, have blood in your stools, or have problems passing urine. Serotonin syndrome Serotonin syndrome is an uncommon, but potentially serious, set of side effect. Serotonin syndrome occurs when the levels of a chemical in your brain called serotonin become too high. It's usually triggered when you take an SSRI in combination with another medication (or substance) that also raises serotonin levels, such as another antidepressant or Catherine s wort. Symptoms of serotonin syndrome can include: confusion agitation muscle twitching sweating shivering diarrhea Symptoms of severe serotonin syndrome include: a very high temperature (fever) seizures (fits) irregular heart beat. loss of consciousness If you or someone you know experience symptoms of severe serotonin syndrome, seek emergency medical help immediately. Risk of Activation (Manic Symptoms) Some studies have indicated that people taking SSRIs/SNRIs are at risk of developing manic symptoms. People with a family history of bipolar disorder may be at higher risk for this side effect. Symptoms of carlos include the following: feeling unusually high and optimistic OR extremely irritable unrealistic, grandiose beliefs about one s abilities or moy sleeping very little, but feeling extremely energetic talking so rapidly that others can t keep up racing thoughts; jumping quickly from one idea to the next highly distractible, unable to concentrate impaired judgment and impulsiveness acting recklessly without thinking about the consequences delusions and hallucinations (in severe cases) If your child develops these symptoms while taking this medication stop taking this medication and contact your provider right away. If you are unable to keep your child safe, call 911 or go to the nearest emergency room. Suicidal thoughts Some people have suicidal thoughts when they first take SSRIs/SNRIs. Although young people under 25 seem particularly at risk, the overall risk is very low. Note that untreated or under treated of mental illness in youth is a risk for suicide and therefore the benefits of these medications often outweigh the risk of this side effect. Talk to your provider if you have questions about the risk of suicidal thoughts in your child. Also, it may be useful to tell other trusted adults in your child's life that he or she is taking this medication. Ask them to tell you if they think your symptoms are getting worse, or if they're worried about changes in behavior. If your child does develop suicidal thoughts stop taking the medication, and contact your provider immediately. Sources: http://www.helpguide.org/articles /bipolar-disorder/bipolar-disorde x-gyiuu-zoi-symptoms.htm NHS ([place]) GENERAL SAFETY RECOMMENDATIONS: YOU SHOULD SEEK MEDICAL ATTENTION IMMEDIATELY FOR YOUR CHILD, AT THE NEAREST EMERGENCY DEPARTMENT OR BY CALLING 911, IF ANY OF THE FOLLOWING OCCURS: - Your child has new or worsening thoughts of harming himself/herself (suicidal thoughts) or thoughts of harming others. - Your child does not feel safe at home. - You are concerned about your child s ability to remain safe at home. If your child has thoughts of hurting himself/herself or others, you can: - Call the National Suicide and Crisis Lifeline by dialing 437. - Call the National Suicide Hotline by calling 1-087-ZGJUWQI ( ) or 1-726-804-TALK (1039) - Text 4hope to 177549 - If you live in [facility] call the [facility]: 24 hour crisis response at 649.864.3886 It is strongly recommended that there be no guns in the home and that all objects that could be used for harm are kept in a safe secure location where they cannot be accessed. Gun safety - If there are guns in the home, you should remove the gun/guns from the house, but if that is not possible then the gun(s) should be locked in a gun cabinet with a combination lock in place. Ammunition should also be kept at a separate location from the gun and should also be kept locked with a combination lock. Please secure medications including prescription and wbwp-[id number]-[id number] medications. It is recommend that the medications be kept locked with a combination lock. documented in this encounter [facility] 10-10-2022 History of Present illness Narrative Images from the original note were not included. CHILD & ADOLESCENT PSYCHIATRY NEW PATIENT EVALUATION ASSESSMENT AND PLAN Abbe Faustin 2005 DATE of SERVICE: 10/10/2022 TIME of SERVICE: 4:20 PM IMPRESSION: Abbe Faustin is 17 year old girl who presents with Mother and Step-Mother for initial evaluation of Anxiety and Depression. Currently on Lexapro 10 mg as managed by PCP. Overall, Abbe meets criteria for the diagnosis(es) of Major Depressive Disorder (MDD) and Generalized Anxiety Disorder (MYA). Abbe reports long standing history of anxiety and depression since about 12 years of age. Reports unstable Family situation and negative relationship with Father and Mother as significant stressors. Was admitted to [facility] in August 2022 due to increased SI and SIB. Was started on Lexapro while inpatient. Reports some benefit from Lexapro, but also reports increased anger and diarrhea on Lexapro. Reports feeling anxious about school and family dynamics. Reports feeling anxious most days. Also report depressive symptoms including irritability, lack of motivation, social-isolation, and worthlessness themes. Reports some hopelessness/helplessness, though this has improved. Denies SI for the past month. Denies SIB since discharged from hospital. Does endorse daily marijuana use. Also endorses previous amphetamine use. Step-Mother reports she does drug test her at home and tested negative for amphetamines yesterday. No acute safety concerns today. Abbe would benefit from use of medication and psychological therapy. Will stop Lexapro given reports of increased anger and frequent diarrhea on medication. Has also failed Zoloft and Prozac. As such, recommend trial of SNRI. Will trial Effexor 37.5 mg by mouth daily. Will also start Atarax (Hydroxyzine) 25 mg by mouth up to 3 times daily as needed for anxiety. Will obtain urine tox screen today. Advised Abbe and parents of concerns for ongoing marijuana use. Recently started therapy services through [facility]. Return to clinic in 4-6 weeks. Diagnoses: (F33.2) Severe episode of recurrent major depressive disorder, without psychotic features (HCC) (primary encounter diagnosis) (F41.1) Generalized anxiety disorder (F12.10) Marijuana abuse Previous Psychiatric Hospitalizations: [facility] 08/12-08/19/2022 Previous Programs Participated In: None Previous Medications Trialed: Zoloft: Increased SI Prozac Discontinued by patient Lexapro: Increased anger and diarrhea Current diagnostic differential includes: None TREATMENT RECOMMENDATIONS/PLAN: BIOLOGIC INTERVENTIONS: - Decrease Lexapro to 5 mg by mouth daily x1 week. Then stop medication. - Begin Effexor 37.5 mg by mouth daily. - Begin Atarax 25 mg by mouth up to 3 times daily as needed for anxiety. - Urine tox to be done now. -Discussed with Abbe and mother that I recommend that Abbe abstain from using illegal substances, including marijuana, especially while on prescribed medications due to the potential for interactions and adverse side effects to occur. Also reviewed with Abbe and mother that marijuana use can contribute to symptoms of depression and/or anxiety and may exacerbate these symptoms especially with chronic use. If concerns for ongoing/increased marijuana use arise in the future I may not continue to prescribe medications if deemed appropriate to avoid adverse side effects. Mother and Abbe verbalized understanding. -If concerns for substance use persist Abbe may also benefit from having a more in-depth evaluation, including assessment for addiction, as well as receiving more intensive psychology services with adjunct psychiatric services as determined appropriate. Orders: Orders Placed This Encounter Urine Tox Screen Standing Status: Future Standing Expiration Date: 12/10/2022 PROVIDER ORDERED FOLLOW UP Order Specific Question: Does consulting provider have [facility] Epic access? Answer: Yes venlafaxine ER (EFFEXOR XR) 37.5 mg 24 hr capsule Sig: Take 1 capsule by mouth once daily. Dispense: 30 capsule Refill: 0 hydrOXYzine HCl (ATARAX) 25 mg tablet Sig: Take 1 tablet by mouth three times daily as needed for anxiety. Dispense: 90 tablet Refill: 0 PSYCHOLOGICAL/THERAPY RECOMMENDATIONS: - Continue outpatient psychology services through [facility] as recommended by treating provider. Coordination of Care: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 assessment had not been completed at that point. Patient refused to see mother. Visitation days for adolescents are Friday and . She does know that she tested positive for marijuana and meth. Mother is working today, but will update us when she gets new information. Shila Delcid RN Left message to call our office. Raymundo Cullen RN Message left for parent to return call. Shila Delcid RN Please reach out to mother once more to see if there has been any updates on patient's status. Wendi Anne PA-C Called and spoke with mother. She states that they are planning transfer this morning to [place]. She is to be getting a call from the facility after arrival and evaluation. She will update us when this occurs. Shila Delcid RN Please call mother to obtain patient update. Thank you. Wendi Anne PA-C Please assist family in rescheduling medication check. 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 Mother aware. Shila Delcid RN Form signed. Wendi Anne PA-C Type of form: Work Permit Form received via walk in When form is completed, call parent at [phone] Form has been forwarded to FABIANO Hawkins LPN documented in this encounter [facility] 07-04-2022 Instructions Chema Guzman APRN.[facility] - 07/04/2022 4:51 PM EST Infectious Mononucleosis Teen Version What is mononucleosis? Mononucleosis (mono) is a viral infection. The symptoms of mono may include: * severe sore throat * large red tonsils covered with pus * swollen lymph nodes in the neck, armpits, and groin * fever for 7 to 14 days * tiredness and increased sleeping * enlarged spleen. Your healthcare provider may do a blood test. If you have mono, your provider may be able to see unusual white blood cells in your blood. What is the cause? [place] is caused by the Be-Pichardo virus (EBV). This virus is transmitted in infected saliva through coughing, sneezing, and kissing. Although mononucleosis can occur at any age, it occurs more often in 15- to [id number], possibly because of more intimate contacts with others. Contrary to popular belief, mono is not very contagious. Even people in the same household rarely come down with it. How long does it last? Most teens have only mild symptoms for a week. Even those with severe symptoms usually feel completely well in 2 to 4 weeks. Complications are rare and require a hospital stay when they occur. The most common problem is dehydration from not drinking enough fluids. Breathing may be blocked by large tonsils, adenoids, and other lymph tissue in the back of the throat. On rare occasions, the enlarged spleen will rupture if the abdomen is hit or strained. How can I take care of myself? * Fever and medicines No specific medicine will cure mono. However, symptoms can usually be helped with medicines. The pain of swollen lymph nodes and fever over 102 F (39 C) can usually be relieved by taking acetaminophen or ibuprofen. Do not take aspirin. Because over 90% of people with mono will develop a severe rash if they take ampicillin or amoxicillin, these medicines should be avoided if you have mono. * Fluids To prevent dehydration, be sure you drink enough fluids. Milk shakes and cold drinks are especially good. You can also sip warm chicken broth. You are getting enough fluid if: o you urinate at least 3 times each day o your urine is not darker than usual o your mouth is moist and has saliva in it. * Sore throat treatment Because swollen tonsils can make some foods hard to swallow, eat soft foods as long as necessary. Sucking on hard candies can also relieve symptoms. Avoid citrus fruits. Take a daily multiple vitamin pill until your appetite returns to normal. Acetaminophen or ibuprofen can be very helpful. Do not take aspirin. * Activity You don't need to stay in bed. Bed rest will not shorten the amount of time you are sick or reduce symptoms. You can decide how much rest you need. Slow down some until you no longer have a fever. * Precautions for an enlarged spleen Your spleen may be enlarged while you have mono. A blow to the abdomen could rupture the enlarged spleen and cause bleeding. This is a surgical emergency. Therefore, all teens with mono should avoid contact sports for at least 4 weeks. If you play sports, have your provider check your spleen before you return to your sport. Constipation and heavy lifting should also be avoided because of the sudden pressures they can put on the spleen. Your provider will check you weekly until your spleen returns to a normal size. * Contagiousness [place] is most contagious while you have a fever. After the fever is gone, the virus is still carried in the saliva for up to 6 months, but in small amounts. Overall, mono is only slightly contagious. Boyfriends, girlfriends, roommates, and relatives rarely get it. If you have mono, you do not need to be isolated. However, use separate drinking glasses and utensils and avoid kissing until the fever has been gone for several days. The incubation period for mononucleosis is 4 to 10 weeks after contact with an infected person. This means that if a person does become infected with the virus, the symptoms will not appear until 4 to 10 weeks after the contact. When should I call my healthcare provider? Call IMMEDIATELY if: * Breathing becomes difficult or noisy. * Abdominal pain occurs (especially high on your left side). * You start feeling very sick. Call within 24 hours if: * You can't drink enough fluids. * Signs of dehydration occur. * Sinus or ear pain occurs. * You aren't back to school by 2 weeks. * Any symptoms remain after 4 weeks. * You have other questions or concerns. Published by [employer]. This content is reviewed periodically and is subject to change as new health information becomes available. The information is intended to inform and educate and is not a replacement for medical evaluation, advice, diagnosis or treatment by a healthcare professional. Written by David Ramesh M.D., author of Your Child's Health, [employer]. Copyright 2007 [employer] and/or one of its subsidiaries. All Rights Reserved. Copyright [employer] 2007 Pediatric Advisor documented in this encounter [facility] 07-04-2022 History of Present illness Narrative Subjective HPI HPI Abbe Faustin is a 17 year old female who presents today for CC of st, fever. This started 1 day ago. Has tried otc medication for relief. Symptoms are worsened by nothing. Risk factors sick exposures at school, recent strep infection, finished amox. .Patient presents with: Ear Pain: Pt presented with parent, throat pain, Pierce x1 day. PAST MEDICAL HISTORY Diagnosis Date Menstrual periods irregular 06/2017 NEGATIVE MEDICAL HISTORY Normal Color Vision PAST SURGICAL HISTORY Procedure Laterality Date NONE ALLERGIES Seasonal Allergies MEDICATIONS FLUoxetine (PROZAC) 20 mg capsule Take 1 capsule by mouth once daily. FAMILY HISTORY Problem Relation Age of Onset Diabetes Paternal Grandmother Heart Other Maternal Great Grandmother Social History Tobacco Use Smoking status: Never Passive exposure: Yes Smokeless tobacco: Never Tobacco comments: outside Review of Systems Constitutional: Positive for fever. HENT: Positive for ear pain and sore throat. Negative for congestion, ear discharge and nosebleeds. Respiratory: Negative for cough, shortness of breath and wheezing. Gastrointestinal: Negative for diarrhea and vomiting. Musculoskeletal: Negative for neck pain. Objective Blood pressure 118/76, pulse 110, temperature (!) 38.8 C (101.8 F), resp. rate 18, weight 62.7 kg (138 lb 3.2 oz), last menstrual period 06/08/2022, SpO2 98 %. Physical Exam Constitutional: General: She is not in acute distress. Appearance: She is not toxic-appearing or diaphoretic. HENT: Head: Normocephalic and atraumatic. Right Ear: Hearing, tympanic membrane, ear canal and external ear normal. Left Ear: Hearing, tympanic membrane, ear canal and external ear normal. Nose: Nose normal. Mouth/Throat: Pharynx: Uvula midline. Posterior oropharyngeal erythema present. No pharyngeal swelling, oropharyngeal exudate or uvula swelling. Tonsils: Tonsillar exudate present. 3+ on the right. 3+ on the left. Eyes: General: Lids are normal. No scleral icterus. Right eye: No discharge. Left eye: No discharge. Conjunctiva/sclera: Conjunctivae normal. Pupils: Pupils are equal, round, and reactive to light. Neck: Trachea: Trachea normal. Cardiovascular: Rate and Rhythm: Normal rate and regular rhythm. Heart sounds: Normal heart sounds. Pulmonary: Effort: Pulmonary effort is normal. Breath sounds: Normal breath sounds. Abdominal: General: Abdomen is flat. Palpations: Abdomen is soft. There is no hepatomegaly or splenomegaly. Tenderness: There is no abdominal tenderness. Musculoskeletal: Cervical back: Normal range of motion and neck supple. Lymphadenopathy: Cervical: Cervical adenopathy present. Right cervical: Superficial cervical adenopathy present. Left cervical: Superficial cervical adenopathy present. Skin: Findings: No rash. Neurological: Mental Status: She is alert and oriented to person, place, and time. ASSESSMENT/PLAN: 1. Sore throat - ICD9: 462, ICD10: J02.9 - suspect viral, high suspicion for mono, too early to test. Reports no contact sports. Go to ER for any abd pain. - Alere Strep Test neg, no culture pending - Discussed supportive care treatment with fluids, rest and analgesia. - The patient should follow up in one week if symptoms persist or worsen - ALERE STREP A TEST (AG) - PREDNISONE 10 MG TABLET - LIDOCAINE HCL 2 % MUCOSAL SOLUTION Chema Guzman APRN.CAREER TECHNICAL SUPERVISOR documented in this encounter [facility] 06-21-2022 History of Present illness Narrative CC: Patient presents with: Pain, Throat: Pt reported throat pain rated 9, redness, white spots, x1 day. HPI: Abbe Faustin is a 17 year old female who presents to the office with complaint of sore throat, feverfor the past day. Symptoms are worsening Associated symptoms includes sore throat. Denies nausea, vomiting , and diarrhea. Treatments tried include nothing so far. with no relief of symptoms. Sick contacts: unknown. History of asthma, frequent episodes of bronchitis, chronic bronchitis, bronchiectasis or COPD: No Smoker: No Seasonal/environmental allergies: No The ROS is otherwise negative. The patient's pmh, medications, allergies, and past visits are reviewed. PHYSICAL EXAM: BP 112/66 Pulse 107 Temp (!) 38.1 C (100.6 F) Resp 16 Wt 62.5 kg (137 lb 12.8 oz) LMP 06/08/2022 (Approximate) SpO2 97% General appearance: alert, cooperative, pleasant, in no acute distress Head: Normocephalic Eyes: EOM's intact, conjunctiva pink and moist, no icterus, sclera white, non-injected Ears: Right ear: External ear/canal- Normal, TM - clear with good landmarks. Left ear: External ear/canal- Normal, TM - clear with good landmarks Oropharynx:moderate erythema, with exudates present Heart: Negative. RRR without obvious murmur, gallop, or rubs. No ectopy. Lungs: clear to auscultation, without rales or wheeze, good air exchange PAST MEDICAL HISTORY Diagnosis Date Menstrual periods irregular 06/2017 NEGATIVE MEDICAL HISTORY Normal Color Vision PAST SURGICAL HISTORY Procedure Laterality Date NONE ALLERGIES Seasonal Allergies MEDICATIONS FLUoxetine (PROZAC) 10 mg capsule Take 1 capsule by mouth once daily. FAMILY HISTORY Problem Relation Age of Onset Diabetes Paternal Grandmother Heart Other Maternal Great Grandmother Social History Tobacco Use Smoking status: Never Passive exposure: Yes Smokeless tobacco: Never Tobacco comments: outside ASSESSMENT/PLAN: 1. Sore throat - ICD9: 462, ICD10: J02.9 - STREP A MOLECULAR (POC) - positive Amoxicillin twice a day for 10 days Prescription instructions reviewed with patient mother as applicable. Potential red flag symptoms discussed with the patient mother. Reviewed appropriate action plan to take if red flag symptoms occur. Patient mother agreeable to treatment plan. Gretel Sánchez APRN.LISBETH documented in this encounter [facility] 05-10-2022 Miscellaneous Notes Mother aware. Raymundo Cullen RN Left message to call our office. Raymundo Cullen RN Please inform family that all lab work came back within normal limits for age, including thyroid levels. Endocrinology appointment not warranted at this time. Ferritin was on the lower end of normal, so a multivitamin with iron (as discussed during visit) would be completely appropriate. Wendi Anne PA-C documented in this encounter [facility] 05-08-2022 History of Present illness Narrative PEDIATRIC INITIAL VISIT SERVICE DATE: 05/08/2022 History was obtained from: patient, mother HISTORY OF PRESENT ILLNESS: Abbe is a 16 year old female presenting with concerns regarding depressed mood, general anxiety, and weight loss (11 lbs over 4 months) accompanied by her mother. She has felt this way for the past couple months, but states it is getting worse. Significant increase in symptoms over the past week Is the patient currently in treatment? No. Future appointment scheduled: No Previous treatment? No - mother tried scheduling patient with a counselor; however, patient did not go. The thought of talking with a counselor increased her anxiety. Mother also tried getting patient on control thinking it might help with regulating her hormones, but patient did not like it. SOCIAL HISTORY: Patient lives with mother Recent stressors: family problems and recent break up with significant other (lived with patient and mother) SCHOOL HISTORY: -The patient is currently in the 11th grade at [employer]. Will be graduating early -The patient is in regular age appropriate classes - Plans after graduation: Patient reports that her plans post high school are to get out of [place] because she doesn't like anyone here. Recent changes or stressors at home or school? Yes - Patient and her partner (female transitioning to male) broke up about a week ago. This has been extra difficult for patient as her partner recently had a baby and patient was like a mother to her. Feeling as though she has lost two people in her life - not allowed to see the baby. Mother states patient's partner was very controlling and as such patient does not have many friends. Reports having one friend named Giuseppe (uncertain if said individual is from school or work). Additionally reports some recent issues with father and frustrations with mother. 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 Also does not like her coworkers. Currently having some financial issues, car broke down. PSYCHIATRIC REVIEW OF SYMPTOMS: Depression: Increased irritability Decreased appetite with mood changes Changes to sleeping pattern Decrease in usual interests Lowering of self esteem or self efficacy Diminished energy and impairing fatigue Worsening of the ability to concentrate or is increasingly indecisive Feels hopeless Suicidal ideation/intent: Thoughts-No plan, No intent Generalized Anxiety: Excessive worry Difficulty controlling worry Restless and fidgety due to anxiety Trouble concentrating due to recurrent anxiety driven thoughts Sleep disturbance secondary to anxiety PAST PSYCHIATRIC HISTORY: -Are there previous psychiatric diagnoses? No -Has the patient received prior out patient mental care? No -Previous psychiatric medication trials: No -Have there been any previous suicide attempts? The patient admits to 1 previous suicide attempts by cutting (arms and legs). This occurred a few years ago PERTINENT FAMILY HISTORY: FAMILY HISTORY Problem Relation Age of Onset Diabetes Paternal Grandmother Heart Other Maternal Great Grandmother Anxiety: Yes, Mother Depression: Yes, Mother Schizophrenia: Unknown Bipolar: Unknown Mother states she was (may still be) on Zoloft which worked very well for her. Tried Wellbutrin which caused worsening of symptoms. MEDICAL HISTORY: PAST MEDICAL HISTORY Diagnosis Date Menstrual periods irregular 06/2017 NEGATIVE MEDICAL HISTORY Normal Color Vision OBJECTIVE PHQ-A score 22 (recommended cut off score is 11) PHQ-9 Modified for Teens 1. Feeling down, depressed, irritable or hopeless? 3 - Nearly Every Day 2. Little interest in or pleasure doing things? 3 - Nearly Every Day 3. Trouble falling asleep, staying asleep, or sleeping too much? 2 - More Than Half the Days 4. Poor appetite, weight loss, or overeating? 2 - More Than Half the Days 5. Feeling tired, or having little energy? 3 - Nearly Every Day 6. Feeling bad about yourself-or feeling that you are a failure, or that you have let yourself or your family down? 3 - Nearly Every Day 7. Trouble concentrating on things like school work, reading, or watching television? 3 - Nearly Every Day 8. Moving or speaking so slowly that other people could have noticed? Or the opposite-being so fidgety or restless that you were moving around a lot more than usual? 2 - More Than Half the Days 9. Thoughts that you would be better off , or of hurting yourself in some way? 1 - Several Days 10. In the past year have you felt depressed or sad most days, even if you felt okay sometimes? Yes 11. If you are experiencing any of the problems listed on this questionnaire, how difficult have these problems made it for you to do your work, take care of things at home or get along with other people? Very difficult 12. Has there been a time in the past month when you have had serious thoughts about ending your life? No 13. Have you ever, in your whole life, tried to kill yourself or made a suicide attempt? Yes Score = 22 Total Score Depression Severity 1-4 Minimal depression 5-9 Mild depression 10-14 Moderate depression (> or = to 11 = Positive Score) 15-19 Moderately severe depression 20-27 Severe depression MYA-7 ANXIETY SCALE 05/08/2022 FEELING NERVOUS,ANXIOUS,OR ON EDGE 3 Nearly every day NOT BEING ABLE TO STOP OR CONTROL WORRYING 3 Nearly every day WORRYING TOO MUCH ABOUT DIFFERENT THINGS 3 Nearly every day TROUBLE RELAXING 3 Nearly every day BEING SO RESTLESS THAT IT'S HARD TO SIT STILL 2 Over half the days BEING EASILY ANNOYED OR IRRITABLE 3 Nearly every day FEELING AFRAID IF SOMETHING AWFUL MIGHT HAPPEN 3 Nearly every day GAD7 SCORE 20 IF YOU CHECKED OFF ANY PROBLEMS Very difficult Generalized Anxiety Disorder 7-item (MYA-7) Scale Mild Anxiety 5 - 9 Moderate Anxiety 10 - 14 Severe Anxiety >/= 15 PHYSICAL EXAM: BP 110/70 Pulse 80 Temp 37.1 C (98.7 F) (Temporal Artery) Resp 20 Ht 169.5 cm (5' 6.73) Wt 61.6 kg (135 lb 12.8 oz) LMP 05/03/2022 BMI 21.44 kg/m Blood pressure percentiles are 50 % systolic and 67 % diastolic based on the 2017 AAP Clinical Practice Guideline. This reading is in the normal blood pressure range. General: Well developed, No acute distress Neck: supple and no adenopathy Lungs: clear to auscultation bilaterally, good air exchange, no retractions Heart: Normal rate, regular rhythm, no murmur Skin: Normal color, texture and turgor. No rashes. Neuro: no gross motor deficits Psych: Posture and motor behavior: normal posture, fidgeting Dress, grooming, personal hygiene: normal dress and grooming Facial expression: good eye contact Speech: normal speech Mood: sad Coherency and relevance of thought: normal thought processes ASSESSMENT & PLAN: Major depressive episode Severe anxiety Malaise and fatigue - Patient denies recent or current suicidal ideations. No intent or plan. Feels that it would be selfish - Will trial pharmacologic therapy (very low dose, slow taper). Zoloft 25 mg tablet ordered. Instructed to take 1/2 tablet once daily x 7 days, then 1 tablet once daily - Discussed in detail with patient and mother FDA black box warning regarding the risk of increased suicidal ideation after starting on an SSRI in adolescents and patient agreed she would communicate this with parents, myself or other trusted adult if she felt this was happening. - Safety precaution plan reviewed in detail with patient and mother - Additional screening lab work ordered (TSH/T4, Vitamin D, CBC, Ferritin, Iron/TIBC, Fasting glucose) - Follow up in 2 weeks for medication check or sooner for any concerns. Appointment scheduled for 05/20/22 - All questions answered - [facility]: Mental Health Crisis Services at [phone] or I spent a total of 85 minutes on the date of the service which included preparing to see the patient, [id number] patient care, completing clinical documentation, obtaining and/or reviewing separately obtained history, performing a medically appropriate examination, counseling and educating the patient/family/caregiver, and ordering medications, tests, or procedures. SIGNATURE: Wendi Anne PA-C PATIENT NAME: Abbe Faustin DATE: May 08, 2022 TIME: 3:29 PM documented in this encounter [facility] 01-18-2022 Miscellaneous Notes Reviewed. Wendi Anne PA-C Endocrinology appointment scheduled for 04/17/22. Shila Delcid RN Patient notified and voiced understanding of below as directed by Wendi Anne PA-C. Call transferred to [facility] to assist with scheduling for endocrinology. Shila Delcid RN No answer. Voicemail box full and cannot accept new messages at this time. Shila Delcid RN Please inform patient that lab work showed slight decrease in iron, but no anemia. Recommend starting daily OTC multivitamin with iron. Additionally endocrinology consult placed for increased TSH level. Please assist with scheduling. Wendi Anne PA-C documented in this encounter [facility] 05-07-2021 History of Present illness Narrative Radiology Service Progress Note PATIENT NAME: Abbe Faustin DATE OF SERVICE: May 07, 2021 TIME: 12:53 PM PATIENT IDENTITY VERIFICATION COMPLETED USING TWO (2) IDENTIFIERS: Name and Date of confirmed by patient verbally. FALL SCREENING: Has the patient had 2 falls in the last year or 1 fall with injury or currently using an Ambulatory Assistive Device (Walker, Cane, Wheelchair, Crutches, etc.)? No PATIENT GENDER DATA: Female. status: : No status: NO. PATIENT RELEVANT IMPLANT DATA REVIEWED: Yes RADIOLOGY DEPARTMENT: General X-ray: Exam(s) Completed: Chest X-Ray PERIPHERAL IV DATA: Not applicable SIGNED BY: RT Marlene(R) May 07, 2021 12:53 PM documented in this encounter [facility] 2005 History of Past i llness Narrative Problem Noted Date Resolved Date STRAWBERRY HEMANGIOMA//VASCULAR HEMARTOMAS 11/2001/04/2019 documented as of this encounter (statuses as of 01/18/2022) [facility]-2006 History of Past illness Narrative* Problem Noted Date Resolved Date STRAWBERRY HEMANGIOMA//VASCULAR HEMARTOMAS 11/2001/04/2019 documented as of this encounter (statuses as of 05/09/2022) [facility]2006 History of Past illness Narrative* Problem Noted Date Resolved Date STRAWBERRY HEMANGIOMA//VASCULAR HEMARTOMAS 11/2001/04/2019 documented as of this encounter (statuses as of 05/10/2022) [facility] History of Past illness Narrative* Problem Noted Date Resolved Date STRAWBERRY HEMANGIOMA//VASCULAR HEMARTOMAS 11/2001/04/2019 documented as of this encounter (statuses as of 06/21/2022) [facility] History of Past illness Narrative* Problem Noted Date Resolved Date STRAWBERRY HEMANGIOMA//VASCULAR HEMARTOMAS 11/2001/04/2019 documented as of this encounter (statuses as of 07/04/2022) [facility] History of Past illness Narrative* Problem Noted Date Resolved Date STRAWBERRY HEMANGIOMA//VASCULAR HEMARTOMAS 11/2001/04/2019 documented as of this encounter (statuses as of 07/19/2022) [facility]2006 History of Past illness Narrative* Problem Noted Date Resolved Date STRAWBERRY HEMANGIOMA//VASCULAR HEMARTOMAS 11/2001/04/2019 documented as of this encounter (statuses as of 08/16/2022) [facility] History of Past illness Narrative* Problem Noted Date Resolved Date STRAWBERRY HEMANGIOMA//VASCULAR HEMARTOMAS 11/2001/04/2019 documented as of this encounter (statuses as of 09/13/2022) [address]19-2006 History of Past illness Narrative* Problem Noted Date Resolved Date STRAWBERRY HEMANGIOMA//VASCULAR HEMARTOMAS 11/2001/04/2019 documented as of this encounter (statuses as of 09/16/2022) [address]19-2006 History of Past illness Narrative* Problem Noted Date Resolved Date STRAWBERRY HEMANGIOMA//VASCULAR HEMARTOMAS 11/2001/04/2019 documented as of this encounter (statuses as of 09/19/2022) [address]19-2006 History of Past illness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 investigate or prosecute any alcohol or drug abuse patient.[facility] ClinicIn the event this information is protected by the Federal Confidentiality of Alcohol and Drug Abuse Patient Records regulations: The Federal rules restrict any use of the information to criminally investigate or prosecute any alcohol or drug abuse patient.[facility] ClinicIn the event this information is protected by the Federal Confidentiality of Alcohol and Drug Abuse Patient Records regulations: The Federal rules restrict any use of the information to criminally investigate or prosecute any alcohol or drug abuse patient.[facility] ClinicIn the event this information is protected by the Federal Confidentiality of Alcohol and Drug Abuse Patient Records regulations: The Federal rules restrict any use of the information to criminally investigate or prosecute any alcohol or drug abuse patient.[facility] ClinicIn the event this information is protected by the Federal Confidentiality of Alcohol and Drug Abuse Patient Records regulations: The Federal rules restrict any use of the information to criminally investigate or prosecute any alcohol or drug abuse patient.[facility] ClinicIn the event this information is protected by the Federal Confidentiality of Alcohol and Drug Abuse Patient Records regulations: The Federal rules restrict any use of the information to criminally investigate or prosecute any alcohol or drug abuse patient.[facility] ClinicIn the event this information is protected by the Federal Confidentiality of Alcohol and Drug Abuse Patient Records regulations: The Federal rules restrict any use of the information to criminally investigate or prosecute any alcohol or drug abuse patient.[facility] ClinicIn the event this information is protected by the Federal Confidentiality of Alcohol and Drug Abuse Patient Records regulations: The Federal rules restrict any use of the information to criminally investigate or prosecute any alcohol or drug abuse patient.[facility] Reason for Visit (unrecogniz ed section and content) Reason Comments Results Consult Reason Comments Weight Loss Anxiety Discuss possible anx iety. Reason Comments Results Reason Comments Pain, Throat Pt reported throat p ain rated 9, redness, white spots, x1 day. Reason Comments Ear Pain Pt presented with pa rent, throat pain, Pierce x1 day. Reason Comments work permit Reason Comments Anxiety Was seen by Gisela mix, now has Lexapro 10 mg(1/2 tablet daily , has appoint with psychiatry on 10/10/22 Reason Comments Orders Reason Comments Yearly Exam Reason Onset Date Comments Refill Request 10/08/2022 Reason Comments New Patient Evaluation Reason Comments Diarrhea Pt presented with fabiano fengparminder , abd pain, nausea x2 mths. Reason Comments Follow Up Specialty Diagnoses / Procedures Referred By Contac t Referred To Contact Diagnoses Severe episode of recurrent major depressive disorder, without psychotic features (HCC) Generalized anxiety disorder Marijuana abuse Procedures PROVIDER ORDERED FOLLOW UP OFFICE/OUTPATIENT NEW HIGH MDM 60-74 MINUTES Noreen Cutler, VIDEOGAME DESIGNER.CAREER TECHNICAL SUPERVISOR [address] [place] [address] Referral ID Status Reason Start Date Expiration Date V isits Requested Visits Authorized [id number] Closed PCP Requested Referral 10/10/2022 10/10/2023 1 1 Reason Comments Sinus Problem sinus pressure and d rainage, chills x 3-4 days Reason Comments Vaginal Discharge Discharge x 3-4 days Reason Onset Date Comments No Show 03/20/2023 No show Specialty Diagnoses / Procedures Referred By Contac t Referred To Contact Diagnoses Severe episode of recurrent major depressive disorder, without psychotic features (HCC) Generalized anxiety disorder Procedures PROVIDER ORDERED FOLLOW UP OFFICE/OUTPATIENT [facility] 60-74 MINUTES Noreen Cutler, VIDEOGAME DESIGNER.CAREER TECHNICAL SUPERVISOR [address] [place] [address] Referral ID Status Reason Start Date Expiration Date Visits Requested Visits Authorized [id number] Authorized PCP Requested Referral 12/19/2022 12/19/2023 1 1 Reason Comments Urinary Frequency STD itching and burning with urination x 2 days Reason Comments Results Orders Reason Comments Dizziness If she gets overheat ed while working, getting out of the car, arms above her head she gets dizzy. Feels like she is going to pass out. Has passed out 2 times in the past. Vision goes black. Has to hold on to something and keep eyes open so she doesn't pass out. Periods are irregular and sh thinks maybe they have something to do with everything. Had this feeling yesterday at work. Reason Comments New Patient Pt reports having di zziness, syncope, heart racing, flushedDizziness worse with arms raised over head. Pt reports episodes were better until she returned to work in December. Specialty Diagnoses / Procedures Referred By Maritza zurita Referred To Contact Pediatric Cardiology Diagnoses Syncope, unspecified syncope type Dizziness Palpitations Procedures CONSULT TO PEDS CARDIOLOGY OFFICE/OUTPATIENT [facility] 60 MINUTES Wendi Anne PA-C [address] [place] [address] Referral ID Status Reason Start Date Expiration Date V isits Requested Visits Authorized [id number] Closed PCP Requested Referral 02/02/2024 02/01/2025 1 1 Reason Comments UTI Dysuria with urge in continence x this AM Reason Comments Medication Problem Reason Comments Sore Throat PIERCE, fever, bilateral ear pain x this AM Reason Comments Sore Throat Reason Comments Early OB ER F/U Reason Comments Initial OB Visit Reason Onset Date Comments Care 01/12/2025 Reason Comments US Specialty Diagnoses / Procedures Referred By Maritza zurita Referred To Contact [facility] Diagnoses with uncertain dates in first trimester (HCC) Procedures OBSTETRIC ULTRASOUND WHI US PREG UTERUS AFTER 1ST TRIMEST GESTATION Luis Carrasco, [place].CAREER TECHNICAL SUPERVISOR [address] [place] [address] Phone: tel: fax: [facility] [address] [place] [address] Referral ID Status Reason Start Date Expiration Date V isits Requested Visits Authorized [id number] Closed Auto-Generate d Referral 12/30/2024 08/03/2025 1 1 Reason Comments OB-Dizziness Referral ID Status Reason Start Date Expiration Date V isits Requested Visits Authorized [id number] Closed Auto-Generate d Referral 12/30/2024 08/03/2025 1 1 Reason Onset Date Comments Care 02/11/2025 Reason Comments Urinary Frequency Frequency, burning a nd possibly a yeast infection-also wants STD check Reason Comments Urinary Problem Possible uti, freque ncy, burning with urination x 2 days Reason Onset Date Comments Care 04/15/2025 Care Teams (unrecognized sec tion and content) Supervisor Film Processing Relationship Specialty Start Date End Date Wendi Anne PA-C [address] [facility] [place] [address] PCP - General Pediatrics 03/21/21 Supervisor Film Processing Relationship Specialty Start Date End Date Wendi Anne PA-C [address] [facility] [place] [address] PCP - General Pediatrics 03/21/21 Supervisor Film Processing Relationship Specialty Start Date End Date Wendi Anne PA-C [address] [facility] [place] [address] PCP - General Pediatrics 03/21/21 Supervisor Film Processing Relationship Specialty Start Date End Date Wendi Anne PA-C [address] [facility] [place] [address] PCP - General Pediatrics 03/21/21 Supervisor Film Processing Relationship Specialty Start Date End Date Wendi Anne PA-C [address] [facility] [place] [address] PCP - General Pediatrics 03/21/21 Supervisor Film Processing Relationship Specialty Start Date End Date Wendi Anne PA-C [address] [facility] [place] [address] PCP - General Pediatrics 03/21/21 Supervisor Film Processing Relationship Specialty Start Date End Date Wendi Anne PA-C [address] [facility] [place] [address] PCP - General Pediatrics 03/21/21 Supervisor Film Processing Relationship Specialty Start Date End Date Wendi Anne PA-C [address] [facility] [place] [address] PCP - General Pediatrics 03/21/21 Supervisor Film Processing Relationship Specialty Start Date End Date Wendi Anne PA-C [address] [facility] [place] [address] PCP - General Pediatrics 03/21/21 Supervisor Film Processing Relationship Specialty Start Date End Date Wendi Anne PA-C [address] [place] [address] PCP - General Pediatrics 03/21/21 Supervisor Film Processing Relationship Specialty Start Date End Date Wendi Anne PA-C [address] [place] [address] PCP - General Pediatrics 03/21/21 Supervisor Film Processing Relationship Specialty Start Date End Date Wendi Anne PA-C [address] [place] [address] PCP - General Pediatrics 03/21/21 Supervisor Film Processing Relationship Specialty Start Date End Date Wendi Anne PA-C [address] [place] [address] PCP - General Pediatrics 03/21/21 Supervisor Film Processing Relationship Specialty Start Date End Date Wendi Anne PA-C [address] [place] [address] PCP - General Pediatrics 03/21/21 Supervisor Film Processing Relationship Specialty Start Date End Date Wendi Anne PA-C [address] [place] [address] PCP - General Pediatrics 03/21/21 Supervisor Film Processing Relationship Specialty Start Date End Date Wendi Anne PA-C [address] [place] [address] PCP - General Pediatrics 03/21/21 Supervisor Film Processing Relationship Specialty Start Date End Date Wendi Anne PA-C [address] [place] [address] PCP - General Pediatrics 03/21/21 Team Status: Active Member Role Status Dates Cassandra Lyle FRONT OFFICE JAVA DEVELOPER, FRONT OFFICE JAVA DEVELOPER-C Family Provider Active FABIANO Hawkins Primary Care Provider Active Team Status: Inactive Member Role Status Dates FABIANO Hawkins Primary Care Provider, Referring Pr ovider Active Angelia Ruth CNM Attending Provider Active Team Status: Inactive Member Role Status Dates FABIANO Hawkins Primary Care Provider Active Angelia Ruth CNM Attending Provider, Referring Pro vider Active Supervisor Film Processing Relationship Specialty Start Date End Date Wendi Anne PA-C PCP - General Pediatrics 03/21/21 Supervisor Film Processing Relationship Specialty Start Date End Date Wendi Anne PA-C PCP - General Pediatrics 03/21/21 Supervisor Film Processing Relationship Specialty Start Date End Date Wendi Anne PA-C PCP - General Pediatrics 03/21/21 Supervisor Film Processing Relationship Specialty Start Date End Date Wendi Anne PA-C PCP - General Pediatrics 03/21/21 Supervisor Film Processing Relationship Specialty Start Date End Date Wendi Anne PA-C PCP - General Pediatrics 03/21/21 Supervisor Film Processing Relationship Specialty Start Date End Date Wendi Anne PA-C PCP - General Pediatrics 03/21/21 Supervisor Film Processing Relationship Specialty Start Date End Date Wendi Anne PA-C PCP - General Pediatrics 03/21/21 Supervisor Film Processing Relationship Specialty Start Date End Date Wendi Anne PA-C PCP - General Pediatrics 03/21/21 Supervisor Film Processing Relationship Specialty Start Date End Date Wendi Anne PA-C PCP - General Pediatrics 03/21/21 Supervisor [employer] Relationship Specialty Start Date End Date Wendi Anne PA-C PCP - General Pediatrics 03/21/21 Supervisor [employer] Relationship Specialty Start Date End Date Wendi Anne PA-C PCP - General Pediatrics 03/21/21 Supervisor [employer] Relationship Specialty Start Date End Date Wendi Anne PA-C PCP - General Pediatrics 03/21/21 Supervisor Film [employer] Relationship Specialty Start Date End Date Wendi Anne PA-C PCP - General Pediatrics 03/21/21 Supervisor Film [employer] Relationship Specialty Start Date End Date Wendi Anne PA-C PCP - General Pediatrics 03/21/21 Supervisor Film [employer] Relationship Specialty Start Date End Date Wendi Anne PA-C PCP - General Pediatrics 03/21/21 Supervisor Film [employer] Relationship Specialty Start Date End Date Wendi Anne PA-C PCP - General Pediatrics 03/21/21 Supervisor [employer] Relationship Specialty Start Date End Date Wendi Anne PA-C PCP - General Pediatrics 03/21/21 Supervisor Film [employer] Relationship Specialty Start Date End Date Wendi Anne PA-C PCP - General Pediatrics 03/21/21 Supervisor [employer] Relationship Specialty Start Date End Date Wendi Anne PA-C PCP - General Pediatrics 03/21/21 Supervisor Film [employer] Relationship Specialty Start Date End Date Wendi Anne PA-C PCP - General Pediatrics 03/21/21 Supervisor Film [employer] Relationship Specialty Start Date End Date Wendi Anne PA-C PCP - General Pediatrics 03/21/21 Goals (unrecognized section and content) Goals may be documented in a n alternate sectionGoals may be documented in an alternate section FOR RECORDS PERTAINING TO PATIENTS WHO ARE OR HAVE BEEN ENROLLED IN A CHEMICAL DEPENDENCY/SUBSTANCEABUSE PROGRAM, SOME INFORMATION MAY BE OMITTED. This clinical summary was aggregated from multiple sources. Caution should be exercised in using it in the provision of clinical care. This summary normalizes information from multiple sources, and as a consequence, information in this document may materially change the coding, format and clinical context of patient data. In addition, data may be omitted in some cases. CLINICAL DECISIONS SHOULD BE BASED ON THE PRIMARY CLINICAL RECORDS. [facility] [employer] [facility]. provides no warranty or guarantee of the accuracy or completeness of information in this document.
[2025-06-29 20:13] VITALS: BP 119/75; PULSE 110; RESP 16; TEMP 36.7; O2SAT 98
--- NOTE | 2025-06-29 20:14 | OB.TRI.NOTE ---
HPI - General HPI Narrative ABBE IDA, is a 20 F at 37.6 weeks gestation that presents with decreased movements. Patient reports she has not felt any movements since last night. Denies any loss of fluid or vaginal bleeding. Maternal Data Information NEMESIO Calculator Estimated Delivery Date Method Current WG Current Estimate 07/14/25 Manual 38w 0d PFSH PFSH Medical History Drug abuse Allergy/AdvReac Type Severity Reaction Status Date / Time cucumber Allergy Hives Verified 06/29/25 20:18 Family History Father Alcoholism Anxiety Mother Anxiety Grandmother Arthritis Diabetes Myocardial infarction Heart disease High cholesterol Grandfather Arthritis Hypertension High cholesterol Uncle defect Social History Smoking Status: Current every day smoker tobacco type: e-cigarettes substance use type: former substance user ROS Eyes Eyes: Denies blurry vision Cardiovascular Cardiovascular: Reports none; Denies chest pain at rest, chest pain with activity or dizziness Respiratory/Chest Respiratory/Chest: Denies cough or dyspnea Gastrointestinal Gastrointestinal: Reports none and other; Denies diarrhea or vomiting Genitourinary Genitourinary: Denies dysuria Musculoskeletal Musculoskeletal: Reports none Integumentary Integumentary: Reports none; Denies rash Neurologic Neurologic: Denies dizziness, headache(s) or other visual disturbances Psychiatric Psychiatric: Reports none Physical Exam Const alert and no apparent distress General Appearance: cooperative Orientation / Consciousness: awake Exam Limitations: no limitations HEENT normocephalic Eyes General Eye: normal appearance of both eyes Neck full ROM Chest inspection of chest normal Resp normal respiratory effort and normal air movement Effort and Inspection: symmetric chest movement Auscultation: clear to auscultation bilaterally Cardio regular rate GI soft to palpation, non-tender and non-distended Inspection: and other Back/Spine normal ROM Extremity full ROM, normal capillary refill and no calf tenderness Skin no rashes or lesions noted Neuro oriented x3 and CN's II-XII intact bilaterally Psych mental status grossly normal NST FHR Rate Baby A Baseline: 130 Variability:: Moderate Accelerations:: 15 x 15 Decelerations:: None NST Reactive:: Yes FHR Category:: Category I Uterine Activity:: irregular Assessment & Plan (1) MYA (generalized anxiety disorder): (2) Anxiety and depression: (3) 37 weeks gestation of : (4) Decreased movement: PLAN: Plan NST reactive- Cat. 1 tracing Patient stated she has felt baby move since arrival Patient stated unsure if leaking fluid ROM plus collected- NEG Labor precautions and kick counts reviewed D/C home with follow up in office
[2025-06-29 20:17] VITALS: BMI 29.2
[2025-06-29 20:57] LABS: ROM Internal Control Test YES-OK TO RESULT pt. (Internal QC); ROM Patient Test Negative (Negative)
[2025-06-29 20:58] LABS: Record Kit Lot#, ROM+ K3607
== END 2025-06-29 21:14 | disposition home or self-care (01) ==
LOC: WPOUT 20:05 → WP 20:06
PROVIDERS: Visit Provider Advanced Practice Midwife
DX: O36.8130 Decreased fetal movements, third trimester, not applicable or unspecified (principal); O99.333 Smoking (tobacco) complicating pregnancy, third trimester; F17.290 Nicotine dependence, other tobacco product, uncomplicated; O99.343 Other mental disorders complicating pregnancy, third trimester; F41.1 Generalized anxiety disorder; F32.A Depression, unspecified; Z3A.37 37 weeks gestation of pregnancy
CPT/HCPCS: 59025; 59050; 84112; 99221; G0378

== ENCOUNTER 2025-07-06 17:10 | Outpatient (CLI) | payer BC, SELFPAY ==
[2025-07-06 17:22] VITALS: BMI 28.8
[2025-07-06 17:33] VITALS: BP 124/73; PULSE 115; TEMP 36.6; O2SAT 99
[2025-07-06 18:19] LABS: ROM Internal Control Test YES-OK TO RESULT pt. (Internal QC); ROM Patient Test Negative (Negative)
[2025-07-06 18:20] LABS: Record Kit Lot#, ROM+ K3607
--- NOTE | 2025-07-06 20:11 | OB.TRI.NOTE ---
HPI - General HPI Narrative ABBE DIA, is a 20 F at 38.6 weeks gestation who presents to rule out SROM. Maternal Data Information NEMESIO Calculator Estimated Delivery Date Method Current WG Current Estimate 07/14/25 Manual 38w 6d PFSH PFS Medical History Drug abuse Allergy/AdvReac Type Severity Reaction Status Date / Time cucumber Allergy Hives Verified 07/06/25 18:45 Family History Father Alcoholism Anxiety Mother Anxiety Grandmother Arthritis Diabetes Myocardial infarction Heart disease High cholesterol Grandfather Arthritis Hypertension High cholesterol Uncle defect Social History Smoking Status: Current every day smoker tobacco type: e-cigarettes substance use type: former substance user ROS Eyes Eyes: Denies blurry vision Cardiovascular Cardiovascular: Reports none; Denies chest pain at rest, chest pain with activity or dizziness Respiratory/Chest Respiratory/Chest: Denies cough or dyspnea Gastrointestinal Gastrointestinal: Reports none and other; Denies diarrhea or vomiting Genitourinary Genitourinary: Denies dysuria Musculoskeletal Musculoskeletal: Reports none Integumentary Integumentary: Reports none; Denies rash Neurologic Neurologic: Denies dizziness, headache(s) or other visual disturbances Psychiatric Psychiatric: Reports none Physical Exam Const alert and no apparent distress General Appearance: cooperative Orientation / Consciousness: awake Exam Limitations: no limitations HEENT normocephalic Eyes General Eye: normal appearance of both eyes Neck full ROM Chest inspection of chest normal Resp normal respiratory effort and normal air movement Effort and Inspection: symmetric chest movement Auscultation: clear to auscultation bilaterally Cardio regular rate GI soft to palpation, non-tender and non-distended Inspection: and other Back/Spine normal ROM Extremity full ROM, normal capillary refill and no calf tenderness Skin no rashes or lesions noted Neuro oriented x3 and CN's II-XII intact bilaterally Psych mental status grossly normal NST FHR Rate Baby A Baseline: 115-120 Variability:: Moderate Accelerations:: 15 x 15 Decelerations:: None NST Reactive:: Yes FHR Category:: Category I Uterine Activity:: Irregular Assessment & Plan (1) Anxiety and depression: (2) MYA (generalized anxiety disorder): (3) PTSD (post-traumatic stress disorder): (4) 38 weeks gestation of : (5) No leakage of amniotic fluid into vagina: PLAN: Plan ROM PLUS- NEG NST REACTIVE D/C home with follow up in office
== END 2025-07-06 18:40 | disposition home or self-care (01) ==
LOC: WPOUT 17:15 → WP 17:16
PROVIDERS: Referring Provider Advanced Practice Midwife; Visit Provider Advanced Practice Midwife
DX: Z03.71 Encounter for suspected problem with amniotic cavity and membrane ruled out (principal); O99.333 Smoking (tobacco) complicating pregnancy, third trimester; F17.290 Nicotine dependence, other tobacco product, uncomplicated; O99.343 Other mental disorders complicating pregnancy, third trimester; F41.1 Generalized anxiety disorder; F32.A Depression, unspecified; F43.10 Post-traumatic stress disorder, unspecified; Z3A.38 38 weeks gestation of pregnancy
CPT/HCPCS: 59025; 59050; 84112; 99221; G0378

== ENCOUNTER 2025-07-14 18:50 | Inpatient (IN) | payer BC, SELFPAY ==
--- OUTSIDE RECORDS SUMMARY | 2025-07-14 18:58 | XMS RPT_ITS | CCD ---
Author Organization [facility] Care Team Providers Care Pairing Machine Operator Name Role Phone CHANELL BRANTLEY Obdulia Unavailable Unavailable *SELF, REFERRED Unavailable Unavailable UNKNOWN, PCP Unavailable Unavailable Anne PA-C, Wendi Primary Care Provider Anne PA-C, Wendi Primary Care Provider Anne PA-C, Wendi Primary Care Provider Anne, PA Wendi Primary Care Provider Anne, PA Wendi Referring Provider SILVIA Ruth Attending Provider [phone] Anne PA-C, Wendi Primary Care Provider Anne, Wendi Primary Care Unavailable Smiley Sánchez Attending Unavailable Smiley Sánchez Referring Unavailable Anne, Wendi Primary Care Unavailable Bela Doe Attending Unavailable Elizabeth Mina Attending Unavailable Anne, Wendi Primary Care Unavailable Anne, Wendi Referring Unavailable Aurora Hutchison Attending Unavailable Anne, Wendi Primary Care Unavailable Elizabeth Mina Attending Unavailable Anne, Wendi Primary Care Unavailable Anne, Wendi Referring Unavailable NetenishatNikki Dooley Attending Unavail able Nesherice-Nikki Tucker Referring Unavail [...] to adverse reactions 9 Other: See Comments [facility] (20 sources) Machias extract; Translations: [CUCUMBER] Drug Allergy [address] [facility] (1 source) Machias extract Drug Allergy 5 [facility] Repository Medications Current Medications Medication Drug [...] Comment on above: [facility] 10 days. azithromycin 500 [...] Comment on above: Take 1 tablet by [facility] three times daily for 7 days. doxycycline monohydrate 100 mg oral capsule (3 sources) Tetracycline-class Drug Start: 04-01-2023 End: 04-08-2023 take 1 capsule by mouth twice daily doxycycline monohydrate (MONODOX) 100 mg capsule Take 1 capsule by mouth twice daily for 7 days. 14 capsule 0 04/01/2023 04/08/2023 Active Comment on above: [facility] 1 [facility] daily for 7 days. fluconazole 150 [...] tab daily for 3 days with food. [id number] FUM,YB-EKIRE-ACD ORAL (15 sources) XQOHCX33-XHTY FUM,UO-QSXVZ-XHA ORAL Take by mouth. Active Completed/Discontinued Medications Medication Drug Class(es) Dates Sig (Normalized) Sig (Original) [id number] 200 actuat albuterol 0.09 mg/actuat metered dose [...] oral solution (2 sources) alpha-Adrenergic Agonist, Uncompetitive N-cgkwiq-J-aspartat e Receptor Antagonist, Sigma-1 Agonist Start: 01-09-2022 [...] Start: 06-05-2022 take 1 capsule by mo [facility] once daily FLUoxetine (PROZAC) 10 mg capsule Take 1 capsule by mouth once daily. 30 capsule 0 06/05/2022 Active Comment on above: Take 1 capsule by mo [facility] once daily. hydrOXYzine hydrochloride 50 mg [...] Comment on above: [facility] daily as needed for anxiety. [...] Comment on above: Take 1 tablet by [facility] every 8 hours as needed. sertraline 25 [...] Start: 11-07-2022 take 1 capsule by mo [facility] once daily venlafaxine ER (EFFEXOR XR) [...] on above: Take 1 capsule by mo [facility] once daily. vitamin b6 50 mg [...] unspecified; Translations: [Constipation during in first trimester ([facility])] Onset: 12-13-2024 Episodic Other and delivery including normal (6 sources) with uncertain dates; Translations: [Encounter for supervision of normal , unspecified, first trimester] Onset: 02-11-2025 12-13-2024 Episodic Residual codes; unclassified (1 source) 18 weeks gestation of ; Translations: [18 weeks gestation of ([facility])] Onset: 02-11-2025 Episodic Residual codes; unclassified (1 source) 9 weeks gestation of ; Translations: [9 weeks gestation of ([facility])] Onset: 12-13-2024 Episodic Screening and history [...] Test Name Value Interpretation Reference Range Facility [facility] ABBE FAUSTIN ([id number]) 5 F Date Time Provider Department 06/01/25 [...] Apply to affected area as needed. - [id number]-TCOH FUM,ZW-TNNMB-KJK ORAL Take by mouth. Problem List As [...] Encounter Status:Closed by ARY JOHNSON on 06/01/25 [facility] Selena 05-27-2025 CNPN Telephone (FV3L+D) BABE FAUSTIN ([id number]) 5 F Date Time Provider Department 05/27/25 JOANMARGARITA FV OB LANDD FV3L+D During your visit today, we recorded the following information about you: Allergies As of Date: 05/27/2025 Noted Allergy Reaction CUCUMBER 08/11/2022 2 - Rash SEASONAL ALLERGIES 01/04/2019 14 - Other: See Comments Comments: Nasal congestion Date Reviewed: 05/13/2025 Reviewed by: Jeronimo Piña LPN - Fully Assessed Reason for Visit: Care Coordination [0951] Cmt: M-Power Scheduling LM attempt # 2 Prescriptions as of 05/27/2025 - triamcinolone acetonide (KENALOG) 0.1 % ointment Apply to affected area two times a day. For 14 days - vitamin A and D (SKIN PROTECTANT A AND D) ointment Apply to affected area as needed. - [id number]-IYYD FUM,HO-KSYQA-HZC ORAL Take by mouth. Problem List As [...] Encounter Status:Closed by ARY JOHNSON on 05/27/25 [facility] BACTERIAL VAGINOSIS NAATon 1 Lactobacillus crispatus+gasseri+jense tc + Gardnerella vaginalis + Atopobium vaginae rRNA SHELBY+probe Ql (Vag fld) Not detected Normal Not detected [facility] Comment on above: Order Comment: Speci men Type: SWAB Ordering Facility: [facility] Address: [address] [place] [address] Performed By: #### T RVAMP, 60436-7 #### [facility] CLIA [id number] [address] [place] [address] [place] Bacteria Ur Culton Bacteria identified Cx Nom (U) CULTURE, URINE: No growth (<1,000 CFU/ml) Normal [facility] Comment on above: Performed By: #### 6 30-4 ####[facility] [id number] [place] [address] [place] C. trachomatis+N. gonorrhoea e DNA SHELBY+probe Ql (Unsp spec)on 05-13-2025 C. trachomatis rRNA SHELBY+probe Ql (Unsp spec) Not detected Normal Not detected [facility] Comment on above: Order Comment: Speci men Type: SWAB Ordering Facility: [facility] Address: [address] [place] [address] Performed By: #### T RVAMP, 75555-6 #### [facility] CLIA [id number] [address] [place] [address] [place] N. gonorrhoeae rRNA SHELBY+probe Ql (Unsp spec) Not detected Normal Not detected [facility] Comment on above: Order Comment: Speci men Type: SWAB Ordering Facility: [facility] Address: [address] [place] [address] Performed By: #### T RVAMP, 00727-3 #### [facility] CLIA [id number] [address] [place] [address] [place] KARL/TRICHOMONAS NAATon 1 C. glabrata RNA SHELBY+probe Ql (Vag fld) Not detected Normal Not detected [facility] Comment on above: Order Comment: Speci men Type: SWAB Ordering Facility: [facility] Address: [address] [place] [address] Performed By: #### T RVAMP, 26494-2 #### [facility] CLIA [id number] [address] [place] [address] [place] Karl sp DNA SHELBY+probe Ql (Vag fld) Detected Abnormal Not detected [facility] Comment on above: Order Comment: Speci men Type: SWAB Ordering Facility: [facility] Address: [address] [place] [address] Result Comment: The Karl species group target includes C. albicans, C. tropicalis, C. parapsilosis, and C. dubliniensis. Performed By: #### T RVAMP, 18966-5 #### [facility] CLIA [id number] [address] [place] [address] [place] T. vaginalis DNA SHELBY+probe Ql (Unsp spec) Not detected Normal Not detected [facility] Comment on above: Order Comment: Speci men Type: SWAB Ordering Facility: [facility] Address: [address] [place] [address] Performed By: #### [facility], 03368-4 #### [facility] CLIA [id number] [address] [place] [address] [place] Selena 05-13-2025 CNPN Telephone (FV3L+D) ABBE FAUSTIN ([id number]) 5 F Date Time Provider Department 05/13/25 MPOWER FV OB LANDD FV3L+D During your visit today, we recorded the following information about you: Allergies As of Date: 05/13/2025 Noted Allergy Reaction CUCUMBER 08/11/2022 2 - Rash SEASONAL ALLERGIES 01/04/2019 14 - Other: See Comments Comments: Nasal congestion Date Reviewed: 05/13/2025 Reviewed by: Jeronimo Piña LPN - Fully Assessed Reason for Visit: Care Coordination [2201] Cmt: M-Power Scheduling LM attempt # 1 Prescriptions as of 05/13/2025 - ANOSKC36-YMOG FUM,EA-MZSKZ-LTD ORAL Take by mouth. Problem List As [...] Encounter Status:Closed by ARY JOHNSON on 05/13/25 [facility] CNOVon 05-03-2025 CNOV Office Visit (PEDSWS ) ABBE FAUSTIN ([id number]) 5 F Date Time Provider Department 05/03/25 10:00 AM WENDI ANNE PEDFIORS During your visit today, we recorded the following information about you: Wendi Anne PA-C 05/03/2025 10:40 AM Signed MEET THE CNC SERVICE ENGINEER VISIT Abbe is a 19 year old female who presents today for a meet and greet visit. Concerns: Mother currently a patient of the practice and wants to ensure her child can be seen once he is born and she is no longer a patient. Additionally has a paternity test she ordered off [employer]. Questioning whether an order can be placed for her to have a blood draw to utilize for her home test. G 1 / P0, due to deliver on July 14. Plans to deliver at [facility]. gender: Male. complicated by History of PTSD, Anxiety, Nicotine Use, Marijuana Use, Nausea/Vomiting, and Constipation. Maternal screens: Negative. Oriented to practice: Discussed choosing a business professor, circumcision, expected course, and what to expect at first visit. Discussed first visit in office within 2-3 days of discharge. Discussed that I am unable to order blood test for home paternity test. Reviewed potential options. I spent a total of 20+ minutes on the date of the service which included preparing to see the patient, bzrk-hb-rfsc patient care, completing clinical documentation, obtaining and/or [...] WITH PHYSICIAN Prescriptions as of 05/03/2025 - ZIFONF75-DRCJ FUM,NJ-JFWKB-WYF ORAL Take by mouth. Problem List As [...] Status:Closed by WENDI ANNE on 05/03/25 Normal [facility] GLUCOSE GESTATIONAL, 1 HOURo n 04-29-2025 Glucose 1 Hr post Unsp challenge [Mass/Vol] 128 mg/dL Normal 74-179 [facility] Comment on above: Order Comment: Speci men Type: SWAB Ordering Facility: [facility] Address: [address] [place] [address] Result Comment: [facility] Congress of Obstetricians and Gynecologists (Meghan/Erika) guidelines state gestational diabetes mellitus is present when 2 or more of the plasma glucose concentrations meet or exceed the following levels: fastin mg/dl, 1 hr: 180 mg/dl, 2 hr: 155 mg/dl, and 3 hr: 140 mg/dl. Performed By: #### T RVAMP, 97423-4 #### [facility] CLIA [id number] [address] [place] [address] [place] GLUCOSE GESTATIONAL, 2 HOURo n 04-29-2025 Glucose 2 Hr post Unsp challenge [Mass/Vol] 99 mg/dL Normal 74-154 [facility] Comment on above: Order Comment: Speci men Type: SWAB Ordering Facility: [facility] Address: [address] [place] [address] Result Comment: [facility] Congress of Obstetricians and Gynecologists (Meghan/Erika) guidelines state gestational diabetes mellitus is present when 2 or more of the plasma glucose concentrations meet or exceed the following levels: fastin mg/dl, 1 hr: 180 mg/dl, 2 hr: 155 mg/dl, and 3 hr: 140 mg/dl. Performed By: #### T RVAMP, 74271-1 #### [facility] CLIA [id number] [address] [place] [address] [place] GLUCOSE GESTATIONAL, 3 HOURo n 04-29-2025 Glucose 3 Hr post Unsp challenge [Mass/Vol] 92 mg/dL Normal 74-139 [facility] Comment on above: Order Comment: Speci men Type: BLOOD SPECIMEN Ordering Facility: [facility] Address: [address] [place] [address] Result Comment: [facility] Congress of Obstetricians and Gynecologists (Christianson/Coustan) guidelines state gestational diabetes mellitus is present when 2 or more of the plasma glucose concentrations meet or exceed the following levels: fastin mg/dl, 1 hr: 180 mg/dl, 2 hr: 155 mg/dl, and 3 hr: 140 mg/dl. Performed By: #### R UBIGG #### [facility] CLIA [id number] [address] [place] [address] [place] GLUCOSE GESTATIONAL, FASTING on 04-29-2025 Glucose post fast [Mass/Vol] 95 mg/dL High 74-94 [facility] Comment on above: Order Comment: Speci men Type: BLOOD SPECIMEN Ordering Facility: [facility] Address: [address] [place] [address] Result Comment: [facility] (Meghan/Erika) guidelines state gestational diabetes mellitus is present when 2 or more of the plasma glucose concentrations meet or exceed the following levels: fastin mg/dl, 1 hr: 180 mg/dl, 2 hr: 155 mg/dl, and 3 hr: 140 mg/dl. Performed By: #### R UBIGG #### [facility] CLIA [id number] [address] [place] [address] [place] Bacteria Ur Culton Bacteria identified Cx Nom (U) ORGANISM ID: 1 10,000 -<50,000 CFU/ml Normal urogenital michelle Normal [facility] Comment on above: Performed By: #### 6 30-4 ####[facility]IA [id number] [place] [address] [place] CBC W Auto Differential pane l (Bld)on 04-15-2025 Basophils (Bld) [#/Vol] 0.03 10*3/uL Normal <0.11 [facility] Comment on above: Order Comment: Speci men Type: BLOOD SPECIMENOrdering Facility: [facility] Address: [address] [place] [address] Performed By: #### 5 7021-8 ####[facility]CL[facility] [id number] [place] [address] [place] Basophils/100 WBC (Bld) 0.3 % Normal [facility] Comment on above: Order Comment: Speci men Type: BLOOD SPECIMENOrdering Facility: [facility] Address: [address] [place] [address] Performed By: #### 5 7021-8 ####[facility] KELLIWNAYANALIA [id number] [place] [address] [place] Differential cell count method Nom (Bld) Auto Normal [facility] Comment on above: Order Comment: Speci men Type: BLOOD SPECIMENOrdering Facility: [facility] Address: [address] [place] [address] Performed By: #### 5 7021-8 ####[facility] KELLIBROCKTONNAYANAILDAA [id number] [place] [address] [place] Eosinophils (Bld) [#/Vol] 0.12 10*3/uL Normal <0.46 [facility] Comment on above: Order Comment: Speci men Type: BLOOD SPECIMENOrdering Facility: [facility] Address: [address] [place] [address] Performed By: #### 5 7021-8 ####[facility] KELLIBaoNAYANALIA [id number] [place] [address] [place] Eosinophils/100 WBC (Bld) 1.3 % Normal [facility] Comment on above: Order Comment: Speci men Type: BLOOD SPECIMENOrdering Facility: [facility] Address: [address] [place] [address] Performed By: #### 5 7021-8 ####[facility]PITALNAYANALIA [id number] [place] [address] [place] Erythrocyte distribution width (RBC) [Ratio] 11.7 % Normal 11.5-15.0 [facility] Comment on above: Order Comment: Speci men Type: BLOOD SPECIMENOrdering Facility: [facility] Address: [address] [place] [address] Performed By: #### 5 7021-8 ####[facility] ELVIENCTRACIE [id number] [place] [address] [place] Hematocrit (Bld) [Volume fraction] 32.0 % Low 36.0-46.0 [facility] Comment on above: Order Comment: Speci men Type: BLOOD SPECIMENOrdering Facility: [facility] Address: [address] [place] [address] Performed By: #### 5 7021-8 ####[facility]OS[facility]ITALLUKAS [id number] [place] [address] [place] Hemoglobin (Bld) [Mass/Vol] 11.3 g/dL Low 11.5-15.5 [facility] Comment on above: Order Comment: Speci men Type: BLOOD SPECIMENOrdering Facility: [facility] Address: [address] [place] [address] Performed By: #### 5 7021-8 ####[facility]PITALDAVIDA [id number] [place] [address] [place] Immature granulocytes (Bld) [#/Vol] 0.04 10*3/uL Normal <0.10 [facility] Comment on above: Order Comment: Speci men Type: BLOOD SPECIMENOrdering Facility: [facility] Address: [address] [place] [address] Performed By: #### 5 7021-8 ####[facility]ITALNCLIA [id number] [place] [address] [place] Immature granulocytes/100 WBC (Bld) 0.4 % Normal [facility] Comment on above: Order Comment: Speci men Type: BLOOD SPECIMENOrdering Facility: [facility] Address: [address] [place] [address] Performed By: #### 5 7021-8 ####[facility]ITALNCLIA [id number] [place] [address] [place] Lymphocytes (Bld) [#/Vol] 1.47 10*3/uL Normal 1.00-4.00 [facility] Comment on above: Order Comment: Speci men Type: BLOOD SPECIMENOrdering Facility: [facility] Address: [address] [place] [address] Performed By: #### 5 7021-8 ####[facility]OSPITALNCA [id number] [place] [address] [place] Lymphocytes/100 WBC (Bld) 15.3 % Normal [facility] Comment on above: Order Comment: Speci men Type: BLOOD SPECIMENOrdering Facility: [facility] Address: [address] [place] [address] Performed By: #### 5 7021-8 ####[facility]ENTERLI [id number] [place] [address] [place] MCH (RBC) [Entitic mass] 33.0 pg Normal 26.0-34.0 [facility] Comment on above: Order Comment: Speci men Type: BLOOD SPECIMENOrdering Facility: [facility] Address: [address] [place] [address] Performed By: #### 5 7021-8 ####[facility]ENTERLI [id number] [place] [address] [place] MCHC (RBC) [Mass/Vol] 35.3 g/dL Normal 30.5-36.0 [facility] Comment on above: Order Comment: Speci men Type: BLOOD SPECIMENOrdering Facility: [facility] Address: [address] [place] [address] Performed By: #### 5 7021-8 ####[facility]ITALNCLI [id number] [place] [address] [place] MCV (RBC) [Entitic vol] 93.6 fL Normal 80.0-100.0 [facility] Comment on above: Order Comment: Speci men Type: BLOOD SPECIMENOrdering Facility: [facility] Address: [address] [place] [address] Performed By: #### 5 7021-8 ####[facility] [id number] [place] [address] [place] Monocytes (Bld) [#/Vol] 0.46 10*3/uL Normal <0.87 [facility] Comment on above: Order Comment: Speci men Type: BLOOD SPECIMENOrdering Facility: [facility] Address: [address] [place] [address] Performed By: #### 5 7021-8 ####[facility] [id number] [place] [address] [place] Monocytes/100 WBC (Bld) 4.8 % Normal C [facility] Comment on above: Order Comment: Speci men Type: BLOOD SPECIMENOrdering Facility: [facility] Address: [address] [place] [address] Performed By: #### 5 7021-8 ####[facility] [id number] [place] [address] [place] Neutrophils (Bld) [#/Vol] 7.46 10*3/uL Normal 1.45-7.50 [facility] Comment on above: Order Comment: Speci men Type: BLOOD SPECIMENOrdering Facility: [facility] Address: [address] [place] [address] Performed By: #### 5 7021-8 ####[facility] [id number] [place] [address] [place] Neutrophils/100 WBC (Bld) 77.9 % Normal [facility] Comment on above: Order Comment: Speci men Type: BLOOD SPECIMENOrdering Facility: [facility] Address: [address] [place] [address] Performed By: #### 5 7021-8 ####[facility]PITALNCILDA [id number] [place] [address] [place] Nucleated RBC (Bld) [#/Vol] 10*3/uL Normal <0.01 [facility] Comment on above: Order Comment: Speci men Type: BLOOD SPECIMENOrdering Facility: [facility] Address: [address] [place] [address] Performed By: #### 5 7021-8 ####[facility]ITALNCINTERM[facility] [id number] [place] [address] [place] Nucleated RBC/100 WBC (Bld) [Ratio] 0.0 /100 WBC Normal [facility] Comment on above: Order Comment: Speci men Type: BLOOD SPECIMENOrdering Facility: [facility] Address: [address] [place] [address] Performed By: #### 5 7021-8 ####[facility] [id number] [place] [address] [place] Platelet mean volume (Bld) [Entitic vol] 9.8 fL Normal 9.0-12.7 [facility] Comment on above: Order Comment: Speci men Type: BLOOD SPECIMENOrdering Facility: [facility] Address: [address] [place] [address] Performed By: #### 5 7021-8 ####[facility] [id number] [place] [address] [place] Platelets (Bld) [#/Vol] 251 10*3/uL Normal 150-400 [facility] Comment on above: Order Comment: Speci men Type: BLOOD SPECIMENOrdering Facility: [facility] Address: [address] [place] [address] Performed By: #### 5 7021-8 ####[facility]ITALNCLIA [id number] [place] [address] [place] RBC (Bld) [#/Vol] 3.42 10*6/uL Low 3.90-5.20 [facility] Comment on above: Order Comment: Speci men Type: BLOOD SPECIMENOrdering Facility: [facility] Address: [address] [place] [address] Performed By: #### 5 7021-8 ####[facility]PITALNCA [id number] [place] [address] [place] WBC (Bld) [#/Vol] 9.58 10*3/uL Normal 3.70-11.00 [facility] Comment on above: Order Comment: Speci men Type: BLOOD SPECIMENOrdering Facility: [facility] Address: [address] [place] [address] Performed By: #### 5 7021-8 ####[facility]OSPITALNCA [id number] [place] [address] [place] GESTATIONAL GLUCOSE SCREEN, 1-HOUR, 50 GRAM, NON-FASTINGon 04-15-2025 Glucose [Mass/Vol] 148 mg/dL High 74-134 [facility] Comment on above: Order Comment: Speci men Type: BLOOD SPECIMENOrdering Facility: [facility] Address: [address] [place] [address] Result Comment: [facility] Congress of Obstetricians and Gynecologists (Meghan/Erika) guidelines state a gestational diabetes mellitus positive screen is made, in women not previously diagnosed with overt diabetes, when the 1 hr plasma glucose level is equal to or above 140 mg/dL. [facility] recommends a 135 mg/dL cutoff. Performed By: #### G LTGST ####[facility]ITALNCLI [id number] [place] [address] [place] Reagin and Treponema pallidu m IgG and IgM [Interp]on 04-15-2025 T. pallidum IgG+IgM IA Ql (S) Non-Reactive Normal Nonreactive [facility] Comment on above: Order Comment: Speci men Type: BLOOD SPECIMEN Ordering Facility: [facility] Address: [address] [place] [address] Performed By: #### R UBIGG #### [facility] CLIA [id number] [address] [place] [address] [place] Reagin+T pallidum IgG+IgM Se rPl-Impon 04-15-2025 Reagin and Treponema pallidum IgG and IgM [Interp] Cannot exclude recent Treponemal infection if specimen collected within 7-10 days after appearance of suspect lesions or 2-3 weeks after an exposure. Clinical correlation is required. Normal [facility] Comment on above: Order Comment: Speci men Type: BLOOD SPECIMEN Ordering Facility: [facility] Address: [address] [place] [address] Performed By: #### R UBIGG #### [facility] CLIA [id number] [address] [place] [address] [place] Urine Cultureon 04-09-2025 URC Below infection leve l. Mixed Gram Positive Organisms [place] Count 1000-10,000 MIXC Mixed contaminants. Submit a new specimen if indicated. Normal [facility] Comment on above: Performed By: #### L 500.4050, L506.1000, L501.9520, L100.0100, L506.0400 #### [facility] [address] [place], [place], [id number] CNOVon 04-06-2025 CNOV Office Visit (WOOTTONIEL) ABBE FAUSTIN ([id number]) 5 F Date Time Provider Department 04/06/25 6:00 PM GRETEL SÁNCHEZ During your visit today, we recorded the following information about you: Temperature Pulse Respiration Blood pressure 98.4 degrees 85/minute 18/minute 108/76 Weight 78.2 kg Gretel Sánchez APRN.[facility] 04/06/2025 6:42 PM Signed [facility]RGENT CARE CONSUELO [...] any concerning symptoms. and Recording using ambient [employer] software for draft documentation of the visit was discussed with the patient/authorized auto claim representative; all questions welcomed and answered. Patient/authorized auto claim representative agreed to proceed MDM Procedures Allergies [...] in female [R10.2] Order(s):UA DIP, URINE (POC) [[id number]] Order #: [id number]. #:[id number] Prescriptions as of 04/06/2025 - [id number]-ELFB FUM,TU-PJPYO-JXL ORAL Take by mouth. Problem List As [...] Status:Closed by GRETEL SÁNCHEZ on 04/06/25 Normal [facility] OB Triage Physician Noteon 0 04-06-2025 OB Triage Physician Note [facility] Medical Records Department [address] [place] [address] OB Triage Physician Note 04/06/252031 MR#: [id number] Acct: [id number] Name: ABBE FAUSTIN Rep #: [id number] : 2005 19 From: Nikki Simpson MD [...] Nikki Simpson MD; FABIANO Hawkins Signed Normal [facility] UA DIP, URINE (POC)on 2024 BILIRUBIN UA (POCT) Negative Negative [facility] CLARITY UA (POCT) Clear [facility] COLOR UA (POCT) Yellow [facility] GLUCOSE UA (POCT) Negative Negative mg/dL [facility] Hemoglobin Ql (U) Trace-intact Abnormal Negative [facility] Interpretation and review of laboratory results Abnormal [facility] KETONE UA (POCT) Negative Negative mg/dL [facility] LEUKOCYTES UA (POCT) Trace Abnormal Negative [facility] NITRITE UA (POCT) Negative Negative [facility] PH UA (POCT) 7.0 4.5 - 8.0 [facility] Protein Ql (U) Negative Negative mg/dL [facility] SPECIFIC GRAVITY UA (POCT) 1.020 1.005 - 1.030 [facility] UROBILINOGEN UA (POCT) 0.2 Normal E.U./d L [facility] Location:[facility] Cordero, [address] [facility], [place], [place], [address] [facility] POINT OF CARE [facility] Urinalysis, Completeon 04-06 AMORPHOUS 1+ Normal [facility] Comment on above: Order Comment: ISACC FARIAOR TO SPECIFY Performed By: #### L 5050.1800 #### [facility] [address] [place], [address] BACTERIA 1+ /hpf Normal None Seen [facility] Comment on above: Order Comment: ISACC CTOR TO SPECIFY Performed By: #### L 7000.1800 #### [facility] [address] [place], [address] EPI,SQUAMOUS 0-5 SEEN Normal 5-10 [facility] Comment on above: Order Comment: ISACC CTOR TO SPECIFY Performed By: #### L 7000.1800 #### [facility] [address] [place], [address] RBC 0-5 SEEN Normal 0-5 [facility] Comment on above: Order Comment: ISACC CTOR TO SPECIFY Performed By: #### L 7000.1800 #### [facility] [address] [place], [address] WBC 0-5 SEEN Normal 0-5 [facility] Comment on above: Order Comment: ISACC CTOR TO SPECIFY Performed By: #### L 7000.1800 #### [facility] [address] [place], [address] Mucus Ql (Urine sed) 0 SEEN Normal [facility] Comment on above: Order Comment: ISACC CTOR TO SPECIFY Performed By: #### L 7000.1800 #### [facility] [address] [place], [address] BACTERIAL VAGINOSIS NAATon 0 02-14-2025 Lactobacillus crispatus+gasseri+jense tc + Gardnerella vaginalis + Atopobium vaginae rRNA SHELBY+probe Ql (Vag fld) Not detected Normal Not detected [facility] Comment on above: Order Comment: Speci men Type: BLOOD SPECIMEN Ordering Facility: [facility] Address: [address] [place] [address] Performed By: #### R UBIGG #### [facility] CLIA [id number] [address] [place] [address] [place] Bacteria Ur Culton Bacteria identified Cx Nom (U) ORGANISM ID: 1 10,000 -<50,000 CFU/ml Normal urogenital michelle Normal [facility] Comment on above: Performed By: #### 6 30-4 ####[facility] [id number] [place] [address] [place] C. trachomatis+N. gonorrhoea e DNA SHELBY+probe Ql (Unsp spec)on 02-14-2025 C. trachomatis rRNA SHELBY+probe Ql (Unsp spec) Not detected Normal Not detected [facility] Comment on above: Order Comment: Speci men Type: BLOOD SPECIMEN Ordering Facility: [facility] Address: [address] [place] [address] Performed By: #### R UBIGG #### [facility] CLIA [id number] [address] [place] [address] [place] N. gonorrhoeae rRNA SHELBY+probe Ql (Unsp spec) Not detected Normal Not detected [facility] Comment on above: Order Comment: Speci men Type: BLOOD SPECIMEN Ordering Facility: [facility] Address: [address] [place] [address] Performed By: #### R UBIGG #### [facility] CLIA [id number] [address] [place] [address] [place] KARL/TRICHOMONAS NAATon 0 02-14-2025 C. glabrata RNA SHELBY+probe Ql (Vag fld) Not detected Normal Not detected [facility] Comment on above: Order Comment: Speci men Type: BLOOD SPECIMEN Ordering Facility: [facility] Address: [address] [place] [address] Performed By: #### R UBIGG #### [facility] CLIA [id number] [address] [place] [address] [place] Karl sp DNA SHELBY+probe Ql (Vag fld) Detected Abnormal Not detected [facility] Comment on above: Order Comment: Speci men Type: BLOOD SPECIMEN Ordering Facility: [facility] Address: [address] [place] [address] Result Comment: The Karl species group target includes C. albicans, C. tropicalis, C. parapsilosis, and C. dubliniensis. Performed By: #### R UBIGG #### [facility] CLIA [id number] [address] [place] [address] [place] T. vaginalis DNA SHELBY+probe Ql (Unsp spec) Not detected Normal Not detected [facility] Comment on above: Order Comment: Speci men Type: BLOOD SPECIMEN Ordering Facility: [facility] Address: [address] [place] [address] Performed By: #### R UBIGG #### [facility] CLIA [id number] [address] [place] [address] OF [facility] CNOVon 02-14-2025 CNOV Office Visit (WOUCA) ABBE FAUSTIN ([id number]) 5 F Date Time Provider Department 02/14/25 5:00 PM ELLEN FOSTER During your visit today, we recorded the following information about you: Temperature Pulse Respiration Blood pressure 98.5 degrees 64/minute 18/minute 110/64 Weight 70 kg Ellen Foster PA-C 02/14/2025 5:12 PM Signed This note was created using [employer]. Subjective Abbe Faustin is a 19 year [...] Urethral irritation [N36.8] Order(s):UA DIP, URINE (POC) [[id number]] Order #: [id number]. #:[id number] BACTERIAL CULTURE, URINE [SQURCUL] Order #: [id number]. #:[id number] cephALEXin (KEFLEX) 500 mg capsuleTake 1 capsule by mouth two times a day for 7 days.Disp: 14 capsuleRfl: 0 KARL/TRICHOMONAS NAAT [SQCVTV] Order #: (more content not included)... Normal [facility] UA DIP, URINE (POC)on 2024 BILIRUBIN UA (POCT) Negative Negative [facility] CLARITY UA (POCT) [facility] COLOR UA (POCT) Yellow [facility] GLUCOSE UA (POCT) Negative Negative mg/dL [facility] Hemoglobin Ql (U) Trace-intact Abnormal Negative [facility] Interpretation and review of laboratory results Abnormal [facility] KETONE UA (POCT) Trace Negative mg/dL [facility] LEUKOCYTES UA (POCT) Small Abnormal Negative [facility] NITRITE UA (POCT) Negative Negative [facility] PH UA (POCT) 5.5 4.5 - 8.0 [facility] Protein Ql (U) Negative Negative mg/dL [facility] SPECIFIC GRAVITY UA (POCT) >=1.030 1.005 - 1.030 [facility] UROBILINOGEN UA (POCT) 0.2 Normal E.U./d L [facility] Location:[facility], [address] [place] [address], [place], [place], [address] [place] [address] POINT OF CARE [facility] Examination level ultrasound on 02-11-2025 Indication Standard [...] 7 oz EFW by: Hadlock (HC-AC-FL) Extended Blind Aide 6.7 mm CM 3.6 mm 22% Nicolaides [...] normal LVOT view: normal 3-vessel view: normal 6-bjurft-zcgcpgn view: normal Heart / Thorax Situs: situs [...] Read By: Zohra Oliva M.D. MATERNAL MEDICINE [facility] Radiology Study observation (narrative) Jun vel[facility] 01-17-2025 DOM Telephone (OBGYWM) ABBE FAUSTIN ([id number]) 5 F Date Time Provider Department 01/17/25 [...] 1 tablet by mouth once daily. - [id number]-FIBH FUM,FI-FXIFN-FYL ORAL Take by mouth. - pyridoxine, vitamin [...] Status:Closed by WANDA MARTÍNEZ on 01/17/25 Normal [facility] Examination level ultrasound on 01-13-2025 Indication First trimester anatomic survey Impression The patient is referred for a first trimester anatomy scan including nuchal translucency measurement as clinically indicated. - Single, live, intrauterine . - [place] rump length measurement is consistent with the [...] view: normal 4-chamber view with color: normal 4-kdibiq-iesgbeb view: normal Abdominal cord insertion: normal Stomach: [...] Read By: Zohra Oliva M.D. MATERNAL MEDICINE [facility] CBC W Auto Differential pane l (Bld)on 01-12-2025 Basophils (Bld) [#/Vol] 10*3/uL Normal <0.11 C [facility] Comment on above: Order Comment: Speci men Type: SWAB Ordering Facility: [facility] Address: [address] [place] [address] Performed By: #### T RVAMP, 42297-8 #### [facility] CLIA [id number] [address] [place], [place] [address] [address] [place] Basophils/100 WBC (Bld) 0.2 % Normal C [facility] Comment on above: Order Comment: Speci men Type: SWAB Ordering Facility: [facility] Address: [address] [place] [address] Performed By: #### T RVAMP, 47785-0 #### [facility] CLIA [id number] [address] [place] [address] [place] Differential cell count method Nom (Bld) Auto Normal [facility] Comment on above: Order Comment: Speci men Type: SWAB Ordering Facility: [facility] Address: [address] [place] [address] Performed By: #### T RVAMP, 48830-9 #### [facility] CLIA [id number] [address] [place] [address] [place] Eosinophils (Bld) [#/Vol] 0.08 10*3/uL Normal <0.46 [facility] Comment on above: Order Comment: Speci men Type: SWAB Ordering Facility: [facility] Address: [address] [place] [address] Performed By: #### T RVAMP, 45550-9 #### [facility] CLIA [id number] [address] [place] [address] [place] Eosinophils/100 WBC (Bld) 0.9 % Normal [facility] Comment on above: Order Comment: Speci men Type: SWAB Ordering Facility: [facility] Address: [address] [place] [address] Performed By: #### T RVAMP, 17992-2 #### [facility] CLIA [id number] [address] [place] [address] [place] Erythrocyte distribution width (RBC) [Ratio] 12.2 % Normal 11.5-15.0 [facility] Comment on above: Order Comment: Speci men Type: SWAB Ordering Facility: [facility] Address: [address] [place] [address] Performed By: #### T RVAMP, 18840-7 #### [facility] CLIA [id number] [address] [place] [address] [place] Hematocrit (Bld) [Volume fraction] 32.3 % Low 36.0-46.0 [facility] Comment on above: Order Comment: Speci men Type: SWAB Ordering Facility: [facility] Address: [address] [place] [address] Performed By: #### T RVAMP, 36667-8 #### [facility] CLIA [id number] [address] [place] [address] [place] Hemoglobin (Bld) [Mass/Vol] 11.3 g/dL Low 11.5-15.5 [facility] Comment on above: Order Comment: Speci men Type: SWAB Ordering Facility: [facility] Address: [address] [place] [address] Performed By: #### T RVAMP, 62525-9 #### [facility] CLIA [id number] [address] [place] [address] [place] Immature granulocytes (Bld) [#/Vol] 10*3/uL Normal <0.10 [facility] Comment on above: Order Comment: Speci men Type: SWAB Ordering Facility: [facility] Address: [address] [place] [address] Performed By: #### T RVAMP, 46473-4 #### [facility] CLIA [id number] [address] [place] [address] [place] Immature granulocytes/100 WBC (Bld) 0.1 % Normal [facility] Comment on above: Order Comment: Speci men Type: SWAB Ordering Facility: [facility] Address: [address] [place] [address] Performed By: #### T RVAMP, 52234-8 #### [facility] CLIA [id number] [address] [place] [address] [place] Lymphocytes (Bld) [#/Vol] 1.92 10*3/uL Normal 1.00-4.00 [facility] Comment on above: Order Comment: Speci men Type: SWAB Ordering Facility: [facility] Address: [address] [place] [address] Performed By: #### T RVAMP, 09878-9 #### [facility] CLIA [id number] [address] [place] [address] [place] Lymphocytes/100 WBC (Bld) 20.7 % Normal [facility] Comment on above: Order Comment: Speci men Type: SWAB Ordering Facility: [facility] Address: [address] [place] [address] Performed By: #### T RVAMP, 63111-5 #### [facility] CLIA [id number] [address] [place] [address] [place] MCH (RBC) [Entitic mass] 32.1 pg Normal 26.0-34.0 [facility] Comment on above: Order Comment: Speci men Type: SWAB Ordering Facility: [facility] Address: [address] [place] [address] Performed By: #### T RVAMP, 46706-5 #### [facility] CLIA [id number] [address] [place] [address] [place] MCHC (RBC) [Mass/Vol] 35.0 g/dL Normal 30.5-36.0 Raúl [facility] Comment on above: Order Comment: Speci men Type: SWAB Ordering Facility: [facility] Address: [address] [place] [address] Performed By: #### T RVAMP, 07636-8 #### [facility] CLIA [id number] [address] [place] [address] [place] MCV (RBC) [Entitic vol] 91.8 fL Normal 80.0-100.0 C [facility] Comment on above: Order Comment: Speci men Type: SWAB Ordering Facility: [facility] Address: [address] [place] [address] Performed By: #### T RVAMP, 01054-4 #### [facility] CLIA [id number] [address] [place] [address] [place] Monocytes (Bld) [#/Vol] 0.48 10*3/uL Normal <0.87 [facility] Comment on above: Order Comment: Speci men Type: SWAB Ordering Facility: [facility] Address: [address] [place] [address] Performed By: #### T RVAMP, 59208-2 #### [facility] CLIA [id number] [address] [place] [address] [place] Monocytes/100 WBC (Bld) 5.2 % Normal [facility] Comment on above: Order Comment: Speci men Type: SWAB Ordering Facility: [facility] Address: [address] [place] [address] Performed By: #### T RVAMP, 46655-9 #### [facility] CLIA [id number] [address] [place] [address] [place] Neutrophils (Bld) [#/Vol] 6.77 10*3/uL Normal 1.45-7.50 [facility] Comment on above: Order Comment: Speci men Type: SWAB Ordering Facility: [facility] Address: [address] [place] [address] Performed By: #### T RVAMP, 70197-5 #### [facility] CLIA [id number] [address] [place] [address] [place] Neutrophils/100 WBC (Bld) 72.9 % Normal [facility] Comment on above: Order Comment: Speci men Type: SWAB Ordering Facility: [facility] Address: [address] [place] [address] Performed By: #### T RVAMP, 13072-3 #### [facility] CLIA [id number] [address] [place] [address] [place] Nucleated RBC (Bld) [#/Vol] 10*3/uL Normal <0.01 [facility] Comment on above: Order Comment: Speci men Type: SWAB Ordering Facility: [facility] Address: [address] [place] [address] Performed By: #### T RVAMP, 21609-6 #### [facility] CLIA [id number] [address] [place] [address] [place] Nucleated RBC/100 WBC (Bld) [Ratio] 0.0 /100 WBC Normal [facility] Comment on above: Order Comment: Speci men Type: SWAB Ordering Facility: [facility] Address: [address] [place] [address] Performed By: #### T RVAMP, 21435-1 #### [facility] CLIA [id number] [address] [place] [address] [place] Platelet mean volume (Bld) [Entitic vol] 9.7 fL Normal 9.0-12.7 [facility] Comment on above: Order Comment: Speci men Type: SWAB Ordering Facility: [facility] Address: [address] [place] [address] Performed By: #### T RVAMP, 33896-2 #### [facility] CLIA [id number] [address] [place] [address] [place] Platelets (Bld) [#/Vol] 234 10*3/uL Normal 150-400 [facility] Comment on above: Order Comment: Speci men Type: SWAB Ordering Facility: [facility] Address: [address] [place] [address] Performed By: #### T RVAMP, 14964-9 #### [facility] CLIA [id number] [address] [place] [address] [place] RBC (Bld) [#/Vol] 3.52 10*6/uL Low 3.90-5.20 [facility] Comment on above: Order Comment: Speci men Type: SWAB Ordering Facility: [facility] Address: [address] [place] [address] Performed By: #### T RVAMP, 19800-5 #### [facility] CLIA [id number] [address] [place] [address] [place] WBC (Bld) [#/Vol] 9.28 10*3/uL Normal 3.70-11.00 [facility] Comment on above: Order Comment: Speci men Type: SWAB Ordering Facility: [facility] Address: [address] [place] [address] Performed By: #### T RVAMP, 29434-2 #### [facility] CLIA [id number] [address] [place] [address] [place] Examination level ultrasound on 01-12-2025 Radiology Study observation (narrative) [facility] HBV surface Ag Ser Qlon 01-02 HBV surface Ag Ql (S) Negative Normal Negative [facility] Comment on above: Order Comment: Speci men Type: BLOOD SPECIMENOrdering Facility: [facility] Address: [address] [place] [address] Performed By: #### 5 195-3, 26435-4, 56783-0 ####[facility] [id number] [address] [place] HCV Ab Ser Qlon 01-12-2025 HCV Ab Ql (S) Negative Normal Negative [facility] Comment on above: Order Comment: Speci men Type: BLOOD SPECIMENOrdering Facility: [facility] Address: [address] [place] [address] Result Comment: The result suggests no evidence of infection with Hepatitis C virus. Should recent infection be suspected, repeat testing may be considered 4-6 weeks after this draw. Performed By: #### 1 6128-1 ####[facility] [id number] [place] [address] [place] HIV 1+2 Ab IA Qlon HIV 1 and 2 Ab IA.rapid Nom (S/P/Bld) Normal [facility] Comment on above: Order Comment: Speci men Type: BLOOD SPECIMENOrdering Facility: [facility] Address: [address] [place] [address] Result Comment: Test not indicated. Performed By: #### 5 195-3, 25591-8, 77127-8 ####[facility] [id number] [place] [address] [place] HIV 1+2 Ab+HIV1 p24 Ag IA Ql Non-Reactive Normal Nonreactive [facility] Comment on above: Order Comment: Speci men Type: BLOOD SPECIMENOrdering Facility: [facility] Address: [address] [place] [address] Performed By: #### 5 195-3, 18687-7, 74522-8 ####[facility]IA [id number] [place] [address] [place] HIV immunoassay testing algorithm interpretation (S/P/Bld) [Interp] Normal [facility] Comment on above: Order Comment: Speci men Type: BLOOD SPECIMENOrdering Facility: [facility] Address: [address] [place] [address] Result Comment: No e vidence of HIV-1 or HIV-2 infection. Should recent infection be suspected, repeat testing may be considered 2-3 weeks after this draw. [place] Rev. Code 3701.243(E): This information has been [...] or diagnoses. Performed By: #### 5 195-3, 96936-0, 48067-5 ####[facility] [id number] [place] [address] [place] HbA1c (Bld)on 01-12-2025 Average glucose Estimated from glycated hemoglobin (Bld) [Mass/Vol] 91 mg/dL Normal [facility] Comment on above: Order Comment: Speci men Type: SWAB [facility] [facility] Address: [address] [place] [address] Result Comment: eAG: (Estimated average glucose) is a calculated value from HgbA1c and is auto claim representative of the average blood glucose level in the last 2-3 month period. Performed By: #### T RVAMP, 03125-0 #### [facility] CLIA [id number] [address] [place] [address] [place] HbA1c (Bld) [Mass fraction] 4.8 % Normal 4.3-5.6 [facility] Comment on above: Order Comment: Speci [facility] Type: SWAB Ordering Facility: [facility] Address: [address] [place] [address] Result Comment: Amer ican Diabetes Association guidelines indicate that patients with HgbA1c in the range 5.7-6.4% are at increased risk for development of diabetes, and intervention by lifestyle modification may be beneficial. HgbA1c greater or equal to 6.5% is considered diagnostic of diabetes. Performed By: #### T RVAMP, 60984-2 #### [facility] CLIA [id number] [address] [place] [address] [place] RUBELLA IGG ANTIBODYon 01-12 RUBELLA IGG AB, QUAL Positive Normal Positive [facility] Comment on above: Order Comment: Speci [facility] Type: BLOOD SPECIMEN Ordering Facility: [facility] Address: [address] [place] [address] Result Comment: The result suggests recent or past exposure to Rubella virus or history of Rubella vaccination. Positive result may also be seen due to presence of passively-transferred antibodies. Please correlate with patient's history. Performed By: #### R UBIGG #### [facility] CLIA [id number] [address] [place] [address] [place] Reagin and Treponema pallidu m IgG and IgM [Interp]on 01-12-2025 T. pallidum IgG+IgM IA Ql (S) Non-Reactive Normal Nonreactive [facility] Comment on above: Order Comment: Speci men Type: BLOOD SPECIMENOrdering Facility: [facility] Address: [address] [place] [address] Performed By: #### 5 195-3, 93283-3, 59641-2 ####[facility] [id number] [place] [address] [place] Reagin+T pallidum IgG+IgM Se rPl-Impon 01-12-2025 Reagin and Treponema pallidum IgG and IgM [Interp] Cannot exclude recent Treponemal infection if specimen collected within 7-10 days after appearance of suspect lesions or 2-3 weeks after an exposure. Clinical correlation is required. Normal [facility] Comment on above: Order Comment: Speci men Type: BLOOD SPECIMENOrdering Facility: [facility] Address: [address] [place] [address] Performed By: #### 5 195-3, 77425-2, 13209-5 ####[facility] [id number] [place] [address] [place] TYPE + SCREEN PRENATALon ABO O Normal [facility] Comment on above: Order Comment: Speci men Type: BLOOD SPECIMEN Ordering Facility: [facility] Address: [address] [place] [address] Performed By: #### R UBIGG #### [facility] CLIA [id number] [address] [place] [address] [place] Rh Nom (Bld) Positive Normal [facility] Comment on above: Order Comment: Speci men Type: BLOOD SPECIMEN Ordering Facility: [facility] Address: [address] [place] [address] Performed By: #### R UBIGG #### [facility] CLIA [id number] [address] [place] [address] [place] TYPE AND SCREEN EXPIRATION 01/15/2025 23:59 Normal [facility] Comment on above: Order Comment: Speci men Type: BLOOD SPECIMEN Ordering Facility: [facility] Address: [address] [place] [address] Performed By: #### R UBIGG #### [facility] CLIA [id number] [address] [place] [address] [place] CNCOon 12-14-2024 CNCO Letter Text Normal [facility] Bacteria Ur Culton Bacteria identified Cx Nom (U) ORGANISM ID: 1 <10,000 CFU/ml Normal urogenital michelle Normal [facility] Comment on above: Performed By: #### 6 30-4 ####[facility] [id number] [address] OF [place] C. trachomatis+N. gonorrhoea e DNA SHELBY+probe Ql (Unsp spec)on 12-13-2024 C. trachomatis rRNA SHELBY+probe Ql (Unsp spec) Not detected Normal Not detected [facility] Comment on above: Order Comment: Speci men Type: SWAB Ordering Facility: [facility] Address: [address] [place] [address] Performed By: #### T RVAMP, 18432-7 #### [facility] CLIA [id number] [address] [place] [address] OF ALE N. gonorrhoeae rRNA SHELBY+probe Ql (Unsp spec) Not detected Normal Not detected [facility] Comment on above: Order Comment: Speci men Type: SWAB [facility]: [facility] Address: [address] [place] [address] Performed By: #### T RVAMP, 12483-1 #### [facility] CLIA [id number] [address] [place] [address] [place] CNPCarlyn 12-13-2024 LISBETHN Telephone (ALEJOParminder) ABBE FAUSTIN ([id number]) 5 F Date Time Provider Department 12/13/24 BRYNN FRASER During your visit today, we recorded the following information about you: Brynn Fraser, [facility] 12/13/2024 2:26 PM Signed Fior left message for patient to return Sw call in regards to financial assistance needs per consult. Brynn Fraser, [facility] 12/16/2024 11:14 AM Signed Fior received message back from patient requesting return call. Sw called patient and left message for patient to return Sw call. Brynn Fraser, [facility] 12/16/2024 11:41 AM Signed Fior spoke with patient and she would like copies of Medicaid-JFS application and WIC application. This Sw noted that she would work on sending out applications to patient home. Sw will also see about community resource guide for info such as [employer]. Allergies As of Date: 12/13/2024 Noted Allergy Reaction CUCUMBER 08/11/2022 2 - Rash SEASONAL ALLERGIES 01/04/2019 14 - Other: See Comments Comments: Nasal congestion Date Reviewed: 12/13/2024 Reviewed by: Luis Carrasco APRN.AUTOCAD OPERATOR - Fully Assessed Prescriptions as of 12/20/2024 - aspirin, enteric coated (ECOTRIN LOW STRENGTH) 81 mg EC tablet Take 1 tablet by mouth once daily. - [id number] FUM,TW-[id number]-SKM ORAL Take by mouth. - pyridoxine, vitamin [...] Encounter Status:Closed by BRYNN FRASER on 12/20/24 [facility] POC TONGER ULTRASOUNDon 12-14-19 Indication Viability; confirm cardiac activity [...] Read By: Luis Carrasco NP MATERNAL MEDICINE [facility] Radiology Study observation (narrative) Jun velasco [facility] TRICHOMONAS VAGINALIS Mina 12-13-2024 T. vaginalis DNA SHELBY+probe Ql (Unsp spec) Not detected Normal Not detected [facility] Comment on above: Order Comment: Speci men Type: SWAB Ordering Facility: [facility] Address: [address] [place] [address] Performed By: #### T RVAMP, 76479-1 #### [facility] CLIA [id number] [address] [place] [address] OF [facility] CNOVon 11-25-2024 CNOV Office Visit (OBGYWM ) ABBE FAUSTIN ([id number]) 5 F Date Time Provider Department 11/25/24 9:00 AM SMILEY SÁNCHEZ OBNAT During your visit today, we recorded the following information about you: Blood pressure Weight Last Period 104/60 62.1 kg 10/07/24 Smiley Sánchez MD 11/25/2024 9:57 AM Signed Carbonation Equipment Operator offered: Patient declines. OB point of care ultrasound was performed. See imaging tab for details. Kim Bernal MA Obstetrics and Gynecology [place] FOREIGN LANGUAGE TEACHER Visit Subjective Recording using Mashed jobs software for draft documentation of the visit was discussed with the patient/authorized auto claim representative; all questions welcomed and answered. Patient/authorized auto claim representative agreed to proceed CHIEF COMPLAINT: The [...] OB History No obstetric history on file. Toggle Press Folder And Feeder History LMP: 10/07/2024 (Exact Date), Having periods Age at Menarche: Age at First : Age at Menopause: [employer] Folder And Feeder History Comments: Sexual Activity: Not Asked; No [...] use: Never Current Outpatient Medications Medication Sig [id number] FUM,YE-[id number]-REK ORAL Take by mouth. pyridoxine, vitamin B6, [...] medications for this visit. ALLERGIES Allergen Reactions Machias Rash Seasonal Allergies Other: See Comments Nasal congestion REVIEW OF SYSTEMS: Gastrointestinal: (+) nausea, (+) vomiting Genitourinary: (+) cramping, (-) bleeding Objective SENSITIVE EXAM: The sensitive examination was discussed with the Patient or Patient's Authorized Head Coach. As applicable, any other physician, advance practice provider, medical student, or other health professional student that will be observing or involved in the sensitive examination for educational or training purposes was discussed with the Patient or Authorized Head Coach. The Patient or Authorized Head Coach has agreed to proceed with the sensitive [...] frequent snack (more content not included)... Normal [facility] hCG Titer Quant., Serumon HCG QUANT. 33278 mIU/mL High <9 non-preg [facility] Comment on above: Result Comment: Gest ational Age 0.2-1 Week: 5-50 mIU/mL 1-2 Weeks: 50-500 mIU/mL 2-3 Weeks: 100-5000 mIU/mL 3-4 Weeks: 500-10,000 mIU/mL 4-5 Weeks:1000-50,000 mIU/mL 5-6 Weeks: 10,000-100,000 mIU/mL 6-8 Weeks: 15,000-200,000 mIU/mL 2-3 Months:10,000-100,000 mIU/mL Performed By: #### L 7000.1800 #### [facility] [address] [place], [address] CNPCarlyn 11-23-2024 LISBETHN Telephone ([employer]) ABBE FAUSTIN ([id number]) 5 F Date Time Provider Department 11/23/24 SMILEY SÁNCHEZ During your visit today, we recorded the following information about you: Wanda Martínez RN 11/23/2024 9:07 AM Signed LMP 10/07/24 Approximately 6w5d was seen at [facility] ER on 11/19 for cramping and spotting. [...] get a repeat hcg level tomorrow at [facility]. Schedule her with me ay 9am. MD [...] Date Reviewed: 10/29/2024 Reviewed by: Artur Joy APRN.AUTOCAD OPERATOR - Fully Assessed Reason for Visit: Early OB ER F/U [Other] Prescriptions as of 11/23/2024 - iron,carbonyl (IRON CHEWS ORAL) Take by mouth once daily. 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 Mixed Gram Positive Organisms [place] Count 1000-10,000 MIXC Mixed contaminants. Submit a new specimen if indicated. Normal [facility] Comment on above: Performed By: #### L 500.4050, L506.1000, L501.9520, L100.0100, L506.0400 #### [facility] [address] [facility] [place], [address] Emergency Department Summary on 11-19-2024 Emergency Department Summary [facility] Medical Records Department [address] [facility] [place] [address] Emergency Department Summary 11/19/24 MR#: [id number] Acct: [id number] Name: ABBE FAUSTIN Rep #: [id number] : 2005 19 From: Bela Doe DO [...] infections. Is not currently established with an TRAVEL RN but had called [facility] to get established. Has not been seen yet. Came in for further evaluation. [facility] Medical History Drug abuse Home Medications ???Medication [...] % (Auto) 62.2 Lymph % (Auto) 27.9 [place] % (Auto) 8.4 Eos % (Auto) 0.8 Baso % (Auto) 0.4 Absolute Neuts (auto) 5.6 Absolute Lymphs (auto) 2.50 Nucleated RBC % 0 HCG, Quant 6453 H Ur (more content not included)... Normal [facility] Protein, Urine (Random)on Protein (U) [Mass/Vol] 18.7 mg/dL High 0.0-12.0 [facility] Comment on above: Performed By: #### L 7000.1800 #### [facility] [address] [place], [place], [id number] Urinalysis, Completeon 11-19 BACTERIA 1+ /hpf Normal None Seen [facility] Comment on above: Order Comment: ISACC YA TO SPECIFY Performed By: #### L 7000.1800 #### [facility] [address] [place], [place], [id number] EPI,SQUAMOUS 0-5 SEEN Normal 5-10 [facility] Comment on above: Order Comment: COLLE CTOR TO SPECIFY Performed By: #### L 7000.1800 #### [facility] [address] [place], [address] Mucus Ql (Urine sed) 1+ /hpf Normal [facility] Comment on above: Order Comment: COLLE CTOR TO SPECIFY Performed By: #### L 7000.1800 #### [facility] [address] [place], [address] RBC 0-5 SEEN Normal 0-5 [facility] Comment on above: Order Comment: ISACC CTOR TO SPECIFY Performed By: #### L 7000.1800 #### [facility] [address] [place], [address] WBC 10-25 SEEN Normal 0-5 [facility] Comment on above: Order Comment: ISACC CTOR TO SPECIFY Performed By: #### L 7000.1800 #### [facility] [address] [place], [address] [id number] 11-18-2024 ABO and Rh group Nom (Bld) Blood group O Rh(D) positive Normal [facility] Comment on above: Performed By: #### Frieda 882-1, L700.8000, L100.0100 #### [facility] [address] [place], [address] CBC W/Diff, Automatedon 11-02 Absolute Lymph 2.50 X10 3/uL Normal 0.83-4.51 [facility] Comment on above: Performed By: #### B 882-1, L700.8000, L100.0100 #### [facility] [address] [place], [address] Absolute Neut 5.6 X10 3/uL Normal 2.0-7.7 [facility] Comment on above: Performed By: #### Frieda 882-1, L700.8000, L100.0100 #### [facility] [address] [place], [address] Basophils/100 WBC (Bld) 0.4 % Normal 0-1 [facility] Comment on above: Performed By: #### Frieda 882-1, L700.8000, L100.0100 #### [facility] [address] [place], [address] Eosinophils/100 WBC (Bld) 0.8 % Normal 0-5 [facility] Comment on above: Performed By: #### Frieda 882-1, L700.8000, L100.0100 #### [facility] [address] [place], [address] Erythrocyte distribution width (RBC) [Ratio] 11.9 % Normal 11.6-14.6 [facility] Comment on above: Performed By: ###Yolanda Malave 882-1, L700.8000, L100.0100 #### [facility] [address] [place], [address] Hematocrit (Bld) [Volume fraction] 33.1 % Low 37-47 [facility] Comment on above: Performed By: ###Yolanda Malave 882-1, L700.8000, L100.0100 #### [facility] [address] [place], [address] Hemoglobin (Bld) [Mass/Vol] 11.7 g/dL Low 12.0-15.0 [facility] Comment on above: Performed By: #### Frieda 882-1, L700.8000, L100.0100 #### [facility] [address] [place], [address] IG% 0.300 Normal 0.0-0.9 [facility] Comment on above: Result Comment: IG% - Immature Granulocytes (promyelocytes, myelocytes and metamyelocytes) > 1% indicates that a LEFT SHIFT is Present. Performed By: ###Yolanda Malave 882-1, L700.8000, L100.0100 #### [facility] [address] [place], [address] Lymphocytes/100 WBC (Bld) 27.9 % Normal 19-41 [facility] Comment on above: Performed By: #### Frieda 882-1, L700.8000, L100.0100 #### [facility] [address] [place], [address] MCH (RBC) [Entitic mass] 32.1 pg High 27.0-32.0 [facility] Comment on above: Performed By: #### Frieda 882-1, L700.8000, L100.0100 #### [facility] [address] [place], [address] MCHC (RBC) [Mass/Vol] 35.3 g/dL Normal 32-36 [facility] Comment on above: Performed By: #### Frieda 882-1, L700.8000, L100.0100 #### [facility] [address] [place], [address] MCV (RBC) [Entitic vol] 90.9 fL Normal 81-99 [facility] Comment on above: Performed By: #### Frieda 882-1, L700.8000, L100.0100 #### [facility] [address] [place], [address] Monocytes/100 WBC (Bld) 8.4 % Normal 0-10 [facility] Comment on above: Performed By: #### Frieda 882-1, L700.8000, L100.0100 #### [facility] [address] [place], [address] Neutrophils/100 WBC (Bld) 62.2 % Normal 47-70 [facility] Comment on above: Performed By: #### Frieda 882-1, L700.8000, L100.0100 #### [facility] [address] [place], [address] Nucleated RBC (Bld) [#/Vol] 0 10*3/uL Normal 0-5 [facility] Comment on above: Performed By: #### Frieda 882-1, L700.8000, L100.0100 #### [facility] [address] [place], [address] Platelet mean volume (Bld) [Entitic vol] 9.3 fL Normal 6.2-12.0 [facility] Comment on above: Performed By: #### Frieda 882-1, L700.8000, L100.0100 #### [facility] [address] [place], [address] Platelets (Bld) [#/Vol] 336 10*3/uL Normal 150-450 [facility] Comment on above: Performed By: #### Frieda 882-1, L700.8000, L100.0100 #### [facility] [address] [place], [address] RBC (Bld) [#/Vol] 3.64 10*6/uL Low 4.2-5.4 [facility] Comment on above: Performed By: #### Frieda 882-1, L700.8000, L100.0100 #### [facility] [address] [place], [address] RDW SD 39.7 fl Normal 35.1-43.9 [facility] Comment on above: Performed By: #### Frieda 882-1, L700.8000, L100.0100 #### [facility] [address] [place], [address] WBC (Bld) [#/Vol] 9.0 10*3/uL Normal 4.4-11.0 [facility] Comment on above: Performed By: #### Frieda 882-1, L700.8000, L100.0100 #### [facility] [address] [place], [address] Transvaginal w/Preg USon Transvaginal w/Preg US [facility] Imaging Services [address] [place] [address] Transvaginal w/Preg US MR#: [id number] Acct: [id number] Name: ABBE FAUSTIN Rep #: [id number] : 2005 F 19 From: Jacinto Croft DO PCP: FABIANO Hawkins Status: REG ER Study: Transvaginal w/Preg US Date of Exam: 11/18/24 Exam# [id number] Ordering Dr: eBla Doe DO PROCEDURE: TRANSVAGINAL W/PREG US 11/18/2024 [...] CC: Dr. Bela Doe DO; FABIANO Hawkins Tank Crewmember: Signed Normal [facility] hCG Titer Quant., Serumon HCG QUANT. 6453 mIU/mL High <9 non-preg [facility] Comment on above: Result Comment: Gest ational Age 0.2-1 Week: 5-50 mIU/mL 1-2 Weeks: 50-500 mIU/mL 2-3 Weeks: 100-5000 mIU/mL 3-4 Weeks: 500-10,000 mIU/mL 4-5 Weeks:1000-50,000 mIU/mL 5-6 Weeks: 10,000-100,000 mIU/mL 6-8 Weeks: 15,000-200,000 mIU/mL 2-3 Months:10,000-100,000 mIU/mL Performed By: #### B 882-1, L700.8000, L100.0100 #### [facility] [address] [place], [address] CNOVon 10-29-2024 [facility] ABBE FA[facility] ([id number]) 5 F Date Time Provider Department 10/29/24 10:45 AM ARTUR JOY [facility] During your visit today, we recorded the following information about you: Temperature Pulse Respiration Blood pressure 98.6 degrees 90/minute 16/minute 100/72 Weight 59 kg Artur Joy APRN.AUTOCAD OPERATOR 10/29/2024 11:26 AM Signed Subjective HPI Nontoxic-appearing [...] SURGICAL HISTORY Procedure Laterality Date NONE ALLERGIES Machias and Seasonal Allergies MEDICATIONS iron,carbonyl (IRON CHEWS [...] of care. This note was generated using Medicine in Practice software. It may contain errors in wording, punctuation, or spelling. Artur Joy, [place].AUTOCAD OPERATOR Allergies As of Date: 10/29/2024 Noted Allergy Reaction CUCUMBER (more content not included)... Normal [facility] STREP A MOLECULAR (POC)on Procedural Control Valid [facility] Strep A (POCT) Negative Negative [facility] UA DIP, URINE (POC)on 2024 BILIRUBIN UA (POCT) Negative Negative [facility] CLARITY UA (POCT) Clear [facility] COLOR UA (POCT) Yellow [facility] GLUCOSE UA (POCT) Negative Negative mg/dL [facility] Hemoglobin Ql (U) Negative Negative [facility] Interpretation and review of laboratory results Abnormal [facility] KETONE UA (POCT) Negative Negative mg/dL [facility] LEUKOCYTES UA (POCT) Trace Abnormal Negative [facility] NITRITE UA (POCT) Negative Negative [facility] PH UA (POCT) 7 4.5 - 8.0 [facility] Protein Ql (U) Trace Abnormal Negative mg/dL [facility] SPECIFIC GRAVITY UA (POCT) 1.02 1.005 - 1.030 [facility] UROBILINOGEN UA (POCT) 0.2 Normal E.U./d L [facility] Location:[facility], [address] [facility] [place], [place], [address] [facility] POINT OF CARE [facility] UA DIP,URINE HCG (POC)on Beta HCG ( test) Ql (U) Negative Negative [facility] Comment on above: Location:[facility], [address] [place] [address], [place], [address] Extrusion Manager (POCT) Internal QC [place] [facility] Location:[address], [place], [place], [address] [place] [address] POINT OF CARE [facility] MR/BMS.BPon 10-27-2024 MR/BMS.BP [address], [address] [place] [address] OFFICE VISIT Date of Service: 10/27/24 MR#: [id number] Acct: [id number] Name: ABBE FAUSTIN Rep #: [id number] : 2005 Provider: CLAIRE maher Age/Sex: 19/F [place] [facility] Status: Signed Intake Vital Signs 08/25/24 09:15 [...] Memory: 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 but feels she has been this [...] 2 sister, patient is oldest Born Raised: [facility] Education: [employer], currently 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, completes in 3 weeks Employment: [employer] in [place] for 3 years off and on Living Status: Lives with mother Legal Issues: Denies Family: Parents are not Children: No biological children Psychiatric History Previous psychiatric treatment history: Yes (2022 in [place] in [place]) Previous psychiatric diagnoses: MYA, MDD, PTSD, substance abuse Previous psychiatric treatment programs: none Family Psychiatric History: Denies Suicidal Ideation Current: Yes (passive) Intent: No Plan: No Past: Yes History of suicide attempt: Yes Suicide Risk Assessment Suicide risk factors: previous suicide attempts, depression and trauma history Suicide protective factors: future looking, family support, social goodwin (more content not included)... Normal [facility] CBC W/Diff, Automatedon 09-05 0-2024 Absolute Lymph 1.44 X10 3/uL Normal 0.83-4.51 [facility] Comment on above: Performed By: #### L 500.4050, L506.1000, L501.9520, L100.0100, L506.0400 #### [facility] [address] [place], [address] Absolute Neut 2.6 X10 3/uL Normal 2.0-7.7 [facility] Comment on above: Performed By: #### L 500.4050, L506.1000, L501.9520, L100.0100, L506.0400 #### [facility] [address] [place], [address] Basophils/100 WBC (Bld) 0.9 % Normal 0-1 [facility] Comment on above: Performed By: #### L 500.4050, L506.1000, L501.9520, L100.0100, L506.0400 #### [facility] [address] [place], [address] Eosinophils/100 WBC (Bld) 1.6 % Normal 0-5 [facility] Comment on above: Performed By: #### L 500.4050, L506.1000, L501.9520, L100.0100, L506.0400 #### [facility] [address] [place], [address] Erythrocyte distribution width (RBC) [Ratio] 12.3 % Normal 11.6-14.6 [facility] Comment on above: Performed By: #### L 500.4050, L506.1000, L501.9520, L100.0100, L506.0400 #### [facility] [address] [place], [address] Hematocrit (Bld) [Volume fraction] 41.3 % Normal 37-47 [facility] Comment on above: Performed By: #### L 500.4050, L506.1000, L501.9520, L100.0100, L506.0400 #### [facility] [address] [place], [address] Hemoglobin (Bld) [Mass/Vol] 13.5 g/dL Normal 12.0-15.0 [facility] Comment on above: Performed By: #### L 500.4050, L506.1000, L501.9520, L100.0100, L506.0400 #### [facility] [address] [place], [address] IG% 0.200 Normal 0.0-0.9 [facility] Comment on above: Result Comment: IG% - Immature Granulocytes (promyelocytes, myelocytes and metamyelocytes) > 1% indicates that a LEFT SHIFT is Present. Performed By: #### L 500.4050, L506.1000, L501.9520, L100.0100, L506.0400 #### [facility] [address] [place], [address] Lymphocytes/100 WBC (Bld) 32.6 % Normal 19-41 [facility] Comment on above: Performed By: #### L 500.4050, L506.1000, L501.9520, L100.0100, L506.0400 #### [facility] [address] [place], [address] MCH (RBC) [Entitic mass] 31.4 pg Normal 27.0-32.0 [facility] Comment on above: Performed By: #### L 500.4050, L506.1000, L501.9520, L100.0100, L506.0400 #### [facility] [address] [place], [address] MCHC (RBC) [Mass/Vol] 32.7 g/dL Normal 32-36 [facility] Comment on above: Performed By: #### L 500.4050, L506.1000, L501.9520, L100.0100, L506.0400 #### [facility] [address] [place], [address] MCV (RBC) [Entitic vol] 96.0 fL Normal 81-99 [facility] Comment on above: Performed By: #### L 500.4050, L506.1000, L501.9520, L100.0100, L506.0400 #### [facility] [address] [place], [address] Monocytes/100 WBC (Bld) 6.1 % Normal 0-10 [facility] Comment on above: Performed By: #### L 500.4050, L506.1000, L501.9520, L100.0100, L506.0400 #### [facility] [address] [place], [address] Neutrophils/100 WBC (Bld) 58.6 % Normal 47-70 [facility] Comment on above: Performed By: #### L 500.4050, L506.1000, L501.9520, L100.0100, L506.0400 #### [facility] [address] [place], [address] Nucleated RBC (Bld) [#/Vol] 0 10*3/uL Normal 0-5 [facility] Comment on above: Performed By: #### L 500.4050, L506.1000, L501.9520, L100.0100, L506.0400 #### [facility] [address] [place], [address] Platelet mean volume (Bld) [Entitic vol] 10.9 fL Normal 6.2-12.0 [facility] Comment on above: Performed By: #### L 500.4050, L506.1000, L501.9520, L100.0100, L506.0400 #### [facility] [address] [place], [address] Platelets (Bld) [#/Vol] 300 10*3/uL Normal 150-450 [facility] Comment on above: Performed By: #### L 500.4050, L506.1000, L501.9520, L100.0100, L506.0400 #### [facility] [address] [place], [address] RBC (Bld) [#/Vol] 4.30 10*6/uL Normal 4.2-5.4 [facility] Comment on above: Performed By: #### L 500.4050, L506.1000, L501.9520, L100.0100, L506.0400 #### [facility] [address] [place], [address] RDW SD 43.8 fl Normal 35.1-43.9 [facility] Comment on above: Performed By: #### L 500.4050, L506.1000, L501.9520, L100.0100, L506.0400 #### [facility] [address] [place], [address] WBC (Bld) [#/Vol] 4.4 10*3/uL Normal 4.4-11.0 [facility] Comment on above: Performed By: #### L 500.4050, L506.1000, L501.9520, L100.0100, L506.0400 #### [facility] [address] [place], [address] Comprehensive Metabolic Prof ilon 09-23-2024 Albumin [Mass/Vol] 3.7 g/dL Normal 3.2-5.0 [facility] Comment on above: Performed By: #### L 500.4050, L506.1000, L501.9520, L100.0100, L506.0400 #### [facility] [address] [place], [address] Albumin/Globulin [Mass ratio] 1.2 {ratio} Normal 0.9-2.4 [facility] Comment on above: Performed By: #### L 500.4050, L506.1000, L501.9520, L100.0100, L506.0400 #### [facility] [address] [place], [address] ALK P 44 U/L Low 45-117 [facility] Comment on above: Performed By: #### L 500.4050, L506.1000, L501.9520, L100.0100, L506.0400 #### [facility] [address] [place], [address] ALT [Catalytic activity/Vol] 15 U/L Normal 13-56 [facility] Comment on above: Performed By: #### L 500.4050, L506.1000, L501.9520, L100.0100, L506.0400 #### [facility] [address] [place], [address] AST [Catalytic activity/Vol] 8 U/L Low 15-37 [facility] Comment on above: Performed By: #### L 500.4050, L506.1000, L501.9520, L100.0100, L506.0400 #### [facility] [address] [place], [address] Bilirubin [Mass/Vol] 0.60 mg/dL Normal 0.20-1.00 [facility] Comment on above: Result Comment: For patients on eltrombopag therapy, use of Dimension [place] TBIL is not recommended. Performed By: #### L 500.4050, L506.1000, L501.9520, L100.0100, L506.0400 #### [facility] [address] [place], [address] BUN/CRE 18.2 RATIO Normal 10-20 [facility] Comment on above: Performed By: #### L 500.4050, L506.1000, L501.9520, L100.0100, L506.0400 #### [facility] [address] [place], [address] CA,Total 8.8 mg/dL Normal 8.5-10.1 [facility] Comment on above: Performed By: #### L 500.4050, L506.1000, L501.9520, L100.0100, L506.0400 #### [facility] [address] [place], [address] Chloride [Moles/Vol] 103 mmol/L Normal 98-107 [facility] Comment on above: Performed By: #### L 500.4050, L506.1000, L501.9520, L100.0100, L506.0400 #### [facility] [address] [place], [address] CO2 [Moles/Vol] 29.0 mmol/L Normal 21.0-32.0 [facility] Comment on above: Performed By: #### L 500.4050, L506.1000, L501.9520, L100.0100, L506.0400 #### [facility] [address] [place], [address] Creatinine [Mass/Vol] 0.72 mg/dL Normal 0.55-1.02 [facility] Comment on above: Result Comment: The validity of the calculated GFR GFRAA in patients over 70 years has not been determined. Clinical correlation is essential. Performed By: #### L 500.4050, L506.1000, L501.9520, L100.0100, L506.0400 #### [facility] [address] [place], [address] EST GFR - AA 135 mL/min Normal >60 [facility] Comment on above: Result Comment: Afri can English GFR Calc Performed By: #### L 500.4050, L506.1000, L501.9520, L100.0100, L506.0400 #### [facility] [address] [place], [address] GAP 4 Low 5-15 [facility] Comment on above: Performed By: #### L 500.4050, L506.1000, L501.9520, L100.0100, L506.0400 #### [facility] [address] [place], [address] GFR/1.73 sq M.predicted among non-blacks MDRD (S/P/Bld) [Vol rate/Area] 111 mL/min/{1.73_m2} Normal >60 [facility] Comment on above: Result Comment: Non- GFR Calc Performed By: #### L 500.4050, L506.1000, L501.9520, L100.0100, L506.0400 #### [facility] [address] [place], [address] Globulin (S) [Mass/Vol] 3.2 g/dL Normal 2.2-4.2 [facility] Comment on above: Performed By: #### L 500.4050, L506.1000, L501.9520, L100.0100, L506.0400 #### [facility] [address] [place], [address] Glucose [Mass/Vol] 74 mg/dL Normal 74-106 [facility] Comment on above: Performed By: #### L 500.4050, L506.1000, L501.9520, L100.0100, L506.0400 #### [facility] [address] [place], [address] Potassium [Moles/Vol] 4.2 mmol/L Normal 3.5-5.1 [facility] Comment on above: Performed By: #### L 500.4050, L506.1000, L501.9520, L100.0100, L506.0400 #### [facility] [address] [place], [address] Sodium [Moles/Vol] 136 mmol/L Normal 136-145 [facility] Comment on above: Performed By: #### L 500.4050, L506.1000, L501.9520, L100.0100, L506.0400 #### [facility] [address] [place], [address] T PROT 6.9 g/dL Normal 6.4-8.2 [facility] Comment on above: Performed By: #### L 500.4050, L506.1000, L501.9520, L100.0100, L506.0400 #### [facility] [address] [place], [address] Urea nitrogen [Mass/Vol] 13 mg/dL Normal 7-18 [facility] Comment on above: Performed By: #### L 500.4050, L506.1000, L501.9520, L100.0100, L506.0400 #### [facility] [address] [place], [address] [facility] Office Visit Reporton 09-23-2024 [facility] Office Visit Report [facility] [address], [address] [place] [address] OFFICE VISIT Date of Service: 09/23/24 MR#: [id number] Acct: [id number] Name: ABBE FAUSTIN Rep #: [id number] : 2005 Provider: CLAIRE Power Age/Sex: 19/F Location: [facility] [place] Status: Signed Intake Vital Signs 08/25/24 09:15 09/23/24 08:26 Height 5 ft 8 in 5 ft 8 in Weight: 130 lb 138 lb BMI 19.8 20.9 BP 123/78 H 107/73 Intake Visit Reasons: Heavy menses Community Living Coach Required: No Is patient in pain?: No [...] 3 months. She is supposed to see shoe treer for feeling lightheaded. She is wondering if [...] menstruation, unspecified 09/23/24 0905 Date Elizabeth Mina CATT[employer]ER-C Cosigner Signature: Date (if applicable) CC: Normal [facility] T4 Free Directon 09-23-2024 T4 FREE DIRECT 0.82 ng/dL Normal 0.76-1.46 [facility] Comment on above: Performed By: #### L 500.4050, L506.1000, L501.9520, L100.0100, L506.0400 #### [facility] [address] [place], [place], [address] Thyroid Stim Hormone (TSH)on 09-23-2024 TSH 3.650 uIU/mL Normal 0.358-3.740 [facility] Comment on above: Performed By: #### L 500.4050, L506.1000, L501.9520, L100.0100, L506.0400 #### [facility] [address] [place], [address] Vitamin D,25 Hydroxyon 09-23 Vitamin D 25-OH 37.6 ng/mL Normal [facility] Comment on above: Result Comment: Sridevi min D 25(OH) Status Range Deficiency <20 ng/mL (50nmol/L) Insufficiency 20 - 30 ng/mL (50 - 75 nmol/L) Sufficiency 30 - 100 ng/mL (75 - 250 nmol/L) Toxicity >100 ng/mL (>250 nmol/L) Performed By: #### L 500.4050, L506.1000, L501.9520, L100.0100, L506.0400 #### [facility] [address] [place], [address] Chlamydia/GC SHELBY aptimaon CHLAMY,NUC ACID Negative Normal Negative [facility] Comment on above: Performed By: #### L 7000.1800 #### [facility] [address] [place], [address] GC BY NUC ACID Negative Normal Negative [facility] Comment on above: Result Comment: Perf ormed at: = - [facility] [id number] Top Precipitator Operator: Irina Lawson MD, Phone: [phone] Performed By: #### L 7000.1800 #### [facility] [address] [place], [address] HSV 1 AND 2 IgGon 08-27-2024 HSV 1 IgG Normal [facility] Comment on above: Result Comment: RESU LT: NON REACTIVE Please note reference interval change HSV-1 IgG testing performed using the [employer] HSV-1 IgG assay. Performed By: #### L 7000.1800 #### [facility] [address] [place], [address] HSV 2 IgG Normal [facility] Comment on above: Result Comment: RESU [...] [employer] HSV-2 IgG assay. Performed at: [facility] [address] [id number] Top Precipitator Operator: Sameer Angulo PhD, Phone: [phone] Performed By: #### L 7000.1800 #### [facility] [address] [place], [place], [address] HIV - WCHon 08-25-2024 HIV Non-Reactive Normal Nonreactive [facility] Comment on above: Order Comment: Reaso n for Exam: sti testing Performed By: #### L 7000.1800 #### [facility] [address] [place], [place], [address] Hepatitis B Surface Antigeno n 08-25-2024 HEP B Surf Ag Non-Reactive Normal Nonreactive [facility] Comment on above: Order Comment: Reaso n for Exam: sti testing Performed By: #### L 7000.1800 #### [facility] [address] [place], [place], [id number] Hepatitis C Antibodyon 08-25 Hepatitis C AB Non-Reactive Normal Nonreactive [facility] Comment on above: Order Comment: Reaso n for Exam: sti testing Result Comment: Non Reactive: < 0.8 Equivocal: >/= 0.8 to < 1.0 Reactive: >/= 1.0 The CDC requires that a reactive/equivocal HCV antibody result be sent out for confirmation. HCV Quant by PCR testing. Performed By: #### L 7000.1800 #### [facility] [address] [place], [place], [address] L509.8000on 08-25-2024 Syphilis Abs Non-Reactive Normal [facility] Comment on above: Order Comment: Reaso n for Exam: sti testing Performed By: #### L 7000.1800 #### [facility] [address] 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 Normal [facility] STREP A MOLECULAR (POC)on Interpretation and review of laboratory results Abnormal [facility] Procedural Control Valid [facility] Strep A (POCT) Positive Abnormal Negative [facility] UA DIP, URINE (POC)on 2023 BILIRUBIN UA (POCT) Negative Negative [facility] CLARITY UA (POCT) Clear [facility] COLOR UA (POCT) Yellow [facility] GLUCOSE UA (POCT) Negative Negative mg/dL [facility] Hemoglobin Ql (U) Moderate Abnormal Negative [facility] Interpretation and review of laboratory results Abnormal [facility] KETONE UA (POCT) Negative Negative mg/dL [facility] LEUKOCYTES UA (POCT) Small Abnormal Negative [facility] NITRITE UA (POCT) Negative Negative [facility] PH UA (POCT) 6.5 4.5 - 8.0 [facility] Protein Ql (U) Negative Negative mg/dL [facility] SPECIFIC GRAVITY UA (POCT) >=1.030 1.005 - 1.030 [facility] UROBILINOGEN UA (POCT) 0.2 Normal E.U./d L [facility] Location:[address], [id number] [place] [address] POINT OF CARE [facility] CBC W Auto Differential pane l (Bld)on 01-28-2024 Basophils (Bld) [#/Vol] 0.04 10*3/uL [facility] Basophils/100 WBC (Bld) 0.8 % [facility] Differential cell count method Nom (Bld) Auto [facility] Eosinophils (Bld) [#/Vol] 0.11 10*3/uL [facility] Eosinophils/100 WBC (Bld) 2.1 % [facility] Erythrocyte distribution width (RBC) [Ratio] 12.1 % 11.5 - 15.0 % [facility] Hematocrit (Bld) [Volume fraction] 39.8 % 36.0 - 46.0 % [facility] Hemoglobin (Bld) [Mass/Vol] 13.1 g/dL 11.5 - 15.5 g/dL [facility] Immature granulocytes (Bld) [#/Vol] [facility] Immature granulocytes/100 WBC (Bld) 0.2 % [facility] Lymphocytes (Bld) [#/Vol] 1.94 10*3/uL [facility] Lymphocytes/100 WBC (Bld) 37.5 % [facility] MCH (RBC) [Entitic mass] 31.3 pg 26.0 - 34.0 pg [facility] MCHC (RBC) [Mass/Vol] 32.9 g/dL 30.5 - 36.0 g/dL [facility] MCV (RBC) [Entitic vol] 95.2 fL 80.0 - 100.0 fL [facility] Monocytes (Bld) [#/Vol] 0.34 10*3/[facility] Monocytes/100 WBC (Bld) 6.6 % C [facility] Neutrophils (Bld) [#/Vol] 2.73 10*3/uL [facility] Neutrophils/100 WBC (Bld) 52.8 % [facility] Nucleated RBC (Bld) [#/Vol] NINF [facility] Nucleated RBC/100 WBC (Bld) [Ratio] 0.0 % /100 WBC [facility] Platelet mean volume (Bld) [Entitic vol] 10.7 fL 9.0 - 12.7 fL [facility] Platelets (Bld) [#/Vol] 285 10*3/uL [facility] RBC (Bld) [#/Vol] 4.18 10*6/uL 3.90 - 5.2 0 m/uL [facility] WBC (Bld) [#/Vol] 5.17 10*3/uL [facility] Comprehensive metabolic 2000 panelon 01-28-2024 Albumin [Mass/Vol] 4.3 g/dL 3.9 - 4.9 g/dL [facility] ALP [Catalytic activity/Vol] 56 U/L 45 - 87 U/L [facility] ALT [Catalytic activity/Vol] 12 U/L 7 - 38 U/L [facility] Anion gap [Moles/Vol] 11 mmol/L 8 - 15 mmol/L [facility] AST [Catalytic activity/Vol] 19 U/L 13 - 35 U/L [facility] Bilirubin [Mass/Vol] 0.4 mg/dL 0.2 - 1 .3 mg/dL [facility] Calcium [Mass/Vol] 9.5 mg/dL 8.5 - 10. 2 mg/dL [facility] Chloride [Moles/Vol] 103 mmol/L 98 - 10 7 mmol/L [facility] CO2 [Moles/Vol] 24 mmol/L 22 - 30 mmol/L [facility] Creatinine [Mass/Vol] 0.72 mg/dL 0.58 - 0.96 mg/dL [facility] GFR/1.73 sq M.predicted among non-blacks MDRD (S/P/Bld) [Vol rate/Area] 124 mL/min/{1.73_m2} - PINF [facility] Comment on above: Estimated Glomerular Filtration Rate [...] [Mass/Vol] 80 mg/dL 74 - 99 mg/dL [facility] Comment on above: The English Diabete s Association (ADA) provides guidance for [...] Standards of Medical Care in Diabetes 2016, [place] Diabetes Association. Diabetes Care. 2016.39(Suppl 1). Potassium [Moles/Vol] 4.7 mmol/L 3.7 - 5.1 mmol/L [facility] Protein [Mass/Vol] 6.8 g/dL 6.3 - 8.0 g/dL [facility] Sodium [Moles/Vol] 138 mmol/L 136 - 144 mmol/L [facility] Urea nitrogen [Mass/Vol] 11 mg/dL 7 - 21 mg/dL [facility] FERRITINon 01-28-2024 Ferritin [Mass/Vol] 29.8 ng/mL 14.7 - 2 05.1 ng/mL [facility] Ferritin [Mass/Vol]on 2023 Interpretation and review of laboratory results Normal [facility] Free T4 [Mass/Vol]on 06-26-2 024 Interpretation and review of laboratory results Normal [facility] Iron and Iron binding capaci ty panelon 01-28-2024 Iron [Mass/Vol] 79 ug/dL 41 - 186 ug/dL [facility] Iron binding capacity [Mass/Vol] 269 ug/dL 232 - 386 ug/dL [facility] Iron/TIBC [Molar ratio] 29.4 % 15.0 - 57.0 % [facility] No Panel Informationon 01-27 Interpretation and review of laboratory results Normal [facility] T4 FREE/FREE THYROXINEon Free T4 [Mass/Vol] 1.2 ng/dL 0.9 - 1.7 ng/dL [facility] THYROID STIMULATING HORMONEo n 01-28-2024 TSH Qn 4.320 m[IU]/L High [facility] Comment on above: If the patient is [...] Potter, et al. 2017 Guidelines of the [place] Thyroid Association for the Diagnosis and Management of Thyroid Disease during and the . Thyroid, 2017:27:3:315-389. Reference ranges were not locally established for this patient's age group. The normal values are based on the following source: Radha W, Calista Mendez. Reference Ranges for Adults and Children: Pre-analytical Considerations. [facility] TSH Qnon 01-28-2024 Interpretation and review of laboratory results Abnormal [facility] Chlamydia trachomatis rRNA d etection by probe and target amplification methodOrdered By: Angelia Ruth on 04-25-2023 C. trachomatis rRNA SHELBY+probe Ql (Unsp spec) Positive Negative [facility] - Microbiology an d Antimicrobial susceptibilityOrdered By: Angelia Ruth on 04-25-2023 N. gonorrhoeae DNA SHELBY+probe Ql (Unsp spec) Negative Negative [facility] Comment on above: Performed at: [address] [place], [place] [id number] Director: Irina Lawson MD, Phone: [phone] UA DIP, URINE (POC)on 2022 BILIRUBIN UA (POCT) Negative Negative [facility] CLARITY UA (POCT) [facility] COLOR UA (POCT) Yellow [facility] GLUCOSE UA (POCT) Negative Negative mg/dL [facility] Hemoglobin Ql (U) Negative Negative [facility] KETONE UA (POCT) Trace Negative mg/dL [facility] LEUKOCYTES UA (POCT) Small Abnormal Negative [facility] NITRITE UA (POCT) Negative Negative [facility] PH UA (POCT) 7.0 4.5 - 8.0 [facility] Protein Ql (U) Negative Negative mg/dL [facility] SPECIFIC GRAVITY UA (POCT) 1.020 1.005 - 1.030 [facility] UROBILINOGEN UA (POCT) 0.2 E.U./dL Normal E.U./ dL [facility] HEP C AB IA W/CONF SCRNon HCV Ab Ql (S) Negative Negative [facility] HEP B SURF AG [facility] 023 HBV surface Ag Ql (S) Negative Negative [facility] HIV 1+2 Ab IA Qlon 3 HIV 1 and 2 Ab IA.rapid Nom [facility] HIV 1+2 Ab+HIV1 p24 Ag IA Ql Non-Reactive Nonreactive [facility] HIV Interpretation [facility] Reagin and Treponema pallidu m IgG and IgM [Interp]on 09-14-2022 Syphilis Interpretation Cannot exclude r ecent Treponemal infection if specimen collected within 7-10 days after appearance of suspect lesions or 2-3 weeks after an exposure. Clinical correlation is required. [facility] T. pallidum IgG+IgM IA Ql (S) Non-Reactive Nonreactive [facility] BACTERIAL VAGINOSIS AMPLIFIC ATIONon 09-13-2022 Lactobacillus crispatus+gasseri+jense tc + Gardnerella vaginalis + Atopobium vaginae rRNA SHELBY+probe Ql (Vag fld) Positive Abnormal Negative for bacterial vaginosis [facility] C. trachomatis+N. gonorrhoea e DNA SHELBY+probe Ql (Unsp spec)on 09-13-2022 C. trachomatis DNA SHELBY+probe Ql (Unsp spec) Negative Negative for Chlamydia trachomatis by amplificaton [facility] N. gonorrhoeae DNA SHELBY+probe Ql (Unsp spec) Negative Negative for Neisseria gonorrhoeae by amplification [facility] KARL / TRICHOMONAS AMPLIF ICATIONon 09-13-2022 C. glabrata RNA SHELBY+probe Ql (Vag fld) Negative Negative for Karl glabrata [facility] Karl albicans, C. dubliniensis, C. parapsilosis, and C. tropicalis RNA SHELBY+probe Ql (Vag fld) Negative Negative for Karl species [facility] T. vaginalis DNA SHELBY+probe Ql (Unsp spec) Negative Negative for Trichomonas vaginalis by amplification [facility] Absolute lymphocyte counton 08-11-2022 Lymphocytes Auto (Unsp spec) [#/Vol] 1.15 10*3/uL 0.83-4.51 [facility] Work Phone: Basophil percentageon 2022 Basophil percentage 0-5 SEEN /hpf 0-5 [facility] Work Phone: Basophils/100 WBC (Bld) 0.3 % 0-1 [facility] Work Phone: Chloride [Moles/Vol] 108 mmol/L 98-107 [facility]: Eosinophils/100 WBC (Bld) 0.3 % 0-3 [facility] Work Phone: Glucose [Mass/Vol] 88 mg/dL 74-106 [facility] Work Phone: Neutrophils (Bld) [#/Vol] 7.2 10*3/uL 2.0-7.7 [facility] Work Phone: Neutrophils/100 WBC (Bld) 80.3 % 34-64 [facility] Work Phone: Potassium [Moles/Vol] 3.2 mmol/L 3.5-5.1 [facility] Work Phone: Sodium [Moles/Vol] 141 mmol/L 136-145 [facility] Work Phone: WBC (Bld) [#/Vol] 9.0 10*3/uL 4.5-13.0 [facility] Work Phone: [phone] Beta hCG serum qualon 2022 Beta HCG ( test) Ql Negative [facility] Work Phone: Bilirubin Test strip Ql (U)o n 08-11-2022 Bilirubin Ql (U) 1 mg/dL Negative [facility] Work Phone: Comment on above: COLOR OF URINE MAY A FFECT DIPSTICK RESULTS. Blood erythrocytes count (nu mber/volume)on 08-11-2022 RBC (Bld) [#/Vol] 4.02 10*6/uL 4.1-4.8 [facility] Work Phone: Blood hemoglobin measurement (mass/volume)on 08-11-2022 Hemoglobin (Bld) [Mass/Vol] 12.7 g/dL 12.0-15.0 [facility] Work Phone: Blood lymphocytes/100 leukoc yteson 08-11-2022 Lymphocytes/100 WBC (Bld) 12.8 % 25-45 [facility] Work Phone: Blood monocytes/100 leukocyt eson 08-11-2022 Monocytes/100 WBC (Bld) 6.0 % 3-6 [facility] Work Phone: [phone] Blood platelet mean volumeon 08-11-2022 Platelet mean volume (Bld) [Entitic vol] 10.1 fL 6.2-12.0 [facility] Work Phone: [phone] Determination of erythrocyte mean corpuscular volume (MCV)on 08-11-2022 MCV (RBC) [Entitic vol] 93.0 fL 78-96 [facility] Work Phone: [phone] Hematocrit Auto (Bld) [Volum e fraction]on 08-11-2022 Hematocrit (Bld) [Volume fraction] 37.4 % 37-46 [facility] Work Phone: Ketones Test strip Ql (U)on 08-11-2022 Ketones Ql (U) 150 mg/dl Negative [facility] Work Phone: Comment on above: RESULTS CALLED TO SAM SEAMAN 08/11/22 Selvin Fan.REPORT READ BACK BY SAME.CRITICAL VALUE *H Laboratory - Chemistry and C hemistry - challengeon 08-11-2022 CO2 [Moles/Vol] 22.0 mmol/L 21.0-32.0 [facility] Work Phone: Urea nitrogen/Creatinine [Mass ratio] 19.7 mg/mg 10-20 [facility] Work Phone: Laboratory - Drug toxicology on 08-11-2022 Amphetamines Ql (U) Positive <1000 ng/mL [facility] Work Phone: Benzodiazepines Ql (U) Negative < 200 ng/mL [facility] Work Phone: Cannabinoids Screen Ql (U) Positive < 50 ng/mL [facility] Work Phone: Cocaine Ql (U) Negative < 300 ng/mL [facility] Work Phone: Opiates Ql (U) Negative < 300 ng/mL [facility] Work Phone: Laboratory - Hematology and Cell countson 08-11-2022 Erythrocyte distribution width (RBC) [Entitic vol] 42.0 fL 35.1-43.9 [facility] Work Phone: Erythrocyte distribution width (RBC) [Ratio] 12.3 % 11.6-14.6 [facility] Work Phone: Immature granulocytes/100 WBC (Bld) 0.300 % 0.0-0.9 [facility] Work Phone: Comment on above: IG% - Immature Granu locytes (promyelocytes, myelocytes and metamyelocytes) > 1% indicates that a LEFT SHIFT is Present. MCH (RBC) [Entitic mass] 31.6 pg 25.0-35.0 [facility] Work Phone: Nucleated RBC/100 WBC (Bld) [Ratio] 0 % 0-5 [facility] Work Phone: MCHC Auto (RBC) [Mass/Vol]on 08-11-2022 MCHC (RBC) [Mass/Vol] 34.0 g/dL 32-36 [facility] Work Phone: Mucus LM Ql (Urine sed)on Mucus Ql (Urine sed) 2+ /hpf [facility] Work Phone: Nitrite Test strip Ql (U)on 08-11-2022 Nitrite Ql (U) Negative Negative [facility] Work Phone: No Panel Informationon 08-11 MDMA (Ecstasy) Screen Negative < 500 ng/mL [facility] Work Phone: Urine Barbiturates Screen Negative < 200 ng/mL [facility] Work Phone: Urine Drug Screen Comment [facility] Work Phone: Comment on above: CONFIRMATORY [...] Methadone Screen Negative < 300 ng/mL [facility] Work Phone: Estimated Creatinine Clearance Calc 117.82 ml/min [facility] Work Phone: Estimated GFR (MDRD) [facility] Work Phone: Comment on above: Test not performedAf rican English GFR Calc Estimated GFR (MDRD) Non-Af [facility] Work Phone: Comment on above: Test not performedNo n- GFR Calc Ethyl Alcohol Level < 3.0 mg/dL [facility] Work Phone: Comment on above: The serum:whole bloo d ethanol ratio is approximately 1.14and varies slightly with hematocrit. Medical Alcohol reference interval and critical value innon-tolerant individuals; 50 - 100 Impairment 100 Intoxication 100 - 250 Severe Poisoning 250 - 400 Deep/possible fatal coma Platelets bldon 08-11-2022 Platelets (Bld) [#/Vol] 296 10*3/uL 150-450 [facility] Work Phone: Protein Test strip Ql (U)on 08-11-2022 Protein Ql (U) 30 mg/dl Negative [facility] Work Phone: Serum or plasma calcium arabella urement (mass/volume)on 08-11-2022 Calcium [Mass/Vol] 9.2 mg/dL 8.5-10.1 [facility] Work Phone: Serum or plasma creatinine m easurement (mass/volume)on 08-11-2022 Creatinine [Mass/Vol] 0.71 mg/dL 0.55-1.02 [facility] Work Phone: Comment on above: The validity of the calculated GFR & GFRAA in patients over 70 years has not been determined. Clinical correlation is essential. Serum or plasma urea nitroge n measurement (mass/volume)on 08-11-2022 Urea nitrogen [Mass/Vol] 14 mg/dL 7-18 [facility] Work Phone: Squamous epithelial cells de tection in urine sediment by light microscopyon 08-11-2022 Epithelial cells.squamous LM Ql (Urine sed) 0-5 SEEN /hpf 5-10 [facility] Work Phone: Thin prep Papanicolaou smear with manual screeningon 08-11-2022 Thin prep Papanicolaou smear with manual screening 11 5-15 [facility] Work Phone: Urine blood detectionon RBC Ql (U) 10 /ul Negative [facility] Work Phone: RBC Ql (U) 0-5 SEEN /hpf 0-5 [facility] Work Phone: Urine clarityon 08-11-2022 Clarity (U) Sl. Cloudy Clear [facility] Work Phone: Urine color determinationon 08-11-2022 Color (U) Yellow Yellow [facility] Work Phone: Urine glucose detectionon Glucose Ql (U) Normal mg/dl Normal [facility] Work Phone: Urine leukocyte esterase det ection by dipstickon 08-11-2022 Leukocyte esterase Test strip Ql (U) 25 /ul Negative [facility] Work Phone: [phone] Urine pHon 08-11-2022 pH (U) 5.0 [pH] 5.0 - 8.0 [facility] Work Phone: Urine phencyclidine (PCP) de tectionon 08-11-2022 Phencyclidine Ql (U) Negative < 25 ng/mL [facility] Work Phone: Urine sediment bacteria coun t by microscopy (number/high power field)on 08-11-2022 Bacteria LM.HPF (Urine sed) [#/Area] 1 /[HPF] None Seen [facility] Work Phone: Urine specific gravity measu rementon 08-11-2022 Specific gravity (U) [Rel density] 1.025 1.002-1.030 [facility] Work Phone: Urobilinogen Auto test strip Ql (U)on 08-11-2022 Urobilinogen Ql (U) 1 mg/dl Normal [facility] Work Phone: STREP A MOLECULAR (POC)on Procedural Control Valid [facility] Strep A (POCT) Negative Negative [facility] Procedural Control Valid [facility] Strep A (POCT) Negative Negative [facility] STREP A MOLECULAR (POC)on Procedural Control Valid [facility] Strep A (POCT) Positive Abnormal Negative [facility] CBC panel Auto (Bld)on 05-09 Erythrocyte distribution width (RBC) [Ratio] 12.0 % 11.5 - 15.0 % [facility] Hematocrit (Bld) [Volume fraction] 39.0 % 36.0 - 46.0 % [facility] Hemoglobin (Bld) [Mass/Vol] 13.0 g/dL 11.5 - 15.5 g/dL [facility] MCH (RBC) [Entitic mass] 31.6 pg 26.0 - 34.0 pg [facility] MCHC (RBC) [Mass/Vol] 33.3 g/dL 30.5 - 36.0 g/dL [facility] MCV (RBC) [Entitic vol] 94.7 fL 80.0 - 100.0 fL [facility] Nucleated RBC (Bld) [#/Vol] <0.01 k/uL [facility] Platelet mean volume (Bld) [Entitic vol] 10.9 fL 9.0 - 12.7 fL [facility] Platelets (Bld) [#/Vol] 358 10*3/uL 150 - 400 k /uL [facility] RBC (Bld) [#/Vol] 4.12 10*6/uL 3.90 - 5.2 0 m/uL [facility] WBC (Bld) [#/Vol] 5.31 10*3/uL 3.70 - 11. 00 k/uL [facility] GLUCOSE FASTING BLDon 2021 Glucose post fast [Mass/Vol] 85 mg/dL 74 - 99 mg/dL [facility] XR Chest PA and Lateralon IMPRESSION: Hazy lower lobe pulmonary infiltrates compatible with suspected Covid pneumonia. Tank Crewmember: TIMI Transcribe Date/Time: May 07 2021 1:04P Dictated by : ZOHRA GEORGES MD This examination was interpreted and the report reviewed and electronically signed by: ZOHRA GEORGES MD on May 07 2021 1:05PM [facility] DIVISION OF RADIOLOGY * * *Final Report* [...] Unremarkable. DIVISION OF RADIOLOGY Provider, Grecia Eastman [facility] - 05/07/2021 * * *Final Report* * [...] pulmonary infiltrates compatible with suspected Covid pneumonia. Tank Crewmember: PSCB Transcribe Date/Time: May 07 2021 1:04P Dictated by : ZOHRA GEORGES MD This examination was interpreted and the report reviewed and electronically signed by: ZOHRA GEORGES MD on May 07 2021 1:05PM [facility] Radiology Study observation (narrative) [facility] Chest PA and LateralOrder ed By: Cc Provider on 05-07-2021 [facility] COVID-19 virus antigen assay SARS-CoV-2 (COVID-19) Ag IA.rapid Ql (Resp) [facility] Work Phone: Vital Signs Date Time Vital Sign Value Performing Clinician Facility 04-15-2025 09:55-0400 Body mass index (BMI) [Ratio] 26.3 kg/m2 Wanda Morales MD Work Phone: [facility] 04-15-2025 09:55-0400 Body weight 78.47 kg Wanda Morales MD Work Phone: [facility] 04-15-2025 09:55-0400 Diastolic blood pressure 74 mm[Hg] Wanda Morales MD Work Phone: [facility] 04-15-2025 09:55-0400 Systolic blood pressure 112 mm[Hg] Wanda Morales MD Work Phone: [facility] 04-06-2025 18:06-0400 Body mass index (BMI) [Ratio] 26.21 kg/m2 Gretel Sánchez APRN.AUTOCAD OPERATOR Work Phone: [facility] 04-06-2025 18:06-0400 Body temperature 98.4 [degF] Gretel Sánchez APRN.AUTOCAD OPERATOR Work Phone: [facility] 04-06-2025 18:06-0400 Body weight 78.2 kg Gretel Sánchez APRN.AUTOCAD OPERATOR Work Phone: [facility] 04-06-2025 18:06-0400 Diastolic blood pressure 76 mm[Hg] Gretel Sánchez APRN.AUTOCAD OPERATOR Work Phone: [facility] 04-06-2025 18:06-0400 Heart rate 85 /min Gretel Sánchez APRN.AUTOCAD OPERATOR Work Phone: [facility] 04-06-2025 18:06-0400 Respiratory rate 18 /min Gretel Sánchez APRN.AUTOCAD OPERATOR Work Phone: [facility] 04-06-2025 18:06-0400 SaO2% (BldA) [Mass fraction] 100 % Gretel Sánchez APRN.AUTOCAD OPERATOR Work Phone: [facility] 04-06-2025 18:06-0400 Systolic blood pressure 108 mm[Hg] Gretel Sánchez APRN.AUTOCAD OPERATOR Work Phone: [facility] 03-18-2025 15:44-0400 Body mass index (BMI) [Ratio] 24.94 kg/m2 Wanda Morales MD Work Phone: [facility] 03-18-2025 15:44-0400 Body weight 74.39 kg Wanda Morales MD Work Phone: [facility] 03-18-2025 15:44-0400 Diastolic blood pressure 60 mm[Hg] Wanda Morales MD Work Phone: [facility] 03-18-2025 15:44-0400 Systolic blood pressure 108 mm[Hg] Wanda Morales MD Work Phone: [facility] 02-14-2025 16:56-0400 Body mass index (BMI) [Ratio] 23.46 kg/m2 Ellen Clutter PA-C Work Phone: [facility] 02-14-2025 16:56-0400 Body temperature 98.49 [degF] Ellen Clutter PA-C Work Phone: [facility] 02-14-2025 16:56-0400 Body weight 70 kg Ellen Clutter PA-C Work Phone: [facility] 02-14-2025 16:56-0400 Diastolic blood pressure 64 mm[Hg] Ellen Clutter PA-C Work Phone: [facility] 02-14-2025 16:56-0400 Heart rate 64 /min Ellen Clutter PA-C Work Phone: [facility] 02-14-2025 16:56-0400 Respiratory rate 18 /min Ellen Clutter PA-C Work Phone: [facility] 02-14-2025 16:56-0400 SaO2% (BldA) [Mass fraction] 100 % Ellen Clutter PA-C Work Phone: [facility] 02-14-2025 16:56-0400 Systolic blood pressure 110 mm[Hg] Ellen Clutter PA-C Work Phone: [facility] 02-11-2025 14:03-0400 Body mass index (BMI) [Ratio] 23.87 kg/m2 Deysi Seth APRN.CNM Work Phone: [facility] 02-11-2025 14:03-0400 Body weight 71.22 kg Deysi Seth APRN.CNM Work Phone: [facility] 02-11-2025 14:03-0400 Diastolic blood pressure 64 mm[Hg] Deysi Seth APRN.CNM Work Phone: [facility] 02-11-2025 14:03-0400 Systolic blood pressure 112 mm[Hg] Deysi Seth APRN.CNM Work Phone: [facility] 01-12-2025 15:04-0400 Body mass index (BMI) [Ratio] 22.96 kg/m2 Nikki Tucker MD Work Phone: [facility] 01-12-2025 15:04-0400 Body weight 68.49 kg Nikki Tucker MD Work Phone: [facility] 01-12-2025 15:04-0400 Diastolic blood pressure 60 mm[Hg] Nikki Tucker MD Work Phone: [facility] 01-12-2025 15:04-0400 Systolic blood pressure 108 mm[Hg] Nikki Tucker MD Work Phone: [facility] 12-13-2024 11:03-0400 Body height 172.7 cm Luis Carrasco CONVEYOR LINE BAKERY WORKER.AUTOCAD OPERATOR Work Phone: [facility] 12-13-2024 11:03-0400 Body mass index (BMI) [Ratio] 21.74 kg/m2 Luislokesh Carrasco CONVEYOR LINE BAKERY WORKER.AUTOCAD OPERATOR Work Phone: [facility] 12-13-2024 11:03-0400 Body weight 64.86 kg Luislokesh Carrasco CONVEYOR LINE BAKERY WORKER.AUTOCAD OPERATOR Work Phone: [facility] 12-13-2024 11:03-0400 Diastolic blood pressure 60 mm[Hg] Luis Haury CONVEYOR LINE BAKERY WORKER.AUTOCAD OPERATOR Work Phone: [facility] 12-13-2024 11:03-0400 Systolic blood pressure 106 mm[Hg] Luis Haury CONVEYOR LINE BAKERY WORKER.AUTOCAD OPERATOR Work Phone: [facility] 10-29-2024 10:46-0400 Body temperature 98.6 [degF] Artur Joy CONVEYOR LINE BAKERY WORKER.AUTOCAD OPERATOR Work Phone: [facility] 10-29-2024 10:46-0400 Body weight 59 kg Artur Joy CONVEYOR LINE BAKERY WORKER.AUTOCAD OPERATOR Work Phone: [facility] 10-29-2024 10:46-0400 Diastolic blood pressure 72 mm[Hg] Artur Joy CONVEYOR LINE BAKERY WORKER.AUTOCAD OPERATOR Work Phone: [facility] 10-29-2024 10:46-0400 Heart rate 90 /min Artur Joy CONVEYOR LINE BAKERY WORKER.AUTOCAD OPERATOR Work Phone: [facility] 10-29-2024 10:46-0400 Respiratory rate 16 /min Artur Joy CONVEYOR LINE BAKERY WORKER.AUTOCAD OPERATOR Work Phone: [facility] 10-29-2024 10:46-0400 SaO2% (BldA) [Mass fraction] 98 % Artur Joy CONVEYOR LINE BAKERY WORKER.AUTOCAD OPERATOR Work Phone: [facility] 10-29-2024 10:46-0400 Systolic blood pressure 100 mm[Hg] Artur Joy CONVEYOR LINE BAKERY WORKER.AUTOCAD OPERATOR Work Phone: [facility] 05-25-2024 14:23-0400 Body temperature 100.6 [degF] Gretel Sánchez CONVEYOR LINE BAKERY WORKER.AUTOCAD OPERATOR Work Phone: [facility] 05-25-2024 14:23-0400 Body weight 62.3 kg Gretel Sánchez CONVEYOR LINE BAKERY WORKER.AUTOCAD OPERATOR Work Phone: [facility] 05-25-2024 14:23-0400 Diastolic blood pressure 76 mm[Hg] Gretel Sánchez CONVEYOR LINE BAKERY WORKER.AUTOCAD OPERATOR Work Phone: [facility] 05-25-2024 14:23-0400 Heart rate 100 /min Gretel Sánchez CONVEYOR LINE BAKERY WORKER.AUTOCAD OPERATOR Work Phone: [facility] 05-25-2024 14:23-0400 Respiratory rate 18 /min Gretel Sánchez CONVEYOR LINE BAKERY WORKER.AUTOCAD OPERATOR Work Phone: [facility] 05-25-2024 14:23-0400 SaO2% (BldA) [Mass fraction] 99 % Gretel Sánchez CONVEYOR LINE BAKERY WORKER.AUTOCAD OPERATOR Work Phone: [facility] 05-25-2024 14:23-0400 Systolic blood pressure 117 mm[Hg] Gretel Sánchez APRN.AUTOCAD OPERATOR Work Phone: [facility] 05-03-2024 09:52-0400 Body temperature 97.7 [degF] Krislyn Aberegg PA Work Phone: [facility] 05-03-2024 09:52-0400 Body weight 61.5 kg Krislyn Aberegg PA Work Phone: [facility] 05-03-2024 09:52-0400 Diastolic blood pressure 68 mm[Hg] Krislyn Aberegg PA Work Phone: [facility] 05-03-2024 09:52-0400 Heart rate 82 /min Krislyn Aberegg PA Work Phone: [facility] 05-03-2024 09:52-0400 Respiratory rate 16 /min Krislyn Aberegg PA Work Phone: [facility] 05-03-2024 09:52-0400 SaO2% (BldA) [Mass fraction] 98 % Krislyn Aberegg PA Work Phone: [facility] 05-03-2024 09:52-0400 Systolic blood pressure 112 mm[Hg] Krislyn Aberegg PA Work Phone: [facility] 02-04-2024 11:01-0400 Body height 170.2 cm Lyubov Perez MD Work Phone: [facility] 02-04-2024 11:01-0400 Body mass index (BMI) [Percentile] Per age and sex 30.6 % Lyubov Perez MD Work Phone: [facility] 02-04-2024 11:01-0400 Body mass index (BMI) [Ratio] 20.03 kg/m2 Lyubov Perez MD Work Phone: [facility] 02-04-2024 11:01-0400 Body weight 58 kg Lyubov Perez MD Work Phone: [facility] 02-04-2024 11:01-0400 Diastolic blood pressure 64 mm[Hg] Lyubov Perez MD Work Phone: [facility] 02-04-2024 11:01-0400 Heart rate 57 /min Lyubov Perez MD Work Phone: [facility] 02-04-2024 11:01-0400 SaO2% (BldA) [Mass fraction] 99 % Lyubov Perez MD Work Phone: [facility] 02-04-2024 11:01-0400 Systolic blood pressure 98 mm[Hg] Lyubov Perez MD Work Phone: [facility] 01-28-2024 09:04-0400 Body temperature 97.3 [degF] Wendi Anne PA-C Work Phone: [facility] 01-28-2024 09:04-0400 Body weight 59.47 kg Wendi Anne PA-C Work Phone: [facility] 01-28-2024 09:04-0400 Respiratory rate 16 /min Wendi Anne PA-C Work Phone: [facility] 04-25-2023 12:03-0400 Body height 172.72 cm PA Wendi Anne Work Phone: [facility] 04-25-2023 12:02-0400 Body mass index (BMI) [Percentile] Per age and sex 63.4 % PA Wendi Anne Work Phone: [facility] 04-25-2023 12:02-0400 Body mass index (BMI) [Ratio] 22.4 kg/m2 PA Wendi Anne Work Phone: [facility] 04-25-2023 12:02-0400 Body weight 64.86 kg PA Wendi Anne Work Phone: [facility] 04-25-2023 12:02-0400 Diastolic blood pressure 70 mm[Hg] PA Wendi Anne Work Phone: [facility] 04-25-2023 12:02-0400 Systolic blood pressure 116 mm[Hg] PA Wendi Cifuentesut Work Phone: [facility] 04-01-2023 17:22-0400 Body temperature 98.29 [degF] Deysi Paul CONVEYOR LINE BAKERY WORKER.AUTOCAD OPERATOR Work Phone: [facility] 04-01-2023 17:22-0400 Body weight 62.05 kg Deysi Paul CONVEYOR LINE BAKERY WORKER.AUTOCAD OPERATOR Work Phone: [facility] 04-01-2023 17:22-0400 Diastolic blood pressure 64 mm[Hg] Deysi Paul CONVEYOR LINE BAKERY WORKER.AUTOCAD OPERATOR Work Phone: [facility] 04-01-2023 17:22-0400 Heart rate 74 /min Deysi Paul CONVEYOR LINE BAKERY WORKER.AUTOCAD OPERATOR Work Phone: [facility] 04-01-2023 17:22-0400 Respiratory rate 16 /min Deysi Paul CONVEYOR LINE BAKERY WORKER.AUTOCAD OPERATOR Work Phone: [facility] 04-01-2023 17:22-0400 SaO2% (BldA) [Mass fraction] 97 % Deysi Paul CONVEYOR LINE BAKERY WORKER.AUTOCAD OPERATOR Work Phone: [facility] 04-01-2023 17:22-0400 Systolic blood pressure 102 mm[Hg] Deysi Paul CONVEYOR LINE BAKERY WORKER.AUTOCAD OPERATOR Work Phone: [facility] 12-07-2022 08:32-0400 Body temperature 97.81 [degF] Krislyn Aberegg PA Work Phone: [facility] 12-07-2022 08:32-0400 Body weight 60.42 kg Krislyn Aberegg PA Work Phone: [facility] 12-07-2022 08:32-0400 Diastolic blood pressure 64 mm[Hg] Krislyn Aberegg PA Work Phone: [facility] 12-07-2022 08:32-0400 Heart rate 77 /min Krislyn Aberegg PA Work Phone: [facility] 12-07-2022 08:32-0400 Respiratory rate 18 /min Krislyn Aberegg PA Work Phone: [facility] 12-07-2022 08:32-0400 SaO2% (BldA) [Mass fraction] 98 % Krislyn Aberegg PA Work Phone: [facility] 12-07-2022 08:32-0400 Systolic blood pressure 102 mm[Hg] Krislyn Aberegg PA Work Phone: [facility] 12-02-2022 17:38-0400 Body temperature 98.91 [degF] Krislyn Aberegg PA Work Phone: [facility] 12-02-2022 17:38-0400 Body weight 60.78 kg Krislyn Aberegg PA Work Phone: [facility] 12-02-2022 17:38-0400 Diastolic blood pressure 72 mm[Hg] Krislyn Aberegg PA Work Phone: [facility] 12-02-2022 17:38-0400 Heart rate 90 /min Krislyn Aberegg PA Work Phone: [facility] 12-02-2022 17:38-0400 Respiratory rate 16 /min Krislyn Aberegg PA Work Phone: [facility] 12-02-2022 17:38-0400 SaO2% (BldA) [Mass fraction] 96 % Krislyn Aberegg PA Work Phone: [facility] 12-02-2022 17:38-0400 Systolic blood pressure 122 mm[Hg] Krislyn Aberegg PA Work Phone: [facility] 11-07-2022 16:52-0400 Body height 170.2 cm Noreen Cutler APRN.CNP Work Phone: [facility] 11-07-2022 16:52-0400 Body mass index (BMI) [Percentile] Per age and sex 52.98 % Noreen Menchacaano CONVEYOR LINE BAKERY WORKER.AUTOCAD OPERATOR Work Phone: [facility] 11-07-2022 16:52-0400 Body weight 61.69 kg Noreen Cutler CONVEYOR LINE BAKERY WORKER.AUTOCAD OPERATOR Work Phone: [facility] 11-07-2022 16:52-0400 Diastolic blood pressure 56 mm[Hg] Noreen Ehsanzzano CONVEYOR LINE BAKERY WORKER.AUTOCAD OPERATOR Work Phone: [facility] 11-07-2022 16:52-0400 Heart rate 80 /min Noreen Menchacaano CONVEYOR LINE BAKERY WORKER.AUTOCAD OPERATOR Work Phone: [facility] 11-07-2022 16:52-0400 Systolic blood pressure 106 mm[Hg] Noreen Nikolaiano CONVEYOR LINE BAKERY WORKER.AUTOCAD OPERATOR Work Phone: [facility] 10-22-2022 14:38-0400 Body temperature 98.6 [degF] Kindra Athy PA-C Work Phone: [facility] 10-22-2022 14:38-0400 Body weight 62.05 kg Kindra Athy PA-C Work Phone: [facility] 10-22-2022 14:38-0400 Diastolic blood pressure 76 mm[Hg] Kindra Athy PA-C Work Phone: [facility] 10-22-2022 14:38-0400 Heart rate 84 /min Kindra Athy PA-C Work Phone: [facility] 10-22-2022 14:38-0400 Respiratory rate 18 /min Kindra Athy PA-C Work Phone: [facility] 10-22-2022 14:38-0400 SaO2% (BldA) [Mass fraction] 96 % Kindra Athy PA-C Work Phone: [facility] 10-22-2022 14:38-0400 Systolic blood pressure 126 mm[Hg] Kindra Athy PA-C Work Phone: [facility] 10-10-2022 16:13-0500 Body height 170.2 cm Noreen Pezzano CONVEYOR LINE BAKERY WORKER.AUTOCAD OPERATOR Work Phone: [facility] 10-10-2022 16:13-0500 Body mass index (BMI) [Percentile] Per age and sex 49.43 % Noreen Pezzano CONVEYOR LINE BAKERY WORKER.AUTOCAD OPERATOR Work Phone: [facility] 10-10-2022 16:13-0500 Body weight 60.78 kg Noreen Pezzano CONVEYOR LINE BAKERY WORKER.AUTOCAD OPERATOR Work Phone: [facility] 10-10-2022 16:13-0500 Diastolic blood pressure 72 mm[Hg] Noreen Pezzano CONVEYOR LINE BAKERY WORKER.AUTOCAD OPERATOR Work Phone: [facility] 10-10-2022 16:13-0500 Heart rate 100 /min Noreen Pezzano CONVEYOR LINE BAKERY WORKER.AUTOCAD OPERATOR Work Phone: [facility] 10-10-2022 16:13-0500 Systolic blood pressure 132 mm[Hg] Noreen Pezzano CONVEYOR LINE BAKERY WORKER.AUTOCAD OPERATOR Work Phone: [facility] 09-13-2022 10:55-0500 Body mass index (BMI) [Percentile] Per age and sex 53.7 % Judy Reza MD Work Phone: [facility] 09-13-2022 10:55-0500 Body weight 61.05 kg Judy Reza MD Work Phone: [facility] 09-13-2022 10:55-0500 Diastolic blood pressure 70 mm[Hg] Judy Reza MD Work Phone: [facility] 09-13-2022 10:55-0500 Systolic blood pressure 100 mm[Hg] Judy Reza MD Work Phone: [facility] 09-13-2022 07:14-0500 Body height 169.3 cm Wendi Anne PA-C Work Phone: [facility] 09-13-2022 07:14-0500 Body mass index (BMI) [Percentile] Per age and sex 51.59 % Wendi Anne PA-C Work Phone: [facility] 09-13-2022 07:14-0500 Body temperature 98.6 [degF] Wendi Anne PA-C Work Phone: [facility] 09-13-2022 07:14-0500 Body weight 60.55 kg Wendi Anne PA-C Work Phone: [facility] 09-13-2022 07:14-0500 Diastolic blood pressure 60 mm[Hg] Wendi Anne PA-C Work Phone: [facility] 09-13-2022 07:14-0500 Heart rate 80 /min Wendi Anne PA-C Work Phone: [facility] 09-13-2022 07:14-0500 Respiratory rate 16 /min Wendi Anne PA-C Work Phone: [facility] 09-13-2022 07:14-0500 Systolic blood pressure 100 mm[Hg] Wendi Anne PA-C Work Phone: [facility] 08-12-2022 07:09-0500 Diastolic blood pressure 66 mm[Hg] [facility] Work Phone: 08-12-2022 07:09-0500 Heart rate 77 /min [facility] Work Phone: 08-12-2022 07:09-0500 Respiratory rate 18 /min [facility] Work Phone: 08-12-2022 07:09-0500 SaO2% (BldA) [Mass fraction] 100 % [facility] Work Phone: 08-12-2022 07:09-0500 Systolic blood pressure 101 mm[Hg] [facility] Work Phone: 08-11-2022 16:01-0500 Body height 172.72 cm [facility] Work Phone: 08-11-2022 16:01-0500 Body mass index (BMI) [Percentile] Per age and sex 26.8 % [facility] Work Phone: 08-11-2022 16:01-0500 Body mass index (BMI) [Ratio] 19.3 kg/m2 [facility] Work Phone: 08-11-2022 16:01-0500 Body temperature 98.6 [degF] [facility] Work Phone: 08-11-2022 16:01-0500 Body weight 57.6 kg [facility] Work Phone: 07-04-2022 15:18-0500 Body temperature 101.8 [degF] Chema Guzman CONVEYOR LINE BAKERY WORKER.AUTOCAD OPERATOR Work Phone: [facility] 07-04-2022 15:18-0500 Body weight 62.69 kg Chema Guzman CONVEYOR LINE BAKERY WORKER.AUTOCAD OPERATOR Work Phone: [facility] 07-04-2022 15:18-0500 Diastolic blood pressure 76 mm[Hg] Chema Guzman CONVEYOR LINE BAKERY WORKER.AUTOCAD OPERATOR Work Phone: [facility] 07-04-2022 15:18-0500 Heart rate 110 /min Chema Guzman CONVEYOR LINE BAKERY WORKER.AUTOCAD OPERATOR Work Phone: [facility] 07-04-2022 15:18-0500 Respiratory rate 18 /min Chema Guzman CONVEYOR LINE BAKERY WORKER.AUTOCAD OPERATOR Work Phone: [facility] 07-04-2022 15:18-0500 SaO2% (BldA) [Mass fraction] 98 % Chema Guzman CONVEYOR LINE BAKERY WORKER.AUTOCAD OPERATOR Work Phone: [facility] 07-04-2022 15:18-0500 Systolic blood pressure 118 mm[Hg] Chema Guzman APRN.AUTOCAD OPERATOR Work Phone: [facility] 06-21-2022 14:13-0500 Body temperature 100.6 [degF] Gretel Sánchez APRN.AUTOCAD OPERATOR Work Phone: [facility] 06-21-2022 14:13-0500 Body weight 62.51 kg Gretel Sánchez APRN.AUTOCAD OPERATOR Work Phone: [facility] 06-21-2022 14:13-0500 Diastolic blood pressure 66 mm[Hg] Gretel Sánchez APRN.AUTOCAD OPERATOR Work Phone: [facility] 06-21-2022 14:13-0500 Heart rate 107 /min Gretel áSnchez APRN.AUTOCAD OPERATOR Work Phone: [facility] 06-21-2022 14:13-0500 Respiratory rate 16 /min Gretel Sánchez APRN.AUTOCAD OPERATOR Work Phone: [facility] 06-21-2022 14:13-0500 SaO2% (BldA) [Mass fraction] 97 % Gretel Sánchez APRN.AUTOCAD OPERATOR Work Phone: [facility] 06-21-2022 14:13-0500 Systolic blood pressure 112 mm[Hg] Gretel Sánchez APRN.AUTOCAD OPERATOR Work Phone: [facility] 05-08-2022 15:24-0400 Body height 169.5 cm Wendi Anne PA-C Work Phone: [facility] 05-08-2022 15:24-0400 Body mass index (BMI) [Percentile] Per age and sex 57.11 % Wendi Anne PA-C Work Phone: [facility] 05-08-2022 15:24-0400 Body temperature 98.71 [degF] Wendi Anne PA-C Work Phone: [facility] 05-08-2022 15:24-0400 Body weight 61.6 kg Wendi Anne PA-C Work Phone: [facility] 05-08-2022 15:24-0400 Diastolic blood pressure 70 mm[Hg] Wendi Anne PA-C Work Phone: [facility] 05-08-2022 15:24-0400 Heart rate 80 /min Wendi Anne PA-C Work Phone: [facility] 05-08-2022 15:24-0400 Respiratory rate 20 /min Wendi Anne PA-C Work Phone: [facility] 05-08-2022 15:24-0400 Systolic blood pressure 110 mm[Hg] Wendi MARIO-Armando Work Phone: [facility] Encounters Encounter Date Encounter Type Care Provider Facility Start: 06-14-2025 End: 06-14-2025 ambulatory NIKKI TUCKER Facility:[facility] Start: 05-13-2025 End: 05-13-2025 ambulatory SMILEY SÁNCHEZ Facility:[facility] Start: 05-03-2025 End: 05-03-2025 ambulatory WENDI ANNE Facility:[facility] Start: 04-29-2025 End: 04-29-2025 ambulatory WANDA MORALES Facility:[facility] Start: 04-15-2025 End: 04-15-2025 Patient encounter procedure Wanda Morales MD Work Phone: OB/Gynecology Comment on above: Supervision of high risk in second trimester (HCC) (Primary Dx); 27 weeks gestation of (HCC) Start: 04-15-2025 End: 04-15-2025 ambulatory WANDA MORALES Facility:[facility] Start: 04-06-2025 End: 04-06-2025 Patient encounter procedure Gretel Sánchez APRN.CNP Work Phone: [facility] Comment on above: Urinary frequency (P rimary [...] Start: 03-18-2025 End: 03-18-2025 ambulatory WANDA MORALES Facility:[facility] Start: 02-15-2025 End: 04-17-2025 Follow-up encounter Ellen Foster PA-C Work Phone: [facility] Start: 02-14-2025 End: 02-14-2025 Office outpatient visit 25 minutes Ellen Chandrika LEDESMA Work Phone: [facility] Comment on above: Urinary frequency (P rimary Dx); Acute UTI; Urethral irritation Start: 02-14-2025 End: 02-14-2025 ambulatory WENDI ANNE Facility:[facility] Start: 02-11-2025 End: 02-11-2025 ambulatory DEYSI SETH Facility:[facility] Start: 02-11-2025 End: 02-11-2025 Patient encounter procedure Whi [employer] [facility] Comment on [...] Start: 01-17-2025 End: 01-17-2025 Telephone encounter Judy Reza MD Work Phone: OB/Gynecology Comment on above: OB-Dizziness Start: 01-12-2025 End: 01-12-2025 ambulatory LUIS CARRASCO Facility:[facility] Start: 01-12-2025 End: 01-12-2025 Patient encounter procedure Nikki Tucker MD Work Phone: OB/Gynecology Comment on above: Supervision of high risk in second trimester (HCC) (Primary Dx); Anxiety disorder affecting , antepartum (HCC); 13 weeks gestation of (HCC) Encounter for nuchal translucency testing (HCC) [Z36.82] (Primary Dx); with uncertain dates in first trimester (HCC) Start: 01-12-2025 End: 01-12-2025 ambulatory NIKKI TUCKER Facility:[facility] Start: 12-15-2024 End: 02-14-2025 Follow-up encounter Luis Carrasco APRN.CNP Work Phone: OB/Gynecology Start: 12-13-2024 End: 12-13-2024 E-mail encounter from caregiver Gómez Maguire Ob L&D Work Phone: [facility] Start: 12-13-2024 End: 12-20-2024 Telephone [...] Start: 12-13-2024 End: 12-13-2024 ambulatory LUIS CARRASCO Facility:[facility] Start: 11-25-2024 End: 11-25-2024 ambulatory SMILEY SÁNCHEZ Facility:[facility] Start: 11-24-2024 End: 11-24-2024 ambulatory [facility] Facility:[facility] Start: 11-23-2024 End: 11-23-2024 Telephone encounter Smiley Sánchez MD Work Phone: OB/Gynecology Comment on above: Early OB ER F/U Start: 11-18-2024 End: 11-19-2024 Emergency department patient visit [facility] Facility:[facility] Start: 10-29-2024 End: 10-29-2024 ambulatory [facility] Facility:[facility] Start: 10-29-2024 End: 10-29-2024 Office outpatient visit 15 minutes Artur Joy APRN.AUTOCAD OPERATOR Work Phone: [facility] Comment on above: Sore throat (Primary Dx); Dysuria; URI with cough and congestion Start: 10-27-2024 End: 10-27-2024 ambulatory [facility] [place] Start: 09-23-2024 End: 09-23-2024 ambulatory [facility] [place] Start: 09-23-2024 End: 09-23-2024 ambulatory [facility] Facility:[facility] Start: 08-25-2024 End: 08-25-2024 ambulatory [facility] [place] Start: 08-25-2024 End: 08-25-2024 ambulatory [facility] Facility:[facility] Start: 05-25-2024 End: 05-25-2024 Patient encounter procedure Gretel Sánchez APRN.AUTOCAD OPERATOR Work Phone: [facility] Comment on above: Strep throat (Primar y Dx) Start: 05-05-2024 End: 05-05-2024 Telephone encounter Sigrid Casarez APRN.AUTOCAD OPERATOR Work Phone: [facility] Comment on above: Medication Problem Start: 05-04-2024 End: 05-04-2024 Telephone encounter Gretel Sánchez APRN.AUTOCAD OPERATOR Work Phone: [facility] Comment on [...] encounter Wendi Juárez PA-C Work Phone: [facility] Comment on above: Results; Consult Start: 01-28-2024 End: 01-28-2024 Patient encounter procedure Wendi Anne PA-C Work Phone: [facility] Comment on above: Dizziness (Primary D x); Syncope, unspecified syncope type Start: 04-25-2023 End: 04-25-2023 ambulatory FABIANO Diazen Mario Work Phone: [facility] Work Phone: Start: 04-25-2023 End: 04-25-2023 Patient encounter procedure FABIANO Anne Work Phone: [facility] Work Phone: Start: 04-25-2023 End: 04-25-2023 Patient encounter procedure FABIANO Anne Work Phone: [facility] Work Phone: Start: 04-03-2023 Telephone encounter Sigrid Rogel CONVEYOR LINE BAKERY WORKER.AUTOCAD OPERATOR Work Phone: [facility] Comment on above: Results Start: 04-02-2023 Telephone encounter Gretel Sánchez CONVEYOR LINE BAKERY WORKER.AUTOCAD OPERATOR Work Phone: [facility] Comment on above: Results; Orders Start: 04-01-2023 End: 04-01-2023 Patient encounter procedure Deysi Paul CONVEYOR LINE BAKERY WORKER.AUTOCAD OPERATOR Work Phone: [facility] Comment on above: Dysuria (Primary Dx) ; Screening for STD (sexually transmitted disease) Start: 03-20-2023 End: 03-20-2023 Unlisted evaluation and management service Noreen Cutler CONVEYOR LINE BAKERY WORKER.AUTOCAD OPERATOR Work Phone: Neurology Comment on above: NO SHOW (Primary Dx) Start: 12-08-2022 Telephone encounter Jody MARIO Work Phone: [facility] Comment on above: Results Start: 12-07-2022 End: 12-07-2022 Patient encounter procedure Jody MARIO Work Phone: [facility] Comment on above: Vaginal discharge (P rimary Dx) Start: 12-02-2022 End: 12-02-2022 Patient encounter procedure Jody MARIO Work Phone: [facility] Comment on above: URI, acute (Primary Dx) Start: 11-07-2022 End: 11-07-2022 Patient encounter procedure Noreen Cutler CONVEYOR LINE BAKERY WORKER.AUTOCAD OPERATOR Work Phone: Neurology Comment on above: Severe episode of re current major depressive disorder, without psychotic features (HCC) (Primary Dx); Generalized anxiety disorder; Marijuana abuse Start: 10-22-2022 End: 10-22-2022 Patient encounter procedure Kindra MARIO-C Work Phone: [facility] Comment on above: Alternating constipa tion and diarrhea (Primary Dx); Abdominal cramping Start: 10-10-2022 End: 10-10-2022 Patient encounter procedure Noreen Cutler CONVEYOR LINE BAKERY WORKER.AUTOCAD OPERATOR Work Phone: Neurology Comment on above: Severe episode of re current major depressive disorder, without psychotic features (HCC) (Primary Dx); Generalized anxiety disorder; Marijuana abuse Start: 10-08-2022 Refill Wendi MARIO-C Work Phone: [facility] Comment on above: Refill Request Start: 09-16-2022 Telephone encounter Judy sanches MD Work Phone: OB/Gynecology Comment on above: Orders Start: 09-13-2022 End: 09-13-2022 Patient encounter procedure Wendi MARIO-Armando Work Phone: [facility] Comment on above: Major depressive epi sode (Primary Dx); Severe anxiety Vaginal itching (Caroline carson Dx); Screen for STD (sexually transmitted disease) Start: 08-11-2022 End: 08-12-2022 [facility] Start: 08-07-2022 ambulatory Wendi Anne PA-C Work Phone: [facility] Comment on above: Prozac increase Start: 07-18-2022 Telephone encounter Wendi HammC Work Phone: [facility] Comment on above: work permit Start: 07-04-2022 End: 07-04-2022 Patient encounter procedure Chema Guzman CONVEYOR LINE BAKERY WORKER.AUTOCAD OPERATOR Work Phone: [facility] Comment on above: Sore throat (Primary Dx) Start: 06-21-2022 End: 06-21-2022 Patient encounter procedure Gretel Sánchez CONVEYOR LINE BAKERY WORKER.AUTOCAD OPERATOR Work Phone: [facility] Comment on above: Sore throat (Primary Dx) Start: 05-10-[address] out PA-C Work Phone: [facility] Comment on above: Results Start: 05-08-2022 End: 05-08-2022 Patient encounter procedure Wendi Anne PA-C Work Phone: [facility] Comment on above: Major depressive epi sode (Primary Dx); Severe anxiety; Malaise and fatigue Start: 01-14-[address] out PA-C Work Phone: [facility] Comment on above: Results; Consult Start: 05-07-2021 End: 05-07-2021 Subsequent hospital visit by physician [facility] Work Phone: Radiology Comment on above: Cough [R05.9] Start: 02-13-2018 Patient encounter CHANELL BRANTLEY Faci lity:[id number] Procedures Date Procedure Procedure Detail Performing Clinician Start: 04-06-2025 Urnls dip stick/tabl et rgnt auto w/o microscopy Gretel Sánchez CONVEYOR LINE BAKERY WORKER.AUTOCAD OPERATOR Work Phone: Start: 02-14-2025 Urnls dip stick/tabl et rgnt auto w/o microscopy Deysi Paul CONVEYOR LINE BAKERY WORKER.AUTOCAD OPERATOR Work Phone: Start: 02-11-2025 Us preg uterus after 1st trimest 08/04 gestation Luis Carrasco CONVEYOR LINE BAKERY WORKER.AUTOCAD OPERATOR Work Phone: Start: 01-12-2025 Antibody screen MONIE MORALES Comment on above: Order Comment: Speci men Type: BLOOD SPECIMEN Ordering Facility: [facility] Address: [address] [place] [address] Performed By: #### R UBIGG #### [facility] CLIA [id number] [address] [place] [address] [place] Start: 01-12-2025 Us preg uterus after 1st trimest 08/04 gestation Luis Danilo CONVEYOR LINE BAKERY WORKER.AUTOCAD OPERATOR Work Phone: Start: 12-13-2024 Us uterus l imited fetuses Luis Danilo CONVEYOR LINE BAKERY WORKER.AUTOCAD OPERATOR Work Phone: Start: 10-29-2024 UA DIP,URINE HCG (POC) [facility] Provider Start: 10-29-2024 Urnls dip stick/tabl et rgnt auto w/o microscopy Artur Joy CONVEYOR LINE BAKERY WORKER.AUTOCAD OPERATOR Work Phone: Start: 10-29-2024 STREP A MOLECULAR (POC) Artur Joy CONVEYOR LINE BAKERY WORKER.AUTOCAD OPERATOR Work Phone: Start: 05-25-2024 STREP A MOLECULAR (POC) [facility] Provider Start: 05-03-2024 Urnls dip stick/tabl et rgnt auto w/o microscopy Deysi Paul CONVEYOR LINE BAKERY WORKER.AUTOCAD OPERATOR Work Phone: Start: 02-04-2024 Ecg routine ecg w/le ast 12 lds i&r only [facility] Provider Start: 04-01-2023 Urnls dip stick/tabl et rgnt auto w/o microscopy Alysha Carvalho CONVEYOR LINE BAKERY WORKER.AUTOCAD OPERATOR Work Phone: Start: 12-19-2022 Adult depression scr eening assessment Noreen Cutler CONVEYOR LINE BAKERY WORKER.AUTOCAD OPERATOR Work Phone: Start: 09-13-2022 BACTERIAL VAGINOSIS AMPLIFICATION Judy Reza MD Work Phone: Start: 09-13-2022 Iadna chlamydia trac homatis amplified probe tq Judy Reza MD Work Phone: Start: 09-13-2022 Adult depression scr eening assessment Wendi Anne PA-C Work Phone: Start: 07-04-2022 End: 07-04-2022 STREP A MOLECULAR (POC) [facility] Provider Start: 06-26-2022 Adult depression scr eening assessment Chema Guzman APRN.AUTOCAD OPERATOR Work Phone: Start: 06-21-2022 STREP A MOLECULAR (POC) Gretel Sánchez APRN.AUTOCAD OPERATOR Work Phone: Start: 06-05-2022 Adult depression scr eening assessment Gretel Sánchez APRN.AUTOCAD OPERATOR Work Phone: Start: 05-08-2022 Adult depression scr eening assessment Wendi Anne PA-C Work Phone: Start: 01-12-2022 Adult depression scr eening assessment Wendi Anne PA-C Work Phone: Start: 05-07-2021 Radiologic exam ches t 2 views Kindra Pinzon PA-C Work Phone: Viral antigen assay Plan of Treatment Date Care Activity Detail Author Start: 01-02-2028 Urine microalbumin profile [facility] Start: 02-14-2026 GC (Gonorrhea) Scree heather (18-24) GC (Gonorrhea) Screening (18-24) [facility] Start: 02-14-2026 Screening for Chlamy ashanti trachomatis Chlamydia Screening (18-24) [facility] Start: 12-13-2025 GC (Gonorrhea) Scree heather (18-24) GC (Gonorrhea) Screening (18-24) [facility] Start: 12-13-2025 Screening for Chlamy ashanti trachomatis Chlamydia Screening (18-24) [facility] Start: 05-19-2025 RSV Vaccine (1 - Ris k 1-dose series) RSV Vaccine (1 - Risk 1-dose series) [facility] Start: 05-13-2025 End: 05-13-2025 Patient encounter procedure 05/13/2025 10:50 AM EDT Routine Office Visit OB/Gynecology [address] [place] [address] Smiley Sánchez MD [address] [place] [id number] OB OB/Gynecology Comment on above: OB Start: 05-03-2025 GC (Gonorrhea) Alex romero (18-24) GC (Gonorrhea) Screening (18-) [facility] Start: 05-03-2025 Screening for Chlamy ashanti trachomatis Chlamydia Screening () [facility] Start: 04-22-2025 End: 04-22-2025 ambulatory 04/22/2025 9:00 AM EDT Results Only [facility] [place] [facility] [address] [place] [address] 3 hr glucose [facility] Comment on above: 3 hr glucose Start: 04-15-2025 End: 04-15-2025 Patient encounter procedure 04/15/2025 9:50 AM EDT Routine Office Visit OB/Gynecology [address] [place] [address] Wanda Morales MD [address] [place] [address] OB OB/Gynecology Comment on above: OB Start: 04-04-2025 Influenza vaccination C [facility] Start: 03-18-2025 End: 06-17-2025 ANEMIA REFLEX PANEL ANEMIA REFLEX PANEL Lab Routine Screening for diabetes mellitus Expected: 03/18/2025, Expires: 06/17/2025 [facility] Comment on above: Expected: 03/18/2025 , Expires: 06/17/2025 Start: 03-18-2025 End: 03-18-2026 GESTATIONAL GLUCOSE SCREEN, 1-HOUR, 50 GRAM, NON-FASTING GESTATIONAL GLUCOSE SCREEN, 1-HOUR, 50 GRAM, NON-FASTING Lab Routine Screening for diabetes mellitus Expected: 03/18/2025, Expires: 03/18/2026 [facility] Work Phone: Comment on above: Expected: 03/18/2025 , Expires: 03/18/2026 Start: 03-18-2025 End: 03-18-2026 SYPHILIS TREPONEMAL W/REFLEX SYPHILIS TREPONEMAL W/REFLEX Lab Routine Screening for diabetes mellitus Expected: 03/18/2025, Expires: 03/18/2026 [facility] Comment on above: Expected: 03/18/2025 , Expires: 03/18/2026 Start: 03-10-2025 End: 03-10-2025 Patient encounter procedure 03/10/2025 9:40 AM EDT Routine Office Visit OB/Gynecology [address] [place] [address] Wanda Morales MD [address] [place] [address] OB OB/Gynecology Comment on above: OB Start: 02-14-2025 End: 05-16-2025 Chlamydia trachomatis+Neisseria gonorrhoeae DNA [Presence] in Unspecified specimen by SHELBY with probe detection [facility] Work Phone: Comment on above: Expected: 02/14/2025 , Expires: 05/16/2025 Start: 02-14-2025 End: 02-14-2025 Patient encounter procedure Maternal Medicine Comment on above: anatomy Ob Start: 02-11-2025 End: 02-11-2025 Patient encounter procedure 02/11/2025 2:30 PM EDT Routine Office Visit OB/Gynecology [address] [place] [address] Deysi Seth APRN.CN [address] [place] [address] 4 wkk f/u VISHNU OB/Gynecology Comment on [...] second trimester (HCC) Expected: 01/12/2025, Expires: 01/12/2026 [facility] Work Phone: Comment on above: Expected: 01/12/2025 , Expires: 01/12/2026 Start: 12-13-2024 End: 03-14-2025 ANEMIA REFLEX PANEL ANEMIA REFLEX PANEL Lab Routine with uncertain dates in first trimester (HCC) Expected: 12/13/2024, Expires: 03/14/2025 [facility] Work Phone: Comment on above: Expected: 12/13/2024 , Expires: 03/14/2025 Start: 12-13-2024 End: 03-14-2025 Hemoglobin A1c in Blood HEMOGLOBIN A1C Lab Routine with uncertain dates in first trimester (HCC) Expected: 12/13/2024, Expires: 03/14/2025 [facility] Comment on above: Expected: 12/13/2024 , Expires: 03/14/2025 Start: 12-13-2024 End: 03-14-2025 Hepatitis B virus surface Ag [Presence] in Serum HEPATITIS B SURFACE ANTIGEN Lab Routine with uncertain dates in first trimester (HCC) Expected: 12/13/2024, Expires: 03/14/2025 [facility] Comment on above: Expected: 12/13/2024 , Expires: 03/14/2025 Start: 12-13-2024 End: 03-14-2025 Hepatitis C virus Ab [Presence] in Serum HEPATITIS C ANTIBODY IA WITH CONFIRMATION Lab Routine with uncertain dates in first trimester (HCC) Expected: 12/13/2024, Expires: 03/14/2025 [facility] Comment on above: Expected: 12/13/2024 , Expires: 03/14/2025 Start: 12-13-2024 End: 03-14-2025 HIV 1+2 Ab [Presence] in Serum or Plasma by Immunoassay HIV 1/2 COMBO WITH REFLEX TO DIFFERENTIATION Lab Routine with uncertain dates in first trimester (HCC) Expected: 12/13/2024, Expires: 03/14/2025 [facility] Comment on above: Expected: 12/13/2024 , Expires: 03/14/2025 Start: 12-13-2024 End: 12-13-2025 OBSTETRIC ULTRASOUND WHI OBSTETRIC ULTRASOUND WHI Anc Imaging Routine with uncertain dates in first trimester (HCC) Expected: 12/13/2024, Expires: 12/13/2025 [facility] Comment on above: Expected: 12/13/2024 , Expires: 12/13/2025 Start: 12-13-2024 End: 03-14-2025 RUBELLA IGG ANTIBODY RUBELLA IGG ANTIBODY Lab Routine with uncertain dates in first trimester (HCC) Expected: 12/13/2024, Expires: 03/14/2025 [facility] Comment on above: Expected: 12/13/2024 , Expires: 03/14/2025 Start: 12-13-2024 End: 03-14-2025 SYPHILIS TREPONEMAL W/REFLEX SYPHILIS TREPONEMAL W/REFLEX Lab Routine with uncertain dates in first trimester (HCC) Expected: 12/13/2024, Expires: 03/14/2025 [facility] Comment on above: Expected: 12/13/2024 , Expires: 03/14/2025 Start: 12-13-2024 End: 03-14-2025 TYPE + SCREEN TYPE + SCREEN Blood Bank Routine with uncertain dates in first trimester (HCC) Expected: 12/13/2024, Expires: 03/14/2025 [facility] Comment on above: Expected: 12/13/2024 , Expires: 03/14/2025 Start: 12-13-2024 End: 12-13-2024 Patient encounter procedure 12/13/2024 11:00 AM EDT Initial Office Visit OB/Gynecology [address] [place] [address] Luis Carrasco APRN.AUTOCAD OPERATOR [address] [place] [address] New OB LMP 10/07/24 OB/Gynecology Comment on above: New OB LMP 10/07/24 Start: 11-25-2024 End: 11-25-2024 Patient encounter procedure 11/25/2024 9:00 AM EDT Office Visit OB/Gynecology [address] [place] [address] Smiley Sánchez MD [address] [place] [address] HCG f/u - [facility] HCG in scanned documents OB/Gynecology Comment on above: HCG f/u - [facility] HCG in scanned documents Start: 2024 Pneumococcal vaccination Pneum ococcal Vaccine (1 of 2 - PCV) [facility] Start: 05-03-2024 End: 08-02-2024 Hepatitis B virus surface Ag [Presence] in Serum [facility] Comment on above: Expected: 05/03/2024 , Expires: 08/02/2024 Start: 05-03-2024 End: 08-02-2024 Hepatitis C virus Ab [Presence] in Serum [facility] Comment on above: Expected: 05/03/2024 , Expires: 08/02/2024 Start: 05-03-2024 End: 08-02-2024 Herpes simplex virus+Varicella zoster virus DNA [Presence] in Unspecified specimen by SHELBY with probe detection HSV1,2/VZV [facility] Lab Routine Vaginal discomfort Expected: 05/03/2024, Expires: 08/02/2024 [facility] Comment on above: Expected: 05/03/2024 , Expires: 08/02/2024 Start: 05-03-2024 End: 08-02-2024 HIV 1+2 Ab [Presence] in Serum or Plasma by Immunoassay [facility] Comment on above: Expected: 05/03/2024 , Expires: 08/02/2024 Start: 05-03-2024 End: 08-02-2024 SYPHILIS TOTAL W/REFLEX [facility] Comment on above: Expected: 05/03/2024 , Expires: 08/02/2024 Start: 04-04-2024 Covid-19 Vaccine ( season) Covid-19 Vaccine ( season) [facility] Start: 04-04-2024 Influenza vaccination C [facility] Start: 04-01-2024 CHLAMYDIA SCREENING (<18) CHLA MYDIA SCREENING (<18) [facility] Start: 04-01-2024 GC (Gonorrhea) Scree heather (18-24) GC (Gonorrhea) Screening (18-24) [facility] Start: 04-01-2024 GC (GONORRHEA) SCREE HEATHER (<18) GC (GONORRHEA) SCREENING (<18) [facility] Start: 04-01-2024 Screening for Chlamy ashanti trachomatis Chlamydia Screening (18-24) [facility] Start: 03-15-2024 End: 03-15-2024 Patient encounter procedure 03/15/2024 10:20 AM EDT Office Visit Cardiology [address] [place] [id number] Lyubov Perez MD [address] [place] [address] follow up echo Cardiology Comment on above: follow up echo Start: 03-08-2024 End: 03-08-2024 Patient encounter procedure 03/08/2024 1:50 PM EDT Office Visit Cardiology [address] [place] [id number] Syncope, unspecified syncope type [R55] Cardiology Comment on above: Syncope, unspecified syncope type [R55] Start: 02-04-2024 End: 02-03-2025 Echocardiography ECHO Cardiology Routine Syncope, unspecified syncope type Expected: 02/04/2024, Expires: 02/03/2025 [facility] Comment on above: Expected: 02/04/2024 , Expires: 02/03/2025 Start: 02-04-2024 End: 02-04-2024 Patient encounter procedure 02/04/2024 11:00 AM EDT Office Visit Cardiology [address] [place] [id number] Lyubov Perez MD [address] [place] [address] Syncope, unspecified syncope type [R55] Cardiology Comment on above: Syncope, unspecified syncope type [R55] Start: 12-20-2023 Adult depression screening assessment DEPRESSION SCREENING [facility] Start: 12-08-2023 CHLAMYDIA SCREENING (<18) CHLA MYDIA SCREENING (<18) [facility] Start: 12-08-2023 GC (GONORRHEA) SCREE HEATHER (<18) GC (GONORRHEA) SCREENING (<18) [facility] Start: 09-13-2023 Adult depression screening assessment DEPRESSION SCREENING [facility] Start: 09-13-2023 CHLAMYDIA SCREENING (<18) CHLA MYDIA SCREENING (<18) [facility] Start: 09-13-2023 GC (GONORRHEA) SCREE HEATHER (<18) GC (GONORRHEA) SCREENING (<18) [facility] Start: 06-26-2023 Adult depression screening assessment DEPRESSION SCREENING [facility] Start: 06-05-2023 Adult depression screening assessment DEPRESSION SCREENING [facility] Start: 05-08-2023 Adult depression screening assessment DEPRESSION SCREENING [facility] Start: 04-04-2023 Covid-19 Vaccine () Covid-19 Vaccine () [facility] Start: 04-04-2023 Influenza vaccination C [facility] [place] Start: 01-12-2023 Adult depression screening assessment DEPRESSION SCREENING [facility] Start: 10-10-2022 End: 12-10-2022 TOX SCREEN ROUT UR TOX SCREEN ROUT UR Lab Routine Marijuana abuse Expected: 10/10/2022, Expires: 12/10/2022 [facility] Work Phone: Comment on above: Expected: 10/10/2022 , Expires: 12/10/2022 Start: 08-11-2022 Suicide precautions [place] [facility] Work Phone: Start: 05-15-2022 CHLAMYDIA SCREENING (<18) CHLA MYDIA SCREENING (<18) [facility] Start: 05-15-2022 GC (GONORRHEA) SCREE HEATHER (<18) GC (GONORRHEA) SCREENING (<18) [facility] Start: 05-08-2022 End: 07-08-2022 25-hydroxyvitamin D3 [Mass/volume] in Serum or Plasma [facility] Work Phone: Comment on above: Expected: 05/08/2022 , Expires: 07/08/2022 Start: 05-08-2022 End: 07-08-2022 Ferritin [Mass/volume] in Serum or Plasma [facility] Work Phone: Comment on above: Expected: 05/08/2022 , Expires: 07/08/2022 Start: 05-08-2022 End: 07-08-2022 Iron and Iron binding capacity panel - Serum or Plasma [facility] Work Phone: Comment on above: Expected: 05/08/2022 , Expires: 07/08/2022 Start: 05-08-2022 End: 07-08-2022 Thyrotropin [Units/volume] in Serum or Plasma [facility] Work Phone: Comment on above: Expected: 05/08/2022 , Expires: 07/08/2022 Start: 05-08-2022 End: 07-08-2022 Thyroxine (T4) free [Mass/volume] in Serum or Plasma [facility] Work Phone: Comment on above: Expected: 05/08/2022 , Expires: 07/08/2022 Start: 04-04-2022 Influenza vaccination C [facility] [place] Start: 2021 Meningococcal B Vacc ine (1 of 2 - Standard) Meningococcal B Vaccine (1 of 2 - Standard) [facility] Start: 2021 Meningococcal B Vacc ine: Consider Based On Risk (1 of 2 - Patient Seeks Protection) Meningococcal B Vaccine: Consider Based On Risk (1 of 2 - Patient Seeks Protection) [facility] Start: 2021 MENINGOCOCCAL B: Con cutter barrel drum based on risk (1 of 2 - Patient Seeks Protection) MENINGOCOCCAL B: Consider based on risk (1 of 2 - Patient Seeks Protection) [facility] Start: 2019 PEDS TO ADULT TRANSI TION ANNUAL ASSESSMENT PEDS TO ADULT TRANSITION ANNUAL ASSESSMENT [facility] Start: 2015 MENINGOCOCCAL B: Con cutter barrel drum based on risk (1 of 2 - Risk Bexsero 2-dose series) MENINGOCOCCAL B: Consider based on risk (1 of 2 - Risk Bexsero 2-dose series) [facility] Start: 2010 COVID-19 VACCINE (#1) COVID-19 VACCI NE (#1) [facility] Start: 2005 COVID-19 VACCINE (#1) COVID-19 VACCI NE (#1) [facility] ALERE STREP A TEST (AG) ALERE ST REP A TEST (AG) Lab Routine Sore throat Ordered: 07/04/2022 [facility] Work Phone: Comment on above: Ordered: 07/04/2022 Bacteria identified in Urine by Culture URINE CULTURE Microbiology Routine Dysuria 04/01/2023 5:41 PM EDT [facility] Work Phone: Bacteria identified in Urine by Culture URINE CULTURE Microbiology Routine Dysuria Ordered: 05/03/2024 [facility] Work Phone: Comment on above: Ordered: 05/03/2024 Bacteria identified in Urine by Culture BACTERIAL CULTURE, URINE Microbiology Routine with uncertain dates in first trimester ([facility]) 12/13/2024 11:48 AM EDT [facility] Bacteria identified in Urine by Culture BACTERIAL CULTURE, URINE Microbiology Routine Acute UTI 02/14/2025 5:14 PM EDT [facility] Bacteria identified in Urine by Culture BACTERIAL CULTURE, URINE Microbiology Routine Supervision of high risk in second trimester ([facility]) 27 weeks gestation of ([facility]) 04/15/2025 10:10 AM EDT [facility] Work Phone: BACTERIAL VAGINOSIS AMPLIFICATION BACTERIAL VAGINOSIS AMPLIFICATION Lab Routine Vaginal discharge Ordered: 12/07/2022 [facility] Work Phone: Comment on above: Ordered: 12/07/2022 BACTERIAL VAGINOSIS NAAT BACTERI AL VAGINOSIS NAAT Lab Routine 04/01/2023 6:15 PM EDT [facility] Work Phone: BACTERIAL VAGINOSIS NAAT BACTERI AL VAGINOSIS NAAT Lab Routine Dysuria Vaginal discomfort 05/03/2024 10:21 AM EDT [facility] BACTERIAL VAGINOSIS NAAT BACTERI AL VAGINOSIS NAAT Lab Routine Urethral irritation 02/14/2025 5:14 PM EDT [facility] KARL / TRICHOMONA S AMPLIFICATION KARL / TRICHOMONAS AMPLIFICATION Microbiology Routine Vaginal discharge Ordered: 12/07/2022 [facility] Work Phone: Comment on above: Ordered: 12/07/2022 KARL/TRICHOMONAS NAAT KARL /TRICHOMONAS NAAT Lab Routine 04/01/2023 6:15 PM T [facility] Work Phone: KARL/TRICHOMONAS NAAT KARL /TRICHOMONAS NAAT Lab Routine Dysuria Vaginal discomfort 05/03/2024 10:21 AM EDT [facility] KARL/TRICHOMONAS NAAT KARL /TRICHOMONAS NAAT Lab Routine Urethral irritation 02/14/2025 5:14 PM EDT [facility] Chlamydia trachomatis+Neisseria gonorrhoeae DNA [Presence] in Unspecified specimen by SHELBY with probe detection GC/CHLAMYDIA DNA DET Lab Routine Vaginal discharge Ordered: 12/07/2022 [facility] Work Phone: Comment on above: Ordered: 12/07/2022 Chlamydia trachomatis+Neisseria gonorrhoeae DNA [Presence] in Unspecified specimen by SHELBY with probe detection GONORRHEA/CHLAMYDIA NAAT Lab Routine 04/01/2023 6:15 PM EDT [facility] Work Phone: Chlamydia trachomatis+Neisseria gonorrhoeae DNA [Presence] in Unspecified specimen by SHELBY with probe detection GONORRHEA/CHLAMYDIA NAAT Lab Routine Dysuria Vaginal discomfort 05/03/2024 10:19 AM T [facility] Chlamydia trachomatis+Neisseria gonorrhoeae DNA [Presence] in Unspecified specimen by SHELBY with probe detection GONORRHEA/CHLAMYDIA NAAT Lab Routine with uncertain dates in first trimester ([facility]) 12/13/2024 11:48 AM EDT [facility] ECG COMPLETE ECG COMPLETE ECG 02/04/2024 11:09 AM T [facility] OUTSIDE VENDOR CARDI AC OUTPATIENT EXTENDED RHYTHM RECORDING (WITHOUT TELEMETRY) OUTSIDE VENDOR CARDIAC OUTPATIENT EXTENDED RHYTHM RECORDING (WITHOUT TELEMETRY) Holter Routine Syncope, unspecified syncope type Ordered: 02/04/2024 [facility] Work Phone: Comment on above: Ordered: 02/04/2024 Patient Education ED Drug Abuse [facility] Work Phone: Patient referral [facility] Work Phone: TRICHOMONAS VAGINALI S NAAT TRICHOMONAS VAGINALIS NAAT Lab Routine with uncertain dates in first trimester (HCC) Screen for STD (sexually transmitted disease) 12/13/2024 11:48 AM T [facility] Urine test visual color cmprsn meths HCG QUAL UR B/O Lab Routine Dysuria Ordered: 10/29/2024 [facility] Work Phone: Comment on above: Ordered: 10/29/2024 [facility] Immunizations Immunization Date Immunization Notes Care Provider Sommer dunbar 01-12-2022 meningococcal polysaccharide (groups A, C, Y and W-135) diphtheria toxoid conjugate vaccine (MCV4P) Wendi Anne PA-C Work Phone: [facility] 06-20-2021 rabies vaccine, for intramuscular injection Wendi Anne PA-C Work Phone: [facility] 06-13-2021 rabies vaccine, for intramuscular injection Wendi Anne PA-C Work Phone: [facility] 06-09-2021 rabies vaccine, for intramuscular injection Wendi Anne PA-C Work Phone: [facility] 06-06-2021 rabies immune globulin Krist en Anne PA-C Work Phone: [facility] 06-06-2021 rabies vaccine, for intramuscular injection Wendi Anne PA-C Work Phone: [facility] 01-04-2019 Human Papillomavirus 9-valent vaccine Wendi Anne PA-C Work Phone: [facility] 01-01-2018 Human Papillomavirus 9-valent vaccine Wendi Anne PA-C Work Phone: [facility] 01-01-2018 meningococcal polysaccharide (groups A, C, Y and W-135) diphtheria toxoid conjugate vaccine (MCV4P) Wendi Cifuentesut PA-C Work Phone: [facility] 01-01-2018 tetanus toxoid, redu kaila diphtheria toxoid, and acellular pertussis vaccine, adsorbed Wendi Anne PA-C Work Phone: [facility] 04-17-2017 tetanus toxoid, redu kaila diphtheria toxoid, and acellular pertussis vaccine, adsorbed Wendi Anne PA-C Work Phone: [facility] Work Phone: 08-24-2010 diphtheria, tetanus toxoids and acellular pertussis vaccine Wendi Anne PA-C Work Phone: [facility] 08-24-2010 influenza virus vacc ine, unspecified formulation Wendi Anne PA-C Work Phone: [facility] 08-24-2010 measles, mumps and rubella virus vaccine Wendi Anne PA-C Work Phone: [facility] 08-24-2010 poliovirus vaccine, inactivated Wendi Anne PA-C Work Phone: [facility] 08-24-2010 varicella virus vaccine Fredy dannie Anne PA-C Work Phone: [facility] 08-24-2009 influenza virus vacc ine, unspecified formulation Wendi Anne PA-C Work Phone: [facility] Work Phone: 06-22-2007 hepatitis A vaccine, unspecified formulation Wendi Anne PA-C Work Phone: [facility] Work Phone: 06-22-2007 influenza virus vacc ine, unspecified formulation Wendi Anne PA-C Work Phone: [facility] Work Phone: 12-11-2006 diphtheria, tetanus toxoids and acellular pertussis vaccine Wendi Anne PA-C Work Phone: [facility] Work Phone: 12-11-2006 haemophilus influenz ae type b vaccine, HbOC conjugate Wendi Anne PA-C Work Phone: [facility] Work Phone: 12-11-2006 hepatitis A vaccine, unspecified formulation Wendi Anne PA-C Work Phone: [facility] Work Phone: 07-03-2006 influenza virus vacc ine, unspecified formulation Wendi Anne PA-C Work Phone: [facility] Work Phone: 07-03-2006 influenza virus vacc ine, whole virus Wendi Anne PA-C Work Phone: [facility] Work Phone: 07-03-2006 pneumococcal conjuga te vaccine, 7 valent Wendi Anne PA-C Work Phone: [facility] Work Phone: 06-02-2006 influenza virus vacc ine, unspecified formulation Wendi Anne PA-C Work Phone: [facility] Work Phone: 06-02-2006 influenza virus vacc ine, whole virus Wendi Anne PA-C Work Phone: [facility] Work Phone: 06-02-2006 measles, mumps and rubella virus vaccine Wendi Anne PA-C Work Phone: [facility] Work Phone: 06-02-2006 varicella virus vaccine Fredyalen pandey Anne PA-C Work Phone: [facility] Work Phone: 2005 DTaP-hepatitis B and poliovirus vaccine Wendi Anne PA-C Work Phone: [facility] Work Phone: 2005 haemophilus influenz ae type b vaccine, HbOC conjugate Wendi Anne PA-C Work Phone: [facility] Work Phone: 2005 pneumococcal conjuga te vaccine, 7 valent Wendi Anne PA-C Work Phone: [facility] Work Phone: 2005 DTaP-hepatitis B and poliovirus vaccine Wendi Anne PA-C Work Phone: [facility] Work Phone: 2005 haemophilus influenz ae type b vaccine, HbOC conjugate Wendi Anne PA-C Work Phone: [facility] Work Phone: 2005 pneumococcal conjuga te vaccine, 7 valent Wendi Anne PA-C Work Phone: [facility] Work Phone: 2005 DTaP-hepatitis B and poliovirus vaccine Wendi MARIO-Armando Work Phone: [facility] Work Phone: 2005 haemophilus influenz ae type b vaccine, HbOC conjugate Wendi MARIO-C Work Phone: [facility] Work Phone: 2005 pneumococcal conjuga te vaccine, 7 valent Wendi Anne PA-C Work Phone: [facility] Work Phone: 2005 hepatitis B vaccine, pediatric or pediatric/adolescent dosage Wendi MARIO-Armando Work Phone: [facility] Work Phone: Payers Date Payer Category Payer Unknown [id number] 2024 Self-pay [id number] 2022 Blue Cross Blue Shield [id number] 2022 Unknown [employer] BLUE CARD PPO OOS [id number] 2022-Present [phone] [address] [place] [address] PPO [id number] 2022 Unknown [id number] 2018 Medicaid [employer]ICA[employer] [id number] 2018-Present [phone] [address] [place] [address] Medicaid [id number] 2018 Medicaid [id number] 2016 Unknown [facility] PL[facility] [id number] Private Health Insurance [place] [address] [id number] Unknown [id number] Unknown YELENA [id number] Unknown [id number] Unknown [id number] Unknown [id number] Unknown [id number] Unknown [id number] Unknown [id number] Unknown [id number] Unknown [id number] Social History Date Type Detail Facility Start: 05-08-2022 End: 12-13-2024 Tobacco smoking status NHIS Never smoked tobacco [facility] Work Phone: Start: 05-05-2021 End: 01-12-2022 Alcohol intake Not Asked [facility] Start: 01-08-2022 History SDOH Physical Activity DPW 1 [facility] Start: 01-08-2022 History SDOH Financial 3 [facility] Start: 01-08-2022 History SDOH Food Worry 2 [facility] Start: 08-24-2009 End: 05-08-2022 Tobacco Comment outside [facility] Start: 2005 Sex Assigned At Not on file [facility] Start: 01-02-2022 End: 07-04-2022 Exposure to SARS-CoV-2 (event) Not sure [facility] History of tobacco use Passive smoker [facility] Work Phone: Start: 05-08-2022 End: 12-13-2024 Tobacco use and exposure Smokeless tobacco non-user [facility] Work Phone: Start: 08-11-2022 End: 04-25-2023 Tobacco smoking status NHIS Unknown if ever smoked [facility] Start: 2005 Sex Assigned At Female [facility] Start: 10-10-2022 End: 02-04-2024 Tobacco smoking status NHIS Smokes tobacco daily [facility] Work Phone: Start: 10-10-2022 End: 02-14-2025 Alcohol intake Lifetime non-drinker (finding) [facility] Start: 01-12-2022 End: 12-19-2022 History of Social function [facility] Start: 01-12-2022 End: 12-19-2022 Tobacco use panel [facility] How hard is it for y ou to pay for the very basics like food, housing, medical care, and heating Somewhat hard [facility] (I/We) worried wheth er (my/our) food would run out before (I/we) got money to buy more. Sometimes true [facility] Start: 07-05-2012 In the past 12 months, has lack of transportation kept you from medical appointments or from getting medications? No [facility] Start: 04-07-2021 End: 05-07-2021 In the past 12 months, was there a time when you were not able to pay the mortgage or rent on time? Yes [facility] At any time in the p ast 12 months, were you homeless or living in jail [including now]? No [facility] Are you now , , , , never or living with a partner? Living with partner [facility] Do you feel stress - tense, restless, nervous, or anxious, or unable to sleep at night because your mind is troubled all the time - these days [OSQ] Very much [facility] Start: 06-07-2023 Gender identity Identifies as female gender (finding) [facility] Start: 06-07-2023 Sexual orientation Bisexual (finding) [facility] Start: 12-09-2024 Education 13 [facility] Start: 10-21-2024 [facility] Goals Date Patient Goal Desired Activity /State Personal health goal Functional Status Date Assessment Result Facility 02-28-2015 Are you deaf, or do you have serious difficulty hearing No 02/28/2015 8:31 AM EDT Jeronimo Peter Cma L No [facility] 02-28-2015 Are you blind, or do you have serious difficulty seeing, even when wearing glasses No 02/28/2015 8:31 AM EDT Hardik Peter Cmai L No [facility] 02-28-2015 Do you have serious difficulty walking or climbing stairs No 02/28/2015 8:31 AM EDT Jeronimo Peter Cma L No [facility] 02-28-2015 Do you have difficul ty dressing or bathing No 02/28/2015 8:31 AM EDT Hardik Peter Cmai L No [facility] Mental Status Date Assessment Result Facility 02-28-2015 Because of a physica l, mental, or emotional condition, do you have serious difficulty concentrating, remembering, or making decisions No 02/28/2015 8:31 AM EDT Hardik Peter Cmai L No [facility] Clinical Notes 2005 to 05-03-2025 Quick Notes - Wanda Morales MD - 04/15/2025 10:08 AM EDTPrenatal Quick Notes - Wanda Morales MD - 04/15/2025 10:08 AM EDTPatient InstructionsPatient InstructionsPatient Instructions Note Date & Type Note Facility 05-03-2025 Note HNO ID: [id number] Author: WENDI ANNE PA-C Service: ? Author Type: Physician Production Gear Cutter Type: Progress Notes Filed: 05/03/2025 10:40 Note Text: MEET THE CNC SERVICE ENGINEER VISIT Abbe is a 19 year old female who presents today for a meet and greet visit. Concerns: Mother currently a patient of the practice and wants to ensure her child can be seen once he is born and she is no longer a patient. Additionally has a paternity test she ordered off [employer]. Questioning whether an order can be placed for her to have a blood draw to utilize for her home test. G 1 / P0, due to deliver on July 14. Plans to deliver at [facility]. gender: Male. complicated by History of PTSD, Anxiety, Nicotine Use, Marijuana Use, Nausea/Vomiting, and Constipation. Maternal screens: Negative. Oriented to practice: Discussed choosing a business professor, circumcision, expected course, and what to expect at first visit. Discussed first visit in office within 2-3 days of discharge. Discussed that I am unable to order blood test for home paternity test. Reviewed potential options. I spent a total of 20+ minutes on the date of the service which included preparing to see the patient, [id number] patient care, completing clinical documentation, obtaining and/or reviewing separately obtained history, performing a medically appropriate examination, and counseling and educating the patient/family/caregiver. Wendi Anne PA-C [facility] 04-15-2025 Progress note Formatting of t his [...] Supervision of high risk in second trimester ([facility]) - ICD9: V23.9, ICD10: O09.92 (primary diagnosis) - BACTERIAL CULTURE, URINE 2. 27 weeks gestation of ([facility]) - ICD9: V22.2, ICD10: Z3A.27 - BACTERIAL CULTURE, URINE Wanda Morales MD [facility] 04-15-2025 Miscellaneous Notes S: Abbe Faustin is [...] Supervision of high risk in second trimester ([facility]) - ICD9: V23.9, ICD10: O09.92 (primary diagnosis) - BACTERIAL CULTURE, URINE 2. 27 weeks gestation of ([facility]) - ICD9: V22.2, ICD10: Z3A.27 - BACTERIAL CULTURE, URINE Wanda Morales MD documented in this encounter [facility] 04-15-2025 Instructions Jeronimo Piña LPN - 04/15/2025 9:51 AM EDT SEQUENTIAL SCREENINGS The [facility] offers sequential screenings for women who are [...] It will require an appointment with our dental laboratory technician apprentice. This is not an ultrasound performed by [...] the above symptoms, contact our office at [phone] and ask to speak with a nurse. After hours, you can call [facility] at [phone] OR call [facility] at [phone] and ask to have the doctor prison classification counselor paged. If you consider this an emergency, dial 9--1 or go to your nearest emergency department. NEED HELP? Are you dealing with a violent or abusive relationship? Are you a victim of rape or sexual assult? Call [facility] ([place]) 24 hour Crisis Hotline: 294.344.2099 or 519-718-7507. MANUAL Your Guide to a Healthy manual is now on-line. Visit [email or web address] to download your free copy documented in this encounter [facility] 04-07-2025 Note HNO ID: [id number] Author: EUGENIA MCADAMS RN Service: ? Author Type: Registered Nurse Type: Progress Notes Filed: 04/07/2025 14:06 Note Text: Patient notified and voiced understanding. Eugenia Mcadams RN [facility] 04-07-2025 Note HNO ID: [id number] Author: LISA VELAZQUEZ APRN.CNM Service: ? Author Type: Paper Cup Machine Operator Type: Progress Notes Filed: 04/07/2025 13:00 Note Text: Urine culture is negative. Please notify patient that she can stop antibiotics. Lisa Velazquez APRN.CNM [facility] 04-07-2025 Note HNO ID: [id number] Author: EUGENIA MCADAMS RN Service: ? Author Type: Registered Nurse Type: Progress Notes Filed: 04/07/2025 12:51 Note Text: See below urine culture results from [facility]. Scan on 04/07/2025 10:18 AM by Provider, External, PA-C: Miscellaneous Lab Eugenia Mcadams RN [facility] 04-06-2025 Note HNO ID: [id number] Author: NIKKI ORTEGA MD Service: ? Author Type: Physician Type: Progress Notes Filed: 04/06/2025 20:31 Note Text: Pt was in LANDD with UTI symptoms- will treat with macrobid. [facility] 04-06-2025 History of Present illness Narrative Pt was in L&D with UTI symptoms- will treat with macrobid. documented in this encounter [facility] 04-06-2025 Note HNO ID: [id number] Author: GRETEL SÁNCHEZ APRN.AUTOCAD OPERATOR Service: ? Author Type: Nurse Practitioner Type: [...] the visit was discussed with the patient/authorized auto claim representative; all questions welcomed and answered. Patient/authorized auto claim representative agreed to proceed MDM Procedures [facility] 04-06-2025 History of Present illness Narrative URGENT [...] the visit was discussed with the patient/authorized auto claim representative; all questions welcomed and answered. Patient/authorized auto claim representative agreed to proceed MDM Procedures documented in this encounter [facility] 03-18-2025 Progress note Formatting of t his [...] Supervision of high risk in second trimester ([facility]) - ICD9: V23.9, ICD10: O09.92 (primary diagnosis) 2. Screening for diabetes mellitus - ICD9: V77.1, ICD10: Z13.1 - GESTATIONAL GLUCOSE SCREEN, 1-HOUR, 50 GRAM, NON-FASTING - SYPHILIS TREPONEMAL W/REFLEX - ANEMIA REFLEX PANEL 3. 23 weeks gestation of ([facility]) - ICD9: V22.2, ICD10: Z3A.23 Wanda Morales MD [facility] 03-18-2025 Miscellaneous Notes S: Abbe Faustin is [...] Supervision of high risk in second trimester ([facility]) - ICD9: V23.9, ICD10: O09.92 (primary diagnosis) 2. Screening for diabetes mellitus - ICD9: V77.1, ICD10: Z13.1 - GESTATIONAL GLUCOSE SCREEN, 1-HOUR, 50 GRAM, NON-FASTING - SYPHILIS TREPONEMAL W/REFLEX - ANEMIA REFLEX PANEL 3. 23 weeks gestation of ([facility]) - ICD9: V22.2, ICD10: Z3A.23 Wanda Morales MD documented in this encounter [facility] 02-14-2025 Note HNO ID: [id number] Author: ELLEN FOSTER PA-C Service: ? Author Type: Physician Production Gear Cutter Type: Progress Notes Filed: 02/14/2025 17:12 Note Text: This note was created using Numira Biosciencesriter. Subjective Abbe Faustin is a 19 year [...] procedures: low Management options: melchor Foster PA-C [facility] 02-14-2025 History of Present illness Narrative This [...] Ellen Foster PA-C documented in this encounter [facility] 02-11-2025 Progress note Formatting of t his [...] RTO in 4 weeks Deysi Seth APRN.CNM [facility] 02-11-2025 Miscellaneous Notes COY-S: Abbe Faustin is [...] Deysi Seth APRN.CNM documented in this encounter [facility] 02-11-2025 Note HNO ID: [id number] Author: DEYSI SETH APRN.CNM Service: ? Author Type: Paper Cup Machine Operator Type: Progress Notes Filed: 02/11/2025 15:35 Note Text: [facility] 02-11-2025 History of Present illness Narrative documented in this encounter [facility] 02-11-2025 Instructions Karine Garces LPN - 02/11/2025 1:59 PM EDT SEQUENTIAL SCREENINGS The [facility] offers sequential screenings for women who are [...] It will require an appointment with our dental laboratory technician apprentice. This is not an ultrasound performed by [...] the above symptoms, contact our office at [phone] and ask to speak with a nurse. After hours, you can call doctors registry at [phone] OR call [facility] at [phone] and ask to have the doctor prison classification counselor paged. If you consider this an emergency, dial 8--8 or go to your nearest emergency department. NEED HELP? Are you dealing with a violent or abusive relationship? Are you a victim of rape or sexual assult? Call [facility] ([place]) 24 hour Crisis Hotline: 232.883.3993 or 566-573-4969. MANUAL Your Guide to a Healthy manual is now on-line. Visit [facility].org/HealthyPregna ncyGuide to download your free copy documented in this encounter [facility] 01-17-2025 Telephone encounter Note Patient notified. Wanda Martínez RN [facility] 01-17-2025 Miscellaneous Notes Patient notified. Wanda Martínez, [...] Savanah Mustafa RN documented in this encounter [facility] 01-17-2025 Telephone encounter Note Agree dizziness can be normal in . Encourage hydration and frequent snacking. Avoid prolonged standing and quick position changes. To go to ER for persistent dizziness with CP, SOB, syncope. Otherwise can address more at next visit thanks [facility] Work Phone: 01-17-2025 Telephone encounter Note 14w4d [...] the day. Please advise. Savanah Mustafa RN [facility] 01-12-2025 Progress note Formatting of t his [...] weeks gestation of (HCC) Nikki Simpson MD [facility] 01-12-2025 Miscellaneous Notes DM-Pt doing well. Denies [...] , antepartum (HCC) 13 weeks gestation of ([facility]) Nikki Simpson MD documented in this encounter [facility] 01-12-2025 Instructions Kim Bernal MA - 01/12/2025 3:03 PM EDT SEQUENTIAL SCREENINGS The [facility] offers sequential screenings for women who are [...] It will require an appointment with our dental laboratory technician apprentice. This is not an ultrasound performed by [...] the above symptoms, contact our office at [phone] and ask to speak with a nurse. After hours, you can call doctors registry at [phone] OR call [facility] at [phone] and ask to have the doctor prison classification counselor paged. If you consider this an emergency, dial 1--0 or go to your nearest emergency department. NEED HELP? Are you dealing with a violent or abusive relationship? Are you a victim of rape or sexual assult? Call [facility] ([place]) 24 hour Crisis Hotline: 973.399.8921 or 983-783-6344. MANUAL Your Guide to a Healthy manual is now on-line. Visit [facility].org/HealthyPregna ncyGuide to download your free copy documented in this encounter [facility] 12-16-2024 Telephone encounter Note Sw spoke with patient and she would like copies of Medicaid-Adama InnovationsS application and WIC application. This Sw noted that she would work on sending out applications to patient home. Sw will also see about community resource guide for info such as Health Outcomes [employer], Care Center. [facility] 12-16-2024 Miscellaneous Notes Fior spoke with patient [...] needs per consult. documented in this encounter [facility] 12-16-2024 Telephone encounter Note Sw received message back from patient requesting return call. Sw called patient and left message for patient to return Sw call. [facility] 12-13-2024 Telephone encounter Note Fior left message for patient to return Sw call in regards to financial assistance needs per consult. [facility] 12-09-2024 History of Present illness Narrative Images [...] Name: Miguel A Chappell Age: 24 Occupation: [employer] Gender: Male PAST MEDICAL HISTORY Diagnosis Date Menstrual periods irregular 06/2017 NEGATIVE MEDICAL HISTORY Normal Color Vision PAST SURGICAL HISTORY Procedure Laterality Date NONE Current Outpatient Medications Medication Sig Dispense Refill [id number] FUM,[id number] ORAL Take by mouth. pyridoxine, vitamin B6, [...] discussed with the Patient or Patient's Authorized Head Coach. As applicable, any other physician, advance practice provider, medical student, or other health professional student that will be observing or involved in the sensitive examination for educational or training purposes was discussed with the Patient or Authorized Head Coach. The Patient or Authorized Head Coach has agreed to proceed with the sensitive [...] plus performing a brief intervention. Luis Carrasco APRN.AUTOCAD OPERATOR ASSESSMENT: 19 year old at 9w4d wks gestational age PLAN: 1) Patient oriented to practice. Patient given new OB orientation folder. Discussed nutrition, folic acid supplementation, dietary guidelines, exercise, smoking, alcohol, caffeine, and drug use. Discussed gestational weight gain guidelines. Discussed routine OB labs including STD/HIV. Discussed how to access Your guide to a health and the Surgical Services Asst. Discussed hemoglobin electrophoresis. Patient: Declines Reviewed midwifery and graphite mill operator services that are available. Reviewed [facility] program. 2) Screening: Hemoglobin A1C: ordered Baby [...] (28-30 weeks): [] Consent [] Contraception [] Manager Mechanical Maintenance [] TeamBirth handout Third trimester (36-40 weeks): [...] Buspar, Atarax, and Prazosin. Was managed by [facility], but stopped going because she discontinued her medication. Last seen in August. Reviewed risks and benefits of medication and discussed risks of uncontrolled depression, anxiety, PTSD in . Mental health resources provided. power referral placed. Female providers only. Luis Carrasco APRN.AUTOCAD OPERATOR History of Suicide Attempt - 12/13/2024 Comment: December, intentional drug overdose. Denies thoughts of self harm currently. Luis Carrasco APRN.AUTOCAD OPERATOR Use of Nicotine During ([facility]) - 12/13/2024 Comment: December 13, 2024 Vaping. Going through pod every 2 weeks. Reviewed risks and resources provided. Encouraged cessation. Luis Carrasco APRN.AUTOCAD OPERATOR Financial Insecurity - 12/13/2024 Comment: December 13, 2024 Social work consult placed. 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 Helps her to cope with PTSD. Luis Carrasco APRN.AUTOCAD OPERATOR Constipation During in First Trimester ([facility]) - 12/13/2024 Comment: December 13, 2024 Discussed Colace, Miralax. Safe medication list provided. Luis Carrasco APRN.AUTOCAD OPERATOR Nausea and Vomiting During ([facility]) - 12/13/2024 Comment: 12/13/24 Vitamin B6 doses reviewed. Already has Zofran rx. Reviewed 1st trimester risks of Zofran and written info provided. To notify if not eating/drinking >24 hours. Luis Carrasco APRN.CNP Follow up in 3 weeks or sooner prn. Plan for NT scan between 12w0d and 13w6d gestation. Luis Carrasco APRN.CNP documented in this encounter [facility] 12-09-2024 Instructions Luis Carrasco APRN.CNP - 12/09/2024 2:10 PM EDT Images from the original note were not included. Please select the following link to access the [facility] Your Guide to a Healthy . www.[facility].org/healthypregnancyguide Please select the following link to access the [facility] Your Guide to a Healthy . www.[facility].org/healthypregnancyguide [facility] provides specialized care for patients whose experiences [...] To speak with our team, please call [phone] or email Marijuana (Cannabis) June 04, 2019 [...] The main active chemical in marijuana is hfjtq-1-zcbozeaxbjoqvwyvbqtc (THC), which is what causes you to [...] smoke. Most professional organizations such as the English Academy of Pediatrics, the Academy of Medicine, and the English College of Obstetricians and Gynecologists advise that [...] . For more information, please see the MotherIV Diagnostics fact sheet Paternal Exposures and at https://mothertobaby.org/fact-she ets/wjzqqxmd-dlbbjnqlq-qgpgytkwm/ pdf/. How SMOKING Affects Your and Your [...] smoke. (This information is provided by the [facility] and is not intended to replace the medical advice of your doctor or health care provider. Please consult your health care provider for advice about a specific medical condition. For additional written health information, please call the Cancer Answer Line at [facility] [place] Friday - Friday 8-4:30 for assistance: [phone]. Or visit www.[facility].org/health/) [facility] s Smoking Cessation Program The [facility] Smoking Cessation Program is a comprehensive, multifaceted program that can be tailored to your individual needs. We offer a variety of services designed to help you throughout the process, including office visits, distance health visits (virtual or telephone), and the eCoach program or pharmacy consultations. To schedule, call [phone] Appointments: An office visit: This is a [...] You will need to sign up for [place] Woyo Network Science and Technologyhart prior to your virtual visit. Telephone visits [...] spray Bupropion SR Varenicline (Chantix ) The English Cancer Society (ACS) has a section devoted to quitting tobacco with information on where to get help, interactive tools, the relationship of tobacco and cancer, how to keep your kids smoke-free, smoke-free communities and the ACS s annual [place] Smokeout. Visit this link for more info: https://www.cancer.org/cancer/ris k-prevention/tobacco/guide-quitti ng-smoking.html The English Lung Association has tools, tips, support and fact sheets to help you stop smoking or to help a loved one quit. There s also more information about Orange From Smoking , the program we use in our smoking classes at [facility]. Visit this link for more info: https://www.lung.org/quit-smoking /oaww-mudxxuj-xrgf-smoking The National Cancer [place] s site, Smokefree.gov, has an abundance of free and accurate resources to encourage smokers to stop: Smokefree apps for your smartphone offer individualized guidance once you input your information You can sign up for the SmokefreeVNY Global InnovationsT text messaging program, which sends you daily [...] SICKNESS IN by Elif Woodruff M.D. for WaveDeck As you may already know, morning sickness can often be more appropriately called evening sickness or voawt-ocgyau-he-the-day sickness. While there are the nikia few, [...] often available at drugstores or travel stores. Raynn root is used for nausea in many [...] medication, Doxylamine, is currently marketed as an fadq-wlh-mgrqhdx sleeping pill. Ask your practitioner if creating a vitamin B6/Doxylamine combination with pjdk-ico-tbjjuzs medications would be safe for you. Prescription [...] to help control my nausea and vomiting? Mothergulu.com has a helpful fact sheet on nausea in with recommendations. You can review it here: https://mothertobaby.org/fact-she ets/mbrcgp-popodzen-ysihidout-nvp /pdf/. Also, eating small meals often, drinking [...] . For more information, please see the MotherIV Diagnostics fact sheet Paternal Exposures at https://mothertobaby.org/fact-she ets/ntjjewiw-agznaxwbi-bxjuibtmu/ pdf/. Psychotherapy Services at [facility] Call Behavioral Health Access Line at [phone] to schedule Individual psychotherapy In-person or virtual Wait time for first evaluation may be 12 or more weeks. Wait list spots may be available. Due to the high volume of patients this option is recommended if you are looking for short term acute symptom coping strategies. 6-352-5-NKTG6NMEB - [place] Maternal Mental Health Hotline If you are in suicidal crisis, please call or text 8-455-556-TALK ( ) or visit the National Suicide Prevention Lifeline website. mchb.[facility].gov If you are in crisis, call 391 or go to your nearest Emergency Department Here are some links for wonderful Providers here in the community and surrounding areas. Do not hesitate to contact their offices, many are offering virtual visits during this time. Psychotherapy Services outside of [facility] Support International Online Provider Directory https://Cava Grill/ - can assist in finding providers in your area that might be more extensive then the list below. [facility] [place], [place] [address] [place] [address] [facility] [address] [place] [address] [facility] [address] [place] [address] [facility] [address] [place] [address] Monica Nielson MD [address] [place] [address] [facility] [address] [facility], [address] [place] [address] [facility] Psychiatric Services [address] [place] [address] [facility] Counseling Services [place] / [place] [phone]/ [phone] Kianna [facility] [address] [facility] [address] [facility] [phone] Aves of Counseling and Mediation [place] / [place] [phone] Behavioral health services of [facility] [address] [place] [address]/ [place] [phone] Paula Barry, HUSSAIN, CLC [facility] Family Therapy Workshops, telehealth and at home visits. [phone] Humanistic counseling center 20 locations [facility], [place], [place], [place], [place], [place], [facility], [place], [place], [place], [place], [place], [place], [facility], [place], [place] ,[facility], [place], [place],[facility], [facility], [place], [facility], [facility], Ign[place] www.Morningstarnavos healther.co [phone] Psychotherapy resources outside of [facility] are listed below [facility] Web: https://www.TransBioTec/ Support International Online Provider Directory https://Cava Grill/ [facility] https://Gaosouyi/ Partners for Behavioral Health and Wellness Web: https://DxUpClose/ Rewardix for Effective Living Web: https://Ads-FieffectiveThe Ivory Companyliving.SoftRun/ LifeStance Web: https://Roadtrippers/location/s akil/kimber/ [facility] Web: https://www.[facility].or / [facility] Web: https://The Start Project.Dorsey Wright and Associates/ Recovery Resources Mental health and substance abuse help Web: https://www.SpeedDates.Dorsey Wright and Associates & RESOURCES Support International Direct peer support and connection to professional resources Non-Emergency Helpline Phone: / Text: [phone] Web: https://www..net/ Online Provider Directory: https://Cava Grill/ Online Support Meetings: https://www..net/get-he lp/zmi-lwbwnd-zmbxjex-meetings/ RAÚL Baby and Chief Yeoman Services Web: https://wwwSocialtyze/ MotherToBaby Expert information on medication use during and Text: [phone] Web: https://PriceShoppers.com.Dorsey Wright and Associates/ NATIONAL REGISTRY FOR PSYCHIATRIC MEDICATIONS Currently studying the safety of antidepressants, ADHD medications and atypical antipsychotics taken during TO PARTICIPATE CALL TOLL-FREE: Web: https://womensmentalhealth.org/re search/pregnancyregistry/ Support Groups: [facility]- Follow on facebook Baby Bistro support group led by [facility] department Resilient Mamas - Support Group [facility].org The POEM support group [phone] Www.poemonline.org Follow on facebook - DARLING cook Online support meetings PSI https://www..net/get-he lp/sib-ajbrcy-dapltqk-meetings/ [facility] momjonathon and me virtual support group 11:30-1pm Support for mothers and new babies and toddlers [place] childbirth education: Childbirth @ccf.org or call [phone] CRISIS: CRISIS HOTLINE [phone], 911 or go to the nearest ER. [facility] [phone] / [facility] [phone] https://www.[facility] plains hospitalrb.org Crisis text line text the word HOME to 534[address] [facility] [address] [facility] [id number] www.Kneebone Pastora Mederos clinical counseling [address] [facility] [address] [place] [address] www.uberall [phone] Holding space psychotherapy Joellen Dexterkasandra MASONRY INSTRUCTOR KAIAKO KOHANGA REO-S [address] [facility] www.VocalIQ [phone]/ [place] [phone] They all offer virtual. All work with trauma Support groups Online support meetings PSI https://www..net/get-he lp/ztq-spuurj-qtbgxni-meetings/ Here are the support groups they offer: Support of parents of 1 to 4 years old children POEM ( Outreach and Encouragement for Moms) offers free support for mothers experiencing depression, anxiety, and other mood and anxiety disorders. Masks are recommended but not required. No pre-registration required. Babies in arms welcome. meetings now take place on the and Friday of each month Location: [facility] [address] [place] [address] Room 122 (library room) 7-8:00 p.m. When you enter the [facility] parking lot off of [address] the entrance door closest to our meeting room is on the front of the building toward the right. For those who are more comfortable with a virtual platform, POEM offers online support group options several days of the week. To register for an online group or to find out more about POEM, website at: https://mhaohio.org/get-help/[facility] brook university hospitalzyep-lfdelx-kznxkl/poem-services/ offer a confidential helpline: private Facebook group is called DARLING Cook Here are the groups they offer: Traumatic childbirth resources: Http://pattch.org/ https://www.leeIntegrity Applicationsviki Apprema/ Name Location (s) Phone # (s) Services Website Holding Space Psychotherapy [address] [facility] [phone]; [address] [facility] 201 [facility] [phone] In-Person GROUPS INDIVIDUAL THERAPY MATERNAL- MENTAL HEALTH MEDICATION MANAGEMENT PLAY AND ART THERAPY TELETHERAPY https://www.TransBioTec/s ervicjosé manuel/ Juliane huynh [facility]? [address] [place], [place] [address] ? [address] [place], [place] [address] ? [place] [address]? Grief Support Groups Individual Grief Counseling Spiritual Care Memorial Events https://hammonds.[facility].org/grief-services [facility] [address] [place], [place] [address]; ; Email: Women's Mental Health; Couples Counseling; Trauma (EMDR); Stress Management; Mood and Anxiety Related Disorders- and much more https://www.BancABC Extended Systems.SoftRun/ LifeStance Numerous as they have contract providers: access website to find specific providers near you Counseling including CBT and EMDR as well as many more modalities; Medication Management; Telehealth and In-Person https://Metail.SoftRun/ HazelMail for Behavioral Health and Wellness [address] [place] [phone]; [phone] Personal, Family and Group Therapy; Psychological Testing and Diagnosis; Medication Management; Life and Career Coaching; Psychoanalysis; Literacy Testing; Yoga and Meditation https://klinify.SoftRun/ Fit Mind [place] [address] [facility] [address], [place] [address] [address] ; [address] [facility], [address] [place] [address]; Office # for both sites: Individual and Couples Counseling https://www.fitC-nariodcfirelands regional medical centerand.com/ paymentinsurance.html OCD & Anxiety Center [facility] [address], [address], [place] [address]; Specialize in Cognitive-Behavioral Therapy (CBT) for the treatment of anxiety disorders across the lifespan. TELEHEALTH ONLY. https://ocdandanxietycenteroChumbakv DataCoup/faqs [facility] [address] [place], [address] [place] [address] [facility] [place], [address] [place] [address] [facility] [place], [address] [place] [address] [facility] [place], [address], [address] [place] [address] [place] [address]. [place], [address] [place] [address] [place], [address] Transportation Services To minimize patient barriers, [facility] provides transportation services to patients who [...] assistance Substance abuse treatment Medication assisted treatment https://www.[facility].or g/mental-health/ [facility] OFFICE AT [facility] [address] [place] [address] [facility] [address] [place] [address] [facility] [address] [place], [place] [address] [facility] OFFICE (at [facility]) [address] [place] [address] [facility] [place] EXCHANGE PROGRAM & HIV SCREENING [address] [place] [address] [place] EXCHANGE PROGRAM [address] [place] [address] Behavioral Health Urgent Care: [facility] Counseling Indvidual and Group Medication Management Case Management benefits applications housing assistance Substance abuse treatment Medication assisted treatment Employment Services/ Job Training https://ButlrvaGLOBAL CONNECTION HOLDINGS.org/ Recovery Resources [address] [place], [place] [address]: P: [phone] [address] [facility], [address], [place], [place] [address] P: [phone] Our services include: Addiction Mental Health Treatment Assessment Psychiatry Medical Care Employment Housing Drug and Alcohol Prevention HIV/AIDS Prevention https://www.recres.org/ [facility] [place] [address] [place] [address] [place] [address] [place], [place] [address]viki.[address] [place], [place] [address] [place] [address] [place] [address] [place] [address] [facility] [address] [place] [address] [place] [address] [place] [address] TMS Therapy/ Counseling Psychocological Testing for ADHD Medication Management In-Person/ Telemedicine https://www.Vita Products.SoftRun/rayo ents-depression Memory [facility] Psychological services [address], [place] [address] Neuropsychological Testing For ADHD https://www.memoryandpsych.com/ [facility] Office [address] [place] [address] [address] Providing vzvd-wb-ukvd and telehealth services. Adult Case Management Community Education and Prevention Employment Outpatient Treatment - Counseling & Psychotherapy Psychiatric Services [email or web address] [address] [place] [address] [facility] [address] [place] [address] Virtual Appointments! Now offering safe and convenient virtual client appointments to anyone in [place]! Individual Therapy Couples/Relationship Therapy Trauma/EMDR Therapy Art Therapy Play Therapy Sales Assistant Displays Support: Parenting Skills, Parent Child Interaction Therapy, Parent Infant Interaction Therapy Meditation Dietitian/Strategic Client Executive Services Group Therapy Yoga [email or web address] Ivy Kimble [phone] Private Practice: Telehealth Only Specializes in EMDR for Trauma None documented in this encounter [facility] 12-09-2024 Note HNO ID: [id number] Author: LUIS CARRASCO APRN.CNP Service: ? Author [...] Name: Miguel A Chappell Age: 24 Occupation: [employer] Gender: Male PAST MEDICAL HISTORY Diagnosis Date Menstrual periods irregular 06/2017 NEGATIVE MEDICAL HISTORY Normal Color Vision PAST SURGICAL HISTORY Procedure Laterality Date NONE Current Outpatient Medications Medication Sig Dispense Refill [id number] FUM,DH-EHECK-RTH ORAL Take by mouth. pyridoxine, vitamin B6, [...] Shortness of breath, (more content not included)... [facility] 11-25-2024 Note HNO ID: [id number] Author: SMILEY SÁNCHEZ MD Service: ? Author Type: Physician Type: Progress Notes Filed: 11/25/2024 09:57 Note Text: Carbonation Equipment Operator offered: Patient declines. OB point of care ultrasound was performed. See imaging tab for details. Kim Bernal MA Obstetrics and Gynecology [place] FOREIGN LANGUAGE TEACHER Visit Subjective Recording using Mashed jobs software for draft documentation of the visit was discussed with the patient/authorized auto claim representative; all questions welcomed and answered. Patient/authorized auto claim representative agreed to proceed CHIEF COMPLAINT: The [...] OB History No obstetric history on file. Toggle Press Folder And Feeder History LMP: 10/07/2024 (Exact Date), Having periods Age at Menarche: Age at First : Age at Menopause: Toggle Press Folder And Feeder History Comments: Sexual Activity: Not Asked; No [...] use: Never Current Outpatient Medications Medication Sig [id number] FUM,RJ-[id number]-TZE ORAL Take by mouth. pyridoxine, vitamin B6, [...] medications for this visit. ALLERGIES Allergen Reactions Machias Rash Seasonal Allergies Other: See Comments Nasal congestion REVIEW OF SYSTEMS: Gastrointestinal: (+) nausea, (+) vomiting Genitourinary: (+) cramping, (-) bleeding Objective SENSITIVE EXAM: The sensitive examination was discussed with the Patient or Patient's Authorized Head Coach. As applicable, any other physician, advance practice provider, medical student, or other health professional student that will be observing or involved in the sensitive examination for educational or training purposes was discussed with the Patient or Authorized Head Coach. The Patient or Authorized Head Coach has agreed to proceed with the sensitive [...] Medical Decision Jerry (more content not included)... [facility] 11-23-2024 Telephone encounter Note Order faxed. Wanda Martínez RN [facility] 11-23-2024 Miscellaneous Notes Order faxed. Wanda Martínez RN Patient notified. Will have HCG done tomorrow AM. Order to provider to sign. Scheduled with [facility] on @ 0900. Wanda Martínez RN Please have her get a repeat hcg level tomorrow at [facility]. Schedule her with me ay 9am. Smiley Sánchez MD LMP 10/07/24 Approximately 6w5d was seen at [facility] ER on 11/19 for cramping and spotting. [...] Wanda Martínez RN documented in this encounter [facility] 11-23-2024 Telephone encounter Note Patient notified. Will have HCG done tomorrow AM. Order to provider to sign. Scheduled with [facility] on @ 09. Wanda Martínez RN [facility] 11-23-2024 Telephone encounter Note Please have her get a repeat hcg level tomorrow at [facility]. Schedule her with me ay 9am. Smiley Sánchez MD [facility] Work Phone: 11-23-2024 Telephone encounter Note LMP 10/07/24 Approximately 6w5d was seen at [facility] ER on 11/19 for cramping and spotting. HCG level was 6453. Early IUP seen on US. No pole. Recommendation is for f/u HCG and ultrasound. Patient calling to arrange for this per CP recommendation with the ER. When would you like patient scheduled? She is no longer having bleeding, but she is still cramping. ER records to [facility] to review. Wanda Martínez, RN [facility] 10-29-2024 Note HNO ID: [id number] Author: ARTUR JOY APRN.AUTOCAD OPERATOR Service: ? Author Type: Nurse Practitioner Type: [...] SURGICAL HISTORY Procedure Laterality Date NONE ALLERGIES Machias and Seasonal Allergies MEDICATIONS iron,carbonyl (IRON CHEWS [...] of care. This note was generated using Medicine in Practice software. It may contain errors in wording, punctuation, or spelling. Artur Joy APRN.[facility] 10-29-2024 History of Present illness Narrative Subjective [...] SURGICAL HISTORY Procedure Laterality Date NONE ALLERGIES Machias and Seasonal Allergies MEDICATIONS iron,carbonyl (IRON CHEWS [...] of care. This note was generated using Medicine in Practice software. It may contain errors in wording, punctuation, or spelling. Artur Joy APRN.AUTOCAD OPERATOR documented in this encounter [facility] 05-25-2024 History of Present illness Narrative CC: [...] Patient agreeable to treatment plan. Gretel Sánchez APRN.AUTOCAD OPERATOR documented in this encounter [facility] 05-05-2024 Telephone encounter Note Call placed to patient and provider message reviewed. Patient verbalizes understanding and will come in after work today. Bonita Ortega RN [facility] 05-05-2024 Miscellaneous Notes Call placed to patient [...] Bonita Ortega RN documented in this encounter [facility] 05-05-2024 Telephone encounter Note Patient was prescribed two ATB. Recommend patient return to express care and be evaluated (can obtain history of rash and also what the rash looks like) and to further discuss treatment modification. Please advise [facility] Work Phone: 05-05-2024 Telephone encounter Note Patient calls to report that antibiotic prescribed in EC is causing all over body itch. Patient denies rash or trouble breathing. Patient reports that she was told if she had side effects from medicine another antibiotic would be prescribed. Please review and advise, Bonita Ortega RN [facility] 05-04-2024 Telephone encounter Note PLEASE SEE LAB RESULT COMMENT FOR UR CX. Tatiana Salinas MA [facility] 05-04-2024 Miscellaneous Notes PLEASE SEE LAB RESULT [...] Sigrid Casarez CNP documented in this encounter [facility] 05-04-2024 Telephone encounter Note ----- Message from Sigrid Casarez APRN.CNP sent at 05/04/2024 11:25 AM EDT ----- Urine culture did not show clear evidence of infection, however it appears sample may have been contaminated with skin bacteria during collection. She may continue to take antibiotic if it has been helpful. Recommend follow up with PCP to ensure hematuria has resolved. Sigrid Casarez CNP [facility] 05-04-2024 Telephone encounter Note Patient notified and verbalized understanding of instructions given.Reyna Giles LPN [facility] 05-04-2024 Miscellaneous Notes Patient notified and verbalized understanding of instructions given.Reyna Giles LPN Patient was negative for hepatitis C, hepatitis B, syphilis, and HIV. For chlamydia, gonorrhea, trichomonas, yeast. Positive for bacterial vaginosis. Flagyl twice a day for 7 days was called and no alcohol can be consumed with this medication. documented in this encounter [facility] 05-04-2024 Telephone encounter Note Patient was negative for hepatitis C, hepatitis B, syphilis, and HIV. For chlamydia, gonorrhea, trichomonas, yeast. Positive for bacterial vaginosis. Flagyl twice a day for 7 days was called and no alcohol can be consumed with this medication. [facility] 05-03-2024 History of Present illness Narrative This note was created using Numira Biosciencesriter. Subjective Abbe Faustin is a 18 year [...] SURGICAL HISTORY Procedure Laterality Date NONE ALLERGIES Machias and Seasonal Allergies MEDICATIONS iron,carbonyl (IRON CHEWS [...] nursing note reviewed. Exam conducted with a rn perioperative present. Constitutional: General: She is not in [...] discussed with the Patient or Patient's Authorized Head Coach. As applicable, any other physician, advance practice provider, medical student, or other health professional student that will be observing or involved in the sensitive examination for educational or training purposes was discussed with the Patient or Authorized Head Coach. The Patient or Authorized Head Coach has agreed to proceed with the sensitive [...] evaluation. FABIANO Almonte documented in this encounter [facility] 02-04-2024 Nurse Note EVENT MONITOR DISPOSABLE PATCH INSTRUCTIONS Patient Name: Abbe Faustin [facility] Number: [id number] Skin prepped and cleansed with alcohol Patch secured to prepped area Monitor Activated Serial #: [id number] Patient Instructed: Prescribed order timeframe Bathing guidelines Usage of event button and diary documentation Return of monitor at the end of prescribed order Call with problems [phone] or [phone] ext. [phone] Patient expresses a good understanding of instructions Zohra Salguero MA [facility] 02-04-2024 Nurse Note EVENT MONITOR DISPOSABLE PATCH INSTRUCTIONS Patient Name: Abbe Faustin [facility] Number: [id number] Skin prepped and cleansed with alcohol Patch secured to prepped area Monitor Activated Serial #: [id number] Patient Instructed: Prescribed order timeframe Bathing guidelines Usage of event button and diary documentation Return of monitor at the end of prescribed order Call with problems [phone] or [phone]. [phone] Patient expresses a good understanding of instructions Zohra Salguero MA documented in this encounter [facility] 02-04-2024 History of Present illness Narrative Images from the original note were not included. [facility] [place] SECTION OF REGIONAL CARDIOLOGY OUTPATIENT VISIT DATE 02/04/2024 OUTPATIENT VISIT TYPE NEW PRIMARY CARE PHYSICIAN: Wendi Anne [address] [place] [address] Patient is being seen at the request [...] Other Maternal Great Grandmother ALLERGIES Allergen Reactions Machias Rash Seasonal Allergies Other: See Comments Nasal [...] of the head/heart, etc. Lyubov Perez MD, [facility] Non invasive and Sports shoe treer documented in this encounter [facility] 02-02-2024 Telephone encounter Note Patient was notified of advice and/or results. Pt has a cardiology appt scheduled for 02/04/2024. [facility] 02-02-2024 Miscellaneous Notes Patient was notified of [...] Wendi Anne PA-C documented in this encounter [facility] 02-02-2024 Telephone encounter Note Left message to call our office. Raymundo Cullen RN [facility] 02-02-2024 Telephone encounter Note Please let patient know lab work looked good aside from a borderline high TSH and borderline ferritin. I would advise starting a daily multivitamin with iron. Will repeat TSH and ferritin levels in 1 month. Orders have been placed. Continue with recommendations given at visit. Will proceed with Cardiology consult at this time. Wendi Anne PA-C [facility] 01-28-2024 Instructions Wendi Anne PA-C - 01/28/2024 [...] down, raising legs documented in this encounter [facility] 01-28-2024 History of Present illness Narrative PEDIATRIC [...] following: - overheating while working (works at [employer]) - getting out of the car - [...] Recurrent Major Depressive Disorder, Without Psychotic Features ([facility]) - 10/10/2022 Generalized Anxiety Disorder - 10/10/2022 Marijuana Abuse - 10/10/2022 PAST MEDICAL HISTORY Diagnosis Date Menstrual periods irregular 06/2017 NEGATIVE MEDICAL HISTORY Normal Color Vision PAST SURGICAL HISTORY Procedure Laterality Date NONE ALLERGIES Allergen Reactions Machias Rash Seasonal Allergies Other: See Comments Nasal [...] bilaterally. There was no dysmetria found on wknujs-gqfl-duuall and heel-white testing bilaterally. Rapid alternating movements [...] which included preparing to see the patient, vzah-xw-zfci patient care, completing clinical documentation, obtaining and/or reviewing separately obtained history, performing a medically appropriate examination, counseling and educating the patient/family/caregiver, ordering medications, tests, or procedures, independently interpreting results (not separately reported), and communicating results to the patient/family/caregiver. SIGNATURE: Wendi Anne PA-C PATIENT NAME:Abbe Faustin DATE: 01/28/2024 TIME: 9:01 AM documented in this encounter [facility] 04-03-2023 Miscellaneous Notes Parent of patient notified.Reyna Giles LPN ----- Message from Sigrid Casarez APRN.AUTOCAD OPERATOR sent at 04/03/2023 8:09 AM EDT ----- Please advise patient the urine culture was negative. Continue antibiotic for chlamydia. documented in this encounter [facility] 04-02-2023 Miscellaneous Notes Spoke with patient. Given message from provider's office. Patient verbalizes understanding. Salena Miller RN Call patient and have patient stop doxycycline. Allergic continue the Flagyl and Diflucan was also called in. Patient was positive for chlamydia and yeast patient was negative for gonorrhea trichomonas and bacterial vaginosis. Should refrain from sex for about 2 weeks. documented in this encounter [facility] 04-01-2023 History of Present illness Narrative This [...] history is provided by the patient. No language assistant was used. Female Gu Problem This is [...] nursing note reviewed. Exam conducted with a rn perioperative present. Constitutional: General: She is not in [...] Deysi Paul APRN.LISBETH documented in this encounter [facility] 03-20-2023 History of Present illness Narrative The patient did not show up for this appointment. Noreen Cutler APRN.CNP documented in this encounter [facility] 12-11-2022 Miscellaneous Notes Called pharmacy patient picked [...] 3 days later. [facility] documented in this encounter [facility] 12-07-2022 History of Present illness Narrative This note was created using JouleX. Subjective Abbe Faustin is a 17 year [...] nursing note reviewed. Exam conducted with a rn perioperative present. Constitutional: General: She is not in [...] evaluation. FABIANO Almonte documented in this encounter [facility] 12-02-2022 History of Present illness Narrative This note was created using Eventus Diagnosticster. Subjective Abbe Faustni is a 17 year old female. HPI [...] evaluation. FABIANO Almonte documented in this encounter [facility] 12-02-2022 Instructions FABIANO Almonte - 12/02/2022 5:44 PM EDT Robitussin as needed for cough at bedtime. Take as directed Flonase nasal spray as needed for nasal congestion. documented in this encounter [facility] 11-07-2022 History of Present illness Narrative Images [...] disorder (F12.10) Marijuana abuse Previous Psychiatric Hospitalizations: [facility] 08/12-08/19/2022 Previous Programs Participated In: None [...] Order Specific Question: Does consulting provider have [facility] [employer] access? Answer: Yes hydrOXYzine HCl (ATARAX) 25 [...] THE NEAREST EMERGENCY DEPARTMENT OR BY CALLING 071, IF ANY OF THE FOLLOWING OCCURS: - [...] National Suicide and Crisis Lifeline by dialing 707. - Call the National Suicide Hotline by calling 5-381-YBZBMDL ( ) or 5-608-349-TALK (0696) - Text 4hbgn to 636215 - If you live in [facility] call the crisis hotline: Mobile Crisis/Frontline Services at 195-404-2246 It is strongly recommended that there be [...] Family should secure medications including prescription and ucmn-xhl-ozhxnne medications. Recommend that the medications be kept [...] symptoms. Also continues to endorse concerns about Abbe's boyfriend as feels that this is a [...] graduate early. Educational History: Name of School: [employer] Grade: 11th (Will be graduating in December) Type of placement: [employer] In school services: None Counseling: Abbe is currently receiving counseling services. Currently receiving Family Therapy through [employer] (Fernanda Galan). Peers: Abbe reports she is [...] has been hospitalized for this. Admitted to [facility] in 08/2022. Abbe denies suicidal thoughts [...] which included preparing to see the patient, jbhv-dy-yhrw patient care, completing clinical documentation, performing a medically appropriate examination, counseling and educating the patient/family/caregiver, and ordering medications, tests, or procedures. SIGNATURE: Noreen Cutler APRN.CNP DATE of SERVICE: 11/07/2022 TIME OUT: 5:45 PM documented in this encounter [facility] 10-22-2022 History of Present illness Narrative This note was created using Numira Biosciencesriter. Subjective Abbe Faustin is a 17 year [...] Kindra Pinzon PA-C documented in this encounter [facility] 10-10-2022 Instructions Noreen Cutler APRN.LISBETH - 10/10/2022 5:32 PM EST After Visit Summary FOLLOW-UP: Abbe is scheduled for a follow-up in-person visit with me on November 07 at 5:00 PM (arrival time 4:45 PM). Please call [phone] if you need to reschedule this appointment. For any additional questions or concerns, you can call my office or contact me via [employer]. Behavioral Health is located on the 1st floor of the [facility]. Check in at Desk WO10. [facility] [address] [facility] [address] [facility] Office Line: [phone] [place] Office Line: [phone] MEDICATIONS: Stop Lexapro. Begin Effexor 37.5 mg [...] contact your provider immediately. Sources: http://www.helpguide.org/articles /bipolar-disorder/bipolar-disorde z-lpukl-uuo-symptoms.htm NHS ([place]) GENERAL SAFETY RECOMMENDATIONS: YOU SHOULD [...] National Suicide and Crisis Lifeline by dialing 188. - Call the National Suicide Hotline by calling 3-591-LNCPSBM ( ) or 0-738-579-TALK (3874) - Text 4hope to 165073 - If you live in [facility] call the [facility] Crisis Center: 24 hour crisis response at [phone] It is strongly recommended that there be [...] lock. Please secure medications including prescription and flyj-jbz-iowvxrm medications. It is recommend that the medications be kept locked with a combination lock. documented in this encounter [facility] 10-10-2022 History of Present illness Narrative Images [...] Mother as significant stressors. Was admitted to [facility] in August 2022 due to increased SI [...] Recently started therapy services through [facility] [employer]. Return to clinic in 4-6 weeks. Diagnoses: (F33.2) Severe episode of recurrent major depressive disorder, without psychotic features (HCC) (primary encounter diagnosis) (F41.1) Generalized anxiety disorder (F12.10) Marijuana abuse Previous Psychiatric Hospitalizations: [facility] 08/12-08/19/2022 Previous Programs Participated In: None [...] National Suicide and Crisis Lifeline by dialing 817. - Call the National Suicide Hotline by calling 0-058-SXWVHIX ( ) or 0-196-671-TALK (1012) - Text 4hope to 724023 - If you live in [facility] call the crisis hotline: Mobile Crisis/Frontline Services at 430-290-0129 It is strongly recommended that there be [...] Family should secure medications including prescription and ijdo-tze-yrbywrh medications. Recommend that the medications be kept [...] with Mother. Reports she was admitted to [facility] in August 2022 due to increased SI [...] pursue cosmetology. Educational History: Name of School: [employer] Grade: 11th (Will be graduating in December) Type of placement: [employer] In school services: None - Failed a grade or held back a year? no - Has there been any disciplinary action taken against the patient at school? no - Are there grade and/or attendance problems? no Counseling: Abbe is currently receiving counseling services. Currently receiving Family Therapy through [facility] [employer] (Fernanda Galan). Peers: Abbe reports she is [...] has been hospitalized for this. Admitted to [facility] in 08/2022. Abbe denies suicidal thoughts [...] psychology/counseling providers? Currently receiving Family Therapy through [facility] [employer] (Fernanda Galan). - Other community support providers? Yes, does have access to a counselor at school through [employer] Family History Problem Relation Age of Onset [...] Recurrent Major Depressive Disorder, Without Psychotic Features ([facility]) - 10/10/2022 Generalized Anxiety Disorder - 10/10/2022 [...] (5' 7) (87 %, Z= 1.11, Source: [facility] (Girls, 2-20 Years)) No height on file for this encounter. Weight: 60.8 kg (134 lb) (70 %, Z= 0.52, Source: [facility] (Girls, 2-20 Years)) No weight on file for this encounter. BMI: 49 %ile (Z= -0.01) based on [facility] (Girls, 2-20 Years) BMI-for-age based on BMI [...] which included preparing to see the patient, uilt-qt-qgjd patient care, completing clinical documentation, obtaining and/or reviewing separately obtained history, performing a medically appropriate examination, counseling and educating the patient/family/caregiver, ordering medications, tests, or procedures, and independently interpreting results (not separately reported). SIGNATURE: Noreen Cutler APRN.CNP DATE of SERVICE: 10/10/2022 TIME OUT: 5:50 PM documented in this encounter [facility] 10-09-2022 Miscellaneous Notes Mother notified and voiced [...] Raymundo Cullen RN documented in this encounter [facility] 09-16-2022 Miscellaneous Notes See result note Flagyl sent in documented in this encounter [facility] 09-13-2022 History of Present illness Narrative Carbonation Equipment Operator offered: Patient declinesEstela Mcadams is a 17 [...] OB History No obstetric history on file. Toggle Press Folder And Feeder History LMP: 08/10/2022 (Approximate), Having periods Age at Menarche: Age at First : Age at Menopause: Toggle Press Folder And Feeder History Comments: Sexual Activity: Not Asked; No [...] external genitalia normal, normal Bartholin's glands, urethra, [place]'s glands, no vulvar lesions, no cervical lesions, [...] Judy Reza DO documented in this encounter [facility] 09-13-2022 History of Present illness Narrative PEDIATRIC FOLLOW UP VISIT SERVICE DATE: 09/13/2022 Abbe Faustin is a 17 year old female who presents with depressed mood and anxiety for follow up visit accompanied by her stepmother. Currently taking Lexapro 5 mg since mid August The medication is helping some. Patient recently discharged from [facility] (08/12 - 08/19). States she is doing [...] TIME: 7:52 AM documented in this encounter [facility] 08-16-2022 Miscellaneous Notes Mother notified, voiced understanding [...] Wendi Anne PA-C Mother went down to [place] yesterday to see patient yesterday afternoon, but [...] they are planning transfer this morning to [place]. She is to be getting a call from the facility after arrival and evaluation. She will update us when this occurs. Shila Delcid RN Please call mother to obtain patient update. Thank you. Wendi Anne PA-C Please assist family in rescheduling medication check. Wendi Anne PA-C documented in this encounter [facility] 07-19-2022 Miscellaneous Notes Form filed in medical records dept for crab picker. Mother aware. Shila Delcid RN Form signed. Wendi Anne PA-C Type of form: Work Permit Form received via walk in When form is completed, call parent at [phone] Form has been forwarded to FABIANO Hawkins LPN documented in this encounter [facility] 07-04-2022 Instructions Chema Guzman APRN.[facility] - 07/04/2022 4:51 PM EST Infectious Mononucleosis [...] in your blood. What is the cause? [place] is caused by the Be-Pichardo virus (EBV). This virus is transmitted in infected saliva through coughing, sneezing, and kissing. Although mononucleosis can occur at any age, it occurs more often in 15- to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 and Drug Abuse Patient Records regulations: The Federal rules restrict any use of the information to criminally investigate or prosecute any alcohol or drug abuse patient.[facility] HospitalIn the event this information is protected by the Federal Confidentiality of Alcohol and Drug Abuse Patient Records regulations: The Federal rules restrict any use of the information to criminally investigate or prosecute any alcohol or drug abuse patient.[facility] HospitalIn the event this information is protected by the Federal Confidentiality of Alcohol and Drug Abuse Patient Records regulations: The Federal rules restrict any use of the information to criminally investigate or prosecute any alcohol or drug abuse patient.[facility] HospitalIn the event this information is protected by the Federal Confidentiality of Alcohol and Drug Abuse Patient Records regulations: The Federal rules restrict any use of the information to criminally investigate or prosecute any alcohol or drug abuse patient.[facility] HospitalIn the event this information is protected by the Federal Confidentiality of Alcohol and Drug Abuse Patient Records regulations: The Federal rules restrict any use of the information to criminally investigate or prosecute any alcohol or drug abuse patient.[facility] HospitalIn the event this information is protected by the Federal Confidentiality of Alcohol and Drug Abuse Patient Records regulations: The Federal rules restrict any use of the information to criminally investigate or prosecute any alcohol or drug abuse patient.[facility] HospitalIn the event this information is protected by the Federal Confidentiality of Alcohol and Drug Abuse Patient Records regulations: The Federal rules restrict any use of the information to criminally investigate or prosecute any alcohol or drug abuse patient.[facility] HospitalIn the event this information is protected by the Federal Confidentiality of Alcohol and Drug Abuse Patient Records regulations: The Federal rules restrict any use of the information to criminally investigate or prosecute any alcohol or drug abuse patient.[facility] HospitalIn the event this information is protected by the Federal Confidentiality of Alcohol and Drug Abuse Patient Records regulations: The Federal rules restrict any use of the information to criminally investigate or prosecute any alcohol or drug abuse patient.[facility] HospitalIn the event this information is protected by the Federal Confidentiality of Alcohol and Drug Abuse Patient Records regulations: The Federal rules restrict any use of the information to criminally investigate or prosecute any alcohol or drug abuse patient.[facility] HospitalIn the event this information is protected by the Federal Confidentiality of Alcohol and Drug Abuse Patient Records regulations: The Federal rules restrict any use of the information to criminally investigate or prosecute any alcohol or drug abuse patient.[facility] HospitalIn the event this information is protected by the Federal Confidentiality of Alcohol and Drug Abuse Patient Records regulations: The Federal rules restrict any use of the information to criminally investigate or prosecute any alcohol or drug abuse patient.[facility] HospitalIn the event this information is protected by the Federal Confidentiality of Alcohol and Drug Abuse Patient Records regulations: The Federal rules restrict any use of the information to criminally investigate or prosecute any alcohol or drug abuse patient.[facility] HospitalIn the event this information is protected by the Federal Confidentiality of Alcohol and Drug Abuse Patient Records regulations: The Federal rules restrict any use of the information to criminally investigate or prosecute any alcohol or drug abuse patient.[facility] HospitalIn the event this information is protected by the Federal Confidentiality of Alcohol and Drug Abuse Patient Records regulations: The Federal rules restrict any use of the information to criminally investigate or prosecute any alcohol or drug abuse patient.[facility] HospitalIn the event this information is protected by the Federal Confidentiality of Alcohol and Drug Abuse Patient Records regulations: The Federal rules restrict any use of the information to criminally investigate or prosecute any alcohol or drug abuse patient.[facility] HospitalIn the event this information is protected by the Federal Confidentiality of Alcohol and Drug Abuse Patient Records regulations: The Federal rules restrict any use of the information to criminally investigate or prosecute any alcohol or drug abuse patient.[facility] HospitalIn the event this information is protected by the Federal Confidentiality of Alcohol and Drug Abuse Patient Records regulations: The Federal rules restrict any use of the information to criminally investigate or prosecute any alcohol or drug abuse patient.[facility] HospitalIn the event this information is protected by the Federal Confidentiality of Alcohol and Drug Abuse Patient Records regulations: The Federal rules restrict any use of the information to criminally investigate or prosecute any alcohol or drug abuse patient.[facility] HospitalIn the event this information is protected by the Federal Confidentiality of Alcohol and Drug Abuse Patient Records regulations: The Federal rules restrict any use of the information to criminally investigate or prosecute any alcohol or drug abuse patient.[facility] HospitalIn the event this information is protected by the Federal Confidentiality of Alcohol and Drug Abuse Patient Records regulations: The Federal rules restrict any use of the information to criminally investigate or prosecute any alcohol or drug abuse patient.[facility] HospitalIn the event this information is protected by the Federal Confidentiality of Alcohol and Drug Abuse Patient Records regulations: The Federal rules restrict any use of the information to criminally investigate or prosecute any alcohol or drug abuse patient.[facility] HospitalIn the event this information is protected by the Federal Confidentiality of Alcohol and Drug Abuse Patient Records regulations: The Federal rules restrict any use of the information to criminally investigate or prosecute any alcohol or drug abuse patient.[facility] HospitalIn the event this information is protected by the Federal Confidentiality of Alcohol and Drug Abuse Patient Records regulations: The Federal rules restrict any use of the information to criminally investigate or prosecute any alcohol or drug abuse patient.[facility] HospitalIn the event this information is protected by the Federal Confidentiality of Alcohol and Drug Abuse Patient Records regulations: The Federal rules restrict any use of the information to criminally investigate or prosecute any alcohol or drug abuse patient.[facility] HospitalIn the event this information is protected by the Federal Confidentiality of Alcohol and Drug Abuse Patient Records regulations: The Federal rules restrict any use of the information to criminally investigate or prosecute any alcohol or drug abuse patient.[facility] HospitalIn the event this information is protected by the Federal Confidentiality of Alcohol and Drug Abuse Patient Records regulations: The Federal rules restrict any use of the information to criminally investigate or prosecute any alcohol or drug abuse patient.[facility] Reason for Visit (unrecogniz ed section and [...] NEW HIGH MDM 60-74 MINUTES Noreen Cutler, CONVEYOR LINE BAKERY WORKER.AUTOCAD OPERATOR [address] [place] [address] Referral ID Status Reason Start Date Expiration Date V isits Requested Visits Authorized [id number] Closed PCP Requested Referral 10/10/2022 10/10/2023 1 [...] PROVIDER ORDERED FOLLOW UP OFFICE/OUTPATIENT NEW HIGH [facility] 60-74 MINUTES Noreen Cutler, CONVEYOR LINE BAKERY WORKER.AUTOCAD OPERATOR [address] [place] [address] Referral ID Status Reason Start Date Expiration Date Visits Requested Visits Authorized [id number] Authorized PCP Requested Referral 12/19/2022 12/19/2023 1 [...] Palpitations Procedures CONSULT TO PEDS CARDIOLOGY OFFICE/OUTPATIENT [facility] 60 MINUTES Wendi Anne PA-C [address] [place] [address] Referral ID Status Reason Start Date Expiration Date V isits Requested Visits Authorized [id number] Closed PCP Requested Referral 02/02/2024 02/01/2025 1 [...] Referred By Maritza zurita Referred To Contact [facility] Diagnoses with uncertain dates in first trimester (HCC) Procedures OBSTETRIC ULTRASOUND WHI US PREG UTERUS AFTER 1ST TRIMEST GESTATION Luis Carrasco, B[place].AUTOCAD OPERATOR [address] [place] [address] Phone: tel: fax: [facility] [address] [place] [address] Referral ID Status Reason Start Date Expiration Date V isits Requested Visits Authorized [id number] Closed Auto-Generate d Referral 12/30/2024 08/03/2025 1 1 Reason Comments OB-Dizziness Referral ID Status Reason Start Date Expiration Date V isits Requested Visits Authorized [id number] Closed Auto-Generate d Referral 12/30/2024 08/03/2025 1 1 Reason Onset Date Comments Care 02/11/2025 Reason Comments Urinary Frequency Frequency, burning a nd possibly a yeast infection-also wants STD check Reason Comments Urinary Problem Possible uti, freque ncy, burning with urination x 2 days Reason Onset Date Comments Care 04/15/2025 Care Teams (unrecognized sec tion and content) Pairing Machine Operator Relationship Specialty Start Date End Date Wendi Anne PA-C [address] [place] [place] [address] PCP - General Pediatrics 03/21/21 Pairing Machine Operator Relationship Specialty Start Date End Date Wendi Anne PA-C [address] [place] [place] [address] PCP - General Pediatrics 03/21/21 Pairing Machine Operator Relationship Specialty Start Date End Date Wendi Anne PA-C [address] [place] [place] [address] PCP - General Pediatrics 03/21/21 Pairing Machine Operator Relationship Specialty Start Date End Date Wendi Anne PA-C [address] [place] [address] PCP - General Pediatrics 03/21/21 Pairing Machine Operator Relationship Specialty Start Date End Date Wendi Anne PA-C [address] [place] [address] PCP - General Pediatrics 03/21/21 Pairing Machine Operator Relationship Specialty Start Date End Date Wendi Anne PA-C [address] [place] [place] [address] PCP - General Pediatrics 03/21/21 Pairing Machine Operator Relationship Specialty Start Date End Date Wendi Anne PA-C [address] [place] [place] [address] PCP - General Pediatrics 03/21/21 Pairing Machine Operator Relationship Specialty Start Date End Date Wendi Anne PA-C [address] [place] [address] PCP - General Pediatrics 03/21/21 Pairing Machine Operator Relationship Specialty Start Date End Date Wendi Anne PA-C [address] [place] [address] PCP - General Pediatrics 03/21/21 Pairing Machine Operator Relationship Specialty Start Date End Date Wendi Anne PA-C [address] [place] [address] PCP - General Pediatrics 03/21/21 Pairing Machine Operator Relationship Specialty Start Date End Date Wendi Anne PA-C [address] [place] [address] PCP - General Pediatrics 03/21/21 Pairing Machine Operator Relationship Specialty Start Date End Date Wendi Anne PA-C [address] [place] [address] PCP - General Pediatrics 03/21/21 Pairing Machine Operator Relationship Specialty Start Date End Date Wendi Anne PA-C [address] [place] [address] PCP - General Pediatrics 03/21/21 Pairing Machine Operator Relationship Specialty Start Date End Date Wendi Anne PA-C [address] [place] [address] PCP - General Pediatrics 03/21/21 Pairing Machine Operator Relationship Specialty Start Date End Date Wendi Anne PA-C [address] [place] [address] PCP - General Pediatrics 03/21/21 Pairing Machine Operator Relationship Specialty Start Date End Date Wendi Anne PA-C [address] [place] [address] PCP - General Pediatrics 03/21/21 Pairing Machine Operator Relationship Specialty Start Date End Date Wendi Anne PA-C [address] [place] [address] PCP - General Pediatrics 03/21/21 Team Status: Active Member Role Status Dates Cassandra Lyle CATTLE STICKER, CATTLE STICKER-C Family Provider Active FABIANO Hawkins Primary Care Provider Active Team Status: Inactive Member Role Status Dates FABIANO Hawkins Primary Care Provider, Referring Pr ovider Active Angelia Ruth CNM Attending Provider Active Team Status: Inactive Member Role Status Dates FABIANO Hawkins Primary Care Provider Active Angelia Ruth CNM Attending Provider, Referring Pro vider Active Pairing Machine Operator Relationship Specialty Start Date End Date Wendi Anne PA-C PCP - General Pediatrics 03/21/21 Pairing Machine Operator Relationship Specialty Start Date End Date Wendi Anne PA-C PCP - General Pediatrics 03/21/21 Pairing Machine Operator Relationship Specialty Start Date End Date Wendi Anne PA-C PCP - General Pediatrics 03/21/21 Pairing Machine Operator Relationship Specialty Start Date End Date Wendi Anne PA-C PCP - General Pediatrics 03/21/21 Pairing Machine Operator Relationship Specialty Start Date End Date Wendi Anne PA-C PCP - General Pediatrics 03/21/21 Pairing Machine Operator Relationship Specialty Start Date End Date Wendi Anne PA-C PCP - General Pediatrics 03/21/21 Pairing Machine Operator Relationship Specialty Start Date End Date Wendi Anne PA-C PCP - General Pediatrics 03/21/21 Pairing Machine Operator Relationship Specialty Start Date End Date Wendi Anne PA-C PCP - General Pediatrics 03/21/21 Pairing Machine Operator Relationship Specialty Start Date End Date Wendi Anne PA-C PCP - General Pediatrics 03/21/21 Pairing Machine Operator Relationship Specialty Start Date End Date Wendi Anne PA-C PCP - General Pediatrics 03/21/21 Pairing Machine Operator Relationship Specialty Start Date End Date Wendi Anne PA-C PCP - General Pediatrics 03/21/21 Pairing Machine Operator Relationship Specialty Start Date End Date Wendi Anne PA-C PCP - General Pediatrics 03/21/21 Pairing Machine Operator Relationship Specialty Start Date End Date Wendi Anne PA-C PCP - General Pediatrics 03/21/21 Pairing Machine Operator Relationship Specialty Start Date End Date Wendi Anne PA-C PCP - General Pediatrics 03/21/21 Pairing Machine Operator Relationship Specialty Start Date End Date Wendi Anne PA-C PCP - General Pediatrics 03/21/21 Pairing Machine Operator Relationship Specialty Start Date End Date Wendi Anne PA-C PCP - General Pediatrics 03/21/21 Pairing Machine Operator Relationship Specialty Start Date End Date Wendi Anne PA-C PCP - General Pediatrics 03/21/21 Pairing Machine Operator Relationship Specialty Start Date End Date Wendi Anne PA-C PCP - General Pediatrics 03/21/21 Pairing Machine Operator Relationship Specialty Start Date End Date Wendi Anne PA-C PCP - General Pediatrics 03/21/21 Pairing Machine Operator Relationship Specialty Start Date End Date Wendi Anne PA-C PCP - General Pediatrics 03/21/21 Pairing Machine Operator Relationship Specialty Start Date End Date Wendi [...] BE BASED ON THE PRIMARY CLINICAL RECORDS. [facility] [employer] [facility]. provides no warranty or guarantee of the accuracy or completeness of information in this document.
[2025-07-14 19:20] VITALS: RESP 16; TEMP 36.6
[2025-07-14 19:21] VITALS: BP 111/82; PULSE 102
[2025-07-14 19:38] VITALS: BMI 29.2
[2025-07-14 19:52] LABS: Hematocrit 32.8 % (37-47); Hemoglobin 10.9 g/dL (12.0-15.0); Immature Granulocytes Count 0.040 X10^3/uL (0.0-0.0); Mean Corp Hgb Conc 33.2 g/dL (32-36); Mean Corpuscular Volume 87.0 fL (81-99); Mean Platelet Vol. 10.7 fl (6.2-12.0); NRBC Flagged by Analyzer 0 % (0-5); Platelet Count 311 K/mm3 (150-450); RBC Distribution Width CV 12.2 % (11.6-14.6); RBC Distribution Width SD 38.9 fl (35.1-43.9); Red Blood Count 3.77 M/mm3 (4.2-5.4); White Blood Count 9.4 K/mm3 (4.4-11.0)
[2025-07-14] MEDS: 0.9% Normal Saline Single 100 ML IV.SOLN. INTRA-UTER (20:20)
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
[2025-07-14 20:40] LABS: Syphilis Antibodies Nonreactive (Nonreactive)
[2025-07-14 21:24] LABS: Barbiturate Urine NEGATIVE (< 200 ng/mL); Benzodiazepine Urine NEGATIVE (< 200 ng/mL); PCP Urine NEGATIVE (< 25 ng/mL); THC Urine NEGATIVE (< 50 ng/mL)
[2025-07-14] MEDS: fentaNYL 100 MCG/2 ML Ampul IV (23:25)
[2025-07-15] VITALS (50 sets, daily range): BP systolic 106–136; BP diastolic 56–79; PULSE 63–155; RESP 14–16; TEMP 36.3–37.5; O2SAT 79–100
[2025-07-15] MEDS: fentaNYL 100 MCG/2 ML Ampul IV (06:03)
[2025-07-15] MEDS: Lactated Ringers 1,000 ML 50 ML IV (06:04)
[2025-07-15] MEDS: Oxytocin 15 Units/NS 250ml 15 UNITS/250 ML IV.SOLN 2 UNITS IV (06:10)
[2025-07-15] MEDS: Lactated Ringers 1,000 ML 999 ML IV (08:01)
[2025-07-15] MEDS: fentaNYL-bupivacaine (epidural) 100 ML BAG EPIDURAL ×2 (08:56→13:51)
[2025-07-15] MEDS: Lactated Ringers 1,000 ML 200 ML IV (08:57)
--- NOTE | 2025-07-15 09:04 | PN.OBGYN_ITS ---
Subjective Subjective Resting in bed, breathing with contractions. Mother and father of baby at bedside. Coping well. Objective Data Objective Data Vital Signs: Vital Signs Temp Pulse Resp BP Pulse Ox 97.4 F L 95 16 115/56 L 100 07/15/25 07:44 07/15/25 09:01 07/15/25 08:51 07/15/25 09:01 07/15/25 08:51 Weight: 192 lb 4 oz Body Mass Index (BMI) 29.2 Intake & Output: Intake and Output for Last 24 Hours 07/13/25 07/14/25 07/15/25 23:59 23:59 23:59 Intake Total 98.83 / 98.83 Balance 98.83 / 98.83 Lab / Micro Data 07/16/25 06:15 Labs: Laboratory Results - last 24 hr 07/14/25 19:40: WBC 9.4, RBC 3.77 L, Hgb 10.9 L, Hct 32.8 L, MCV 87.0, MCH 28.9, MCHC 33.2, RDW Std Deviation 38.9, RDW Coeff of Kevin 12.2, Plt Count 311, MPV 10.7, Immature Gran % (Auto) 0.400, Neut % (Auto) 76.6 H, Lymph % (Auto) 17.3 L, [place] % (Auto) 5.1, Eos % (Auto) 0.4, Baso % (Auto) 0.2, Absolute Neuts (auto) 7.2, Absolute Lymphs (auto) 1.63, Nucleated RBC % 0, Syphilis Total Ab Nonreactive, Blood Type O POSITIVE, Antibody Screen NEGATIVE 07/14/25 20:45: Urine Opiates Screen NEGATIVE, U Buprenorphine Qual NEGATIVE, Ur Oxycodone Screen NEGATIVE, Urine Methadone Screen NEGATIVE, Urine Fentanyl Screen NEGATIVE, Ur Barbiturates Screen NEGATIVE, Ur Phencyclidine Scrn NEGATIVE, Ur Amphetamines Screen NEGATIVE, U Benzodiazepines Scrn NEGATIVE, Urine Cocaine Screen NEGATIVE, U Cannabinoids Screen NEGATIVE Physical Exam Manual OB Exam: estimated gestational size appropriate, presentation cephalic, dilated 4, effaced 70, station -2 and other arom, moderate amount of clear fluid NST FHR Rate Baby A Baseline: 145 Variability:: Moderate Accelerations:: 15 x 15 Decelerations:: Variable FHR Category:: Category II Uterine Activity:: every 2 minutes, moderate to strong Assessment & Plan (1) Encounter for elective induction of labor: (2) 40 weeks gestation of : PLAN: Plan 1) Continue with active management 2) AROM 3) Epidural placement for pain management 4) collaborative physician and notified of patient status.
[2025-07-15] MEDS: LACTATED RINGERS 500 ML 999 ML IV (11:53)
[2025-07-15] MEDS: Lidocaine 1% (20 ml mdv) 20 ML Vial INFILT (14:17)
--- NOTE | 2025-07-15 14:44 | EX.PCM.OBVAG ---
Assessment & Plan (1) Vaginal delivery: (2) First degree perineal laceration: Maternal Data Information NEMESIO Calculator Estimated Delivery Date Method Current WG Current Estimate 07/14/25 Manual 40w 1d Vaginal Delivery Maternal Presentation Maternal Presentation: Elective Induction Type of Induction: Pitocin, Rose Bulb and Cytotec Vaginal Delivery Information Procedure Performed: Spontaneous Vaginal Delivery Surgeon/Practitioner: Deysi Seth Date of Procedure: 07/15/25 Pre-Procedure Diagnosis: Elective induction of labor Post-Procedure Diagnosis: , first degree perineal laceration Type of anesthesia: Epidural Estimated Blood Loss: 300 Time of Delivery: 14:17 Findings Description of procedure: Progressed to complete with urge to push. Epidural for pain management. of viable male over first degree perineal laceration. APGARS 8,9 respectively. Infant head delivered with body immediately forthcoming. Placed on maternal abdomen, strong cry. Mouth and nares suctioned for secretions. Pitocin started for active 3rd stage management. Cord doubly clamped and cut by FOB after pulsations ceased, delayed cord clamping. Placenta delivered intact via horner, 3 vessel cord intact. Perineum inspected and revealed first degree perineal laceration. Repaired with 3.0 vicryl rapide and lidocaine with epidural. Fundus firm and hemostasis achieved. EBL 300ml. Vaginal sweep completed by me, sponge and instrument correct. Mom and baby stable, planning to breastfeed. Family bonding well. notified of delivery. Presentation: Vertex Amniotic Membrane Rupture Type: Spontaneous Amniotic Fluid Description: Clear Placental Delivery Description: Spontaneous Placenta Disposition: [facility] Specimen collected: No Cord Vessel Description: 3 Vessels Cord Entanglement: None Infant A Gender: Male (1 minute): 8 (5 minute): 9 Delayed Cord Clamping: Yes Chemist Internship lumber piler: No Post Vaginal Deli Medications given after delivery: IV Pitocin Episiotomy Description: None Laceration: Perineal Extension/lac and 1st degree Complication Complications: No
[2025-07-15] MEDS: Oxytocin 15 Units/NS 250ml 15 UNITS/250 ML IV.SOLN 83 UNITS IV (15:00)
[2025-07-16 04:00] VITALS: BP 106/72; PULSE 82; RESP 16; TEMP 36.6; O2SAT 99
[2025-07-16 06:21] LABS: Hematocrit 26.2 % (37-47); Hemoglobin 8.5 g/dL (12.0-15.0); Immature Granulocytes Count 0.100 X10^3/uL (0.0-0.0); Mean Corp Hgb Conc 32.4 g/dL (32-36); Mean Corpuscular Volume 89.4 fL (81-99); Mean Platelet Vol. 10.2 fl (6.2-12.0); NRBC Flagged by Analyzer 0 % (0-5); Platelet Count 225 K/mm3 (150-450); RBC Distribution Width CV 12.5 % (11.6-14.6); RBC Distribution Width SD 40.6 fl (35.1-43.9); Red Blood Count 2.93 M/mm3 (4.2-5.4); White Blood Count 15.1 K/mm3 (4.4-11.0)
[2025-07-16 07:32] VITALS: BP 121/77; PULSE 106
[2025-07-16 07:40] VITALS: BP 121/77; PULSE 84; RESP 18; TEMP 36.7; O2SAT 99
[2025-07-16] MEDS: Iron Sucrose Complex 200 MG in 0.9% Normal Saline (100mL Bag) 100 ML 220 MG IV (07:50)
[2025-07-16] MEDS: 0.9% Saline Lock 10 ML Syringe IV (07:50)
--- NOTE | 2025-07-16 12:04 | PN.OBGYN_ITS ---
Subjective Subjective Doing well per patient and nursing staff. Ambulating and taking PO without difficulty. Voiding and passing flatus. Pain controlled. , services for assistance. Denies headache, visual changes, chest pain, shortness of breath, leg pain or increased bleeding. Lochia normal. Objective Data Objective Data Vital Signs: Vital Signs Temp Pulse Resp BP Pulse Ox O2 Del Method 98.1 F 84 18 121/77 H 99 Room Air 07/16/25 07:40 07/16/25 07:40 07/16/25 07:40 07/16/25 07:40 07/16/25 07:40 07/16/25 07:40 Oxygen Delivery Method Room Air Weight: 192 lb 4 oz Body Mass Index (BMI) 29.2 Intake & Output: Intake and Output for Last 24 Hours 07/14/25 07/15/25 07/16/25 23:59 23:59 23:59 Intake Total 3060.84 / 3060.84 110 / 110 Output Total 850 / 850 Balance 2210.84 / 2210.84 110 / 110 Lab / Micro Data 07/16/25 06:15 Labs: Laboratory Results - last 24 hr 07/16/25 06:15: WBC 15.1 H, RBC 2.93 L, Hgb 8.5 L, Hct 26.2 L, MCV 89.4, MCH 29.0, MCHC 32.4, RDW Std Deviation 40.6, RDW Coeff of Kevin 12.5, Plt Count 225, MPV 10.2, Immature Gran % (Auto) 0.700, Neut % (Auto) 76.6 H, Lymph % (Auto) 16.0 L, [place] % (Auto) 6.0, Eos % (Auto) 0.5, Baso % (Auto) 0.2, Absolute Neuts (auto) 11.5 H, Absolute Lymphs (auto) 2.42, Nucleated RBC % 0 ROS Constitutional Constitutional: Reports systems reviewed and no addt'l complaints, except as documented; Denies headache(s) Eyes Eyes: Denies acute decrease in peripheral vision, blurry vision or change in vision ENT HEENT: Reports systems reviewed and no addt'l complaints, except as documented Cardiovascular Cardiovascular: Denies chest pain or dizziness Respiratory/Chest Respiratory/Chest: Denies cough, dyspnea, dyspnea on exertion, shortness of breath at rest or shortness of breath with exertion Gastrointestinal Gastrointestinal: Denies abdominal pain, diarrhea, nausea or vomiting Genitourinary Genitourinary: Denies abdominal discomfort Musculoskeletal Musculoskeletal: Denies limited range of motion Integumentary Integumentary: Reports systems reviewed and no addt'l complaints, except as documented Neurologic Neurologic: Reports systems reviewed and no addt'l complaints, except as documented Psychiatric Psychiatric: Reports systems reviewed and no addt'l complaints, except as documented Endocrine Endocrinology: Reports systems reviewed and no addt'l complaints, except as documented Hematologic/Lymphatic Hematologic/Lymphatic: Reports systems reviewed and no addt'l complaints, except as documented Allergic/Immunologic Allergic/Immunologic: Reports systems reviewed and no addt'l complaints, except as documented Physical Exam Const alert and oriented x3 General Appearance: cooperative Orientation / Consciousness: awake, oriented to person, oriented to place and oriented to time Exam Limitations: no limitations HEENT normocephalic Head and Scalp: normal to inspection, normocephalic and atraumatic Face and Sinus: normal facial exam Eyes General Eye: normal appearance of both eyes Neck full ROM Chest Chest: symmetrical chest wall rise Resp normal respiratory effort and normal air movement Auscultation: clear to auscultation bilaterally Cardio regular rate, regular rhythm, S1 normal heart sound, S2 normal heart sound, no murmurs, no rub, no gallops and no clicks GI normal to inspection, nondistended, normoactive bowel sounds and non-tender GI Narrative: Fundus firm 2 below U appearance of the vagina normal Narrative: Normal lochia rubra Bladder / Kidney Exam: no CVA tenderness Back/Spine normal ROM Extremity normal to inspection and full ROM Skin no rashes or lesions noted Neuro oriented x3, CN's II-XII intact bilaterally and moves all extremities Sensorium / Orientation: awake, alert and oriented to person Motor Exam: clonus absent Deep Tendon Reflexes: Rt Patellar (L4): 2+ and Lt Patellar (L4): 2+ Assessment & Plan (1) First degree perineal laceration: (2) Vaginal delivery: PLAN: Plan 1) Routine care, PPD #1 2) Vitals signs stable 3) Pain controlled 4) , services PRN 5) D/C home 6) Follow up in 2 weeks and 6 weeks
[2025-07-16 12:15] VITALS: BP 116/65; PULSE 91; PULSE 97; RESP 18; TEMP 36.6; O2SAT 98
[2025-07-16 12:16] VITALS: BP 116/65; PULSE 96
--- NOTE | 2025-07-16 12:20 | PCM.DC.SUM ---
Providers Date of Admission: 07/14/25 Primary Care Physician: FABIANO Hawkins Reason For Visit: VAGINAL Diagnosis Discharge Diagnosis (1) First degree perineal laceration: Status: Acute Code(s): O70.0 - First degree perineal laceration during delivery (2) Vaginal delivery: Status: Acute Code(s): O80 - Encounter for full-term uncomplicated delivery Plan 1) Routine care, PPD #1 2) Vitals signs stable 3) Pain controlled 4) , services PRN 5) D/C home 6) Follow up in 2 weeks and 6 weeks Medications at Discharge Home Medications magnesium 200 mg tablet 200 mg PO DAILY restless legs 07/14/25 acetaminophen 500 mg tablet 1,000 mg (2 x 500 mg) PO Q6H PRN PRN Pain 1-10 Or Fever #0 tabs 07/16/25 ibuprofen 600 mg tablet 600 mg PO Q6H PRN PRN Pain Score 1-10 #0 tabs 07/16/25 Weight / BMI Weight Weight: 192 lb 4 oz Body Mass Index (BMI) 29.2 PRE- weight 143 lb PRE- Body Mass Index 21.7 (BMI) ABG / Lab / Microbiology Data 07/16/25 06:15 Laboratory: Laboratory Results - last 24 hr 07/16/25 06:15: WBC 15.1 H, RBC 2.93 L, Hgb 8.5 L, Hct 26.2 L, MCV 89.4, MCH 29.0, MCHC 32.4, RDW Std Deviation 40.6, RDW Coeff of Kevin 12.5, Plt Count 225, MPV 10.2, Immature Gran % (Auto) 0.700, Neut % (Auto) 76.6 H, Lymph % (Auto) 16.0 L, [place] % (Auto) 6.0, Eos % (Auto) 0.5, Baso % (Auto) 0.2, Absolute Neuts (auto) 11.5 H, Absolute Lymphs (auto) 2.42, Nucleated RBC % 0 D/C Instructions Discharge Activity: Return to Normal Activity, May Drive, May Shower and May Take a Tub Bath May resume sexual activity in: 6 weeks Weight Bearing Status: Full weight bearing Call your doctor if you observe: Fever of 101 or Higher, Inability to urinate, Using more than 1 pad per hour, Shortness of breath, Chest pain, Increased palpitations (irregular heartbeat), Calf discomfort and Uncontrolled pain DC O2, CPAP, BIPAP Needs Home O2 Discharge instructions: No Please Follow Up With: Deysi Seth CNM When: 2 week virtual visit and 6 week visit Meaningful Use Info Meaningful Use Meaningful Use Diagnoses (Choose all that apply): None applicable Discharge Plan Admission Admit Date/Time: 07/14/25 18:50 Primary Reason for Your Visit: Vaginal delivery, first degree perineal laceration Attending Provider: Deysi Seth Primary Care Provider: Wendi Martin Discharge Orders/Prescriptions Prescriptions: New acetaminophen 500 mg Tablet 1,000 mg PO Q6H PRN PRN (Reason: Pain 1-10 Or Fever) Qty: 0 0RF ibuprofen 600 mg Tablet 600 mg PO Q6H PRN PRN (Reason: Pain Score 1-10) Qty: 0 0RF Continued magnesium 200 mg tablet 200 mg PO DAILY Referrals / Follow Up: Wendi Martin PA [Primary Care Provider, Pediatrics] Disposition Disposition (needs filled in before D/C Order can be placed): Home, Self Care
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
--- NOTE | 2025-07-17 09:36 | CASEMGMT ---
Social Work Tire Worker made phone contact with [facility] and spoke with Elana. Tire Worker made a referral per protocol due to marijuana use during . Wanda Leon, DESULPHURING OPERATOR, COUNTER POCKET SEWER
--- NOTE | 2025-07-20 15:42 | NURSING ---
1543-called for follow up phone call, voicemail message left.
== END 2025-07-16 16:05 | disposition home or self-care (01) | DRG 807 ==
PROVIDERS: Obstetrics & Gynecology; Admitting Provider Advanced Practice Midwife; Referring Provider Advanced Practice Midwife; Visit Provider Advanced Practice Midwife
DX: O99.344 Other mental disorders complicating childbirth (principal); Z37.0 Single live birth; F17.290 Nicotine dependence, other tobacco product, uncomplicated; F32.A Depression, unspecified; O99.334 Smoking (tobacco) complicating childbirth; F43.10 Post-traumatic stress disorder, unspecified; F41.1 Generalized anxiety disorder; O76 Abnormality in fetal heart rate and rhythm complicating labor and delivery; O70.0 First degree perineal laceration during delivery; Z3A.40 40 weeks gestation of pregnancy; Z87.898 Personal history of other specified conditions
CPT/HCPCS: 59025; 59050; 80307; 85025; 86780; 86850; 86900; 86901; 99221; J1756; A4216; G0378